=== PATIENT | male | born 1980 | race Caucasian/White ===

== ENCOUNTER 2017-05-27 08:17 | Inpatient (IN) | payer OTHER ==
[~2017-05-27] VITALS: Ht 182.9 cm; Wt 72.1 kg
[2017-05-27] VITALS (20 sets, daily range): BP systolic 100–124; BP diastolic 57–79; PULSE 71–103; TEMP 36.7–37.1; O2SAT 96–100; Ht 182.9 cm; Wt 72.1 kg
[2017-05-27 09:16] LABS: BUN/CREATININE RATIO 9.3 (10-20)
[2017-05-27 09:18] LABS: HEMATOCRIT 16.6 % (42-52); MEAN CELL VOLUME 60.6 fL (80-100); MEAN CORPUSCULAR HEMOGLOBIN 15.7 pg (25-34); MEAN CORPUSCULAR HGB CONC 25.9 g/dl (32-36); PLATELET COUNT 630 K/uL (130-400); RED BLOOD COUNT 2.74 M/uL (4.7-6.1); WHITE BLOOD COUNT 4.77 K/uL (4.8-10.8)
[2017-05-27 09:19] LABS: ALB/GLOB RATIO 1.3 (0.9-2)
--- NOTE | 2017-05-27 09:25 | DIAGNOSTIC IMAGING REPORT ---
CT OF THE HEAD WITHOUT CONTRAST CLINICAL HISTORY: dizzy hx of diaz's COMPARISON STUDY: No previous studies for comparison. CT DOSE: 788.63 mGycm TECHNIQUE: Helical axial images of the head were obtained without IV contrast. Automated exposure control was utilized for the study. A dose lowering technique was utilized adhering to the principles of ALARA. FINDINGS: No acute intracranial hemorrhage, midline shift or mass affect is present. Ventricular system is unremarkable. Basilar cisterns are patent. There are no extra-axial collections. Haley-white differentiation is maintained. There may be bilateral caudate nucleus atrophy. There are no findings to suggest acute dural sinus thrombosis or acute territorial infarct. There are no significant calvarial abnormalities. Visualized portions of the mastoid air cells are clear. There is mild mucosal thickening of the sinuses. IMPRESSION: 1. No acute intracranial findings. 2. 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 Electronically signed by: Aristides Reyes M.D. 05/27/2017 9:24 AM Dictated Date/Time: 05/27/2017 9:09 AM
--- NOTE | 2017-05-27 09:26 | DIAGNOSTIC IMAGING REPORT ---
CHEST 2 VIEWS ROUTINE CLINICAL HISTORY: Dizzy. COMPARISON STUDY: No previous studies for comparison. FINDINGS: Lung volumes are normal. No pneumothorax or pleural effusion is identified. Lungs are clear. Pulmonary vascularity is normal. Cardiomediastinal silhouette is normal. IMPRESSION: No acute cardiopulmonary findings. Electronically signed by: Aristides Reyes M.D. 05/27/2017 9:24 AM Dictated Date/Time: 05/27/2017 9:24 AM
[2017-05-27 09:31] LABS: ANISOCYTOSIS PRESENT; BASO % 2.7 %; BASO ABS # 0.13 K/uL (0-0.2); COMPLETE YES; EOS % 4.6 %; HYPOCHROMIA PRESENT; IG% 0.4 %; LYMPH % 41.7 %; LYMPH ABS # 1.99 K/uL (1.2-3.4); MONO % 10.5 %; NEUT % 40.1 %; POIKILOCYTOSIS PRESENT; POLYCHROMASIA 1+; SCHISTOCYTES 1+
--- NOTE | 2017-05-27 10:26 | EMERGENCY ROOM VISIT NOTE ---
History Report prepared by Amaibmarisel: Leonor Dewitt Under the Supervision of: Dr. Richie Ceballos M.D. First contact with patient: 08:30 Chief Complaint: DIZZY Stated Complaint: DIZZY, PALE, MITCHELL History of Present Illness The patient is a 36 year old male who presents to the Emergency Room with complaints of constant dizziness beginning 6 months ago. 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 He has been having dizziness and a headache that started about 6 months ago and has worsened over the last week. The patient states that his symptoms today are not significantly changed from how they have been for the past 6 months. He also notes that he often feels like "the room is spinning" and that he may fall down. The patient denies having any fever, chills, diarrhea, constipation, urinary symptoms, abdominal pain, blood in the stool, and any black stool. The patient also notes that he has been eating and drinking normally. He states that he has recently been having a hard time sleeping because he feeling anxious about work. The patient notes that he does not have a PCP. He has no history of anemia. Source of History: patient Onset: 6 months ago Position: other (generalized) Quality: other (dizziness) Timing: constant Associated Symptoms: + headache, No fevers, No chills, No diarrhea, No urinary symptoms Review of Systems All systems have been listed, reviewed, and are negative other than those previously mentioned. Please see Additional Medical History Sheet. Past Medical & Surgical Medical Problems: (1) No history of cancer (2) No known problems Family History Diabetes mellitus Social History Smoking Status: Never Smoker Alcohol Use: occasionally Drug Use: none Marital Status: single Occupation Status: employed Current/Historical Medications No Active Prescriptions or Reported Meds Allergies Coded Allergies: No Known Allergies (Unverified , 09/28/15) Physical Exam Vital Signs Date Time Temp Pulse Resp B/P (MAP) Pulse Ox O2 Delivery O2 Flow Rate FiO2 05/27/17 10:42 100 Room Air 05/27/17 10:13 85 18 116/72 100 Room Air 05/27/17 08:35 79 05/27/17 08:20 36.6 108 20 111/73 97 Room Air Physical Exam GENERAL: Patient awake, alert, oriented x 3. Patient follows commands. Patient does not appear toxic. Patient is adequately hydrated and well- nourished. SKIN: No erythema,cyanosis or rash. Pale. HEENT: Normal head, pupils equal, reactive to light and accommodation. Nystagmus. Ears normal. Oral cavity and posterior pharynx appear normal. Neck : Without adenopathy, no neck vein distention. LUNGS: Clear to auscultation. No wheezes, no rales, no rhonchi. HEART: No murmurs. No gallops. No rubs ABDOMEN: No masses, no rebound, no hepatomegaly or splenomegaly. EXTREMITIES: No signs of trauma. No pedal or pretibial edema. No calf or thigh tenderness. NEUROLOGIC: Cranial nerves II-XII within normal limits. No gross motor sensory function deficits. RECTAL: Normal rectal exam. No masses, no hemorrhoids, brown guaiac negative stool. Medical Decision & Procedures ER Provider Diagnostic Interpretation: Radiology results as stated below per my review and radiologist interpretation: CHEST 2 VIEWS ROUTINE FINDINGS: Lung volumes are normal. No pneumothorax or pleural effusion is identified. Lungs are clear. Pulmonary vascularity is normal. Cardiomediastinal silhouette is normal. IMPRESSION: No acute cardiopulmonary findings. Electronically signed by: Aristides Reyes M.D. CT OF THE HEAD WITHOUT CONTRAST FINDINGS: No acute intracranial hemorrhage, midline shift or mass affect is present. Ventricular system is unremarkable. Basilar cisterns are patent. There are no extra-axial collections. Haley-white differentiation is maintained. There may be bilateral caudate nucleus atrophy. There are no findings to suggest acute dural sinus thrombosis or acute territorial infarct. There are no significant calvarial abnormalities. Visualized portions of the mastoid air cells are clear. There is mild mucosal thickening of the sinuses. IMPRESSION: 1. No acute intracranial findings. 2. 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 Electronically signed by: Aristides Reyes M.D. 05/27/2017 9:24 AM Dictated Date/Time: 05/27/2017 9:09 AM Laboratory Results 05/27/17 08:43 Red Blood Count 2.74, Mean Corpuscular Volume 60.6, Mean Corpuscular Hemoglobin 15.7, Mean Corpuscular Hemoglobin Concent 25.9, Neutrophils (%) (Auto) 40.1, Lymphocytes (%) (Auto) 41.7, Monocytes (%) (Auto) 10.5, Eosinophils (%) (Auto) 4.6, Basophils (%) (Auto) 2.7, Neutrophils # (Auto) 1.91, Lymphocytes # (Auto) 1.99, Monocytes # (Auto) 0.50, Eosinophils # (Auto) 0.22, Basophils # (Auto) 0.13 05/27/17 08:43 Test 05/27/17 08:43 White Blood Count 4.77 K/uL (4.8-10.8) Red Blood Count 2.74 M/uL (4.7-6.1) Hemoglobin 4.3 g/dL (14.0-18.0) Hematocrit 16.6 % (42-52) Mean Corpuscular Volume 60.6 fL (80-100) Mean Corpuscular Hemoglobin 15.7 pg (25-34) Mean Corpuscular Hemoglobin Concent 25.9 g/dl (32-36) Platelet Count 630 K/uL (130-400) Neutrophils (%) (Auto) 40.1 % Lymphocytes (%) (Auto) 41.7 % Monocytes (%) (Auto) 10.5 % Eosinophils (%) (Auto) 4.6 % Basophils (%) (Auto) 2.7 % Neutrophils # (Auto) 1.91 K/uL (1.4-6.5) Lymphocytes # (Auto) 1.99 K/uL (1.2-3.4) Monocytes # (Auto) 0.50 K/uL (0.11-0.59) Eosinophils # (Auto) 0.22 K/uL (0-0.5) Basophils # (Auto) 0.13 K/uL (0-0.2) Immature Granulocyte % (Auto) 0.4 % Immature Granulocyte # (Auto) 0.02 K/uL (0.00-0.02) Polychromasia 1+ Hypochromasia PRESENT Poikilocytosis PRESENT Anisocytosis PRESENT Schistocytes 1+ Anion Gap 6.0 mmol/L (3-11) Est Creatinine Clear Calc Drug Dose 103.1 ml/min Estimated GFR () 110.2 Estimated GFR (Non- 95.1 BUN/Creatinine Ratio 9.3 (10-20) Calcium Level 9.0 mg/dl (8.5-10.1) Iron Level 12 mcg/dl (35-175) Total Iron Binding Capacity 447 mcg/dl (250-450) Total Bilirubin 0.3 mg/dl (0.2-1) Aspartate Amino Transf (AST/SGOT) 16 U/L (15-37) Alanine Aminotransferase (ALT/SGPT) 20 U/L (12-78) Alkaline Phosphatase 42 U/L (45-117) Total Protein 6.8 gm/dl (6.4-8.2) Albumin 3.9 gm/dl (3.4-5.0) Globulin 2.9 gm/dl (2.5-4.0) Albumin/Globulin Ratio 1.3 (0.9-2) Laboratory results as stated above per my review. ECG Indication: other (dizziness) Rate (beats per minute): 74 Rhythm: normal sinus Findings: no ectopy, other (minimal voltage criteria for LVH) ED Course 0831: Past medical records reviewed. The patient was evaluated in room B4. A complete history and physical examination was performed. 0946: I reevaluated and updated the patient on his results. 1022: Discussed the patient's case with Dr. Hightower of [facility] [place]. The patient will be evaluated for further management. 1035: Upon reevaluation, the patient is doing well. I discussed today's findings with the patient. He verbalized agreement of the treatment plan. I spoke with Dr. Hightower of the [facility] [place] Hospitalist Service to evaluate the patient for further management. Medical Decision Differential diagnosis included but is not limited to: acute flare up of Suzy's, anemia, metabolic disorder, infection, benign positional vertigo, vestibular neuronitis. The patient is here with dizziness but no true vertigo. This been getting worse over the past 6 months. Multiple labs, EKG and imaging were obtained. Please see above. The patient is severely anemic. Blood transfusion was started here in the ED. Consent was signed. I discussed findings with the patient and his mother. The patient will require further evaluation in the hospital. Exact cause of his anemia remains unknown. Medication Reconcilliation Current Medication List: was personally reviewed by me Blood Pressure Screening Patient's blood pressure: Normal blood pressure Blood pressure disposition: Did not require urgent referral Consults Time Called: 1015 Consulting Physician: Dr. Hightower - [facility] [place] Returned Call: [phone] Discussed the patient's case with Dr. Hightower of [facility] [place]. The patient will be evaluated for further management. Impression Primary Impression: Severe anemia Scribe Attestation The scribe's documentation has been prepared under my direction and personally reviewed by me in its entirety. I confirm that the note above accurately reflects all work, treatment, procedures, and medical decision making performed by me. Departure Information Dispostion Being Evaluated By Hospitalist Prescriptions No Active Prescriptions or Reported Meds Referrals No Doctor, Assigned (PCP) Patient Instructions My [facility]
[2017-05-27] MEDS ORDERED: POLYETHYLENE (MIRALAX) 17 GM PACK PO PRN (10:45)
[2017-05-27] MEDS ORDERED: ONDANSETRON INJ 2 MG/ML 2 ML VIAL IV PRN (10:45)
[2017-05-27] MEDS ORDERED: ZOLPIDEM TARTRATE 5 MG TAB PO PRN (10:45)
[2017-05-27] MEDS ORDERED: ALUMINUM/MAGNESIUM/SIMETH (MAALOX MAX) 30 ML UDC PO PRN (10:45)
[2017-05-27] MEDS ORDERED: MAGNESIUM HYDROXIDE SUSP 30 ML UDC PO PRN (10:45)
[2017-05-27] MEDS ORDERED: ACETAMINOPHEN 325 MG TAB PO PRN (10:45)
--- NOTE | 2017-05-27 11:55 | History and Physical ---
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 Pt states he has been intermittently dizzy for the past 6 months. This seems to be orthostatic in nature. Over the past week his dizziness has significantly worsened and he presented to the ER therefore. Initial labs were remarkable for microcytic anemia with a hemoglobin of 4.2. He denies any history of GI bleeding, iron deficiency and anemia in general. he has not had dark stools and denies any upper GI symptoms. His stool was guiac-negative on ER evaluation. The pt does not see anyone for his Suzy's disease presently. He is fully independent and maintains employment. Past Medical/Surgical History Suzy's disease Family History Diabetes mellitus Father with CAD/[place] Social History Works full time paramedic in a restaurant - does not smoke - occasional ETOH Smoking Status: Never Smoker Drug Use: none Marital Status: single Occupational Status: employed Multi-Drug Resistant Organisms History of MDRO: No Allergies Coded Allergies: No Known Allergies (Unverified , 09/28/15) Home Medications No Active Prescriptions or Reported Meds Review of Systems Constitutional: No fever, No chills, No sweats Eyes: No worsening of vision, No eye pain ENT: No hearing loss, No nasal symptoms Respiratory: No cough, No sputum, No wheezing Cardiovascular: No chest pain Abdomen: No pain, No nausea, No vomiting Musculoskeletal: No joint pain Genitourinary - Male: No hematuria, No dysuria, No urinary frequency, No urinary urgency Neurologic: + weakness, + vertigo Psychiatric: No depression symptoms Endocrine: No fatigue Hematologic / Lymphatic: No abnormal bleeding/bruising Integumentary: No rash Allergic / Immunologic: No environmental allergies Physical Exam Vital Signs Date Time Temp Pulse Resp B/P (MAP) Pulse Ox O2 Delivery O2 Flow Rate FiO2 05/27/17 11:15 36.8 78 21 114/79 100 05/27/17 10:59 36.8 82 18 120/74 100 05/27/17 10:42 100 Room Air 05/27/17 10:13 85 18 116/72 100 Room Air 05/27/17 08:35 79 05/27/17 08:20 36.6 108 20 111/73 97 Room Air General Appearance: + pertinent finding (Pale, thin, young male - no distress) Head: normocephalic, atraumatic Eyes: normal inspection, PERRL, EOMI ENT: normal ENT inspection, pharynx normal Neck: supple, no JVD Respiratory/Chest: chest non-tender, lungs clear, normal breath sounds Cardiovascular: regular rate, rhythm, no edema, no gallop Abdomen/GI: normal bowel sounds, non tender, soft Back: normal inspection, no CVA tenderness Extremities/Musculoskelatal: normal inspection, no calf tenderness, normal capillary refill 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, no motor/sensory deficits, alert, normal mood/affect, normal reflexes, oriented x 3 Skin: normal color, warm/dry, no rash Diagnostics Laboratory Results Results Past 24 Hours Test 05/27/17 08:43 05/27/17 10:33 Range/Units White Blood Count 4.77 4.8-10.8 K/uL Red Blood Count 2.74 4.7-6.1 M/uL Hemoglobin 4.3 14.0-18.0 g/dL Hematocrit 16.6 42-52 % Mean Corpuscular Volume 60.6 80-100 fL Mean Corpuscular Hemoglobin 15.7 25-34 pg Mean Corpuscular Hemoglobin Concent 25.9 32-36 g/dl Platelet Count 630 130-400 K/uL Neutrophils (%) (Auto) 40.1 % Lymphocytes (%) (Auto) 41.7 % Monocytes (%) (Auto) 10.5 % Eosinophils (%) (Auto) 4.6 % Basophils (%) (Auto) 2.7 % Neutrophils # (Auto) 1.91 1.4-6.5 K/uL Lymphocytes # (Auto) 1.99 1.2-3.4 K/uL Monocytes # (Auto) 0.50 0.11-0.59 K/uL Eosinophils # (Auto) 0.22 0-0.5 K/uL Basophils # (Auto) 0.13 0-0.2 K/uL Immature Granulocyte % (Auto) 0.4 % Immature Granulocyte # (Auto) 0.02 0.00-0.02 K/uL Polychromasia 1+ Hypochromasia PRESENT Poikilocytosis PRESENT Anisocytosis PRESENT Schistocytes 1+ Sodium Level 140 136-145 mmol/L Potassium Level 4.0 3.5-5.1 mmol/L Chloride Level 108 98-107 mmol/L Carbon Dioxide Level 26 21-32 mmol/L Anion Gap 6.0 3-11 mmol/L Blood Urea Nitrogen 9 7-18 mg/dl Creatinine 1.00 0.60-1.40 mg/dl Est Creatinine Clear Calc Drug Dose 103.1 ml/min Estimated GFR () 110.2 Estimated GFR (Non- 95.1 BUN/Creatinine Ratio 9.3 10-20 Random Glucose 112 70-99 mg/dl Calcium Level 9.0 8.5-10.1 mg/dl Total Bilirubin 0.3 0.2-1 mg/dl Aspartate Amino Transf (AST/SGOT) 16 15-37 U/L Alanine Aminotransferase (ALT/SGPT) 20 12-78 U/L Alkaline Phosphatase 42 45-117 U/L Total Protein 6.8 6.4-8.2 gm/dl Albumin 3.9 3.4-5.0 gm/dl Globulin 2.9 2.5-4.0 gm/dl Albumin/Globulin Ratio 1.3 0.9-2 Impression Assessment and Plan 36 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 Pt states he has been intermittently dizzy for the past 6 months. This seems to be orthostatic in nature. Over the past week his dizziness has significantly worsened and he presented to the ER therefore. Initial labs were remarkable for microcytic anemia with a hemoglobin of 4.2. He denies any history of GI bleeding, iron deficiency and anemia in general. he has not had dark stools and denies any upper GI symptoms. His stool was guiac-negative on ER evaluation. The pt does not see anyone for his Erie's disease presently. He is fully independent and maintains employment. 1) Anemia - microcytic - no evidence of bleeding - we will obtain an iron profile and consult both hematology and GI. He will be monitored on telemetry and is to receive 4 units PRBCs initially. 2) Suzy's disease - Pt is currently fully functional - unclear if this is related to his initial described dizziness which may be solely due to anemia - can f/u as outpt. Full code - SCDs total time for this admit including review of labs, meds, records - discussion with pt and ER attending - 40 min Advanced Directives Existing Living Will: No Existing Power of Service Writer: No VTE Prophylaxis VTE Risk Assessment Done? Y/N: Yes Risk Level: Low
[2017-05-27 12:01] LABS: TOTAL IRON BINDING CAPACITY 447 mcg/dl (250-450)
--- NOTE | 2017-05-27 13:57 | Oncology Consultation ---
Oncology/Heme Consultation Date of Consultation: May 27, 2017. Attending Physician: Gee Hightower M.D. Reason for Consultation: Microcytic anemia History of Present Illness Mr. Tripathi is a 36-year-old gentleman with a history of [place]'s chorea. He was admitted after several months of apparently feeling weak and dizzy. His hemoglobin was 4.3. MCV was low. White cell number and differential as well as platelet numbers are acceptable. Platelet number is actually a little increased. This is all consistent with iron deficiency anemia. He denies any overt bleeding. Denies any fever or chills or weight loss. He apparently does not take any medicines chronically. He denies taking aspirin or nonsteroidals. He has never had any GI problems in the past. Past Medical/Surgical History Medical Problems: (1) Severe anemia Status: Acute (2) Vomiting Status: Acute Family History Diabetes mellitus History of blood dyscrasias from what I can gather Social History Negative for significant smoking or alcohol usage. Smoking Status: Never Smoker Drug Use: none Marital Status: single Occupation Status: employed Allergies Coded Allergies: No Known Allergies (Unverified , 09/28/15) Home Medications No Active Prescriptions or Reported Meds Current Inpatient Medications Current Inpatient Medications Medications (Trade) Dose Ordered Sig/Ian Route Start Time Stop Time Status Last Admin Dose Admin Acetaminophen (Tylenol Tab) 650 mg Q4H PRN PO 05/27/17 10:45 06/26/17 10:44 Al Hydrox/Mg Hydrox/Simethicone (Maalox Max Susp) 15 ml Q4H PRN PO 05/27/17 10:45 06/26/17 10:44 Magnesium Hydroxide (Milk Of Magnesia Susp) 30 ml Q12H PRN PO 05/27/17 10:45 06/26/17 10:44 Zolpidem Tartrate (Ambien Tab) 5 mg HSZ PRN PO 05/27/17 10:45 06/26/17 10:44 Ondansetron HCl (Zofran Inj) 4 mg Q6H PRN IV 05/27/17 10:45 06/26/17 10:44 Polyethylene (Miralax Powder Packet) 17 gm DAILY PRN PO 05/27/17 10:45 06/26/17 10:44 Review of Systems Constitutional: Negative for weight loss, night sweats, or fever Eyes: Negative for event change of vision ENT: Negative for epistaxis, nasal discharge, sore throat, or deafness Cardiovascular: Negative for chest pain, palpitations, dizziness, diaphoresis Respiratory: Negative for new shortness of breath,hemoptysis, or purulent cough Gastrointestinal: Negative for diarrhea, hematemesis, melena, nausea, vomiting , or dyspepsia Integumentary (skin): Negative for rash or jaundice discoloration Genitourinary: Negative for urinary frequency, hematuria, or dysuria Neurological: Negative for weakness, seizure activity, headache, or dizziness Lymphatic/Hematologic: Negative for petechiae, bleeding or new adenopathy Musculoskeletal: Negative for new joint or back pain Allergic/Immunologic: Negative for unusual rash or pruritis. Physical Exam Date Time Temp Pulse Resp B/P (MAP) Pulse Ox O2 Delivery O2 Flow Rate FiO2 05/27/17 13:42 37.0 72 20 101/57 100 05/27/17 12:30 37.1 100 22 109/68 96 05/27/17 12:21 36.8 82 20 115/65 100 05/27/17 12:00 36.8 82 20 115/65 100 05/27/17 11:52 82 119/73 100 05/27/17 11:46 36.7 77 27 119/73 100 05/27/17 11:30 36.7 85 23 124/73 100 05/27/17 11:15 36.8 78 21 114/79 100 05/27/17 10:59 36.8 82 18 120/74 100 05/27/17 10:42 100 Room Air 05/27/17 10:13 85 18 116/72 100 Room Air 05/27/17 08:35 79 05/27/17 08:20 36.6 108 20 111/73 97 Room Air Constitutional: vitals are stable. He does appear pale Eyes: Eyes are ALLEGRA EOMI without conjuctival erythema or icterus. ENT: External examination was negative for masses. Neck: Negative for masses or palpable thyromegaly Respiratory: Lung sounds were generally clear bilaterally Cardiovascular: Heart was RRR without significant murmur, gallops aoe rubs Gastrointestinal: No palpable hepatic or splenomegaly. The abdomen was soft with normal bowel sounds. Lymphatic system: there was no palpable peripheral lymphadenopathy Musculoskeletal System: The musculoskeletal system seemed concordant with age. Skin: The skin was negative for jaundice. Neurologic exam: He does have some mild generalized athetosis Psychiatric exam: Was essentially negative with normal mood and effect. Extremities: Negative for edema erythema Laboratory Results Last 24 Hours Test 05/27/17 08:43 05/27/17 12:14 05/27/17 13:00 White Blood Count 4.77 K/uL Red Blood Count 2.74 M/uL Hemoglobin 4.3 g/dL Hematocrit 16.6 % Mean Corpuscular Volume 60.6 fL Mean Corpuscular Hemoglobin 15.7 pg Mean Corpuscular Hemoglobin Concent 25.9 g/dl Platelet Count 630 K/uL Neutrophils (%) (Auto) 40.1 % Lymphocytes (%) (Auto) 41.7 % Monocytes (%) (Auto) 10.5 % Eosinophils (%) (Auto) 4.6 % Basophils (%) (Auto) 2.7 % Neutrophils # (Auto) 1.91 K/uL Lymphocytes # (Auto) 1.99 K/uL Monocytes # (Auto) 0.50 K/uL Eosinophils # (Auto) 0.22 K/uL Basophils # (Auto) 0.13 K/uL Immature Granulocyte % (Auto) 0.4 % Immature Granulocyte # (Auto) 0.02 K/uL Polychromasia 1+ Hypochromasia PRESENT Poikilocytosis PRESENT Anisocytosis PRESENT Schistocytes 1+ Sodium Level 140 mmol/L Potassium Level 4.0 mmol/L Chloride Level 108 mmol/L Carbon Dioxide Level 26 mmol/L Anion Gap 6.0 mmol/L Blood Urea Nitrogen 9 mg/dl Creatinine 1.00 mg/dl Est Creatinine Clear Calc Drug Dose 103.1 ml/min Estimated GFR () 110.2 Estimated GFR (Non- 95.1 BUN/Creatinine Ratio 9.3 Random Glucose 112 mg/dl Calcium Level 9.0 mg/dl Iron Level 12 mcg/dl Total Iron Binding Capacity 447 mcg/dl Total Bilirubin 0.3 mg/dl Aspartate Amino Transf (AST/SGOT) 16 U/L Alanine Aminotransferase (ALT/SGPT) 20 U/L Alkaline Phosphatase 42 U/L Total Protein 6.8 gm/dl Albumin 3.9 gm/dl Globulin 2.9 gm/dl Albumin/Globulin Ratio 1.3 Vitamin B12 Level 496 pg/mL Folate 16.90 ng/mL Assessment & Plan Sever microcytic anemia consistent with iron deficiency. Serum ferritin should be done. A urinalysis if not done should also be completed. R/o of course GI blood loss. A GI consultation is pending. Obviously this anemia has occurred over a long period of time since he appears to have nicely hemodynamically compensated. He should be on oral iron at least ferrous sulfate 324-325 mg daily. We will arrange for follow-up in our clinic. He is currently being transfused. Little else to suggest at this time.
--- NOTE | 2017-05-27 18:38 | GASTROINTESTINAL CONSULTATION ---
DATE OF CONSULTATION: 05/27/2017 REQUESTING PHYSICIAN: Dr. Hightower. CHIEF COMPLAINT: Microcytic anemia of unclear origin. HISTORY OF PRESENT ILLNESS: Mr. Tripathi is a 36-year-old white male with a history of [place]'s chorea who does not have a medical care is unaware of any other medical diagnoses and takes no medications, who presents to the Emergency Room with increasing fatigue over the past several weeks. When further asked, he was dizzy intermittently and this may be as far as 6 months previous to today's ER visit. During ER evaluation, he was found to have a profound microcytic anemia with normal B12 and folic acid levels with decreased iron panel and was heme negative. The patient is unaware of any prior history of anemia, but does not see a doctor and has not done for many, many years. The patient has no GI symptoms. Specifically, he denies abdominal pain, nausea, vomiting, odynophagia, dysphagia, anorexia, weight loss, melena, bright red blood per rectum, maroon stools, coffee-ground emesis or hematemesis and denies dysuria. On occasion, he may have a loose stool, but this is not prolonged. There are no fever or chills. FAMILY HISTORY: Significant for coronary artery disease with his father, but otherwise he is unaware of any gastrointestinal disorders, history of celiac disease or other potential sources of blood loss that are familial. SOCIAL HISTORY: The patient works in a restaurant. He occasionally uses alcoholic beverages, perhaps once or twice a month. He does not use tobacco products. He is single. ALLERGIES: He has no known drug allergies. MEDICATIONS: He takes no home prescription or over the counter medications. PAST SURGICAL HISTORY: He denies any prior surgery. REVIEW OF SYSTEMS: Otherwise noncontributory based on 13-point exam except for mentioned above. The patient denies rashes, significant joint aches, palpitations, chest pain, shortness of breath, dysuria or hematuria, fevers or chills. PHYSICAL EXAMINATION: VITAL SIGNS: On admission in the Emergency Room, the patient was found to have a blood pressure of 111/73, 97% on room air, heart rate 108, afebrile at 36.8. GENERAL: The patient is awake, alert and oriented x3. HEENT: The sclerae are pale, but anicteric. Conjunctivae are clear. Oral mucosa is moist. HEART: Normal S1, S2. LUNGS: Clear to auscultation without wheezes or rhonchi. ABDOMEN: Soft, flat, nontender, nondistended with normal active bowel sounds. I do not appreciate hepatosplenomegaly. There is no evidence of ascites or shifting dullness or abdominal bruits. There is no organomegaly. EXTREMITIES: Without clubbing, cyanosis or edema. NEUROLOGIC: The patient has normal range of motion in all extremities and no focal neurologic defects. SKIN: The patient's skin is dry. LABORATORY STUDIES: Demonstrate white count 4.77, hemoglobin 4.3, hematocrit 16.6, MCV 60.6, platelets 630,000. There are features on peripheral smear consistent with iron deficiency with anisopoikilocytosis and hypochromasia. His kidney and electrolytes are satisfactory, BUN and creatinine 9 and 1.0, potassium 4.0, bicarbonate 26. LFTs also normal, total bilirubin 0.3, AST 16, ALT 20, total protein 6.8, albumin 3.9, alkaline phosphatase 42. IMPRESSION AND PLAN: Mr. Tripathi had a recent increasing fatigue with intermittent dizziness over the past many weeks and perhaps as long as 6 months. There are no gastrointestinal-related symptoms that would suggest a specific gastrointestinal blood loss and Hemoccult testing in the Emergency Room was negative. The source of this patient's iron deficiency is unclear. The patient reports no specific food restrictions or pica. Additionally, there is no description of any changes in stool patterns or blood loss. I made the following recommendations: We will plan for upper endoscopy and colonoscopy tomorrow after bowel prep this evening and n.p.o. after midnight except for ice chips and sips of water with meds. In addition, I have ordered celiac markers, given that the patient is heme positive with a profound microcytic anemia. Prior laboratory studies would be helpful, although these features seemed to be fairly classic for iron deficiency anemia and thalassemia is less likely, although at some point a hemoglobin electrophoresis may be of benefit if no sources of gastrointestinal or renal losses or poor absorption is identified. Further recommendations to follow. Iron supplements, either p.o. or IV and there are plans for transfusion this evening. All questions answered for the patient.
[2017-05-27] MEDS: LAVAGE SOLUTION 4000ML PO SCH ×2 (18:53→22:55)
[2017-05-27] MEDS ORDERED: LAVAGE SOLUTION 4000ML PO PRN (23:45)
[2017-05-28] VITALS: BP 124/78; PULSE 82; TEMP 36.8; O2SAT 98
[2017-05-28 03:43] VITALS: BP 118/81; PULSE 72; TEMP 36.8; O2SAT 98
[2017-05-28] MEDS: LAVAGE SOLUTION 4000ML PO SCH (04:57)
[2017-05-28 07:31] VITALS: BP 99/62; PULSE 79; TEMP 36.3; O2SAT 100
[2017-05-28 08:02] LABS: URINE APPEARANCE CLEAR (CLEAR); URINE BILIRUBIN NEG (NEG); URINE COLOR YELLOW; URINE NITRITE NEG (NEG); URINE SPECIFIC GRAVITY 1.008 (1.000-1.030); UROBILINOGEN NEG (NEG); ZZUR CULT IF INDIC CLEAN CATCH NO
[2017-05-28 08:24] LABS: MANUAL MICROSCOPIC REQUIRED? NO; REVIEW REQ? NO
[2017-05-28] MEDS ORDERED: SODIUM CHLORIDE 0.9% 500ML 500 ML IV SCH (08:30)
[2017-05-28 09:13] LABS: BUN/CREATININE RATIO 11.3 (10-20); CALCIUM 9.1 mg/dl (8.5-10.1); CREATININE 0.85 mg/dl (0.60-1.40); POTASSIUM 3.9 mmol/L (3.5-5.1)
--- NOTE | 2017-05-28 09:44 | Hematology/Oncology Prog Note ---
Hematology/Onc Progress Note Date of Service May 28, 2017. Diagnoses Iron deficiency anemia Medications Medications Administered Medications (Trade) Dose Ordered Sig/Ian Route Start Time Stop Time Status Last Admin Dose Admin Ondansetron HCl (Zofran Inj) 4 mg Q6H PRN IV 05/27/17 10:45 06/26/17 10:44 05/28/17 04:57 4 MG Polyethylene Glycol/ Electrolytes (Golytely Soln) 1 dose Q10M PO 05/27/17 16:45 05/27/17 23:00 DC 05/28/17 04:57 1 DOSE Subjective Seems to be doing well offers no new complaints Review of Systems: Constitutional: Negative for night sweats, or fever Eyes: Negative for event change of vision ENT: Negative for epistaxis, nasal discharge, sore throat, or deafness Cardiovascular: Negative for chest pain, palpitations, dizziness, diaphoresis Respiratory: Negative for new shortness of breath,hemoptysis, or purulent cough Gastrointestinal: Negative for diarrhea, hematemesis, melena, nausea, vomiting , or dyspepsia Integumentary (skin): Negative for rash or jaundice discoloration Genitourinary: Negative for urinary frequency, hematuria, or dysuria Neurological: Negative for weakness, seizure activity, headache, or dizziness Lymphatic/Hematologic: Negative for petechiae, bleeding or new adenopathy Musculoskeletal: Negative for new joint or back pain Allergic/Immunologic: Negative for unusual rash or pruritis. Vital Signs Vital Signs Past 12 Hours Date Time Temp Pulse Resp B/P (MAP) Pulse Ox O2 Delivery O2 Flow Rate FiO2 05/28/17 07:31 36.3 79 33 99/62 (74) 100 Room Air 05/28/17 04:30 Room Air 05/28/17 03:43 36.8 72 18 118/81 (93) 98 Room Air 05/28/17 00:15 Room Air 05/28/17 00:00 36.8 82 20 124/78 (93) 98 Room Air Physical Exam Constitutional: vitals are stable. Eyes: Eyes are ALLEGRA EOMI without conjuctival erythema or icterus. ENT: External examination was negative for masses. Neck: Negative for masses or palpable thyromegaly Respiratory: Lung sounds were generally clear bilaterally Cardiovascular: Heart was RRR without significant murmur, gallops aoe rubs Gastrointestinal: No palpable hepatic or splenomegaly. The abdomen was soft with normal bowel sounds. Lymphatic system: there was no palpable peripheral lymphadenopathy Musculoskeletal System: The musculoskeletal system seemed concordant with age. Skin: The skin was negative for jaundice. Neurologic exam: Athetoid movements consistent with underlying [place]'s Psychiatric exam: Was essentially negative with normal mood and effect. Extremities: Negative for edema erythema Laboratory Last 24 Hours Test 05/27/17 12:14 05/27/17 21:39 05/28/17 00:44 05/28/17 05:00 Vitamin B12 Level 496 pg/mL Folate 16.90 ng/mL Hemoglobin 8.0 g/dL 7.4 g/dL Lactate Dehydrogenase 165 U/L Stool Occult Blood NEGATIVE Test 05/28/17 07:30 05/28/17 08:36 Urine Color YELLOW Urine Appearance CLEAR Urine pH 7.0 Urine Specific [place] 1.008 Urine Protein NEG Urine Glucose (UA) NEG Urine Ketones NEG Urine Occult Blood NEG Urine Nitrite NEG Urine Bilirubin NEG Urine Urobilinogen NEG Urine Leukocyte Esterase NEG Sodium Level 141 mmol/L Potassium Level 3.9 mmol/L Chloride Level 108 mmol/L Carbon Dioxide Level 27 mmol/L Anion Gap 6.0 mmol/L Blood Urea Nitrogen 10 mg/dl Creatinine 0.85 mg/dl Est Creatinine Clear Calc Drug Dose 120.2 ml/min Estimated GFR () 128.1 Estimated GFR (Non- 110.5 BUN/Creatinine Ratio 11.3 Random Glucose 84 mg/dl Calcium Level 9.1 mg/dl Assessment & Plan Iron deficiency anemia For now we will transfuse to an adequate hemoglobin i.e. hemoglobin concentration of at least 9 g/dL. GI evaluation underway. We will arrange for a follow-up in our clinic in supply with parenteral iron as needed. He should be discharged on daily oral iron (ferrous sulfate 325 mg daily). We will sign off for now but please do not hesitate to reconsult if needed. He does not have thalassemia. Two prior CBCs reflect normal MCVs.
[2017-05-28 09:50] LABS: HEMATOCRIT 25.6 % (42-52); MEAN CELL VOLUME 68.4 fL (80-100); MEAN CORPUSCULAR HEMOGLOBIN 19.5 pg (25-34); MEAN CORPUSCULAR HGB CONC 28.5 g/dl (32-36); MEAN PLATELET VOLUME 8.4 fL (7.4-10.4); PLATELET COUNT 454 K/uL (130-400); RED BLOOD COUNT 3.74 M/uL (4.7-6.1); WHITE BLOOD COUNT 6.84 K/uL (4.8-10.8)
[2017-05-28] MEDS ORDERED: NURSING VERBAL MED ORDER ONE (10:00)
[2017-05-28 11:27] VITALS: BP 106/68; PULSE 68; TEMP 36.9; O2SAT 100
--- NOTE | 2017-05-28 13:44 | Hospitalist Progress Note ---
Hospitalist Progress Note Date of Service May 28, 2017. Subjective Pt evaluation today including: conversation w/ patient, physical exam, chart review, lab review, review of studies, review of inpatient medication list Patient seen and evaluated. Transfused 4 units blood yesterday. Reporting he is feeling well and verbalized no complaints. Completed bowel prep. Due for colonoscopy and EGD later today. He is not having CP, SOB, weakness, lightheadedness/dizziness Constitutional: No fever, No chills Respiratory: No cough, No shortness of breath Cardiovascular: No chest pain, No palpitations Abdomen: No pain, No nausea, No vomiting, No GI bleeding Musculoskeletal: No calf pain Male : No dysuria Medications Current Inpatient Medications Medications (Trade) Dose Ordered Sig/Ian Route Start Time Stop Time Status Last Admin Dose Admin Acetaminophen (Tylenol Tab) 650 mg Q4H PRN PO 05/27/17 10:45 06/26/17 10:44 Al Hydrox/Mg Hydrox/Simethicone (Maalox Max Susp) 15 ml Q4H PRN PO 05/27/17 10:45 06/26/17 10:44 Magnesium Hydroxide (Milk Of Magnesia Susp) 30 ml Q12H PRN PO 05/27/17 10:45 06/26/17 10:44 Zolpidem Tartrate (Ambien Tab) 5 mg HSZ PRN PO 05/27/17 10:45 06/26/17 10:44 Ondansetron HCl (Zofran Inj) 4 mg Q6H PRN IV 05/27/17 10:45 06/26/17 10:44 05/28/17 04:57 4 MG Polyethylene (Miralax Powder Packet) 17 gm DAILY PRN PO 05/27/17 10:45 06/26/17 10:44 Objective Vital Signs Date Time Temp Pulse Resp B/P (MAP) Pulse Ox O2 Delivery O2 Flow Rate FiO2 05/28/17 12:00 Room Air 05/28/17 11:27 36.9 68 20 106/68 (81) 100 Room Air 05/28/17 08:00 Room Air 05/28/17 07:31 36.3 79 33 99/62 (74) 100 Room Air 05/28/17 04:30 Room Air 05/28/17 03:43 36.8 72 18 118/81 (93) 98 Room Air 05/28/17 00:15 Room Air 05/28/17 00:00 36.8 82 20 124/78 (93) 98 Room Air 05/27/17 20:45 37.0 75 18 112/70 100 05/27/17 20:15 37.0 77 20 110/71 99 05/27/17 20:10 100 Room Air 05/27/17 19:45 36.9 71 21 116/73 100 05/27/17 19:15 36.9 72 18 116/75 100 05/27/17 19:01 36.8 78 19 113/68 97 05/27/17 18:46 36.9 79 20 121/60 99 05/27/17 16:25 37.0 71 18 100/63 98 05/27/17 16:15 37.0 82 20 100/63 99 05/27/17 16:00 Room Air 05/27/17 15:00 36.8 103 20 107/66 (80) 100 Room Air 05/27/17 13:51 36.8 82 18 114/64 100 05/27/17 13:42 37.0 72 20 101/57 100 Physical Exam General Appearance: no apparent distress, + thin Eyes: sclerae normal ENT: hearing grossly normal Neck: supple, no JVD, trachea midline Respiratory/Chest: lungs clear, normal breath sounds, no respiratory distress, no accessory muscle use Cardiovascular: regular rate, rhythm, no gallop, no murmur Abdomen: normal bowel sounds, non tender, soft Extremities: no pedal edema, no calf tenderness Neurologic/Psychiatric: alert, oriented x 3, + pertinent finding (+chorea ) Skin: normal color, warm/dry Laboratory Results Last 24 Hours Test 05/27/17 21:39 05/28/17 00:44 05/28/17 05:00 05/28/17 07:30 Hemoglobin 8.0 g/dL 7.4 g/dL Lactate Dehydrogenase 165 U/L Stool Occult Blood NEGATIVE Urine Color YELLOW Urine Appearance CLEAR Urine pH 7.0 Urine Specific [place] 1.008 Urine Protein NEG Urine Glucose (UA) NEG Urine Ketones NEG Urine Occult Blood NEG Urine Nitrite NEG Urine Bilirubin NEG Urine Urobilinogen NEG Urine Leukocyte Esterase NEG Test 05/28/17 08:36 White Blood Count 6.84 K/uL Red Blood Count 3.74 M/uL Hemoglobin 7.3 g/dL Hematocrit 25.6 % Mean Corpuscular Volume 68.4 fL Mean Corpuscular Hemoglobin 19.5 pg Mean Corpuscular Hemoglobin Concent 28.5 g/dl RDW Standard Deviation 65.3 fL RDW Coefficient of Variation 26.6 % Platelet Count 454 K/uL Mean Platelet Volume 8.4 fL Sodium Level 141 mmol/L Potassium Level 3.9 mmol/L Chloride Level 108 mmol/L Carbon Dioxide Level 27 mmol/L Anion Gap 6.0 mmol/L Blood Urea Nitrogen 10 mg/dl Creatinine 0.85 mg/dl Est Creatinine Clear Calc Drug Dose 120.2 ml/min Estimated GFR () 128.1 Estimated GFR (Non- 110.5 BUN/Creatinine Ratio 11.3 Random Glucose 84 mg/dl Calcium Level 9.1 mg/dl Assessment and Plan Mr. 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
[2017-05-28] MEDS ORDERED: LIDOCAINE HCL 2% 2 ML VIAL (20MG/ML) ONE (14:55)
[2017-05-28] MEDS ORDERED: PROPOFOL IV EMULSION 10 MG/ML 20 ML VIAL IV ONE (14:55)
--- NOTE | 2017-05-28 15:05 | Endo History and Physical ---
History & Physical Date of Service: May 28, 2017. Chief Complaint: anemia Referring Physician: Dr Pelletier History of Present Illness For EGD and colonoscopy Past Surgical History Hx Cardiac Surgery: No Hx Abdominal Surgery: No Hx Post-Op Nausea and Vomiting: No Hx Cancer Surgery: No Hx Thoracic Surgery: No Hx Orthopedic: Yes (KNEE) Hx Urinary Tract Surgery: No Social History Smoking Status: Never Smoker Hx Substance Use: No Hx Alcohol Use: Yes (OCC BEER) Allergies Coded Allergies: No Known Allergies (Unverified , 09/28/15) Current Medications Reported Home Medications Medications Dose Route/Sig Max Daily Dose Days Date Category No Active Prescriptions or Reported Medications Rx Vital Signs Weight (Kilograms): 72.100 Height (Feet): 6 Height (Inches): 0.00 Date Time Temp Pulse Resp B/P (MAP) Pulse Ox O2 Delivery O2 Flow Rate FiO2 05/28/17 14:26 36.7 69 16 117/76 (90) 100 Room Air 05/28/17 12:00 Room Air 05/28/17 11:27 36.9 68 20 106/68 (81) 100 Room Air 05/28/17 08:00 Room Air 05/28/17 07:31 36.3 79 33 99/62 (74) 100 Room Air 05/28/17 04:30 Room Air 05/28/17 03:43 36.8 72 18 118/81 (93) 98 Room Air 05/28/17 00:15 Room Air 05/28/17 00:00 36.8 82 20 124/78 (93) 98 Room Air 05/27/17 20:45 37.0 75 18 112/70 100 05/27/17 20:15 37.0 77 20 110/71 99 05/27/17 20:10 100 Room Air 05/27/17 19:45 36.9 71 21 116/73 100 05/27/17 19:15 36.9 72 18 116/75 100 05/27/17 19:01 36.8 78 19 113/68 97 05/27/17 18:46 36.9 79 20 121/60 99 05/27/17 16:25 37.0 71 18 100/63 98 05/27/17 16:15 37.0 82 20 100/63 99 05/27/17 16:00 Room Air 05/27/17 15:00 36.8 103 20 107/66 (80) 100 Room Air Physical Exam General Appearance: + thin Respiratory/Chest: Respiratory effort: no dyspnea Cardiovascular: Heart Auscultation: RRR Abdomen: Inspection & Palpation: soft Assessment and Plan Anemia for EGD and colonoscopy
[2017-05-28] MEDS ORDERED: PHENYLEPHRINE 100MCG/ML 5ML SYR ONE (15:24)
[2017-05-28] MEDS ORDERED: GLYCOPYRROLATE INJ 0.2 MG/ML VIAL ONE (15:28)
--- NOTE | 2017-05-28 15:46 | Discharge Instructions ---
Endoscopy Patient Instructions Date / Procedure(s) Performed May 28, 2017. Colonoscopy, EGD Allergy Information Coded Allergies: No Known Allergies (Unverified , 09/28/15) Discharge Date / Findings May 28, 2017. Normal EGD and Colon Medication Instructions Restart Stopped Medication(s): resume meds Current Inpatient Medications Medications (Trade) Dose Ordered Sig/Ian Route Start Time Stop Time Status Last Admin Dose Admin Acetaminophen (Tylenol Tab) 650 mg Q4H PRN PO 05/27/17 10:45 06/26/17 10:44 Al Hydrox/Mg Hydrox/Simethicone (Maalox Max Susp) 15 ml Q4H PRN PO 05/27/17 10:45 06/26/17 10:44 Magnesium Hydroxide (Milk Of Magnesia Susp) 30 ml Q12H PRN PO 05/27/17 10:45 06/26/17 10:44 Zolpidem Tartrate (Ambien Tab) 5 mg HSZ PRN PO 05/27/17 10:45 06/26/17 10:44 Ondansetron HCl (Zofran Inj) 4 mg Q6H PRN IV 05/27/17 10:45 06/26/17 10:44 05/28/17 04:57 4 MG Polyethylene (Miralax Powder Packet) 17 gm DAILY PRN PO 05/27/17 10:45 06/26/17 10:44 Provider Instructions Activity Restrictions - No exercising or heavy lifting for 24 hours. - Do not drink alcohol the day of the procedure. - Do not drive a car or operate machinery until the day after the procedure. - Do not make any important decisions or sign important papers in 24 hours after the procedure. Following Day: - Return to full activity which may include returning to work/school. Diet Start your diet with liquids and light foods (jello, soup, juice, toast). Then eat your usual diet if not nauseated. Treatment For Common After Affects For mild abdominal pain, bloating, or excessive gas: - Rest - Eat lightly - Lie on right side Follow-Up Information Follow-up with as scheduled Anesthesia Information What You Should Know You have had a procedure that required some medicine to reduce anxiety and discomfort. This treatment is called moderate sedation. After receiving the treatment, you may be sleepy, but you will be able to breathe on your own. The effects of the treatment may last for several hours. Follow these instructions along with Activity/Diet recommendations noted above: * Do NOT do anything where dizziness or clumsiness would be dangerous. * Rest quietly at home today, then you can be up and about tomorrow. * Have a responsible person stay with you the rest of today. * You may have had an I.V. today. If so, you may take the dressing off later today. Recommendations Call your doctor if: * Trouble breathing * Continuous vomiting for more than 24 hours * Temperature above 101 degrees * Severe abdominal pain or bloating * Pain not relieved by pain medicine ordered * There is increased drainage or redness from any incision * A large amount of rectal bleeding greater than 2-3 tablespoons. (If you had a polyp/s removed or have hemorrhoids, a small amount of blood - from the rectum is to be expected.) * You have any unanswered questions or concerns. IN THE EVENT OF A SERIOUS EMERGENCY, GO TO THE NEAREST EMERGENCY ROOM Your discharge instructions were prepared by provider Chirag Crowder. Patient Instructions Signature Page Marshal Tripathi Patient (or Guardian) Signature/Date: I have read and understand the instructions given to me by my caregivers. Caregiver/RN/Doctor Signature/Date: The above-named patient and/or guardian has received patient instructions on this date. + Original Patient Signature Page (only) stays with chart. Please make copy for patient.
--- NOTE | 2017-05-28 15:52 | GI REPORT ---
Procedure Date: 05/28/2017 3:08 PM Procedure: Upper GI endoscopy Indications: Iron deficiency anemia Medicines: Propofol total dose 430 mg IV, Lidocaine 80 mg IV, Neosynephrine 200 mcg IV, Robinul 0.4 mg IV Complications: No immediate complications. Estimated Blood Loss: Estimated blood loss was minimal. Procedure: Pre-Anesthesia Assessment: - Prior to the procedure, a History and Physical was performed, and patient medications, allergies and sensitivities were reviewed. The patient's tolerance of previous anesthesia was reviewed. - The risks and benefits of the procedure and the sedation options and risks were discussed with the patient. All questions were answered and informed consent was obtained. After obtaining informed consent, the endoscope was passed under direct vision. Throughout the procedure, the patient's blood pressure, pulse, and oxygen saturations were monitored continuously. The scope was introduced through the mouth, and advanced to the second part of duodenum. The upper GI endoscopy was accomplished without difficulty. The patient tolerated the procedure well. Findings: The examined esophagus was normal. The entire examined stomach was normal. The 2nd part of the duodenum was normal. Biopsies for histology were taken with a cold forceps for evaluation of celiac disease. Estimated blood loss was minimal. Impression: - Normal esophagus. - Normal stomach. - Normal 2nd part of the duodenum. Biopsied. Recommendation: - Return patient to [facility] for ongoing care. - Await pathology results. - Continue present medications. Chirag Crowder M.D. Chirag Crowder MD 05/28/2017 3:51:56 PM This report has been signed electronically. Note Initiated On: 05/28/2017 3:08 PM I attest to the content of the Intraoperative Record and orders documented therein, exceptions below
--- NOTE | 2017-05-28 15:55 | GI REPORT ---
Procedure Date: 05/28/2017 3:23 PM Procedure: Colonoscopy Indications: Iron deficiency anemia Medicines: Propofol total dose 430 mg IV, Lidocaine 80 mg IV, Neosynephrine 200 mcg IV, Robinul 0.4 mg IV Complications: No immediate complications. Estimated Blood Loss: Estimated blood loss: none. Procedure: Pre-Anesthesia Assessment: - Prior to the procedure, a History and Physical was performed, and patient medications, allergies and sensitivities were reviewed. The patient's tolerance of previous anesthesia was reviewed. - The risks and benefits of the procedure and the sedation options and risks were discussed with the patient. All questions were answered and informed consent was obtained. After I obtained informed consent, the scope was passed under direct vision. Throughout the procedure, the patient's blood pressure, pulse, and oxygen saturations were monitored continuously. The scope was introduced through the anus and advanced to the terminal ileum. The colonoscopy was technically difficult and complex due to poor bowel prep. The patient tolerated the procedure well. The quality of the bowel preparation was fair. Findings: The terminal ileum appeared normal. The entire examined colon appeared normal. Impression: - The examined portion of the ileum was normal. - The entire examined colon is normal. - No specimens collected. Recommendation: - Return patient to [facility] for ongoing care. - Continue present medications. Chirag Crowder M.D. Chirag Crowder MD 05/28/2017 3:55:12 PM This report has been signed electronically. Note Initiated On: 05/28/2017 3:23 PM I attest to the content of the Intraoperative Record and orders documented therein, exceptions below
--- NOTE | 2017-05-28 16:09 | PROGRESS NOTE ---
DATE: 05/28/2017 REASON FOR BEING SEEN: Severe iron deficiency anemia. HISTORY OF PRESENT ILLNESS: The patient is a 36, has severe iron deficiency anemia with heme negative stools and underwent an EGD and colonoscopy today. His EGD was normal. Duodenal biopsies were obtained to rule out celiac disease, although the villi appeared to be normal. There is no other upper GI source for blood loss. His colonoscopy unfortunately was suboptimal due to a poor prep, but I was able to get all the away through his colon and into the terminal ileum. There were multiple villi demonstrated in this terminal ileum pretty much ruling out the celiac disease as a potential cause for his anemia. In the colon, there were no diverticula, polyps, cancers, inflammation or other potential causes for blood loss. IMPRESSION: The patient has iron deficiency anemia with heme negative stools and no obvious source either on EGD or colonoscopy. Iron deficiency anemia that does not appear to be related to gastrointestinal blood loss. RECOMMENDATIONS: Recommend a hematology evaluation for further evaluation.
--- NOTE | 2017-05-28 16:18 | Anesthesiology Progress Note ---
Anesthesia Post Op Note Date & Time May 28, 2017 at 16:18 Vital Signs Pain Intensity: 0.0 Vital Signs Past 12 Hours Date Time Temp Pulse Resp B/P (MAP) Pulse Ox O2 Delivery O2 Flow Rate FiO2 05/28/17 16:05 92 16 100/64 (76) 98 Room Air 05/28/17 15:57 79 16 97/56 (70) 100 Room Air 05/28/17 15:50 67 12 89/50 (63) 100 Room Air 05/28/17 14:26 36.7 69 16 117/76 (90) 100 Room Air 05/28/17 12:00 Room Air 05/28/17 11:27 36.9 68 20 106/68 (81) 100 Room Air 05/28/17 08:00 Room Air 05/28/17 07:31 36.3 79 33 99/62 (74) 100 Room Air 05/28/17 04:30 Room Air Notes Mental Status: alert / awake / arousable, participated in evaluation Pt Amnestic to Procedure: Yes Nausea / Vomiting: adequately controlled Pain: adequately controlled Airway Patency, RR, SpO2: stable & adequate BP & HR: stable & adequate Hydration State: stable & adequate Anesthetic Complications: no major complications apparent
[2017-05-28 16:40] VITALS: BP 115/64; PULSE 75; TEMP 36.4; O2SAT 98
[2017-05-28 18:33] LABS: HEMATOCRIT 26.1 % (42-52)
[2017-05-28 19:03] VITALS: BP 107/72; PULSE 64; TEMP 36.5; O2SAT 100
[2017-05-29] VITALS (15 sets, daily range): BP systolic 103–120; BP diastolic 64–76; PULSE 69–86; TEMP 36.3–36.9; O2SAT 95–100
[2017-05-29 06:17] LABS: HEMATOCRIT 27.2 % (42-52); MEAN CORPUSCULAR HEMOGLOBIN 19.3 pg (25-34); MEAN CORPUSCULAR HGB CONC 27.9 g/dl (32-36); MEAN PLATELET VOLUME 8.8 fL (7.4-10.4); PLATELET COUNT 535 K/uL (130-400); RED BLOOD COUNT 3.94 M/uL (4.7-6.1); WHITE BLOOD COUNT 6.52 K/uL (4.8-10.8)
[2017-05-29 06:45] LABS: ANISOCYTOSIS PRESENT; BASO % 1.1 %; BASO ABS # 0.07 K/uL (0-0.2); COMPLETE YES; EOS % 3.7 %; HYPOCHROMIA PRESENT; LYMPH % 28.4 %; LYMPH ABS # 1.85 K/uL (1.2-3.4); MICROCYTOSIS PRESENT; MONO % 9.5 %; NEUT % 57.3 %; OVALOCYTES 1+; SCHISTOCYTES 1+; TEAR DROP CELLS 1+
[2017-05-29 06:46] LABS: BUN/CREATININE RATIO 12.7 (10-20); CALCIUM 9.2 mg/dl (8.5-10.1); CREATININE 0.84 mg/dl (0.60-1.40); MAGNESIUM 2.4 mg/dl (1.8-2.4); POTASSIUM 3.9 mmol/L (3.5-5.1)
[2017-05-29 14:38] LABS: HEMATOCRIT 26.1 % (42-52)
--- NOTE | 2017-05-29 15:30 | Progress Note ---
Subjective Date of Service: May 29, 2017. Subjective Pt evaluation today including: conversation w/ patient, conversation w/ family , physical exam, lab review, review of inpatient medication list Pain: no pain PO Intake: adequate Voiding: no voiding problems patient with no symptoms this AM, feels a lot better no bowel movements reviewed EGD - normal and colonoscopy - normal Hb was 7.6 this AM, d/w patient that we would recheck in the afternoon Hb 7.4 this afternoon, will transfuse one unit, transfer to medical d/c tomorrow Problem List Medical Problems: (1) Severe anemia Status: Acute (2) Vomiting Status: Acute Review of Systems All Other Systems: Reviewed and Negative Medications Current Inpatient Medications Medications (Trade) Dose Ordered Sig/Ian Route Start Time Stop Time Status Last Admin Dose Admin Acetaminophen (Tylenol Tab) 650 mg Q4H PRN PO 05/27/17 10:45 06/26/17 10:44 05/29/17 07:18 650 MG Al Hydrox/Mg Hydrox/Simethicone (Maalox Max Susp) 15 ml Q4H PRN PO 05/27/17 10:45 06/26/17 10:44 Magnesium Hydroxide (Milk Of Magnesia Susp) 30 ml Q12H PRN PO 05/27/17 10:45 06/26/17 10:44 Zolpidem Tartrate (Ambien Tab) 5 mg HSZ PRN PO 05/27/17 10:45 06/26/17 10:44 Ondansetron HCl (Zofran Inj) 4 mg Q6H PRN IV 05/27/17 10:45 06/26/17 10:44 05/28/17 04:57 4 MG Polyethylene (Miralax Powder Packet) 17 gm DAILY PRN PO 05/27/17 10:45 06/26/17 10:44 Objective Vital Signs Date Time Temp Pulse Resp B/P (MAP) Pulse Ox O2 Delivery O2 Flow Rate FiO2 05/29/17 15:20 36.9 80 24 113/71 (85) 100 Room Air 05/29/17 12:00 Room Air 05/29/17 11:42 36.7 72 15 117/76 (90) 100 Room Air 05/29/17 08:00 Room Air 05/29/17 07:16 36.4 77 14 106/67 (80) 98 Room Air 05/29/17 04:00 36.7 82 20 118/64 (82) 96 Room Air 05/29/17 04:00 96 Room Air 05/29/17 00:01 97 Room Air 05/29/17 00:00 36.6 84 20 110/67 (81) 97 Room Air 05/28/17 20:00 Room Air 05/28/17 19:03 36.5 64 26 107/72 (84) 100 Room Air 05/28/17 16:40 Room Air 05/28/17 16:40 36.4 75 20 115/64 (81) 98 Room Air 05/28/17 16:20 88 16 103/69 (80) 100 Room Air 05/28/17 16:05 92 16 100/64 (76) 98 Room Air 05/28/17 15:57 79 16 97/56 (70) 100 Room Air 05/28/17 15:50 67 12 89/50 (63) 100 Room Air Physical Exam General Appearance: WD/WN, no apparent distress Neck: supple, no adenopathy, no JVD, trachea midline Respiratory/Chest: chest non-tender, lungs clear, normal breath sounds, no respiratory distress, no accessory muscle use Cardiovascular: regular rate, rhythm, no edema, no gallop, no JVD, no murmur Abdomen: normal bowel sounds, non tender, soft, no organomegaly Extremities: normal range of motion, non-tender, normal inspection, no pedal edema, no calf tenderness, pelvis stable Neurologic/Psychiatric: evp sales II-XII nml as tested, no motor/sensory deficits, alert, normal mood/affect, oriented x 3 Skin: normal color, warm/dry, no rash Laboratory Results Last 24 Hours Test 05/28/17 17:05 05/29/17 05:38 05/29/17 12:52 Hemoglobin 7.5 g/dL 7.6 g/dL 7.4 g/dL Hematocrit 26.1 % 27.2 % 26.1 % White Blood Count 6.52 K/uL Red Blood Count 3.94 M/uL Mean Corpuscular Volume 69.0 fL Mean Corpuscular Hemoglobin 19.3 pg Mean Corpuscular Hemoglobin Concent 27.9 g/dl Platelet Count 535 K/uL Mean Platelet Volume 8.8 fL Neutrophils (%) (Auto) 57.3 % Lymphocytes (%) (Auto) 28.4 % Monocytes (%) (Auto) 9.5 % Eosinophils (%) (Auto) 3.7 % Basophils (%) (Auto) 1.1 % Neutrophils # (Auto) 3.74 K/uL Lymphocytes # (Auto) 1.85 K/uL Monocytes # (Auto) 0.62 K/uL Eosinophils # (Auto) 0.24 K/uL Basophils # (Auto) 0.07 K/uL RDW Standard Deviation 66.7 fL RDW Coefficient of Variation 27.3 % Immature Granulocyte % (Auto) 0.0 % Immature Granulocyte # (Auto) 0.00 K/uL Hypochromasia PRESENT Anisocytosis PRESENT Microcytosis PRESENT Tear Drop Cells 1+ Ovalocytes 1+ Schistocytes 1+ Sodium Level 142 mmol/L Potassium Level 3.9 mmol/L Chloride Level 108 mmol/L Carbon Dioxide Level 28 mmol/L Anion Gap 6.0 mmol/L Blood Urea Nitrogen 11 mg/dl Creatinine 0.84 mg/dl Est Creatinine Clear Calc Drug Dose 121.6 ml/min Estimated GFR () 128.7 Estimated GFR (Non- 111.1 BUN/Creatinine Ratio 12.7 Random Glucose 83 mg/dl Calcium Level 9.2 mg/dl Magnesium Level 2.4 mg/dl Assessment and Plan 36 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, fully independent, presented with increased dizziness, Hb 4.5 - Severe microcytic anemia, iron deficiency: Hb 4, improved to 7.3 after 4 units , was 7.6 this AM but now 7.4 will transfuse one more unit today, transfer to medical floor ferritin extremely low at 0.9 hematology recommends Ferrous Sulfate 325mg daily, follow up for infusions EGD normal, duodenal biopsies taken to r/o celiac disease colonoscopy normal - Iron deficiency: oral supplements on discharge follow up with hematology as outpatient - [place]'s chorea: stable, lives independently transfer to [facility], repeat H/H tomorrow AM, likely d/c home Continued [facility] stay due to: multiple IV medications needed Discharge planning: home
[2017-05-29] MEDS ORDERED: FERROUS SULFATE 325 MG TAB PO ONE (16:00)
[2017-05-30 07:34] LABS: HEMATOCRIT 28.1 % (42-52)
[2017-05-30 07:48] VITALS: BP 119/76; PULSE 76; TEMP 36.5; O2SAT 100
[2017-05-30] MEDS ORDERED: FRRS300 PO (08:11)
--- NOTE | 2017-05-30 08:22 | Discharge Instructions ---
Discharge Instructions Date of Service May 30, 2017. Admission Reason for Admission: Severe Anemia Discharge Discharge Diagnosis / Problem: Microcytic anemia, severe iron deficiency Discharge Goals Goal(s): Improve disease control, Therapeutic intervention (iron transfusions) Activity Recommendations Activity Limitations: resume your previous activity Lifting Limitations: none Exercise/Sports Limitations: as tolerated Shower/Bathe: no limitations Driving or Machine Use: no limitations . Instructions / Follow-Up Instructions / Follow-Up Medications: - FERROUS SULFATE: take 325mg once a day, this can cause stools to become darker and can cause some constipation, stay well hydrated and eat fiber in diet Iron deficiency anemia: transfused total of 5 units of packed red blood cells, Hb up to 8.4 today Ferritin very low at 0.9, continue to take iron supplements follow up with Dr. Vigil with hematology to arrange iron transfusions FOLLOW UP - Dr. Vigil in one week to set up iron transfusions, call his office tomorrow Current Hospital Diet Patient's current hospital diet: Regular Diet Discharge Diet Recommended Diet: Regular Diet Procedures Procedures Performed: EGD with biopsy Colonoscopy Pending Studies Studies pending at discharge: yes List of pending studies: pathology from biopsy of duodenum Medical Emergencies . Who to Call and When: Medical Emergencies: If at any time you feel your situation is an emergency, please call 911 immediately. . Non-Emergent Contact Non-Emergency issues call your: Oncologist Contact Number: Call Non-Emergent contact if: you have any medication questions . . "Provider Documentation" section prepared by Jermaine Pelletier. . VTE Core Measure Inpt VTE Proph given/why not?: Treatment not indicated [place] Drug Monitoring Program Search Results: no issues identified
[2017-05-30] MEDS ORDERED: FERROUS SULFATE 325 MG TAB PO SCH (09:00)
[2017-05-30 09:37] VITALS: BP 119/76; PULSE 76; TEMP 36.5; O2SAT 100
--- NOTE | 2017-05-30 11:14 | Discharge Summary ---
Discharge Summary Date of Service May 30, 2017. Discharge Summary Admission Date: May 27, 2017 at 10:51 Discharge Date: May 30, 2017 Discharge Disposition: Home Principal Diagnosis: Severe iron deficiency anemia, symptomatic Problems/Secondary Diagnoses: Suzy's chorea Procedures: EGD - normal, duodenal biopsies taken Colonoscopy - normal Consultations: Gastroenterology Hematology Medication Reconciliation New Medications: Ferrous Sulfate (Ferrous Sulfate) 325 Mg Tab 325 MG PO QAM, #30 TAB 3 Refills Discharge Exam Patient feeling well, tolerated transfusion yesterday, Hb 8.4 this AM. Vitals stable, no dizziness, he feels ready to go home. Reviewed importance of taking iron, warned about constipation. Instructed to follow up with Dr. Vigil for iron infusions. Review of Systems: Constitutional: No fever, No chills, No sweats, No weight loss, No weakness , No fatigue, No problem reported Eyes: No worsening of vision, No eye pain, No redness, No discharge, No diplopia, No problem reported ENT: No hearing loss, No unusual epistaxis, No nasal symptoms, No sore throat, No tinnitus, No dental problems, No trouble swallowing, No problem reported Respiratory: No cough, No sputum, No wheezing, No shortness of breath, No dyspnea on exertion, No dyspnea at rest, No hemoptysis, No problem reported Cardiovascular: No chest pain, No orthopnea, No PND, No edema, No claudication, No palpitations, No problem reported Abdomen: No pain, No nausea, No vomiting, No diarrhea, No constipation, No GI bleeding, No problem reported Musculoskeletal: No joint pain, No muscle pain, No swelling, No calf pain, No problem reported Genitourinary - Male: No hematuria, No dysuria, No urinary frequency, No urinary urgency Neurologic: No memory loss, No paralysis, No weakness, No numbness/tingling , No vertigo, No balance problems, No problem reported Endocrine: No fatigue, No excessive thirst, No excessive urination, No problem reported Hematologic / Lymphatic: No abnormal bleeding/bruising, No clotting problems , No swollen lymph nodes, No night sweats, No problem reported Integumentary: No rash, No itch, No new/changing skin lesions, No color change, No bleeding, No problem reported Physical Exam: General Appearance: WD/WN, no apparent distress Eyes: normal inspection, EOMI, sclerae normal ENT: normal ENT inspection, hearing grossly normal, pharynx normal Neck: supple, no adenopathy, no JVD, trachea midline Respiratory/Chest: chest non-tender, lungs clear, normal breath sounds, no respiratory distress, no accessory muscle use Cardiovascular: regular rate, rhythm, no edema, no gallop, no JVD, no murmur , normal peripheral pulses Abdomen / GI: normal bowel sounds, non tender, soft, no organomegaly Extremities: normal inspection, no calf tenderness, normal capillary refill , no pedal edema, normal range of motion, pelvis stable Neurologic/Psychiatric: curriculum director II-XII nml as tested, no motor/sensory deficits , alert, normal mood/affect, normal reflexes, oriented x 3 Skin: normal color, warm/dry, no rash Lymphatic: no adenopathy Hospital Course 36 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, fully independent, presented with increased dizziness, Hb 4.5 - Severe microcytic anemia, iron deficiency: Hb 4, improved to 7.3 after 4 units , was 7.6 but then slightly down to 7.4 transfused a 5th unit on 05/29, Hb 8.4 this AM, stable for discharge ferritin extremely low at 0.9 hematology recommends Ferrous Sulfate 325mg daily, follow up for infusions EGD normal, duodenal biopsies taken to r/o celiac disease colonoscopy normal - Iron deficiency: oral supplements on discharge follow up with hematology as outpatient - [place]'s chorea: stable, lives independently d/c to home today Total Time Spent: Greater than 30 minutes This includes examination of the patient, discharge planning, medication reconciliation, and communication with other providers. Discharge Instructions Please refer to the electronic Patient Visit Report (Discharge Instructions) for additional information. Follow-Up Dr. Vigil in 7-10 days to set up iron transfusions Additional Copies To Ryan Vigil D.O.; Chirag Crowder M.D.
[2017-05-30 15:31] LABS: IGA SERUM 253 mg/dL (81-463); TIS TRANS IGA 1 U/mL (<4)
[2017-06-01 21:42] LABS: GLIADIN DEAMIDATED IgA AB 5 UNITS (<20); GLIADIN DEAMIDATED IgG AB 3 UNITS (<20); RETICULIN IgA AB Negative (Negative)
== END 2017-05-30 10:49 | disposition home or self-care (01) | DRG 812 ==
LOC: C.EDB 08:18 → C.2E 10:51 → EDBEDREQ 10:54 → ENRESERV 11:32 → C.MS2W 05-29 17:18
PROVIDERS: ADMIT Internal Medicine; ATTEND Internal Medicine
PROC: 0DJD8ZZ Inspection of Lower Intestinal Tract, Via Natural or Artificial Opening Endoscopic (ICD-10-PCS; principal; 2017-05-28 14:30)
PROC: 0DJ08ZZ Inspection of Upper Intestinal Tract, Via Natural or Artificial Opening Endoscopic (ICD-10-PCS; principal; 2017-05-28 14:30)
DX: D50.9 Iron deficiency anemia, unspecified (principal); G10 Huntington's disease; Z83.3 Family history of diabetes mellitus

== ENCOUNTER → 2017-12-16 | Day surgery (SDC) | payer OTHER ==
[~2017-12-16] VITALS: Ht 182.9 cm; Wt 75.5 kg
[~2017-12-16] MED LIST: AMOX875T PO; ATROPINE SULFATE 0.1 MG/ML 5ML SYR IV PRN; BACITRACIN OINT 15 GM TUBE TOP ONE; DEXAMETHASONE SOD INJ 4 MG/ML VIAL ONE; EpHEDrine SULFATE INJ 50 MG/ML AMP IV PRN; EpINEphrine HCL INJ 1 MG/ML 1ML SYRINGE ONE; FENTANYL CITRATE INJ 50 MCG/1 ML 2 ML VIAL IV PRN; FENTANYL CITRATE INJ 50 MCG/1 ML 2 ML VIAL ONE; FERR325T5 PO; GELATIN SPONGE 12-7MM ONE; LACTATED RINGER'S 1000ML 1,000 ML IV SCH; LIDO 2%/EPINEPHRINE 1:100000 20 ML VIAL INFIL ONE; LIDOCAINE 4% MPF SOAK 5 ML = 1 DOSE TOP ONE; LIDOCAINE HCL 2% 2 ML VIAL (20MG/ML) ONE; MIDAZOLAM HCL 1 MG/ML 2ML VIAL ONE; ONDANSETRON INJ 2 MG/ML 2 ML VIAL IV PRN; ONDANSETRON INJ 2 MG/ML 2 ML VIAL ONE; OXYC-57 PO; OXYCODONE/ACETAMINOPHEN 5-325 TAB PO PRN; PROPOFOL IV EMULSION 10 MG/ML 20 ML VIAL IV ONE; SODIUM CHLORIDE 0.9% 1000ML 1,000 ML IV SCH; TRAM37.52 PO
--- NOTE | 2017-12-16 08:06 | History and Physical: Surg Cnt ---
History & Physical Date Dec 16, 2017. Chief Complaint broken nose History of Present Illness The patient is a 37 year old male with complaints of injury to nose at work, blocked Past Medical/Surgical History Medical Problems: (1) No history of cancer (2) No known problems Additional History Hepatic Disease: No Endocrine Disorder: No Kidney Disease: No Hypertension: No Heart Disease: No Bleeding Tendencies: No Infectious Diseases: No Allergies Coded Allergies: No Known Allergies (Unverified , 09/28/15) Home Medications Scheduled Ferrous Sulfate (Ferrous Sulfate), 325 MG PO QAM Scheduled PRN Oxycodone/Acetaminophen 5MG/325MG (Percocet 5MG/325MG), 1 TAB PO Q4H PRN for Pain Physical Examination Skin: warm/dry, no rash Eyes: normal inspection, EOMI, sclerae normal ENT: normal ENT inspection, pharynx normal Head: normocephalic, atraumatic Neck: supple, no adenopathy, trachea midline Respiratory/Chest: lungs clear, normal breath sounds, no respiratory distress Cardiovascular: regular rate, rhythm, no edema, no murmur Abdomen / GI: normal bowel sounds, non tender Back: normal inspection Extremities: normal inspection, normal range of motion Neurologic/Psych: no motor/sensory deficits, alert, normal reflexes, oriented x 3 Diagnosis nasal and septal fracture Plan of Treatment closed reduction and septoplasty
[2017-12-16 09:52] VITALS: Ht 182.9 cm; Wt 75.5 kg
--- NOTE | 2017-12-16 12:20 | Discharge Instructions-SurgCtr ---
Discharge Instructions Date of Service Dec 16, 2017. Visit Reason for Visit: Nasal & Septal Fracture Discharge Discharge Diagnosis / Problem: same Discharge Goals Goal(s): Improve function, Therapeutic intervention Activity Recommendations Activity Limitations: resume your previous activity Anesthesia . Post Anesthesia Instructions: If you have had General Anesthesia or IV Sedation: * Do not drive today. * Resume driving when surgeon permits. * Do not make important decisions or sign legal documents today. * Call surgeon for: 1. Temperature elevations greater than 101 degrees F. 2. Uncontrollable pain. 3. Excessive bleeding. 4. Persistent nausea and vomiting. 5. Medication intolerance (nausea, vomiting or rash). * For nausea and vomiting use only clear liquids such as: tea, soda, bouillon until nausea subsides, then gradually increase diet as tolerated. * If you have any concerns or questions, call your surgeon's office. If physician is unavailable and it is an emergency, call 911 or go to the nearest emergency room. . Instructions / Follow-Up Instructions / Follow-Up ACTIVITY RECOMMENDATIONS: * Being up and around is good, but no strenuous activity, heavy lifting or physical exertion for one week. * Keep your head elevated 30 degrees when lying down or sleeping. * Do not blow your nose for 48 hours, sniff back instead. * Avoid hot showers. OVER THE COUNTER MEDICATIONS: * You may use Tylenol * Avoid aspirin or aspirin containing products, e.g. as they may increase bleeding. SPECIAL CARE INSTRUCTIONS: * Expect to have bloody drainage from your nose and/or down your throat for one to three days. Change drip pad as needed. * Begin irrigating your nose with saline solution today, at least six to ten times per day and sniff back to help remove old clots or crust. * You may experience nasal and facial congestion, pain and pressure, this is normal. * Please call with any significant and/or progressive pain, redness, swelling around the eyes, visual changes, fever of 101.5 degrees F, active bleeding or any problems or concerns. * If active bleeding occurs, spray the nose three times at one minute intervals with Afrin spray and call or cell phone: . If unable to reach the doctor, go to the nearest Emergency Department. Special Diet: * Avoid extremely hot fluids. FOLLOW UP VISIT: Follow-up Visit with Dr. Strauss If not already scheduled, please call to schedule. Diet Recommendations Home Diet: no limitations Pending Studies Studies pending at discharge: no Medical Emergencies . Who to Call and When: Medical Emergencies: If at any time you feel your situation is an emergency, please call 911 immediately. . Non-Emergent Contact Non-Emergency issues call your: Primary Care Provider . . "Provider Documentation" section prepared by Willow Strauss. . [place] Drug Monitoring Program Search Results: no issues identified
--- NOTE | 2017-12-16 13:05 | [facility] Post Operative Brief Note ---
Immediate Operative Summary Operative Date Dec 16, 2017. Pre-Operative Diagnosis Nasal and Septal Fracture Post-Operative Diagnosis same Procedure(s) Performed Septoplasty, Closed Reduction Nasal Fracture Surgeon Dr. Noel Strauss Drawing Kiln Supervisor Surgeon(s) 0 Estimated Blood Loss 15 Findings Consistent with Post-Op Diagnosis Specimens none Drains None Anesthesia Type General Complication(s) none Disposition Accompanied Pt To Recovery: yes Disposition: Recovery Room / PACU
--- NOTE | 2017-12-16 13:16 | [facility] Operative Report ---
Operative Report Operative Date Dec 16, 2017. Pre-Operative Diagnosis Nasal and Septal Fracture Post-Operative Diagnosis same Procedure(s) Performed Septoplasty, Closed Reduction Nasal Fracture Surgeon Dr. Noel Strauss Watch Inspector Final Movement Surgeon(s) 0 Estimated Blood Loss 15 Specimens none Drains None Anesthesia Type General Complication(s) none Disposition yes Recovery Room / PACU Indications Is a 37-year-old male who fell against a sink at work injuring his nose and complained of nasal obstruction Description of Procedure The patient was brought to the operating room placed in the supine position and general and general anesthesia was induced using the LMA. He was prepped and draped in the usual sterile manner. The nose was decongested using cottonoids with a topical solution of 4 cc of 4% Xylocaine mixed with 1 cc of epinephrine. Injection 2% Xylocaine with 1-100,000 strength epinephrine was also used. The dorsum of the nose was deviated to the left this was pushed back to the midline manually and the right nasal bone was elevated using a padded Hubbard elevator. The left hemitransfixion incision was made and mucoperichondrium was elevated off the left side of the septum creating superior and inferior tunnels and also bilateral posterior tunnels after the cartilage from the vomer maxillary crest and from the perpendicular plate of the ethmoid. Septal hematoma was encountered and evacuated at the fracture site at the perpendicular plated ethmoid and also anteriorly where the quadrangular cartilage was acutely angulated to the right. The deviated portion of the perpendicular plate of the ethmoid along with a portion of the vomer maxillary crest was removed using the osteotome, the Alcon-Manjeet rongeurs, and the Mt forceps. A strip of cartilage was removed from inferiorly to allow it to straighten. The caudal end of the septum was also straightened. The septum was closed using a continuous mattress suture of 4 oh plain gut placing the caudal end of the septum into a columellar pocket. Anterior packing of Gelfoam was placed and a Marcellus splint was placed on the dorsum of the nose. The patient tired procedure well and was taken recovery area in satisfactory condition. I attest to the content of the Intraoperative Record and any orders documented therein. Any exceptions are noted below.
--- NOTE | 2017-12-16 13:48 | Anesthesia Progress Nt - [facility] ---
Anesthesia Post Op Note Date & Time Dec 16, 2017 at 13:48 Vital Signs Pain Intensity: 0 Vital Signs Past 12 Hours Date Time Temp Pulse Resp B/P (MAP) Pulse Ox O2 Delivery O2 Flow Rate FiO2 12/16/17 13:41 137/81 12/16/17 13:39 76 21 12/16/17 13:39 74 21 98 12/16/17 13:36 126/86 12/16/17 13:34 66 12 12/16/17 13:34 66 12 100 12/16/17 13:31 115/81 12/16/17 13:29 69 19 12/16/17 13:29 69 19 100 12/16/17 13:26 115/78 12/16/17 13:24 66 16 12/16/17 13:24 66 16 100 12/16/17 13:21 117/79 12/16/17 13:20 117/84 12/16/17 13:19 36.6 76 16 117/84 100 Humidified Oxygen 6 Diffusion Mask 12/16/17 09:58 36.3 75 18 111/72 (85) 98 Room Air Notes Mental Status: alert / awake / arousable, participated in evaluation Pt Amnestic to Procedure: Yes Nausea / Vomiting: adequately controlled Pain: adequately controlled Airway Patency, RR, SpO2: stable & adequate BP & HR: stable & adequate Hydration State: stable & adequate Anesthetic Complications: no major complications apparent
[2017-12-16 13:55] VITALS: TEMP 36.6
[2017-12-16 14:23] VITALS: BP 124/77; PULSE 62; O2SAT 100
== END | disposition home or self-care (01) ==
LOC: X.SURG 09:17
PROVIDERS: ATTEND Otolaryngology
DX: S02.2XXA Fracture of nasal bones, initial encounter for closed fracture (principal); X58.XXXA Exposure to other specified factors, initial encounter

== ENCOUNTER 2022-04-30 10:54 | Inpatient (IN) ==
[2022-04-30] MEDS ORDERED: LORazepam 1 MG/1 ML SYR IM STA (11:15)
--- NOTE | 2022-04-30 11:50 | XRay Report ---
KUB CLINICAL HISTORY: Constipation. FINDINGS: An AP, portable, supine abdominal radiograph is correlated with abdominal CT dated 04/25/2022 . The examination is degraded by motion artifact. A gastrostomy tube projects over the stomach. No olivia wel obstruction is seen. There is mild colonic fecal retention. No evidence of intraperitoneal free a ir is seen on this supine image. There are no abnormal abdominal calcifications. The bony structures appear intact. The lung bases are clear as imaged. IMPRESSION: No acute abnormality is identified. Electronically signed by: Armando Albright M.D. 04/30/2022 11:49 AM
--- NOTE | 2022-04-30 12:34 | Emergency Department Note ---
Impression & Plan Suzy's disease, Ambulatory dysfunction, Multiple falls ED Provider Note CHIEF COMPLAINT: Fall HISTORY OF PRESENT ILLNESS: Marshal Tripathi is a 41 year old male with history of Suzy's chorea who presents to the Emergency Department via EMS for evaluation with his adoptive mother for evaluation after suffering a fall just prior to arrival. Per mother, who is his primary careers adviser, the patient's tremors have become much worse which has caused him to suffer several falls over the past few weeks. Today, she states that he fell out of his chair. He did hit the back of his head but she denies loss of consciousness. As the patient's mother was unable to help him off of the floor, EMS was called and brought him to the ED for further evaluation. Of note, the patient was recently seen in the ED on 04/25/22. He had a feeding tube placed about a week prior to that visit and there were concerns for possible infection as he had been vomiting and had a fever. During that visit he was treated empirically with IV cefepime, though workup was otherwise negative other than noted constipation on his CT abdomen. Mother was instructed to give suppositories and to hold off on tube feeds until he had a bowel movement. Per mother, the patient has not yet had a bowel movement and she has subsequently not been giving him tube feeds since then. He has been eating small amounts of yogurt but otherwise has not had very little intake. Mother was concerned as he appears to be "withering away". She does state that his fevers and vomiting have improved. The patient is able to answer some yes or no questions, otherwise unable to provide additional history. He denies specific complaints or pain. History otherwise limited due to circumstances. REVIEW OF SYSTEMS: 10 systems were reviewed and were negative unless otherwise stated in HPI as above PHYSICAL EXAM: VITALS: Vitals are noted on the nurse's note and reviewed by myself. Vital signs stable. General: Cachectic in appearance. Constant tremors/spastic movements, otherwise no acute distress HEENT: Contusion to the posterior scalp without crepitus or underlying bony deformity to palpation. Pupils 3 mm and reactive to light with EOMI, bilaterally. No epistaxis. No dental or oral trauma, oropharynx clear Neck: No indications of mid-line or paraspinal cervical tenderness, ROM intact Resp: Good inspiratory effort on room air, lung sounds clear bilaterally CV: Regular rate and rhythm, normal S1-S2, peripheral pulses palpated Back: No indications of midline tenderness to the thoracic spine, no midline tenderness to the lumbar spine, no obvious step-offs or deformities Abd: Feeding tube in place without surrounding erythema, edema or abnormal discharge. Soft, non-tender, does not indicate tenderness to palpation MSK: No obvious long bone deformities. Constant tremors and spastic movements in all extremities Neuro: Awake, alert, able to answer some yes/no questions and follows commands appropriately, however altered at baseline due to history of Lewiston's chorea Differential diagnosis includes Lewiston's chorea, closed head injury, skull fracture, ICH, cervical spine injury, bowel obstruction, constipation, among others were considered. EMERGENCY DEPARTMENT COURSE: Physical exam and history were performed. Nursing triage notes, EMR, and medication list were personally reviewed. Patient presents for evaluation after suffering a fall just prior to arrival. Additional history as described above. See physical exam as noted above. IV access was established and the patient was given 1 L NSS. Labs were obtained and reviewed by myself. Of note, mild leukocytosis with a WBC of 10.85 which has increased from 8.20 at previous visit. No concern for anemia with hemoglobin 15.9. Electrolytes WNL. Renal indices stable. LFTs nondiagnostic. CAT scans of the head and cervical spine were obtained and reviewed by radiologist and myself as below. Imaging was negative for acute traumatic injuries. KUB x-ray was also obtained and showed mild fecal retention, however no concerns for bowel obstruction. I discussed the results of the above findings with the patient and his mother at bedside. Due to the patient's ambulatory dysfunction, he has suffered multiple falls at home and I am concerned that it is not safe for him to go back home as he will likely continue to fall. Per mother, she has been in contact with [facility] and she has been assisting in finding a ppropriate placement for him, however this has not been set up yet. For this reason, I do feel that the patient would benefit from further evaluation in the hospital. [facility] the patient. The patient's mother verbalized understanding and agreement with the treatment plan as above. The chart was completed utilizing [employer] Voice Recognition Software. Grammatical errors, random word insertions, pronoun errors, and incomplete sentences are an occasional consequence of this system due to software l imitations, ambient noise, and hardware issues. Any formal questions or concerns about the content, text, or information contained within the body of this dictation should be directly addressed to the provider for clarification. Past Med/Surg History Medical History Anxiety Depression Fracture of nasal bone no surgery > from fall GERD (gastroesophageal reflux disease) Lewiston's disease dx age 17, symptoms started 4 yrs ago > uses cane Surgical History Hx of esophagogastroduodenoscopy Family History Mother Lewiston disease Sister Lewiston disease Social History Smoking Status: Never smoker Second Hand Exposure: No; Do You Dip or Chew Tobacco: No; Hx Alcohol Use: No Hx Substance Use: No Preferred Language: Omani Communication Ability: Impaired Buffer Machine Required: No Beliefs That Will Affect Care: None Current Living Situation: Family Current Living Situation Comment: lives with adopted mother who is his aunt Other Information That Helps Us Care for You: No Feels Safe at Home: Yes Safety Concerns: Feels Safe At This Time Assistive Devices: Cane, Denture - Upper, Denture - Lower and Glasses Allergies Allergies Allergy/AdvReac Type Severity Reaction Status Date / Time No Known Allergies Allergy Unknown Verified 04/30/22 14:08 Home Meds Home Medications Medication Instructions Recorded Confirmed omeprazole 20 mg capsule,delayed 20 mg PO HS 10/12/21 04/30/22 release sertraline 25 mg tablet 25 mg PO QAM 10/12/21 04/30/22 trazodone 50 mg tablet 50 mg PO HS 10/12/21 04/30/22 benzonatate 100 mg capsule 100 mg PO BID PRN Cough 04/14/22 04/30/22 deutetrabenazine 12 mg tablet 24 mg PO BID 04/14/22 04/30/22 (Austedo) loratadine 10 mg tablet 10 mg PO QAM 04/14/22 04/30/22 Tube Feeding 8 oz feeding tube .8XD 04/30/22 04/30/22 docusate sodium 100 mg capsule 100 mg PO BID 04/30/22 04/30/22 (Colace) Previous Rx's Medication Instructions Recorded ondansetron 4 mg disintegrating 4 mg PO Q8H PRN nausea and 10/12/21 tablet vomiting #30 tabs Results & Data (ED) Vital Signs Vital Signs - 24 hr 04/30/22 11:01 04/30/22 12:59 Temperature 37 C Temperature Source Axillary Pulse Rate 82 Pulse Rate [Left Radial] 76 Pulse Rhythm [Left Radial] Regular Respiratory Rate 26 H 20 Respiratory Effort / Characteristics Non-Labored Non-Labored Respiratory Depth Normal Normal Blood Pressure 120/85 Blood Pressure [Left Arm] 116/71 Blood Pressure Mean 96 Blood Pressure Mean [Left Arm] 86 Blood Pressure Position Lying Blood Pressure Position [Left Arm] Lying Pulse Oximetry 94 96 Oxygen Delivery Method Room Air Room Air Sepsis Recent Fever Within 48 Hours No Sepsis New/Unexplained Change in Mental Status No Sepsis Action Taken by Nursing No Action Required Laboratory Data Result diagrams: 04/30/22 12:56 04/30/22 12:56 Lab Results 04/30/22 04/30/22 04/30/22 Range/Units 12:56 12:56 12:56 WBC 10.85 H (4.8-10.8) K/ul RBC 5.00 (4.63-6.08) M/uL Hgb 15.9 (14.0-18.0) g/dl Hct 46.6 (40.1-51.0) % MCV 93.2 (80.0-100.0) fL MCH 31.8 (25.0-34.0) pg MCHC 34.1 (32.0-36.0) g/dL RDW Std Deviation 41.1 (36.4-46.3) fL RDW Coeff of Edgar 12.0 (11.5-14.5) % Plt Count 401 H (130-400) K/uL MPV 8.8 L (9.4-12.4) fL Immature Gran % (Auto) 0.3 % Neut % (Auto) 84.8 % Lymph % (Auto) 8.7 % [place] % (Auto) 5.6 % Eos % (Auto) 0.0 % Baso % (Auto) 0.6 % Neut # (Auto) 9.21 H (1.4-6.5) K/uL Lymph # (Auto) 0.94 L (1.2-3.4) K/uL [place] # (Auto) 0.61 (0.24-0.82) K/uL Eos # (Auto) 0.00 (0-0.50) K/uL Baso # (Auto) 0.06 (0-0.2) K/uL Immature Gran # (Auto) 0.03 H (0.00-0.02) K/uL Sodium 144 (136-145) mmol/L Potassium 4.1 (3.5-5.1) mmol/L Chloride 106 (98-107) mmol/L Carbon Dioxide 28 (21-32) mmol/L Anion Gap 10 (3-11) BUN 39 H (6-23) mg/dl Creatinine 0.99 (0.6-1.4) mg/dl Est Cr Clr Drug Dosing Not Reportable Est GFR ( Amer) 107.7 ml/min Est GFR (Non-Af Amer) 92.9 ml/min BUN/Creatinine Ratio 39.4 H (10-20) Glucose 103 H (70-99(Fasting)) mg/dl Calcium 10.2 H (8.5-10.1) mg/dl Total Bilirubin 1.0 (0.2-1.0) mg/dl AST 27 (13-39) U/L ALT 25 (7-52) U/L Alkaline Phosphatase 53 (34-104) U/L Total Protein 7.5 (6.0-8.3) gm/dl Albumin 4.3 (3.4-5.0) gm/dl Globulin 3.2 (2.5-4.0) gm/dl Albumin/Globulin Ratio 1.3 (0.9-2) SARS-CoV-2, RNA, NAAT NEGATIVE (NEGATIVE) Administered Medications Enteral Nutritional Formula (Fibersource Hn 1.2 Erich 1000 Ml Bag) 1,000 ml GT CONT ESTELA; Protocol Stop: 05/30/22 15:59 Last Admin: 04/30/22 18:32 Dose: 1,000 ml Documented By: DLS Sterile Water (Tube Feeding Water Flush) 150 ml GT Q6H ESTELA Stop: 05/30/22 15:59 Last Admin: 04/30/22 18:32 Dose: 150 ml Documented By: VIDHI Discontinued Medications Sodium Chloride (Nss 1000ml) 1,000 mls @ 999 mls/hr IV .Q1H1M ESTELA Stop: 04/30/22 13:37 Last Infusion: 04/30/22 14:10 Dose: 0 mls/hr Documented By: Admin: 04/30/22 13:06 Dose: 999 mls/hr Documented By: RAJAN Lorazepam (Lorazepam 2 Mg/1 Ml Vial) 1 mg IM NOW STA; Protocol Stop: 04/30/22 11:16 Last Admin: 04/30/22 11:27 Dose: 1 mg Documented By: RAJAN Sodium Biphosphate/Sodium Phosphate (Sod Phosphate/Sod Biphosphate Enema 132 Ml Btl) 132 ml NC NOW STA Stop: 04/30/22 14:24 Last Admin: 04/30/22 14:55 Dose: 132 ml Documented By: RAJAN Imaging Data Radiologist's Impression: Cervical Spine CT 04/30/22 11:[address] DOSE: 1365.71 mGy.cm HISTORY: Neck pain. Fall, hit back of head TECHNIQUE: Multiaxial CT images of the cervical spine were performed and reformatted in the sagittal and coronal plane without the use of contrast. A dose lowering technique was utilized adhering to the principles of ALARA. COMPARISON: Cervical spine CT 10/23/2019. FINDINGS: No fractures. No subluxation. Prevertebral soft tissues and the C1-C2 interval are intact. No pneumothorax. Stable small nodular densities at the lung apices likely representing scarring. Mild motion artifact at the superior aspect of C3. Mild degenerative disc disease at C6-C7. IMPRESSION: No fractures within the cervical spine. ACT 112: Negative or not required by law. Electronically signed by: Mick Addison M.D. 04/30/2022 12:[address] 04/30/22 11:15 CT SCAN OF THE BRAIN WITHOUT IV CONTRAST CLINICAL HISTORY: Fall. Head injury. COMPARISON STUDY: CT of the brain dated 10/23/2019. TECHNIQUE: Unenhanced axial CT scan of the brain is performed from the vertex to the skull base. A dose lowering technique was utilized adhering to the principles of ALARA. The skull base was scanned twice due to motion artifact. FINDINGS: Brain parenchyma: There is age-advanced cortical atrophy. There is no hemorrhage, mass effect, or evidence of acute territorial ischemia by CT criteria. Haley-white matter differentiation is preserved. No extra-axial fluid collection is seen. Ventricles, sulci, cisterns: Normal in configuration. Intracranial vasculature: The visualized intracranial vasculature at the skull base is normal in appearance. Calvarium: There is no depressed calvarial fracture. Soft tissues: There is a suboccipital scalp contusion. Sinuses and mastoids: There is trace mucosal thickening in the left maxillary antrum. The remaining paranasal sinuses are clear. The mastoid air cells are well pneumatized. Cerumen is noted in the external auditory canals. Orbits: The bony orbits are grossly intact. IMPRESSION: There is no hemorrhage, mass effect, or evidence of acute territorial ischemia by CT criteria. ACT 112: Negative or not required by law. Electronically signed by: Armando Albright M.D. 04/30/2022 12:37 PM KUB X-Ray 04/30/22 11:15 KUB CLINICAL HISTORY: Constipation. FINDINGS: An AP, portable, supine abdominal radiograph is correlated with abdominal CT dated 04/25/2022. The examination is degraded by motion artifact. A gastrostomy tube projects over the stomach. No bowel obstruction is seen. There is mild colonic fecal retention. No evidence of intraperitoneal free air is seen on this supine image. There are no abnormal abdominal calcifications. The bony structures appear intact. The lung bases are clear as imaged. IMPRESSION: No acute abnormality is identified. Electronically signed by: Armando Albright M.D. 04/30/2022 11:49 AM Discharge Plan Visit Data Chief Complaint: Fall Stated Complaint: Fall ED Provider: Kofi Lagos ED Midlevel Provider: Niki Galarza Discharge Problem: Lewiston's disease, Ambulatory dysfunction, Multiple falls Patient Disposition: Admitted As Inpatient Discharge Instructions Interventions: ED Discharge Assessment Last Done: 04/30/22 17:04
[2022-04-30] MEDS ORDERED: SODIUM CHLORIDE 0.9% 1000ML 1,000 ML IV SCH (12:37)
--- NOTE | 2022-04-30 12:39 | CT Scan Report ---
CT SCAN OF THE BRAIN WITHOUT IV CONTRAST CLINICAL HISTORY: Fall. Head injury. COMPARISON STUDY: CT of the brain dated 10/23/2019. TECHNIQUE: Unenhanced axial CT scan of the brain is performed from the vertex to the skull base. A d ose lowering technique was utilized adhering to the principles of ALARA. The skull base was scanned t wice due to motion artifact. FINDINGS: Brain parenchyma: There is age-advanced cortical atrophy. There is no hemorrhage, mass effect, or beata dence of acute territorial ischemia by CT criteria. Haley-white matter differentiation is preserved. N o extra-axial fluid collection is seen. Ventricles, sulci, cisterns: Normal in configuration. Intracranial vasculature: The visualized intracranial vasculature at the skull base is normal in appe arance. Calvarium: There is no depressed calvarial fracture. Soft tissues: There is a suboccipital scalp contusion. Sinuses and mastoids: There is trace mucosal thickening in the left maxillary antrum. The remaining p aranasal sinuses are clear. The mastoid air cells are well pneumatized. Cerumen is noted in the exter nal auditory canals. Orbits: The bony orbits are grossly intact. IMPRESSION: There is no hemorrhage, mass effect, or evidence of acute territorial ischemia by CT crit jonathan. ACT 112: Negative or not required by law. Electronically signed by: Armando Albright M.D. 04/30/2022 12:37 PM
--- NOTE | 2022-04-30 12:40 | CT Scan Report ---
CERVICAL SPINE CT CT DOSE: 1365.71 mGy.cm HISTORY: Neck pain. Fall, hit back of head TECHNIQUE: Multiaxial CT images of the cervical spine were performed and reformatted in the sagittal and coronal plane without the use of contrast. A dose lowering technique was utilized adhering to th e principles of ALARA. COMPARISON: Cervical spine CT 10/23/2019. FINDINGS: No fractures. No subluxation. Prevertebral soft tissues and the C1-C2 interval are intact. No pneumothorax. Stable small nodular densities at the lung apices likely representing scarring. Mild motion artifact at the superior aspect of C3. Mild degenerative disc disease at C6-C7. IMPRESSION: No fractures within the cervical spine. ACT 112: Negative or not required by law. Electronically signed by: Mick Addison M.D. 04/30/2022 12:39 PM
[2022-04-30 13:09] LABS: Basophils # (auto) 0.06 K/uL (0-0.2); Basophils % (auto) 0.6 %; Hematocrit (blood only) 46.6 % (40.1-51.0); Hemoglobin 15.9 g/dl (14.0-18.0); Immature Granulocytes # (auto) 0.03 K/uL (0.00-0.02); Immature Granulocytes % (auto) 0.3 %; Lymphocytes # (auto) 0.94 K/uL (1.2-3.4); Lymphocytes % (auto) 8.7 %; Mean Corpuscular Hemoglobin 31.8 pg (25.0-34.0); Mean Corpuscular Hgb Conc 34.1 g/dL (32.0-36.0); Mean Corpuscular Volume 93.2 fL (80.0-100.0); Mean Platelet Volume 8.8 fL (9.4-12.4); Monocytes # (auto) 0.61 K/uL (0.24-0.82); Monocytes % (auto) 5.6 %; Neutrophils # (auto) 9.21 K/uL (1.4-6.5); Neutrophils % (auto) 84.8 %; Platelet Count 401 K/uL (130-400); RDW Standard Deviation 41.1 fL (36.4-46.3); White Blood Count 10.85 K/ul (4.8-10.8)
[2022-04-30 13:37] LABS: Alanine Aminotransferase 25 U/L (7-52); Albumin Globulin Ratio 1.3 (0.9-2); Albumin Level 4.3 gm/dl (3.4-5.0); Alkaline Phosphatase 53 U/L (34-104); Anion Gap 10 (3-11); Aspartate Aminotransferase 27 U/L (13-39); BUN Creatinine Ratio 39.4 (10-20); Blood Urea Nitrogen 39 mg/dl (6-23); Calcium 10.2 mg/dl (8.5-10.1); Carbon Dioxide 28 mmol/L (21-32); Chloride 106 mmol/L (98-107); Est GFR (African American) 107.7 ml/min; Est GFR (Non-African American) 92.9 ml/min; Globulin 3.2 gm/dl (2.5-4.0); Glucose 103 mg/dl (70-99(Fasting)); Potassium 4.1 mmol/L (3.5-5.1); Sodium 144 mmol/L (136-145); Total Protein 7.5 gm/dl (6.0-8.3)
[2022-04-30] MEDS ORDERED: SOD PHOSPHATE/SOD BIPHOSPHATE ENEMA 132 ML BTL PR STA (14:23)
--- NOTE | 2022-04-30 15:20 | History & Physical Report ---
Date of Service April 30, 2022 Assessment & Plan (1) Suzy chorea: (2) Ambulatory dysfunction: (3) Frequent falls: (4) Constipation: (5) Feeding by G-tube: Plan This is a 41-year-old male who has significant past medical history of Williams's chorea and GERD who presents to ER secondary to fall prior to arrival. Williams Chorea Ambulatory dysfunction Frequent falls Admit to medical Consult case management -adopted mother who is patient's and has been caring for him, but appears she is having much more difficult time managing patient as his Suzy's is worsening Patient may need placement and/or significant increasing care at home Constipation Feeding by G-Tube per Aunt no BM since 04/20, also minimal intake since 04/25 due to stopping tube feeds. Tube feeds stopped as aunt was under impression to hold until he has a BM discussed with disability advocate who will eval and resume tube feedings place on senna s and miralax scheduled will attempt enema KUB negative for obs or stool burden consider relistor if no result aspiration precautions Wound care breakdown to buttock per Aunt will consult wound care for wound eval/preventative treatment DVT ppx: SQ Lovenox Dispo: med/surg, uncertain at this time, pt with worsening chorea and aunt unable to manage, may need placement vs significant increase in help at home DNR/DNI PCP: Eli Prince Pt was seen and examined in collaboration with Dr. Valladares, please see addendum History of Present Illness Chief Complaint: Fall prior to arrival; Williams chorea worsening Primary Care Provider: Galilea Prince MD This is a 41-year-old male who has significant past medical history of Williams's chorea and GERD who presents to ER secondary to fall prior to arrival. He is accompanied by his adopted mother who is his aunt. Unfortunately his biological mother and sister have also succumbed to the disease. His aunt is his sole sheetmetal patternmaker. Aunt is having difficulty taking care of patient due to her age and leg pain. She states due to patient's Williams's progressing he has been having increasing frequent falls. He occasionally would ambulate with a cane but due to the chorea is unable to manage with a cane or walker. Therefore he will walk himself and is very unsteady and falls. Today he fell and hit his head but did not lose consciousness. Also of note patient recently had PEG tube placed on 04/16. He has been receiving feedings 8 times a day with Isos[employer] up until 04/25. He was brought to ER on 04/25 secondary to fever and no bowel movement. His last bowel movement was on 04/20. Per sheetmetal patternmaker she was told to stop giving tube feeding until he has a bowel movement. He has not had any nutrition since 04/25. She does occasionally try to feed him liquids, but he aspirates. He still has not had a bowel movement. She is unsure if he has had a temp as she is unable to take his temperature. She has been giving [id number] stool softeners and MiraLAX without results. Due to the Williams's she is unable to give him a suppository. History unobtainable from patient. In ED patient remained hemodynamically stable. He did receive IV fluid as well as 1 mg of IM Ativan. Lab work notable for WBC 10.85, platelet 401, BUN 39, creatinine 0.99, calcium 10.2. His KUB was negative and gastrotomy tube was projecting over the stomach. Head and cervical spine CT were negative. Allergies Allergy/AdvReac Type Severity Reaction Status Date / Time No Known Allergies Allergy Unknown Verified 04/30/22 14:08 Home Medications Medication Instructions Recorded Confirmed Type omeprazole 20 mg capsule,delayed 20 mg PO HS 10/12/21 04/30/22 History release ondansetron 4 mg disintegrating 4 mg PO Q8H PRN nausea and 10/12/21 04/30/22 Rx tablet vomiting #30 tabs sertraline 25 mg tablet 25 mg PO QAM 10/12/21 04/30/22 History trazodone 50 mg tablet 50 mg PO HS 10/12/21 04/30/22 History benzonatate 100 mg capsule 100 mg PO BID PRN Cough 04/14/22 04/30/22 History deutetrabenazine 12 mg tablet 24 mg PO BID 04/14/22 04/30/22 History (Austedo) loratadine 10 mg tablet 10 mg PO QAM 04/14/22 04/30/22 History Tube Feeding 8 oz feeding tube .8XD 04/30/22 04/30/22 History docusate sodium 100 mg capsule 100 mg PO BID 04/30/22 04/30/22 History (Colace) Past Med/Surg History Medical History Anxiety Depression Fracture of nasal bone no surgery > from fall GERD (gastroesophageal reflux disease) Williams's disease dx age 17, symptoms started 4 yrs ago > uses cane Surgical History Hx of esophagogastroduodenoscopy Family History Mother Williams disease Sister Suzy disease Social History (Updated 04/30/22 @ 15:24 by Lorena Osborne PA-C) Smoking Status: Never smoker Second Hand Exposure: No; Hx Alcohol Use: No Hx Substance Use: No Preferred Language: Polish Communication Ability: Impaired Glycerin Operator Required: No Beliefs That Will Affect Care: None Current Living Situation: Parent Current Living Situation Comment: lives with adopted mother who is his aunt Feels Safe at Home: Yes Assistive Devices: Denture - Upper, Denture - Lower and Glasses Review of Systems Review of Systems: Unobtainable due to cognitive status Physical Exam Physical Exam: Constitutional: cachectic male, vitals as above, NAD, sitting up in bed with choriform movements Head: Normocephalic, Atraumatic Eyes: PERRL, conjunctivae normal, anicteric sclerae ENMT: external ear and nose normal, oropharynx normal dry membranes Neck: trachea midline, no thyromegaly normal visual inspection Respiratory: normal respiratory effort, lungs clear to auscultation, no wheeze, rales, rhonchi. Normal insp/exp effort, no accessory muscle use Cardiovascular: RRR, no murmur, no edema Vessels: no JVD or carotid bruit Chest: normal inspection of chest Abdomen: normal bowel sounds, soft, nontender, no hepatosplenomegaly , + G tube no surrounding erythema or drainage Musculoskeletal: no cyanosis or clubbing, AROM x 4, + muscle wasting in distal upper/lower ext Skin: no rashes, warm and dry normal turgor Neurologic: PERRL, EOMI, accommodation nl, no face palsy, no dysarthria CN's II-XI intact bilaterally and moves all extremities Psychiatric: alert unable to assess orientation : deferred Results & Data Results & Data ([facility]) Vital Signs (Past 12 Hours) Vital Signs Temp Pulse Pulse Resp BP BP Pulse Ox 04/30/22 14:50 70 20 115/74 99 04/30/22 12:59 76 20 116/71 96 04/30/22 11:01 37 C 82 26 H 120/85 94 O2 Del Method 04/30/22 14:50 Room Air 04/30/22 12:59 Room Air 04/30/22 11:01 Room Air Diagnostic Findings Cervical Spine CT 04/30/22 11:[address] DOSE: 1365.71 mGy.cm HISTORY: Neck pain. Fall, hit back of head TECHNIQUE: Multiaxial CT images of the cervical spine were performed and reformatted in the sagittal and coronal plane without the use of contrast. A dose lowering technique was utilized adhering to the principles of ALARA. COMPARISON: Cervical spine CT 10/23/2019. FINDINGS: No fractures. No subluxation. Prevertebral soft tissues and the C1-C2 interval are intact. No pneumothorax. Stable small nodular densities at the lung apices likely representing scarring. Mild motion artifact at the superior aspect of C3. Mild degenerative disc disease at C6-C7. IMPRESSION: No fractures within the cervical spine. ACT 112: Negative or not required by law. Electronically signed by: Mick Addison M.D. 04/30/2022 12:[address] 04/30/22 11:15 CT SCAN OF THE BRAIN WITHOUT IV CONTRAST CLINICAL HISTORY: Fall. Head injury. COMPARISON STUDY: CT of the brain dated 10/23/2019. TECHNIQUE: Unenhanced axial CT scan of the brain is performed from the vertex to the skull base. A dose lowering technique was utilized adhering to the principles of ALARA. The skull base was scanned twice due to motion artifact. FINDINGS: Brain parenchyma: There is age-advanced cortical atrophy. There is no hemorrhage, mass effect, or evidence of acute territorial ischemia by CT criteria. Haley-white matter differentiation is preserved. No extra-axial fluid collection is seen. Ventricles, sulci, cisterns: Normal in configuration. Intracranial vasculature: The visualized intracranial vasculature at the skull base is normal in appearance. Calvarium: There is no depressed calvarial fracture. Soft tissues: There is a suboccipital scalp contusion. Sinuses and mastoids: There is trace mucosal thickening in the left maxillary antrum. The remaining paranasal sinuses are clear. The mastoid air cells are well pneumatized. Cerumen is noted in the external auditory canals. Orbits: The bony orbits are grossly intact. IMPRESSION: There is no hemorrhage, mass effect, or evidence of acute territorial ischemia by CT criteria. ACT 112: Negative or not required by law. Electronically signed by: Armando Albright M.D. 04/30/2022 12:37 PM KUB X-Ray 04/30/22 11:15 KUB CLINICAL HISTORY: Constipation. FINDINGS: An AP, portable, supine abdominal radiograph is correlated with abdominal CT dated 04/25/2022. The examination is degraded by motion artifact. A gastrostomy tube projects over the stomach. No bowel obstruction is seen. There is mild colonic fecal retention. No evidence of intraperitoneal free air is seen on this supine image. There are no abnormal abdominal calcifications. The bony structures appear intact. The lung bases are clear as imaged. IMPRESSION: No acute abnormality is identified. Electronically signed by: Armando Albright M.D. 04/30/2022 11:49 AM Medications Administered Medication List Discontinued Medications Sodium Chloride (Nss 1000ml) 1,000 mls @ 999 mls/hr IV .Q1H1M ESTELA Stop: 04/30/22 13:37 Last Infusion: 04/30/22 14:10 Dose: 0 mls/hr Documented By: Admin: 04/30/22 13:06 Dose: 999 mls/hr Documented By: RAJAN Lorazepam (Lorazepam 2 Mg/1 Ml Vial) 1 mg IM NOW STA; Protocol Stop: 04/30/22 11:16 Last Admin: 04/30/22 11:27 Dose: 1 mg Documented By: RAJAN Sodium Biphosphate/Sodium Phosphate (Sod Phosphate/Sod Biphosphate Enema 132 Ml Btl) 132 ml VA NOW STA Stop: 04/30/22 14:24 Last Admin: 04/30/22 14:55 Dose: 132 ml Documented By: RAJAN COVID-19 Results Results COVID-19 Adm Lab Results: RBC 5.00 M/uL (4.63-6.08) 04/30/22 WBC 10.85 K/ul (4.8-10.8) H 04/30/22 Hgb 15.9 g/dl (14.0-18.0) 04/30/22 Hct 46.6 % (40.1-51.0) 04/30/22 Plt Count 401 K/uL (130-400) H 04/30/22 Neutrophils (%) (Auto) 84.8 % 04/30/22 Lymphocytes (%) (Auto) 8.7 % 04/30/22 Monocytes # (Auto) 0.61 K/uL (0.24-0.82) 04/30/22 Eosinophils # (Auto) 0.00 K/uL (0-0.50) 04/30/22 Immature Granulocyte % (Auto) 0.3 % 04/30/22 Neutrophils # (Auto) 9.21 K/uL (1.4-6.5) H 04/30/22 Lymphocytes # (Auto) 0.94 K/uL (1.2-3.4) L 04/30/22 Monocytes # (Auto) 0.61 K/uL (0.24-0.82) 04/30/22 Eosinophils # (Auto) 0.00 K/uL (0-0.50) 04/30/22 Basophils # (Auto) 0.06 K/uL (0-0.2) 04/30/22 Immature Granulocyte # (Auto) 0.03 K/uL (0.00-0.02) H 04/30 Na 144 mmol/L (136-145) 04/30/22 K 4.1 mmol/L (3.5-5.1) 04/30/22 Cl 106 mmol/L (98-107) 04/30/22 CO2 28 mmol/L (21-32) 04/30/22 Anion Gap 10 (3-11) 04/30/22 BUN 39 mg/dl (6-23) H 04/30/22 Creatinine 0.99 mg/dl (0.6-1.4) 04/30/22 BUN/Creatinine Ratio 39.4 (10-20) H 04/30/22 Glucose Level 103 mg/dl (70-99(Fasting)) H 04/30/22 Ca 10.2 mg/dl (8.5-10.1) H 04/30/22 Total Bilirubin 1.0 mg/dl (0.2-1.0) 04/30/22 AST/SGOT 27 U/L (13-39) 04/30/22 ALT/SGPT 25 U/L (7-52) 04/30/22 Alkaline Phosphatase 53 U/L (34-104) 04/30/22 Total Protein 7.5 gm/dl (6.0-8.3) 04/30/22 Albumin 4.3 gm/dl (3.4-5.0) 04/30/22 Globulin 3.2 gm/dl (2.5-4.0) 04/30/22 Albumin/Globulin Ratio 1.3 (0.9-2) 04/30/22 SARS-CoV-2, RNA, NAAT NEGATIVE (NEGATIVE) 04/30/22 Code Status & VTE Plan Code Status DNR/DNI confirmed with Aunt at bedside VTE Prophylaxis Plan VTE Prophylaxis will be ordered: Yes Supervising Physician Co-Signing Physician Notes Patient was seen and examined with Lorena PAC at bedside. Chart reviewed. Case discussed with her and agree with the documentation above. Family at bedside. In summary, this is a 41 year old male with worsening Williams's chorea who presented to the ED for evaluation after a fall. Falls once a week. No LOC. Doesn't use cane or walker. Constipation with no BM for past 10 day, amenable to enema and bowel regimen. On exam- vitals stable, AAO, tremors present, decreased breath sounds due to poor effort and tremors but fair, heart sounds normal, abd benign, PEG tube in place, abd binder in place, no edema. Resume tube feed per dietitian. PT eval. Consult CM for placement issues. Rest as per the note above. (1) Constipation Constipation type: unspecified constipation type Qualified Code(s): K59.00 - Constipation, unspecified
[2022-04-30] MEDS ORDERED: MAGNESIUM HYDROXIDE SUSP 30 ML UDC PO PRN (17:40)
[2022-04-30] MEDS ORDERED: ACETAMINOPHEN 325 MG TAB PO PRN (17:40)
[2022-04-30] MEDS ORDERED: LORazepam 1 MG/1 ML SYR IV PRN (17:40)
[2022-04-30] MEDS ORDERED: POLYETHYLENE (MIRALAX) 17 GM PACK PO PRN (17:40)
[2022-04-30] MEDS ORDERED: ONDANSETRON INJ 2 MG/ML 2 ML VIAL IV PRN (17:40)
[2022-04-30] MEDS ORDERED: ALUMINUM/MAGNESIUM SUSP 30 ML UDC PO PRN (17:40)
[2022-04-30] MEDS ORDERED: LORazepam 0.5 MG in SYRINGE 0.25 ML IV PRN (18:02)
[2022-04-30] MEDS: FIBERSOURCE HN 1.2 CAL 1000 ML BAG GT SCH (18:32)
[2022-04-30] MEDS: TUBE FEEDING WATER FLUSH GT SCH (18:32)
[2022-04-30] MEDS: ENOXAPARIN INJ 40 MG/0.4 ML SYR SQ SCH (21:10)
[2022-04-30] MEDS: DOCUSATE SODIUM/SENNA 50/8.6MG TAB PO SCH (21:10)
[2022-04-30] MEDS: traZODone HCL 50 MG TAB PO SCH (21:10)
[2022-04-30] MEDS: PANTOprazole 40 MG TAB PO SCH (21:10)
[2022-05-01] MEDS: TUBE FEEDING WATER FLUSH GT SCH ×5 (00:11→22:18)
[2022-05-01] MEDS: CARBAMIDE PEROXIDE 6.5% 15 ML BTL OT SCH ×3 (00:11→20:17)
[2022-05-01] MEDS: LORazepam 0.5 MG in SYRINGE 0.25 ML IV PRN ×3 (02:58→13:49)
[2022-05-01] MEDS: POLYETHYLENE (MIRALAX) 17 GM PACK PO SCH (08:37)
[2022-05-01] MEDS: DOCUSATE SODIUM/SENNA 50/8.6MG TAB PO SCH ×2 (08:38→20:18)
--- NOTE | 2022-05-01 09:32 | Urology Consultation ---
Date of Consultation May 01, 2022 Assessment & Plan (1) Urinary retention: For now, his retention is managed with Quinn catheter in place. I have low suspicion for urinary tract infection, and a urine culture at this point is likely to be contaminated given his recent catheterization. I suspect constipation is a contributing factor and would recommend that he establish a bowel regimen. He may benefit from starting tamsulosin as well prior to voiding trial. If he is unable to void after a voiding trial, further evaluation could be performed as an outpatient with either cystoscopy or urodynamic studies. Recommendations: Start tamsulosin, 0.4 mg daily Maintain Quinn catheter for ~5 days to allow bladder rest, after which voiding trial can be performed Urology will arrange outpatient follow-up We will sign off for now please call with any questions or concerns. History of Present Illness Reason for Consultation: Urinary retention Attending Physician: Marquise Valladares MD History of Present Illness This is a 41-year-old male with Washington's chorea, with a history of frequent falls, constipation and feeding via G-tube. He presented to the emergency department after a fall for follow-up evaluation and was admitted for further care. He was noted to have decreased urine output and a sense of fullness to his bladder. Bladder scan showed greater than [address] Straight catheterization was attempted, but was challenging and did not provide adequate drainage. A Quinn catheter was subsequently this drained urine appropriately. Urology was consulted regarding his urinary retention. At the bedside he denies any history of urinary retention. He denies any history of surgery on the urinary tract. He has no history of hematuria or urinary tract infection. He does report constipation having firm bowel movements. Allergies Allergy/AdvReac Type Severity Reaction Status Date / Time No Known Allergies Allergy Unknown Verified 04/30/22 14:08 Home Medications Medication Instructions Recorded Confirmed Type omeprazole 20 mg capsule,delayed 20 mg PO HS 10/12/21 04/30/22 History release ondansetron 4 mg disintegrating 4 mg PO Q8H PRN nausea and 10/12/21 04/30/22 Rx tablet vomiting #30 tabs sertraline 25 mg tablet 25 mg PO QAM 10/12/21 04/30/22 History trazodone 50 mg tablet 50 mg PO HS 10/12/21 04/30/22 History benzonatate 100 mg capsule 100 mg PO BID PRN Cough 04/14/22 04/30/22 History deutetrabenazine 12 mg tablet 24 mg PO BID 04/14/22 04/30/22 History (Austedo) loratadine 10 mg tablet 10 mg PO QAM 04/14/22 04/30/22 History Tube Feeding 8 oz feeding tube .8XD 04/30/22 04/30/22 History docusate sodium 100 mg capsule 100 mg PO BID 04/30/22 04/30/22 History (Colace) Patient History Medical History Anxiety Depression Fracture of nasal bone no surgery > from fall GERD (gastroesophageal reflux disease) Washington's disease dx age 17, symptoms started 4 yrs ago > uses cane Surgical History Hx of esophagogastroduodenoscopy Family History Mother Washington disease Sister Washington disease Social History Smoking Status: Never smoker Second Hand Exposure: No; Do You Dip or Chew Tobacco: No; Hx Alcohol Use: No Hx Substance Use: No Preferred Language: [place] Communication Ability: Impaired Target Network Analyst Required: No Beliefs That Will Affect Care: None Current Living Situation: Family Current Living Situation Comment: lives with adopted mother who is his aunt Other Information That Helps Us Care for You: No Feels Safe at Home: Yes Safety Concerns: Feels Safe At This Time Assistive Devices: Cane, Denture - Upper, Denture - Lower and Glasses Review of Systems Review of Systems: 14 point review of systems negative except for otherwise indicated. Musculoskeletal: Frequent falls Neurologic: Washington's chorea Physical Exam Physical Exam: Ongoing chorea Constitutional: well developed; no acute distress Eyes: + anicteric sclerae; pupils not irregular Respiratory: normal respiratory effort; no respiratory distress, does not use accessory muscles and no cough Cardiovascular: well perfused Gastrointestinal (Abdomen): Inspection/Auscultation: abdomen not distended Musculoskeletal: Extremities: extremities normal to inspection (Other than persistent movement) Skin: normal turgor; no rashes and no lesions Neurologic: moves all extremities and awake Psychiatric: Orientation: alert and oriented x 3 Genitourinary: Quinn catheter in good position, draining clear ramón urine. Results & Data ([facility]) Vital Signs (Past 12 Hours) Vital Signs Temp Pulse Resp BP Pulse Ox O2 Del Method 05/01/22 07:20 36.4 C L 70 18 108/74 97 Room Air 04/30/22 22:35 36.7 C 72 16 106/67 94 Room Air PG Care Time/CCT Total # of Minutes Spent Total Time Spent with Patient: Total time spent is greater than 50% in coordination of care (as documented) at patient's floor/unit and/or counseling patient: Coding Level of Care Code 35434 Inpt Consult Level 3 Diagnoses Urinary retention R33.9
[2022-05-01] MEDS: SERTRALINE HCL 50 MG TABLET PO SCH (09:55)
[2022-05-01] MEDS: LORATADINE 10 MG TAB PO SCH (09:56)
[2022-05-01] MEDS: AUSTEDO 12 MG PO SCH ×2 (12:16→20:18)
--- NOTE | 2022-05-01 14:31 | Hospitalist Progress Note ---
Date of Service May 01, 2022 Assessment & Plan (1) Suzy chorea: (2) Ambulatory dysfunction: (3) Frequent falls: (4) Constipation: (5) Feeding by G-tube: Plan This is a 41-year-old male who has significant past medical history of Terrell's chorea and GERD who presents to ER secondary to fall prior to arrival. Terrell Chorea Ambulatory dysfunction Frequent falls Admit to medical Consult case management -adopted mother who is patient's and has been caring for him, but appears she is having much more difficult time managing patient as his Suzy's is worsening Patient may need placement and/or significant increasing care at home Acute urinary retention No evidence of UTI Quinn in place Tamsulosin started through Constipation Feeding by G-Tube per Aunt no BM since 04/20, also minimal intake since 04/25 due to stopping tube feeds. Tube feeds stopped as aunt was under impression to hold until he has a BM discussed with securities sales associate who will eval and resume tube feedings place on senna and miralax scheduled-patient reports successful BM. Cont current bowel regimen. Wound care breakdown to buttock per Aunt will consult wound care for wound eval/preventative treatment DVT ppx: SQ Lovenox Dispo: med/surg, uncertain at this time, pt with worsening chorea and aunt unable to manage, may need placement vs significant increase in help at home DNR/DNI Dispo-per PT/OT and family request, patient to be placed. Rocio Evans DO [facility] Hospitalist Admission and Anticipated Discharge Date Admission Date: April 30, 2022 Subjective 41-year-old man with Terrell's disease with worsening chorea and recurrent falls at home. He also has severe malnutrition secondary to dysphagia and has recently received a PEG in March of this year. He presents after a fall and family is looking for placement options. Patient denies any pain today He had a bowel movement PEG in place and is not bothering him Abdominal binder was slightly tight and was loosened He is mostly bedbound because of his risk of falling out of a chair Mental status. Clear Review of Systems Review of Systems: All systems are reviewed negative except as indicated above. Physical Exam Physical Exam: CONSTITUTIONAL: WNWD, vitals as above, generally well- appearing, NAD, choreiform movements constant. EYES: normal conjunctivae, no scleral icterus ENT: external ear and nose normal, MMM NECK: trachea midline RESPIRATORY: clear to auscultation bilaterally, no crackles, rales or wheezes, normal respiratory effort CARDIOVASCULAR: regular rate and rhythm, S1 and 2 heard without murmurs, gallops or rubs, no JVD, no peripheral edema CHEST: inspection of chest was normal GASTROINTESTINAL: soft, nontender, ND, no guarding MUSCULOSKELETAL: strength 5/5 throughout, head is normocephalic and atraumatic, neck supple, normal palpation of chest wall without tenderness SKIN: warm and dry NEUROLOGIC: CN 2-12 grossly intact, no sensory deficit, normal cognition, normal speech, no tremor PSYCHIATRIC: alert cooperative and oriented to person, place and time. Results & Data Results & Data ([facility]) Vital Signs (Past 12 Hours) Vital Signs Temp Pulse Resp BP Pulse Ox O2 Del Method 05/01/22 07:20 36.4 C L 70 18 108/74 97 Room Air Medications Administered Current Inpatient Medications Acetaminophen (Acetaminophen 325 Mg Tab) 650 mg PO Q4H PRN PRN Reason: pain/fever Stop: 05/30/22 17:39 Al Hydrox/Mg Hydrox/Simethicone (Aluminum/Magnesium Susp 30 Ml Udc) 30 ml PO Q6H PRN PRN Reason: Dyspepsia Stop: 05/30/22 17:39 Benzonatate (Benzonatate 100 Mg Capsule) 100 mg PO BID PRN PRN Reason: Cough Stop: 05/30/22 17:39 Carbamide Peroxide (Carbamide Peroxide 6.5% 15 Ml Btl) 4 drops OT BID [facility] Stop: 05/05/22 20:59 Last Admin: 05/01/22 08:41 Dose: 4 drops Deutetrabenazine (Austedo 12 Mg Tablet) 2 each PO BID [facility] Stop: 05/31/22 10:59 Last Admin: 05/01/22 12:16 Dose: 2 each Enoxaparin Sodium (Enoxaparin Inj 40 Mg/0.4 Ml Syr) 40 mg SQ Q24H [facility] Stop: 05/30/22 21:59 Last Admin: 04/30/22 21:10 Dose: 40 mg Enteral Nutritional Formula (Fibersource Hn 1.2 Erich 1000 Ml Bag) 1,000 ml GT CONT ESTELA; Protocol Stop: 05/30/22 15:59 Last Admin: 04/30/22 18:32 Dose: 1,000 ml Lorazepam 0.5 mg/ Syringe 0.5 mls @ 2 mls/min IV Q4H PRN PRN Reason: restlessness/chorea Stop: 05/30/22 18:01 Last Admin: 05/01/22 13:49 Dose: 2 mls/min Loratadine (Loratadine 10 Mg Tab) 10 mg PO QAM ESTELA Stop: 05/31/22 08:59 Last Admin: 05/01/22 09:56 Dose: 10 mg Magnesium Hydroxide (Magnesium Hydroxide Susp 30 Ml Udc) 30 ml PO Q6H PRN PRN Reason: Constipation Stop: 05/30/22 17:39 Ondansetron HCl (Ondansetron Inj 2 Mg/Ml 2 Ml Vial) 4 mg IV Q6H PRN PRN Reason: Nausea Stop: 05/30/22 17:39 Pantoprazole Sodium (Pantoprazole 40 Mg Tab) 40 mg PO HS ESTELA Stop: 05/30/22 20:59 Last Admin: 04/30/22 21:10 Dose: 40 mg Polyethylene Glycol (Polyethylene (Miralax) 17 Gm Pack) 17 gm PO DAILY PRN PRN Reason: Constipation Stop: 05/30/22 17:39 Polyethylene Glycol (Polyethylene (Miralax) 17 Gm Pack) 17 gm PO DAILY ESTELA Stop: 05/31/22 08:59 Last Admin: 05/01/22 08:37 Dose: 17 gm Senna/Docusate Sodium (Docusate Sodium/Senna 50/8.6mg Tab) 1 tab PO BID ESTELA Stop: 05/30/22 20:59 Last Admin: 05/01/22 08:38 Dose: 1 tab Sertraline HCl (Sertraline Hcl 50 Mg Tablet) 25 mg PO QAM ESTELA Stop: 05/31/22 08:59 Last Admin: 05/01/22 09:55 Dose: 25 mg Sterile Water (Tube Feeding Water Flush) 150 ml GT Q6H ESTELA Stop: 05/30/22 15:59 Last Admin: 05/01/22 09:56 Dose: 150 ml Tamsulosin HCl (Tamsulosin Hcl 0.4 Mg Cap) 0.4 mg PO QAM ESTELA Stop: 05/31/22 14:29 Trazodone HCl (Trazodone Hcl 50 Mg Tab) 50 mg PO HS ESTELA Stop: 05/30/22 20:59 Last Admin: 04/30/22 21:10 Dose: 50 mg (1) Constipation Constipation type: unspecified constipation type Qualified Code(s): K59.00 - Constipation, unspecified
[2022-05-01] MEDS: TAMSULOSIN HCL 0.4 MG CAP PO SCH (16:49)
[2022-05-01] MEDS: FIBERSOURCE HN 1.2 CAL 1000 ML BAG GT SCH (18:07)
[2022-05-01] MEDS: PANTOprazole 40 MG TAB PO SCH (20:18)
--- NOTE | 2022-05-01 21:07 | CT Scan Report ---
CT SCAN OF THE BRAIN WITHOUT IV CONTRAST CLINICAL HISTORY: Fall. Head injury. COMPARISON STUDY: CT of the brain dated 04/30/2022. TECHNIQUE: Unenhanced axial CT scan of the brain is performed from the vertex to the skull base. A d ose lowering technique was utilized adhering to the principles of ALARA. The skull base was scanned t wice due to motion artifact. FINDINGS: Brain parenchyma: There is age-advanced cortical atrophy. There is no hemorrhage, mass effect, or beata dence of acute territorial ischemia by CT criteria. Haley-white matter differentiation is preserved. N o extra-axial fluid collection is seen. Ventricles, sulci, cisterns: Normal in configuration. Intracranial vasculature: The visualized intracranial vasculature at the skull base is normal in appe arance. Calvarium: There is no depressed calvarial fracture. Soft tissues: There is a suboccipital scalp contusion. Sinuses and mastoids: There is trace mucosal thickening in the left maxillary antrum. The remaining p aranasal sinuses are clear. The mastoid air cells are well pneumatized. Cerumen is noted in the exter nal auditory canals. Orbits: The bony orbits are grossly intact. IMPRESSION: There is no hemorrhage, mass effect, or evidence of acute territorial ischemia by CT crit jonathan. No change from yesterday. ACT 112: Negative or not required by law. Electronically signed by: Armando Albright M.D. 05/01/2022 9:05 PM
[2022-05-01] MEDS: ENOXAPARIN INJ 40 MG/0.4 ML SYR SQ SCH (21:08)
[2022-05-01] MEDS: traZODone HCL 50 MG TAB PO SCH (21:08)
[2022-05-02] MEDS: TUBE FEEDING WATER FLUSH GT SCH ×4 (03:03→22:36)
[2022-05-02] MEDS: POLYETHYLENE (MIRALAX) 17 GM PACK PO SCH (07:37)
[2022-05-02] MEDS: LORATADINE 10 MG TAB PO SCH (07:41)
[2022-05-02] MEDS: SERTRALINE HCL 50 MG TABLET PO SCH (07:42)
[2022-05-02] MEDS: CARBAMIDE PEROXIDE 6.5% 15 ML BTL OT SCH ×2 (07:42→20:45)
[2022-05-02] MEDS: DOCUSATE SODIUM/SENNA 50/8.6MG TAB PO SCH ×2 (07:42→20:45)
[2022-05-02] MEDS: TAMSULOSIN HCL 0.4 MG CAP PO SCH (07:42)
[2022-05-02] MEDS: AUSTEDO 12 MG PO SCH ×2 (07:43→20:45)
[2022-05-02] MEDS ORDERED: Nursing to Pharmacy Communication SCH (08:30)
[2022-05-02] MEDS: FIBERSOURCE HN 1.2 CAL 1000 ML BAG GT SCH ×2 (08:54→22:33)
[2022-05-02] MEDS: LORazepam 0.5 MG in SYRINGE 0.25 ML IV PRN (14:53)
--- NOTE | 2022-05-02 16:13 | Hospitalist Progress Note ---
Date of Service May 02, 2022 Assessment & Plan (1) Suzy chorea: (2) Ambulatory dysfunction: (3) Frequent falls: (4) Constipation: (5) Feeding by G-tube: Plan This is a 41-year-old male who has significant past medical history of Bureau's chorea and GERD who presents to ER secondary to fall prior to arrival. [place] Chorea Ambulatory dysfunction Frequent falls Admit to medical Consult case management -adopted mother who is patient's and has been caring for him, but appears she is having much more difficult time managing patient as his Suzy's is worsening Patient may need placement and/or significant increasing care at home Acute urinary retention No evidence of UTI Kelly in place Tamsulosin started Will remove kelly now per patient's request Constipation Feeding by G-Tube per Aunt no BM since 04/20, also minimal intake since 04/25 due to stopping tube feeds. Tube feeds stopped as aunt was under impression to hold until he has a BM discussed with beam dyer recessed vat who will eval and resume tube feedings place on senna and miralax scheduled-patient reports successful BM. Cont current bowel regimen. 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 He also has severe malnutrition secondary to dysphagia and has recently received a PEG in March of this year. He presents after a fall and family is looking for placement options. Patient denies any pain today He reports having a bowel movement again today PEG in place and is not bothering him He feels hungry He mentions that the kelly is bothering him and wants it out Review of Systems Review of Systems: All systems were reviewed and negative except as indicated on subjective above. Physical Exam Physical Exam: CONSTITUTIONAL: WNWD, vitals as above, generally well- appearing, NAD, choreiform movements constant. EYES: normal conjunctivae, no scleral icterus ENT: external ear and nose normal, MMM NECK: trachea midline RESPIRATORY: clear to auscultation bilaterally, no crackles, rales or wheezes, normal respiratory effort CARDIOVASCULAR: regular rate and rhythm, S1 and 2 heard without murmurs, gallops or rubs, no JVD, no peripheral edema CHEST: inspection of chest was normal GASTROINTESTINAL: soft, nontender, ND, no guarding MUSCULOSKELETAL: strength 5/5 throughout, head is normocephalic and atraumatic, neck supple, normal palpation of chest wall without tenderness SKIN: warm and dry NEUROLOGIC: CN 2-12 grossly intact, no sensory deficit, normal cognition, normal speech, no tremor PSYCHIATRIC: alert cooperative and oriented to person, place and time. Results & Data Results & Data ([facility]) Vital Signs (Past 12 Hours) Vital Signs Pulse Resp BP Pulse Ox O2 Del Method 05/02/22 14:49 76 20 125/83 96 Room Air 05/02/22 07:35 79 18 105/72 96 Room Air Medications Administered Current Inpatient Medications Acetaminophen (Acetaminophen 325 Mg Tab) 650 mg PO Q4H PRN PRN Reason: pain/fever Stop: 05/30/22 17:39 Al Hydrox/Mg Hydrox/Simethicone (Aluminum/Magnesium Susp 30 Ml Udc) 30 ml PO Q6H PRN PRN Reason: Dyspepsia Stop: 05/30/22 17:39 Benzonatate (Benzonatate 100 Mg Capsule) 100 mg PO BID PRN PRN Reason: Cough Stop: 05/30/22 17:39 Carbamide Peroxide (Carbamide Peroxide 6.5% 15 Ml Btl) 4 drops OT BID [facility] Stop: 05/05/22 20:59 Last Admin: 05/02/22 07:42 Dose: 4 drops Deutetrabenazine (Austedo 12 Mg Tablet) 2 each PO BID [facility] Stop: 05/31/22 10:59 Last Admin: 05/02/22 07:43 Dose: 2 each Enoxaparin Sodium (Enoxaparin Inj 40 Mg/0.4 Ml Syr) 40 mg SQ Q24H [facility] Stop: 05/30/22 21:59 Last Admin: 05/01/22 21:08 Dose: 40 mg Enteral Nutritional Formula (Fibersource Hn 1.2 Erich 1000 Ml Bag) 1,000 ml GT UD [facility]; Protocol Stop: 05/30/22 15:59 Last Admin: 05/02/22 08:54 Dose: 1,000 ml Lorazepam 0.5 mg/ Syringe 0.5 mls @ 2 mls/min IV Q4H PRN PRN Reason: restlessness/chorea Stop: 05/30/22 18:01 Last Admin: 05/02/22 14:53 Dose: 2 mls/min Loratadine (Loratadine 10 Mg Tab) 10 mg PO QAM [facility] Stop: 05/31/22 08:59 Last Admin: 05/02/22 07:41 Dose: 10 mg Magnesium Hydroxide (Magnesium Hydroxide Susp 30 Ml Udc) 30 ml PO Q6H PRN PRN Reason: Constipation Stop: 05/30/22 17:39 Ondansetron HCl (Ondansetron Inj 2 Mg/Ml 2 Ml Vial) 4 mg IV Q6H PRN PRN Reason: Nausea Stop: 05/30/22 17:39 Pantoprazole Sodium (Pantoprazole 40 Mg Tab) 40 mg PO HS [facility] Stop: 05/30/22 20:59 Last Admin: 05/01/22 20:18 Dose: 40 mg Polyethylene Glycol (Polyethylene (Miralax) 17 Gm Pack) 17 gm PO DAILY PRN PRN Reason: Constipation Stop: 05/30/22 17:39 Polyethylene Glycol (Polyethylene (Miralax) 17 Gm Pack) 17 gm PO DAILY [facility] Stop: 05/31/22 08:59 Last Admin: 05/02/22 07:37 Dose: 17 gm Senna/Docusate Sodium (Docusate Sodium/Senna 50/8.6mg Tab) 1 tab PO BID [facility] Stop: 05/30/22 20:59 Last Admin: 05/02/22 07:42 Dose: 1 tab Sertraline HCl (Sertraline Hcl 50 Mg Tablet) 25 mg PO QAM [facility] Stop: 05/31/22 08:59 Last Admin: 05/02/22 07:42 Dose: 25 mg Sterile Water (Tube Feeding Water Flush) 150 ml GT Q6H [facility] Stop: 05/30/22 15:59 Last Admin: 05/02/22 09:29 Dose: 150 ml Tamsulosin HCl (Tamsulosin Hcl 0.4 Mg Cap) 0.4 mg PO QAM [facility] Stop: 05/31/22 14:29 Last Admin: 05/02/22 07:42 Dose: 0.4 mg Trazodone HCl (Trazodone Hcl 50 Mg Tab) 50 mg PO [facility] Stop: 05/30/22 20:59 Last Admin: 05/01/22 21:08 Dose: 50 mg (1) Constipation Constipation type: unspecified constipation type Qualified Code(s): K59.00 - Constipation, unspecified
[2022-05-02] MEDS: traZODone HCL 50 MG TAB PO SCH (20:44)
[2022-05-02] MEDS: PANTOprazole 40 MG TAB PO SCH (20:45)
[2022-05-02] MEDS: ENOXAPARIN INJ 40 MG/0.4 ML SYR SQ SCH (20:45)
[2022-05-03] MEDS: TUBE FEEDING WATER FLUSH GT SCH ×4 (04:00→22:05)
[2022-05-03 06:59] LABS: BUN Creatinine Ratio 30.6 (10-20); Calcium 9.2 mg/dl (8.5-10.1); Creatinine Clr Calc Pharmacy 128.2 ml/min; Est GFR (African American) 140.8 ml/min; Est GFR (Non-African American) 121.5 ml/min; Magnesium 2.2 mg/dl (1.7-2.4); Phosphorus 2.5 mg/dl (2.5-4.9); Potassium 4.1 mmol/L (3.5-5.1)
[2022-05-03 07:00] LABS: Hematocrit (blood only) 40.8 % (40.1-51.0); Hemoglobin 13.6 g/dl (14.0-18.0); Mean Corpuscular Hgb Conc 33.3 g/dL (32.0-36.0); Mean Platelet Volume 9.4 fL (9.4-12.4); Platelet Count 277 K/uL (130-400); RDW Coefficient of Variation 11.8 % (11.5-14.5); RDW Standard Deviation 41.3 fL (36.4-46.3); Red Blood Count 4.25 M/uL (4.63-6.08); White Blood Count 4.95 K/ul (4.8-10.8)
[2022-05-03] MEDS: CARBAMIDE PEROXIDE 6.5% 15 ML BTL OT SCH ×2 (07:40→20:58)
[2022-05-03] MEDS: POLYETHYLENE (MIRALAX) 17 GM PACK PO SCH (07:40)
[2022-05-03] MEDS: TAMSULOSIN HCL 0.4 MG CAP PO SCH (07:56)
[2022-05-03] MEDS: LORATADINE 10 MG TAB PO SCH (07:57)
[2022-05-03] MEDS: AUSTEDO 12 MG PO SCH ×2 (07:57→20:59)
[2022-05-03] MEDS: SERTRALINE HCL 50 MG TABLET PO SCH (07:57)
[2022-05-03] MEDS: DOCUSATE SODIUM/SENNA 50/8.6MG TAB PO SCH ×2 (07:57→20:58)
[2022-05-03] MEDS: FIBERSOURCE HN 1.2 CAL 1000 ML BAG GT SCH (12:08)
--- NOTE | 2022-05-03 14:44 | Hospitalist Progress Note ---
Date of Service May 03, 2022 Assessment & Plan (1) Suzy chorea: (2) Ambulatory dysfunction: (3) Frequent falls: (4) Constipation: (5) Feeding by G-tube: Plan This is a 41-year-old male who has significant past medical history of [place]'s chorea and GERD who presents to ER secondary to fall prior to arrival. [place] Chorea Ambulatory dysfunction Frequent falls Admit to medical Consult case management -adopted mother who is patient's and has been caring for him, but appears she is having much more difficult time managing patient as his Suzy's is worsening Patient may need placement and/or significant increasing care at home Acute urinary retention No evidence of UTI Kelly in place Tamsulosin started Resolved-kelly out and urinating well. Will stop tamsulosin now. Constipation Feeding by G-Tube per Aunt no BM since 04/20, also minimal intake since 04/25 due to stopping tube feeds. Tube feeds stopped as aunt was under impression to hold until he has a BM discussed with taximeter repairer who will eval and resume tube feedings place on senna and miralax scheduled-patient reports successful BM. Cont current bowel regimen. 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 He also has severe malnutrition secondary to dysphagia and has recently received a PEG in March of this year. He presents after a fall and family is looking for placement options. Patient denies any pain today PEG in place and is not bothering him He is doing well with the feedings Urinating spontaneously after kelly removed Review of Systems Review of Systems: All systems were reviewed and negative except as indicated above. Physical Exam Physical Exam: CONSTITUTIONAL: WNWD, vitals as above, generally well- appearing, NAD, choreiform movements constant/very debilitating, cannot sit up in bed as he is a fall risk. Has evidence of drooling/issues with drinking fluids. EYES: normal conjunctivae, no scleral icterus ENT: external ear and nose normal, MMM NECK: trachea midline RESPIRATORY: clear to auscultation bilaterally, no crackles, rales or wheezes, normal respiratory effort CARDIOVASCULAR: regular rate and rhythm, S1 and 2 heard without murmurs, gallops or rubs, no JVD, no peripheral edema CHEST: inspection of chest was normal GASTROINTESTINAL: soft, nontender, ND, no guarding MUSCULOSKELETAL: strength 5/5 throughout, head is normocephalic and atraumatic, neck supple, normal palpation of chest wall without tenderness SKIN: warm and dry NEUROLOGIC: CN 2-12 grossly intact, no sensory deficit, normal cognition, normal speech, no tremor PSYCHIATRIC: alert cooperative and oriented to person, place and time. Results & Data Results & Data ([facility]) Vital Signs (Past 12 Hours) Vital Signs Temp Pulse Resp BP Pulse Ox O2 Del Method 05/03/22 07:41 36.5 C 79 18 101/63 98 Room Air Laboratory Results Short CBC 05/03/22 Range/Units 05:28 WBC 4.95 (4.8-10.8) K/ul Hgb 13.6 L (14.0-18.0) g/dl Hct 40.8 (40.1-51.0) % Plt Count 277 (130-400) K/uL BMP 05/03/22 05:28 Sodium 137 Potassium 4.1 Chloride 102 Carbon Dioxide 32 BUN 19 Creatinine 0.62 Glucose 94 Calcium 9.2 Medications Administered Current Inpatient Medications Acetaminophen (Acetaminophen 325 Mg Tab) 650 mg PO Q4H PRN PRN Reason: pain/fever Stop: 05/30/22 17:39 Last Admin: 05/03/22 12:27 Dose: 650 mg Al Hydrox/Mg Hydrox/Simethicone (Aluminum/Magnesium Susp 30 Ml Udc) 30 ml PO Q6H PRN PRN Reason: Dyspepsia Stop: 05/30/22 17:39 Benzonatate (Benzonatate 100 Mg Capsule) 100 mg PO BID PRN PRN Reason: Cough Stop: 05/30/22 17:39 Carbamide Peroxide (Carbamide Peroxide 6.5% 15 Ml Btl) 4 drops OT BID [facility] Stop: 05/05/22 20:59 Last Admin: 05/03/22 07:40 Dose: 4 drops Deutetrabenazine (Austedo 12 Mg Tablet) 2 each PO BID [facility] Stop: 05/31/22 10:59 Last Admin: 05/03/22 07:57 Dose: 2 each Enoxaparin Sodium (Enoxaparin Inj 40 Mg/0.4 Ml Syr) 40 mg SQ Q24H [facility] Stop: 05/30/22 21:59 Last Admin: 05/02/22 20:45 Dose: 40 mg Enteral Nutritional Formula (Fibersource Hn 1.2 Erich 1000 Ml Bag) 1,000 ml GT UD [facility]; Protocol Stop: 05/30/22 15:59 Last Admin: 05/03/22 12:08 Dose: 1,000 ml Lorazepam 0.5 mg/ Syringe 0.5 mls @ 2 mls/min IV Q4H PRN PRN Reason: restlessness/chorea Stop: 05/30/22 18:01 Last Admin: 05/02/22 14:53 Dose: 2 mls/min Loratadine (Loratadine 10 Mg Tab) 10 mg PO QAM [facility] Stop: 05/31/22 08:59 Last Admin: 05/03/22 07:57 Dose: 10 mg Magnesium Hydroxide (Magnesium Hydroxide Susp 30 Ml Udc) 30 ml PO Q6H PRN PRN Reason: Constipation Stop: 05/30/22 17:39 Ondansetron HCl (Ondansetron Inj 2 Mg/Ml 2 Ml Vial) 4 mg IV Q6H PRN PRN Reason: Nausea Stop: 05/30/22 17:39 Pantoprazole Sodium (Pantoprazole 40 Mg Tab) 40 mg PO HS [facility] Stop: 05/30/22 20:59 Last Admin: 05/02/22 20:45 Dose: 40 mg Polyethylene Glycol (Polyethylene (Miralax) 17 Gm Pack) 17 gm PO DAILY PRN PRN Reason: Constipation Stop: 05/30/22 17:39 Polyethylene Glycol (Polyethylene (Miralax) 17 Gm Pack) 17 gm PO DAILY [facility] Stop: 05/31/22 08:59 Last Admin: 05/03/22 07:40 Dose: 17 gm Senna/Docusate Sodium (Docusate Sodium/Senna 50/8.6mg Tab) 1 tab PO BID [facility] Stop: 05/30/22 20:59 Last Admin: 05/03/22 07:57 Dose: 1 tab Sertraline HCl (Sertraline Hcl 50 Mg Tablet) 25 mg PO QAM [facility] Stop: 05/31/22 08:59 Last Admin: 05/03/22 07:57 Dose: 25 mg Sterile Water (Tube Feeding Water Flush) 150 ml GT Q6H [facility] Stop: 05/30/22 15:59 Last Admin: 05/03/22 09:16 Dose: 150 ml Tamsulosin HCl (Tamsulosin Hcl 0.4 Mg Cap) 0.4 mg PO QAM [facility] Stop: 05/31/22 14:29 Last Admin: 05/03/22 07:56 Dose: 0.4 mg Trazodone HCl (Trazodone Hcl 50 Mg Tab) 50 mg PO HS [facility] Stop: 05/30/22 20:59 Last Admin: 05/02/22 20:44 Dose: 50 mg (1) Constipation Constipation type: unspecified constipation type Qualified Code(s): K59.00 - Constipation, unspecified
[2022-05-03] MEDS: ENOXAPARIN INJ 40 MG/0.4 ML SYR SQ SCH (20:58)
[2022-05-03] MEDS: traZODone HCL 50 MG TAB PO SCH (20:58)
[2022-05-03] MEDS: PANTOprazole 40 MG TAB PO SCH (20:58)
[2022-05-04] MEDS: FIBERSOURCE HN 1.2 CAL 1000 ML BAG GT SCH ×2 (01:10→16:10)
[2022-05-04] MEDS: TUBE FEEDING WATER FLUSH GT SCH ×4 (04:26→21:54)
[2022-05-04] MEDS: POLYETHYLENE (MIRALAX) 17 GM PACK PO SCH (08:26)
[2022-05-04] MEDS ORDERED: GLYCERIN ADULT 12 SUPP/BOX SUPP PR ONE ×2 (08:27→14:16)
[2022-05-04] MEDS: LORATADINE 10 MG TAB PO SCH (08:32)
[2022-05-04] MEDS: DOCUSATE SODIUM/SENNA 50/8.6MG TAB PO SCH ×2 (08:32→21:43)
[2022-05-04] MEDS: SERTRALINE HCL 50 MG TABLET PO SCH (08:32)
[2022-05-04] MEDS: CARBAMIDE PEROXIDE 6.5% 15 ML BTL OT SCH ×2 (08:32→21:44)
[2022-05-04] MEDS: AUSTEDO 12 MG PO SCH ×2 (08:33→21:43)
--- NOTE | 2022-05-04 11:30 | Hospitalist Progress Note ---
Date of Service May 04, 2022 Assessment & Plan (1) Suzy chorea: (2) Ambulatory dysfunction: (3) Frequent falls: (4) Constipation: (5) Feeding by G-tube: Plan This is a 41-year-old male who has significant past medical history of [place]ing's chorea and GERD who presents to ER secondary to fall prior to arrival. [place] Chorea Ambulatory dysfunction Frequent falls Admit to medical Consult case management -adopted mother who is patient's and has been caring for him, but appears she is having much more difficult time managing patient as his Uszy's is worsening Patient may need placement and/or significant increasing care at home Acute urinary retention No evidence of UTI Kelly in place Tamsulosin started Resolved-kelly out and urinating well. Tamsulosin stopped. Constipation Feeding by G-Tube per Aunt no BM since 04/20, also minimal intake since 04/25 due to stopping tube feeds. Tube feeds stopped as aunt was under impression to hold until he has a BM discussed with inspector semiconductor wafer who will eval and resume tube feedings place on senna and miralax scheduled-added glycerin supp today No documented BM since 04/30 Wound care breakdown to buttock per Aunt will consult wound care for wound eval/preventative treatment Cont to reposition off this area. 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 He also has severe malnutrition secondary to dysphagia and has recently received a PEG in March of this year. He presents after a fall and family is looking for placement options. Patient denies any pain today No BM since 04/30 documented so glycerin suppository was given PEG in place and is not bothering him He is doing well with the feedings Urinating spontaneously after kelly removed Review of Systems Review of Systems: All systems were reviewed and negative except as indicated above. Physical Exam Physical Exam: CONSTITUTIONAL: WNWD, vitals as above, generally well- appearing, NAD, choreiform movements constant/very debilitating, cannot sit up in bed as he is a fall risk. Has evidence of drooling/issues with drinking fluids. EYES: normal conjunctivae, no scleral icterus ENT: external ear and nose normal, MMM NECK: trachea midline RESPIRATORY: clear to auscultation bilaterally, no crackles, rales or wheezes, normal respiratory effort CARDIOVASCULAR: regular rate and rhythm, S1 and 2 heard without murmurs, gallops or rubs, no JVD, no peripheral edema CHEST: inspection of chest was normal GASTROINTESTINAL: soft, nontender, ND, no guarding MUSCULOSKELETAL: strength 5/5 throughout, head is normocephalic and atraumatic, neck supple, normal palpation of chest wall without tenderness SKIN: warm and dry NEUROLOGIC: CN 2-12 grossly intact, no sensory deficit, normal cognition, normal speech, no tremor PSYCHIATRIC: alert cooperative and oriented to person, place and time. Results & Data Results & Data ([facility]) Vital Signs (Past 12 Hours) Vital Signs Temp Pulse Resp BP Pulse Ox O2 Del Method 05/04/22 08:29 36.4 C L 66 18 99/66 L 98 Room Air Medications Administered Current Inpatient Medications Acetaminophen (Acetaminophen 325 Mg Tab) 650 mg PO Q4H PRN PRN Reason: pain/fever Stop: 05/30/22 17:39 Last Admin: 05/03/22 12:27 Dose: 650 mg Al Hydrox/Mg Hydrox/Simethicone (Aluminum/Magnesium Susp 30 Ml Udc) 30 ml PO Q6H PRN PRN Reason: Dyspepsia Stop: 05/30/22 17:39 Benzonatate (Benzonatate 100 Mg Capsule) 100 mg PO BID PRN PRN Reason: Cough Stop: 05/30/22 17:39 Carbamide Peroxide (Carbamide Peroxide 6.5% 15 Ml Btl) 4 drops OT BID [facility] Stop: 05/05/22 20:59 Last Admin: 05/04/22 08:32 Dose: 4 drops Deutetrabenazine (Austedo 12 Mg Tablet) 2 each PO BID [facility] Stop: 05/31/22 10:59 Last Admin: 05/04/22 08:33 Dose: 2 each Enoxaparin Sodium (Enoxaparin Inj 40 Mg/0.4 Ml Syr) 40 mg SQ Q24H [facility] Stop: 05/30/22 21:59 Last Admin: 05/03/22 20:58 Dose: 40 mg Enteral Nutritional Formula (Fibersource Hn 1.2 Erich 1000 Ml Bag) 1,000 ml GT UD [facility]; Protocol Stop: 05/30/22 15:59 Last Admin: 05/04/22 01:10 Dose: 1,000 ml Lorazepam 0.5 mg/ Syringe 0.5 mls @ 2 mls/min IV Q4H PRN PRN Reason: restlessness/chorea Stop: 05/30/22 18:01 Last Admin: 05/02/22 14:53 Dose: 2 mls/min Loratadine (Loratadine 10 Mg Tab) 10 mg PO QAM [facility] Stop: 05/31/22 08:59 Last Admin: 05/04/22 08:32 Dose: 10 mg Magnesium Hydroxide (Magnesium Hydroxide Susp 30 Ml Udc) 30 ml PO Q6H PRN PRN Reason: Constipation Stop: 05/30/22 17:39 Ondansetron HCl (Ondansetron Inj 2 Mg/Ml 2 Ml Vial) 4 mg IV Q6H PRN PRN Reason: Nausea Stop: 05/30/22 17:39 Pantoprazole Sodium (Pantoprazole 40 Mg Tab) 40 mg PO HS [facility] Stop: 05/30/22 20:59 Last Admin: 05/03/22 20:58 Dose: 40 mg Polyethylene Glycol (Polyethylene (Miralax) 17 Gm Pack) 17 gm PO DAILY PRN PRN Reason: Constipation Stop: 05/30/22 17:39 Polyethylene Glycol (Polyethylene (Miralax) 17 Gm Pack) 17 gm PO DAILY [facility] Stop: 05/31/22 08:59 Last Admin: 05/04/22 08:26 Dose: 17 gm Senna/Docusate Sodium (Docusate Sodium/Senna 50/8.6mg Tab) 1 tab PO BID [facility] Stop: 05/30/22 20:59 Last Admin: 05/04/22 08:32 Dose: 1 tab Sertraline HCl (Sertraline Hcl 50 Mg Tablet) 25 mg PO QAM [facility] Stop: 05/31/22 08:59 Last Admin: 05/04/22 08:32 Dose: 25 mg Sterile Water (Tube Feeding Water Flush) 150 ml GT Q6H [facility] Stop: 05/30/22 15:59 Last Admin: 05/04/22 10:54 Dose: 150 ml Trazodone HCl (Trazodone Hcl 50 Mg Tab) 50 mg PO [facility] Stop: 05/30/22 20:59 Last Admin: 05/03/22 20:58 Dose: 50 mg (1) Constipation Constipation type: unspecified constipation type Qualified Code(s): K59.00 - Constipation, unspecified
[2022-05-04] MEDS: traZODone HCL 50 MG TAB PO SCH (21:43)
[2022-05-04] MEDS: ENOXAPARIN INJ 40 MG/0.4 ML SYR SQ SCH (21:43)
[2022-05-04] MEDS: PANTOprazole 40 MG TAB PO SCH (21:43)
[2022-05-05] MEDS: TUBE FEEDING WATER FLUSH GT SCH ×5 (04:10→22:15)
[2022-05-05] MEDS: FIBERSOURCE HN 1.2 CAL 1000 ML BAG GT SCH ×2 (06:25→19:42)
[2022-05-05] MEDS: CARBAMIDE PEROXIDE 6.5% 15 ML BTL OT SCH (08:25)
[2022-05-05] MEDS: POLYETHYLENE (MIRALAX) 17 GM PACK PO SCH (08:26)
[2022-05-05] MEDS: DOCUSATE SODIUM/SENNA 50/8.6MG TAB PO SCH ×2 (08:26→22:00)
[2022-05-05] MEDS: AUSTEDO 12 MG PO SCH ×2 (08:26→22:01)
[2022-05-05] MEDS: LORATADINE 10 MG TAB PO SCH (08:26)
[2022-05-05] MEDS: SERTRALINE HCL 50 MG TABLET PO SCH (08:26)
--- NOTE | 2022-05-05 21:09 | Hospitalist Progress Note ---
Date of Service May 05, 2022 Assessment & Plan (1) Suzy chorea: (2) Ambulatory dysfunction: (3) Frequent falls: (4) Constipation: (5) Feeding by G-tube: (6) Sacral decubitus ulcer, stage II: Plan This is a 41-year-old male who has significant past medical history of Poon ington's chorea and GERD who presents to ER secondary to fall prior to arrival. Suzy Chorea Ambulatory dysfunction Frequent falls Admit to medical Consult case management -adopted mother who is patient's and has been caring for him, but appears she is having much more difficult time managing patient as his Gilliam's is worsening Patient needs placement and/or significant increasing care at home Referrals are pending to various facilities Acute urinary retention No evidence of UTI Tamsulosin started Resolved-kelly out and urinating well. Tamsulosin stopped. Constipation Feeding by G-Tube per Aunt no BM since 04/20, also minimal intake since 04/25 due to stopping tube feeds. Tube feeds stopped as aunt was under impression to hold until he has a BM discussed with correspondence clerk who will eval and resume tube feedings place on senna and miralax scheduled-added glycerin supp on 05/04 with good result. Stage II sacral decubitus ulcer breakdown to buttock per Aunt prior to admission. will consult wound care for wound eval/preventative treatment Cont to reposition off this area. It has been difficult to visualize this area given the patient's movement restrictions. 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 He also has severe malnutrition secondary to dysphagia and has recently received a PEG in March of this year. He presents after a fall and family is looking for placement options. Patient denies any pain today Pt reports having BM PEG in place and is not bothering him He is doing well with the feedings and is tolerating a full liquid diet, also, per nurse. Review of Systems Review of Systems: All systems were reviewed and negative except as indicated above. Physical Exam Physical Exam: CONSTITUTIONAL: WNWD, vitals as above, generally well- appearing, NAD, choreiform movements constant/very debilitating, cannot sit up in bed as he is a fall risk. Has evidence of drooling/issues with drinking fluids. EYES: normal conjunctivae, no scleral icterus ENT: external ear and nose normal, MMM NECK: trachea midline RESPIRATORY: clear to auscultation bilaterally, no crackles, rales or wheezes, normal respiratory effort CARDIOVASCULAR: regular rate and rhythm, S1 and 2 heard without murmurs, gallops or rubs, no JVD, no peripheral edema CHEST: inspection of chest was normal GASTROINTESTINAL: soft, nontender, ND, no guarding MUSCULOSKELETAL: strength 5/5 throughout, head is normocephalic and atraumatic, neck supple, normal palpation of chest wall without tenderness SKIN: warm and dry NEUROLOGIC: CN 2-12 grossly intact, no sensory deficit, normal cognition, normal speech, no tremor PSYCHIATRIC: alert cooperative and oriented to person, place and time. Results & Data Results & Data ([facility]) Vital Signs (Past 12 Hours) Vital Signs Temp Pulse Resp BP 05/05/22 14:25 36.5 C 61 18 97/53 L Medications Administered Current Inpatient Medications Acetaminophen (Acetaminophen 325 Mg Tab) 650 mg PO Q4H PRN PRN Reason: pain/fever Stop: 05/30/22 17:39 Last Admin: 05/03/22 12:27 Dose: 650 mg Al Hydrox/Mg Hydrox/Simethicone (Aluminum/Magnesium Susp 30 Ml Udc) 30 ml PO Q6H PRN PRN Reason: Dyspepsia Stop: 05/30/22 17:39 Benzonatate (Benzonatate 100 Mg Capsule) 100 mg PO BID PRN PRN Reason: Cough Stop: 05/30/22 17:39 Deutetrabenazine (Austedo 12 Mg Tablet) 2 each PO BID [facility] Stop: 05/31/22 10:59 Last Admin: 05/05/22 08:26 Dose: 2 each Enoxaparin Sodium (Enoxaparin Inj 40 Mg/0.4 Ml Syr) 40 mg SQ Q24H [facility] Stop: 05/30/22 21:59 Last Admin: 05/04/22 21:43 Dose: 40 mg Enteral Nutritional Formula (Fibersource Hn 1.2 Erich 1000 Ml Bag) 1,000 ml GT UD [facility]; Protocol Stop: 05/05/22 23:59 Last Admin: 05/05/22 19:42 Dose: 1,000 ml Enteral Nutritional Formula (Fibersource Hn 1.2 Erich 1000 Ml Bag) 1,000 ml GT 0600,0900,1200,1500,1800,2100 [facility]; Protocol Stop: 06/05/22 05:59 Lorazepam 0.5 mg/ Syringe 0.5 mls @ 2 mls/min IV Q4H PRN PRN Reason: restlessness/chorea Stop: 05/30/22 18:01 Last Admin: 05/02/22 14:53 Dose: 2 mls/min Loratadine (Loratadine 10 Mg Tab) 10 mg PO QAM [facility] Stop: 05/31/22 08:59 Last Admin: 05/05/22 08:26 Dose: 10 mg Magnesium Hydroxide (Magnesium Hydroxide Susp 30 Ml Udc) 30 ml PO Q6H PRN PRN Reason: Constipation Stop: 05/30/22 17:39 Miscellaneous (Pending Order) 1 each N/A [id number] [facility] Stop: 05/06/22 00:00 Ondansetron HCl (Ondansetron Inj 2 Mg/Ml 2 Ml Vial) 4 mg IV Q6H PRN PRN Reason: Nausea Stop: 05/30/22 17:39 Pantoprazole Sodium (Pantoprazole 40 Mg Tab) 40 mg PO HS [facility] Stop: 05/30/22 20:59 Last Admin: 05/04/22 21:43 Dose: 40 mg Polyethylene Glycol (Polyethylene (Miralax) 17 Gm Pack) 17 gm PO DAILY PRN PRN Reason: Constipation Stop: 05/30/22 17:39 Polyethylene Glycol (Polyethylene (Miralax) 17 Gm Pack) 17 gm PO DAILY [facility] Stop: 05/31/22 08:59 Last Admin: 05/05/22 08:26 Dose: 17 gm Senna/Docusate Sodium (Docusate Sodium/Senna 50/8.6mg Tab) 1 tab PO BID [facility] Stop: 05/30/22 20:59 Last Admin: 05/05/22 08:26 Dose: 1 tab Sertraline HCl (Sertraline Hcl 50 Mg Tablet) 25 mg PO QAM [facility] Stop: 05/31/22 08:59 Last Admin: 05/05/22 08:26 Dose: 25 mg Sterile Water (Tube Feeding Water Flush) 100 ml GT Q6H [facility] Stop: 06/04/22 15:59 Last Admin: 05/05/22 16:43 Dose: 100 ml Trazodone HCl (Trazodone Hcl 50 Mg Tab) 50 mg PO HS [facility] Stop: 05/30/22 20:59 Last Admin: 05/04/22 21:43 Dose: 50 mg (1) Constipation Constipation type: unspecified constipation type Qualified Code(s): K59.00 - Constipation, unspecified
[2022-05-05] MEDS: PANTOprazole 40 MG TAB PO SCH (22:00)
[2022-05-05] MEDS: traZODone HCL 50 MG TAB PO SCH (22:00)
[2022-05-05] MEDS: ENOXAPARIN INJ 40 MG/0.4 ML SYR SQ SCH (22:01)
[2022-05-06] MEDS: TUBE FEEDING WATER FLUSH GT SCH ×5 (04:06→23:07)
[2022-05-06] MEDS: FIBERSOURCE HN 1.2 CAL 1000 ML BAG GT SCH ×6 (05:46→21:54)
[2022-05-06] MEDS: AUSTEDO 12 MG PO SCH ×2 (09:20→21:36)
[2022-05-06] MEDS: LORATADINE 10 MG TAB PO SCH (09:21)
[2022-05-06] MEDS: POLYETHYLENE (MIRALAX) 17 GM PACK PO SCH (09:21)
[2022-05-06] MEDS: DOCUSATE SODIUM/SENNA 50/8.6MG TAB PO SCH ×2 (09:21→21:35)
[2022-05-06] MEDS: SERTRALINE HCL 50 MG TABLET PO SCH (09:21)
[2022-05-06 09:44] LABS: Hematocrit (blood only) 40.6 % (40.1-51.0); Hemoglobin 13.9 g/dl (14.0-18.0); Mean Corpuscular Hemoglobin 31.6 pg (25.0-34.0); Mean Corpuscular Hgb Conc 34.2 g/dL (32.0-36.0); Mean Corpuscular Volume 92.3 fL (80.0-100.0); Mean Platelet Volume 8.9 fL (9.4-12.4); Platelet Count 291 K/uL (130-400); RDW Coefficient of Variation 11.9 % (11.5-14.5); RDW Standard Deviation 39.9 fL (36.4-46.3); White Blood Count 11.01 K/ul (4.8-10.8)
[2022-05-06 10:07] LABS: BUN Creatinine Ratio 23.5 (10-20); Calcium 9.3 mg/dl (8.5-10.1); Creatinine Clr Calc Pharmacy 116.9 ml/min; Est GFR (African American) 135.6 ml/min; Magnesium 2.2 mg/dl (1.7-2.4); Phosphorus 3.1 mg/dl (2.5-4.9)
--- NOTE | 2022-05-06 16:17 | Hospitalist Progress Note ---
Date of Service May 06, 2022 Assessment & Plan (1) Suzy chorea: (2) Ambulatory dysfunction: (3) Frequent falls: (4) Constipation: (5) Feeding by G-tube: (6) Sacral decubitus ulcer, stage II: Plan This is a 41-year-old male who has significant past medical history of Poon ington's chorea and GERD who presents to ER secondary to fall prior to arrival. Suzy Chorea Ambulatory dysfunction Frequent falls Admit to medical Consult case management -adopted mother who is patient's and has been caring for him, but appears she is having much more difficult time managing patient as his [place]ombs's is worsening Patient needs placement and/or significant increasing care at home Referrals are pending to various facilities Acute urinary retention No evidence of UTI Tamsulosin started Resolved-kelly out and urinating well. Tamsulosin stopped. Constipation Feeding by G-Tube per Aunt no BM since 04/20, also minimal intake since 04/25 due to stopping tube feeds. Tube feeds stopped as aunt was under impression to hold until he has a BM discussed with agent ticketing gate who will eval and resume tube feedings - started bolus feeding today 05/06/[address]22 place on senna and miralax scheduled-added glycerin supp on 05/04 with good result. Stage II sacral decubitus ulcer breakdown to buttock per Aunt prior to admission. will consult wound care for wound eval/preventative treatment Cont to reposition off this area. It has been difficult to visualize this area given the patient's movement restrictions. Defer to nursing staff to highlight any significant changes or evidence of w orsening breakdown in this area DVT ppx: SQ Lovenox Dispo: med/surg, uncertain at this time, pt with worsening chorea and aunt unable to manage, may need placement vs significant increase in help at home DNR/DNI Helder Xie MD [facility] Medicine Admission and Anticipated Discharge Date Admission Date: April 30, 2022 Subjective 41-year-old man with [place]ombs's disease with worsening chorea and recurrent falls at home. He also has severe malnutrition secondary to dysphagia and has recently received a PEG in March of this year. He presents after a fall and family is looking for placement options. Patient denies any pain today Pt reports having BM PEG in place and is not bothering him He is doing well with the feedings and is tolerating a full liquid diet, also, per nurse. Review of Systems Review of Systems: All systems reviewed & are unremarkable except as noted in Subjective Physical Exam Physical Exam: CONSTITUTIONAL: WNWD, vitals as above, generally well- appearing, NAD, choreiform movements constant/very debilitating, cannot sit up in bed as he is a fall risk. Has evidence of drooling/issues with drinking fluids. EYES: normal conjunctivae, no scleral icterus ENT: external ear and nose normal, MMM NECK: trachea midline RESPIRATORY: clear to auscultation bilaterally, no crackles, rales or wheezes, normal respiratory effort CARDIOVASCULAR: regular rate and rhythm, S1 and 2 heard without murmurs, gallops or rubs, no JVD, no peripheral edema CHEST: inspection of chest was normal GASTROINTESTINAL: soft, nontender, ND, no guarding MUSCULOSKELETAL: strength 5/5 throughout, head is normocephalic and atraumatic, neck supple, normal palpation of chest wall without tenderness SKIN: warm and dry NEUROLOGIC: CN 2-12 grossly intact, no sensory deficit, normal cognition, normal speech, no tremor PSYCHIATRIC: alert cooperative and oriented to person, place and time. Results & Data Results & Data ([facility]) Vital Signs (Past 12 Hours) Vital Signs Temp Pulse Resp BP Pulse Ox O2 Del Method 05/06/22 10:54 Room Air 05/06/22 07:48 36.4 C L 64 20 108/49 L 98 Laboratory Results Short CBC 05/06/22 Range/Units 09:35 WBC 11.01 H (4.8-10.8) K/ul Hgb 13.9 L (14.0-18.0) g/dl Hct 40.6 (40.1-51.0) % Plt Count 291 (130-400) K/uL BMP 05/06/22 09:35 Sodium 135 L Potassium 4.0 Chloride 99 Carbon Dioxide 31 BUN 16 Creatinine 0.68 Glucose 125 H Calcium 9.3 Medications Administered Current Inpatient Medications Acetaminophen (Acetaminophen 325 Mg Tab) 650 mg PO Q4H PRN PRN Reason: pain/fever Stop: 05/30/22 17:39 Last Admin: 05/03/22 12:27 Dose: 650 mg Al Hydrox/Mg Hydrox/Simethicone (Aluminum/Magnesium Susp 30 Ml Udc) 30 ml PO Q6H PRN PRN Reason: Dyspepsia Stop: 05/30/22 17:39 Benzonatate (Benzonatate 100 Mg Capsule) 100 mg PO BID PRN PRN Reason: Cough Stop: 05/30/22 17:39 Deutetrabenazine (Austedo 12 Mg Tablet) 2 each PO BID [facility] Stop: 05/31/22 10:59 Last Admin: 05/06/22 09:20 Dose: 2 each Enoxaparin Sodium (Enoxaparin Inj 40 Mg/0.4 Ml Syr) 40 mg SQ Q24H [facility] Stop: 05/30/22 21:59 Last Admin: 05/05/22 22:01 Dose: 40 mg Enteral Nutritional Formula (Fibersource Hn 1.2 Erich 1000 Ml Bag) 1,000 ml GT 0600,0900,1200,1500,1800,2100 [facility]; Protocol Stop: 06/05/22 05:59 Last Admin: 05/06/22 12:09 Dose: 1,000 ml Lorazepam 0.5 mg/ Syringe 0.5 mls @ 2 mls/min IV Q4H PRN PRN Reason: restlessness/chorea Stop: 05/30/22 18:01 Last Admin: 05/02/22 14:53 Dose: 2 mls/min Loratadine (Loratadine 10 Mg Tab) 10 mg PO QAM [facility] Stop: 05/31/22 08:59 Last Admin: 05/06/22 09:21 Dose: 10 mg Magnesium Hydroxide (Magnesium Hydroxide Susp 30 Ml Udc) 30 ml PO Q6H PRN PRN Reason: Constipation Stop: 05/30/22 17:39 Ondansetron HCl (Ondansetron Inj 2 Mg/Ml 2 Ml Vial) 4 mg IV Q6H PRN PRN Reason: Nausea Stop: 05/30/22 17:39 Pantoprazole Sodium (Pantoprazole 40 Mg Tab) 40 mg PO HS [facility] Stop: 05/30/22 20:59 Last Admin: 05/05/22 22:00 Dose: 40 mg Polyethylene Glycol (Polyethylene (Miralax) 17 Gm Pack) 17 gm PO DAILY PRN PRN Reason: Constipation Stop: 05/30/22 17:39 Polyethylene Glycol (Polyethylene (Miralax) 17 Gm Pack) 17 gm PO DAILY [facility] Stop: 05/31/22 08:59 Last Admin: 05/06/22 09:21 Dose: 17 gm Senna/Docusate Sodium (Docusate Sodium/Senna 50/8.6mg Tab) 1 tab PO BID [facility] Stop: 05/30/22 20:59 Last Admin: 05/06/22 09:21 Dose: 1 tab Sertraline HCl (Sertraline Hcl 50 Mg Tablet) 25 mg PO QAM [facility] Stop: 05/31/22 08:59 Last Admin: 05/06/22 09:21 Dose: 25 mg Sterile Water (Tube Feeding Water Flush) 100 ml GT Q6H [facility] Stop: 06/04/22 15:59 Last Admin: 05/06/22 09:21 Dose: 100 ml Trazodone HCl (Trazodone Hcl 50 Mg Tab) 50 mg PO HS [facility] Stop: 05/30/22 20:59 Last Admin: 05/05/22 22:00 Dose: 50 mg (1) Constipation Constipation type: unspecified constipation type Qualified Code(s): K59.00 - Constipation, unspecified
[2022-05-06] MEDS: traZODone HCL 50 MG TAB PO SCH (21:35)
[2022-05-06] MEDS: PANTOprazole 40 MG TAB PO SCH (21:35)
[2022-05-06] MEDS: ENOXAPARIN INJ 40 MG/0.4 ML SYR SQ SCH (21:35)
[2022-05-07] MEDS: TUBE FEEDING WATER FLUSH GT SCH ×4 (04:12→22:45)
[2022-05-07] MEDS: FIBERSOURCE HN 1.2 CAL 1000 ML BAG GT SCH ×6 (05:32→21:13)
[2022-05-07] MEDS: DOCUSATE SODIUM/SENNA 50/8.6MG TAB PO SCH ×2 (09:40→21:23)
[2022-05-07] MEDS: LORATADINE 10 MG TAB PO SCH (09:40)
[2022-05-07] MEDS: SERTRALINE HCL 50 MG TABLET PO SCH (09:40)
[2022-05-07] MEDS: POLYETHYLENE (MIRALAX) 17 GM PACK PO SCH (09:40)
[2022-05-07] MEDS: AUSTEDO 12 MG PO SCH ×2 (10:32→21:27)
[2022-05-07 11:19] LABS: Basophils # (auto) 0.07 K/uL (0-0.2); Basophils % (auto) 1.2 %; Eosinophils # (auto) 0.12 K/uL (0-0.50); Eosinophils % (auto) 2.1 %; Hematocrit (blood only) 40.2 % (40.1-51.0); Hemoglobin 13.8 g/dl (14.0-18.0); Immature Granulocytes # (auto) 0.01 K/uL (0.00-0.02); Immature Granulocytes % (auto) 0.2 %; Lymphocytes # (auto) 0.77 K/uL (1.2-3.4); Lymphocytes % (auto) 13.5 %; Mean Corpuscular Hemoglobin 31.7 pg (25.0-34.0); Mean Corpuscular Hgb Conc 34.3 g/dL (32.0-36.0); Mean Corpuscular Volume 92.2 fL (80.0-100.0); Mean Platelet Volume 8.9 fL (9.4-12.4); Monocytes # (auto) 0.59 K/uL (0.24-0.82); Monocytes % (auto) 10.3 %; Neutrophils # (auto) 4.15 K/uL (1.4-6.5); Neutrophils % (auto) 72.7 %; Platelet Count 330 K/uL (130-400); RDW Coefficient of Variation 11.9 % (11.5-14.5); RDW Standard Deviation 39.9 fL (36.4-46.3); Red Blood Count 4.36 M/uL (4.63-6.08); White Blood Count 5.71 K/ul (4.8-10.8)
[2022-05-07 11:35] LABS: Albumin Globulin Ratio 1.2 (0.9-2); Albumin Level 3.4 gm/dl (3.4-5.0); BUN Creatinine Ratio 34.4 (10-20); Bilirubin,Total 0.4 mg/dl (0.2-1.0); Calcium 8.9 mg/dl (8.5-10.1); Creatinine Clr Calc Pharmacy 130.3 ml/min; Est GFR (African American) 141.8 ml/min; Est GFR (Non-African American) 122.3 ml/min; Globulin 2.9 gm/dl (2.5-4.0); Magnesium 2.2 mg/dl (1.7-2.4); Phosphorus 2.8 mg/dl (2.5-4.9); Potassium 4.3 mmol/L (3.5-5.1); Total Protein 6.3 gm/dl (6.0-8.3)
--- NOTE | 2022-05-07 16:26 | Hospitalist Progress Note ---
Date of Service May 07, 2022 Assessment & Plan (1) Suzy chorea: (2) Ambulatory dysfunction: (3) Frequent falls: (4) Constipation: (5) Feeding by G-tube: (6) Sacral decubitus ulcer, stage II: Plan This is a 41-year-old male who has significant past medical history of Poon ington's chorea and GERD who presents to ER secondary to fall prior to arrival. Suzy Chorea Ambulatory dysfunction Frequent falls Admit to medical Consult case management -adopted mother who is patient's and has been caring for him, but appears she is having much more difficult time managing patient as his [place]'s is worsening Patient needs placement and/or significant increasing care at home Referrals are pending to various facilities Acute urinary retention No evidence of UTI Tamsulosin started Resolved-kelly out and urinating well. Tamsulosin stopped. Constipation Feeding by G-Tube per Aunt no BM since 04/20, also minimal intake since 04/25 due to stopping tube feeds. Tube feeds stopped as aunt was under impression to hold until he has a BM discussed with manager insurance who will eval and resume tube feedings - started bolus feeding today 05/06/[address]22 place on senna and miralax scheduled-added glycerin supp on 05/04 with good result. Stage II sacral decubitus ulcer breakdown to buttock per Aunt prior to admission. will consult wound care for wound eval/preventative treatment Cont to reposition off this area. It has been difficult to visualize this area given the patient's movement restrictions. Defer to nursing staff to highlight any significant changes or evidence of w orsening breakdown in this area DVT ppx: SQ Lovenox Dispo: med/surg, uncertain at this time, pt with worsening chorea and aunt unable to manage, may need placement vs significant increase in help at home DNR/DNI Helder Xie MD 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 He also has severe malnutrition secondary to dysphagia and has recently received a PEG in March of this year. He presents after a fall and family is looking for placement options. Patient denies any pain today Pt reports having BM PEG in place and is not bothering him He is doing well with the feedings and is tolerating a full liquid diet, also, per nurse. Review of Systems Review of Systems: All systems reviewed & are unremarkable except as noted in Subjective All systems were reviewed and negative except as indicated above. Physical Exam Physical Exam: CONSTITUTIONAL: WNWD, vitals as above, generally well- appearing, NAD, choreiform movements constant/very debilitating, cannot sit up in bed as he is a fall risk. Has evidence of drooling/issues with drinking fluids. EYES: normal conjunctivae, no scleral icterus ENT: external ear and nose normal, MMM NECK: trachea midline RESPIRATORY: clear to auscultation bilaterally, no crackles, rales or wheezes, normal respiratory effort CARDIOVASCULAR: regular rate and rhythm, S1 and 2 heard without murmurs, gallops or rubs, no JVD, no peripheral edema CHEST: inspection of chest was normal GASTROINTESTINAL: soft, nontender, ND, no guarding MUSCULOSKELETAL: strength 5/5 throughout, head is normocephalic and atraumatic, neck supple, normal palpation of chest wall without tenderness SKIN: warm and dry NEUROLOGIC: CN 2-12 grossly intact, no sensory deficit, normal cognition, normal speech, no tremor PSYCHIATRIC: alert cooperative and oriented to person, place and time. Results & Data Results & Data ([facility]) Vital Signs (Past 12 Hours) Vital Signs O2 Del Method 05/07/22 09:56 Room Air Laboratory Results Short CBC 05/07/22 Range/Units 11:00 WBC 5.71 (4.8-10.8) K/ul Hgb 13.8 L (14.0-18.0) g/dl Hct 40.2 (40.1-51.0) % Plt Count 330 (130-400) K/uL BMP 05/07/22 11:00 Sodium 136 Potassium 4.3 Chloride 101 Carbon Dioxide 31 BUN 21 Creatinine 0.61 Glucose 102 H Calcium 8.9 Liver Function 05/07/22 Range/Units 11:00 Total Bilirubin 0.4 (0.2-1.0) mg/dl AST 15 (13-39) U/L ALT 20 (7-52) U/L Alkaline Phosphatase 45 (34-104) U/L Albumin 3.4 (3.4-5.0) gm/dl Medications Administered Current Inpatient Medications Acetaminophen (Acetaminophen 325 Mg Tab) 650 mg PO Q4H PRN PRN Reason: pain/fever Stop: 05/30/22 17:39 Last Admin: 05/03/22 12:27 Dose: 650 mg Al Hydrox/Mg Hydrox/Simethicone (Aluminum/Magnesium Susp 30 Ml Udc) 30 ml PO Q6H PRN PRN Reason: Dyspepsia Stop: 05/30/22 17:39 Benzonatate (Benzonatate 100 Mg Capsule) 100 mg PO BID PRN PRN Reason: Cough Stop: 05/30/22 17:39 Deutetrabenazine (Austedo 12 Mg Tablet) 2 each PO BID [facility] Stop: 05/31/22 10:59 Last Admin: 05/07/22 10:32 Dose: Not Given Enoxaparin Sodium (Enoxaparin Inj 40 Mg/0.4 Ml Syr) 40 mg SQ Q24H [facility] Stop: 05/30/22 21:59 Last Admin: 05/06/22 21:35 Dose: 40 mg Enteral Nutritional Formula (Fibersource Hn 1.2 Erich 1000 Ml Bag) 1,000 ml GT 0600,0900,1200,1500,1800,2100 [facility]; Protocol Stop: 06/05/22 05:59 Last Admin: 05/07/22 15:09 Dose: 1,000 ml Lorazepam 0.5 mg/ Syringe 0.5 mls @ 2 mls/min IV Q4H PRN PRN Reason: restlessness/chorea Stop: 05/30/22 18:01 Last Admin: 05/02/22 14:53 Dose: 2 mls/min Loratadine (Loratadine 10 Mg Tab) 10 mg PO QAM [facility] Stop: 05/31/22 08:59 Last Admin: 05/07/22 09:40 Dose: 10 mg Magnesium Hydroxide (Magnesium Hydroxide Susp 30 Ml Udc) 30 ml PO Q6H PRN PRN Reason: Constipation Stop: 05/30/22 17:39 Ondansetron HCl (Ondansetron Inj 2 Mg/Ml 2 Ml Vial) 4 mg IV Q6H PRN PRN Reason: Nausea Stop: 05/30/22 17:39 Pantoprazole Sodium (Pantoprazole 40 Mg Tab) 40 mg PO HS [facility] Stop: 05/30/22 20:59 Last Admin: 05/06/22 21:35 Dose: 40 mg Polyethylene Glycol (Polyethylene (Miralax) 17 Gm Pack) 17 gm PO DAILY PRN PRN Reason: Constipation Stop: 05/30/22 17:39 Polyethylene Glycol (Polyethylene (Miralax) 17 Gm Pack) 17 gm PO DAILY [facility] Stop: 05/31/22 08:59 Last Admin: 05/07/22 09:40 Dose: 17 gm Senna/Docusate Sodium (Docusate Sodium/Senna 50/8.6mg Tab) 1 tab PO BID [facility] Stop: 05/30/22 20:59 Last Admin: 05/07/22 09:40 Dose: 1 tab Sertraline HCl (Sertraline Hcl 50 Mg Tablet) 25 mg PO QAM [facility] Stop: 05/31/22 08:59 Last Admin: 05/07/22 09:40 Dose: 25 mg Sterile Water (Tube Feeding Water Flush) 100 ml GT Q6H [facility] Stop: 06/04/22 15:59 Last Admin: 05/07/22 15:12 Dose: 100 ml Trazodone HCl (Trazodone Hcl 50 Mg Tab) 50 mg PO HS [facility] Stop: 05/30/22 20:59 Last Admin: 05/06/22 21:35 Dose: 50 mg (1) Constipation Constipation type: unspecified constipation type Qualified Code(s): K59.00 - Constipation, unspecified
[2022-05-07] MEDS: ENOXAPARIN INJ 40 MG/0.4 ML SYR SQ SCH (21:22)
[2022-05-07] MEDS: traZODone HCL 50 MG TAB PO SCH (21:24)
[2022-05-07] MEDS: PANTOprazole 40 MG TAB PO SCH (21:24)
[2022-05-07] MEDS ORDERED: SODIUM CHLORIDE 0.9% 500 ML IV SCH (23:30)
[2022-05-08] MEDS: TUBE FEEDING WATER FLUSH GT SCH ×4 (04:32→22:00)
[2022-05-08] MEDS: FIBERSOURCE HN 1.2 CAL 1000 ML BAG GT SCH ×6 (05:56→20:59)
[2022-05-08] MEDS: AUSTEDO 12 MG PO SCH ×2 (08:57→20:54)
[2022-05-08] MEDS: LORATADINE 10 MG TAB PO SCH (08:57)
[2022-05-08] MEDS: DOCUSATE SODIUM/SENNA 50/8.6MG TAB PO SCH ×2 (08:57→20:55)
[2022-05-08] MEDS: SERTRALINE HCL 50 MG TABLET PO SCH (08:57)
[2022-05-08] MEDS: POLYETHYLENE (MIRALAX) 17 GM PACK PO SCH (08:58)
--- NOTE | 2022-05-08 14:31 | Hospitalist Progress Note ---
Date of Service May 08, 2022 Assessment & Plan (1) [place] chorea: (2) Ambulatory dysfunction: (3) Frequent falls: (4) Constipation: (5) Feeding by G-tube: (6) Sacral decubitus ulcer, stage II: Plan This is a 41-year-old male who has significant past medical history of Poon ington's chorea and GERD who presents to ER secondary to fall prior to arrival. [place] Chorea Ambulatory dysfunction Frequent falls Admit to medical Consult case management -adopted mother who is patient's and has been caring for him, but appears she is having much more difficult time managing patient as his [place]'s is worsening Patient needs placement and/or significant increasing care at home Referrals are pending to various facilities Acute urinary retention No evidence of UTI Tamsulosin started Resolved-kelly out and urinating well. Tamsulosin stopped. Constipation Feeding by G-Tube per Aunt no BM since 04/20, also minimal intake since 04/25 due to stopping tube feeds. Tube feeds stopped as aunt was under impression to hold until he has a BM discussed with manager of selection and assessment who will eval and resume tube feedings - started bolus feeding today 05/06/[address]22 place on senna and miralax scheduled-added glycerin supp on 05/04 with good result. Stage II sacral decubitus ulcer breakdown to buttock per Aunt prior to admission. will consult wound care for wound eval/preventative treatment Cont to reposition off this area. It has been difficult to visualize this area given the patient's movement restrictions. Defer to nursing staff to highlight any significant changes or evidence of w orsening breakdown in this area DVT ppx: SQ Lovenox Dispo: med/surg, uncertain at this time, pt with worsening chorea and aunt unable to manage, may need placement vs significant increase in help at home DNR/DNI Helder Xie MD [facility] Medicine Admission and Anticipated Discharge Date Admission Date: April 30, 2022 Subjective 41-year-old man with [place]'s disease with worsening chorea and recurrent falls at home. He also has severe malnutrition secondary to dysphagia and has recently received a PEG in March of this year. He presents after a fall and family is looking for placement options. Patient denies any pain today Pt reports having BM PEG in place and is not bothering him He is doing well with the feedings and is tolerating a full liquid diet, also, per nurse. Review of Systems Review of Systems: All systems reviewed & are unremarkable except as noted in Subjective All systems were reviewed and negative except as indicated above. Results & Data Results & Data ([facility]) Vital Signs (Past 12 Hours) Vital Signs Temp Pulse Resp BP Pulse Ox O2 Del Method 05/08/22 08:37 36.3 C L 86 18 98/62 L 98 Room Air (1) Constipation Constipation type: unspecified constipation type Qualified Code(s): K59.00 - Constipation, unspecified
[2022-05-08] MEDS: LORazepam 0.5 MG in SYRINGE 0.25 ML IV PRN (20:24)
[2022-05-08] MEDS: traZODone HCL 50 MG TAB PO SCH (20:55)
[2022-05-08] MEDS: PANTOprazole 40 MG TAB PO SCH (20:55)
[2022-05-08] MEDS: ENOXAPARIN INJ 40 MG/0.4 ML SYR SQ SCH (22:00)
[2022-05-09] MEDS: TUBE FEEDING WATER FLUSH GT SCH ×7 (04:57→22:06)
[2022-05-09] MEDS: FIBERSOURCE HN 1.2 CAL 1000 ML BAG GT SCH ×6 (06:07→21:19)
[2022-05-09] MEDS: LORazepam 0.5 MG in SYRINGE 0.25 ML IV PRN ×3 (06:21→19:42)
[2022-05-09] MEDS: POLYETHYLENE (MIRALAX) 17 GM PACK PO SCH (09:25)
[2022-05-09] MEDS: AUSTEDO 12 MG PO SCH ×2 (09:26→21:18)
[2022-05-09] MEDS: DOCUSATE SODIUM/SENNA 50/8.6MG TAB PO SCH ×2 (09:27→21:19)
[2022-05-09] MEDS: SERTRALINE HCL 50 MG TABLET PO SCH (09:28)
[2022-05-09] MEDS: LORATADINE 10 MG TAB PO SCH (09:28)
--- NOTE | 2022-05-09 13:38 | Hospitalist Progress Note ---
Date of Service May 09, 2022 Assessment & Plan (1) Suzy chorea: (2) Ambulatory dysfunction: (3) Frequent falls: (4) Constipation: (5) Feeding by G-tube: (6) Sacral decubitus ulcer, stage II: Plan This is a 41-year-old male who has significant past medical history of Poon ington's chorea and GERD who presents to ER secondary to fall prior to arrival. Suzy Chorea Ambulatory dysfunction Frequent falls Admit to medical Consult case management -adopted mother who is patient's and has been caring for him, but appears she is having much more difficult time managing patient as his Bullock's is worsening Patient needs placement and/or significant increasing care at home Referrals are pending to various facilities Acute urinary retention No evidence of UTI Tamsulosin started Resolved-kelly out and urinating well. Tamsulosin stopped. Constipation Feeding by G-Tube per Aunt no BM since 04/20, also minimal intake since 04/25 due to stopping tube feeds. Tube feeds stopped as aunt was under impression to hold until he has a BM discussed with tarp repairer who will eval and resume tube feedings - started bolus feeding today 05/06/[address]22 place on senna and miralax scheduled-added glycerin supp on 05/04 with good result. Stage II sacral decubitus ulcer breakdown to buttock per Aunt prior to admission. will consult wound care for wound eval/preventative treatment Cont to reposition off this area. It has been difficult to visualize this area given the patient's movement restrictions. 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 He also has severe malnutrition secondary to dysphagia and has recently received a PEG in March of this year. He presents after a fall and family is looking for placement options. Patient denies any pain today Pt reports having BM PEG in place and is not bothering him He is doing well with the feedings and is tolerating a full liquid diet, also, per nurse. Review of Systems Review of Systems: All systems reviewed & are unremarkable except as noted in Subjective All systems were reviewed and negative except as indicated above. Physical Exam Physical Exam: CONSTITUTIONAL: WNWD, vitals as above, generally well- appearing, NAD, choreiform movements constant/very debilitating, cannot sit up in bed as he is a fall risk. Has evidence of drooling/issues with drinking fluids. EYES: normal conjunctivae, no scleral icterus ENT: external ear and nose normal, MMM NECK: trachea midline RESPIRATORY: clear to auscultation bilaterally, no crackles, rales or wheezes, normal respiratory effort CARDIOVASCULAR: regular rate and rhythm, S1 and 2 heard without murmurs, gallops or rubs, no JVD, no peripheral edema CHEST: inspection of chest was normal GASTROINTESTINAL: soft, nontender, ND, no guarding MUSCULOSKELETAL: strength 5/5 throughout, head is normocephalic and atraumatic, neck supple, normal palpation of chest wall without tenderness SKIN: warm and dry NEUROLOGIC: CN 2-12 grossly intact, no sensory deficit, normal cognition, normal speech, no tremor PSYCHIATRIC: alert cooperative and oriented to person, place and time. Results & Data Results & Data ([facility]) Vital Signs (Past 12 Hours) Vital Signs Temp Pulse Resp BP Pulse Ox O2 Del Method 05/09/22 07:56 36.5 C 70 16 103/74 100 Room Air Medications Administered Current Inpatient Medications Acetaminophen (Acetaminophen 325 Mg Tab) 650 mg PO Q4H PRN PRN Reason: pain/fever Stop: 05/30/22 17:39 Last Admin: 05/03/22 12:27 Dose: 650 mg Al Hydrox/Mg Hydrox/Simethicone (Aluminum/Magnesium Susp 30 Ml Udc) 30 ml PO Q6H PRN PRN Reason: Dyspepsia Stop: 05/30/22 17:39 Benzonatate (Benzonatate 100 Mg Capsule) 100 mg PO BID PRN PRN Reason: Cough Stop: 05/30/22 17:39 Deutetrabenazine (Austedo 12 Mg Tablet) 2 each PO BID ESTELA Stop: 05/31/22 10:59 Last Admin: 05/09/22 09:26 Dose: 2 each Enoxaparin Sodium (Enoxaparin Inj 40 Mg/0.4 Ml Syr) 40 mg SQ Q24H ESTELA Stop: 05/30/22 21:59 Last Admin: 05/08/22 22:00 Dose: 40 mg Enteral Nutritional Formula (Fibersource Hn 1.2 Erich 1000 Ml Bag) 1,000 ml GT 0600,0900,1200,1500,1800,2100 [facility]; Protocol Stop: 06/05/22 05:59 Last Admin: 05/09/22 12:12 Dose: 1,000 ml Lorazepam 0.5 mg/ Syringe 0.5 mls @ 2 mls/min IV Q4H PRN PRN Reason: restlessness/chorea Stop: 05/30/22 18:01 Last Admin: 05/09/22 06:21 Dose: 2 mls/min Loratadine (Loratadine 10 Mg Tab) 10 mg PO QAM [facility] Stop: 05/31/22 08:59 Last Admin: 05/09/22 09:28 Dose: 10 mg Magnesium Hydroxide (Magnesium Hydroxide Susp 30 Ml Udc) 30 ml PO Q6H PRN PRN Reason: Constipation Stop: 05/30/22 17:39 Ondansetron HCl (Ondansetron Inj 2 Mg/Ml 2 Ml Vial) 4 mg IV Q6H PRN PRN Reason: Nausea Stop: 05/30/22 17:39 Pantoprazole Sodium (Pantoprazole 40 Mg Tab) 40 mg PO HS [facility] Stop: 05/30/22 20:59 Last Admin: 05/08/22 20:55 Dose: 40 mg Polyethylene Glycol (Polyethylene (Miralax) 17 Gm Pack) 17 gm PO DAILY PRN PRN Reason: Constipation Stop: 05/30/22 17:39 Polyethylene Glycol (Polyethylene (Miralax) 17 Gm Pack) 17 gm PO DAILY ESTELA Stop: 05/31/22 08:59 Last Admin: 05/09/22 09:25 Dose: 17 gm Senna/Docusate Sodium (Docusate Sodium/Senna 50/8.6mg Tab) 1 tab PO BID [facility] Stop: 05/30/22 20:59 Last Admin: 05/09/22 09:27 Dose: 1 tab Sertraline HCl (Sertraline Hcl 50 Mg Tablet) 25 mg PO QAM [facility] Stop: 05/31/22 08:59 Last Admin: 05/09/22 09:28 Dose: 25 mg Sterile Water (Tube Feeding Water Flush) 60 ml GT 0630,0930,1230,1530,1830,2130 [facility]; Protocol Stop: 06/07/22 18:29 Last Admin: 05/09/22 12:44 Dose: 60 ml Trazodone HCl (Trazodone Hcl 50 Mg Tab) 50 mg PO HS [facility] Stop: 05/30/22 20:59 Last Admin: 05/08/22 20:55 Dose: 50 mg (1) Constipation Constipation type: unspecified constipation type Qualified Code(s): K59.00 - Constipation, unspecified
[2022-05-09] MEDS: PANTOprazole 40 MG TAB PO SCH (21:18)
[2022-05-09] MEDS: traZODone HCL 50 MG TAB PO SCH (21:19)
[2022-05-09] MEDS: ENOXAPARIN INJ 40 MG/0.4 ML SYR SQ SCH (22:07)
[2022-05-10] MEDS: FIBERSOURCE HN 1.2 CAL 1000 ML BAG GT SCH ×6 (06:15→21:26)
[2022-05-10] MEDS: LORazepam 0.5 MG in SYRINGE 0.25 ML IV PRN ×4 (06:59→21:27)
[2022-05-10] MEDS: TUBE FEEDING WATER FLUSH GT SCH ×6 (07:00→22:16)
[2022-05-10] MEDS: AUSTEDO 12 MG PO SCH ×2 (08:53→21:28)
[2022-05-10] MEDS: SERTRALINE HCL 50 MG TABLET PO SCH (08:54)
[2022-05-10] MEDS: LORATADINE 10 MG TAB PO SCH (08:54)
[2022-05-10] MEDS: DOCUSATE SODIUM/SENNA 50/8.6MG TAB PO SCH ×2 (08:54→21:29)
[2022-05-10] MEDS: POLYETHYLENE (MIRALAX) 17 GM PACK PO SCH (08:55)
--- NOTE | 2022-05-10 13:16 | Hospitalist Progress Note ---
Date of Service May 10, 2022 Assessment & Plan (1) Greenfield chorea: (2) Ambulatory dysfunction: (3) Frequent falls: (4) Constipation: (5) Feeding by G-tube: (6) Sacral decubitus ulcer, stage II: Plan This is a 41-year-old male who has significant past medical history of Poon ington's chorea and GERD who presents to ER secondary to fall prior to arrival. Greenfield Chorea Ambulatory dysfunction Frequent falls Admit to medical Consult case management -adopted mother who is patient's and has been caring for him, but appears she is having much more difficult time managing patient as his Greenfield's is worsening Patient needs placement and/or significant increasing care at home Referrals are pending to various facilities Acute urinary retention No evidence of UTI Tamsulosin started Resolved-kelly out and urinating well. Tamsulosin stopped. Constipation Feeding by G-Tube per Aunt no BM since 04/20, also minimal intake since 04/25 due to stopping tube feeds. Tube feeds stopped as aunt was under impression to hold until he has a BM discussed with corporate analyst who will eval and resume tube feedings - started bolus feeding today 05/06/[address]22 place on senna and miralax scheduled-added glycerin supp on 05/04 with good result. Stage II sacral decubitus ulcer breakdown to buttock per Aunt prior to admission. will consult wound care for wound eval/preventative treatment Cont to reposition off this area. It has been difficult to visualize this area given the patient's movement restrictions. 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 He also has severe malnutrition secondary to dysphagia and has recently received a PEG in March of this year. He presents after a fall and family is looking for placement options. Patient denies any pain today Pt reports having BM PEG in place and is not bothering him He is doing well with the feedings and is tolerating a full liquid diet, also, per nurse. Review of Systems Review of Systems: All systems reviewed & are unremarkable except as noted in Subjective All systems were reviewed and negative except as indicated above. Physical Exam Physical Exam: CONSTITUTIONAL: WNWD, vitals as above, generally well- appearing, NAD, choreiform movements constant/very debilitating, cannot sit up in bed as he is a fall risk. Has evidence of drooling/issues with drinking fluids. EYES: normal conjunctivae, no scleral icterus ENT: external ear and nose normal, MMM NECK: trachea midline RESPIRATORY: clear to auscultation bilaterally, no crackles, rales or wheezes, normal respiratory effort CARDIOVASCULAR: regular rate and rhythm, S1 and 2 heard without murmurs, gallops or rubs, no JVD, no peripheral edema CHEST: inspection of chest was normal GASTROINTESTINAL: soft, nontender, ND, no guarding MUSCULOSKELETAL: strength 5/5 throughout, head is normocephalic and atraumatic, neck supple, normal palpation of chest wall without tenderness SKIN: warm and dry NEUROLOGIC: CN 2-12 grossly intact, no sensory deficit, normal cognition, normal speech, no tremor PSYCHIATRIC: alert cooperative and oriented to person, place and time. Results & Data Results & Data ([facility]) Vital Signs (Past 12 Hours) Vital Signs Temp Pulse Resp BP Pulse Ox O2 Del Method 05/10/22 06:37 36.4 C L 71 19 99/68 L 93 Room Air (1) Constipation Constipation type: unspecified constipation type Qualified Code(s): K59.00 - Constipation, unspecified
[2022-05-10] MEDS: PANTOprazole 40 MG TAB PO SCH (21:28)
[2022-05-10] MEDS: traZODone HCL 50 MG TAB PO SCH (21:28)
[2022-05-10] MEDS: ENOXAPARIN INJ 40 MG/0.4 ML SYR SQ SCH (21:51)
[2022-05-11] MEDS: FIBERSOURCE HN 1.2 CAL 1000 ML BAG GT SCH ×6 (06:08→21:33)
[2022-05-11] MEDS: TUBE FEEDING WATER FLUSH GT SCH ×6 (06:57→22:43)
[2022-05-11] MEDS: LORazepam 0.5 MG in SYRINGE 0.25 ML IV PRN ×3 (07:48→17:49)
[2022-05-11] MEDS: DOCUSATE SODIUM/SENNA 50/8.6MG TAB PO SCH ×2 (07:49→20:05)
[2022-05-11] MEDS: SERTRALINE HCL 50 MG TABLET PO SCH (07:50)
[2022-05-11] MEDS: LORATADINE 10 MG TAB PO SCH (07:50)
[2022-05-11] MEDS: AUSTEDO 12 MG PO SCH ×2 (07:52→20:05)
[2022-05-11] MEDS: POLYETHYLENE (MIRALAX) 17 GM PACK PO SCH (07:52)
--- NOTE | 2022-05-11 15:00 | Hospitalist Progress Note ---
Date of Service May 11, 2022 Assessment & Plan (1) Pisek chorea: (2) Ambulatory dysfunction: (3) Frequent falls: (4) Constipation: (5) Feeding by G-tube: (6) Sacral decubitus ulcer, stage II: Plan This is a 41-year-old male who has significant past medical history of Poon ington's chorea and GERD who presents to ER secondary to fall prior to arrival. Pisek Chorea Ambulatory dysfunction Frequent falls Admit to medical Consult case management -adopted mother who is patient's and has been caring for him, but appears she is having much more difficult time managing patient as his Pisek's is worsening Patient needs placement and/or significant increasing care at home Referrals are pending to various facilities Acute urinary retention No evidence of UTI Tamsulosin started Resolved-kelly out and urinating well. Tamsulosin stopped. Constipation Feeding by G-Tube per Aunt no BM since 04/20, also minimal intake since 04/25 due to stopping tube feeds. Tube feeds stopped as aunt was under impression to hold until he has a BM discussed with carton forming machine adjuster who will eval and resume tube feedings - started bolus feeding today 05/06/[address]22 place on senna and miralax scheduled-added glycerin supp on 05/04 with good result. Stage II sacral decubitus ulcer breakdown to buttock per Aunt prior to admission. will consult wound care for wound eval/preventative treatment Cont to reposition off this area. It has been difficult to visualize this area given the patient's movement restrictions. 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 He also has severe malnutrition secondary to dysphagia and has recently received a PEG in March of this year. He presents after a fall and family is looking for placement options. Patient denies any pain today Pt reports having BM PEG in place and is not bothering him He is doing well with the feedings and is tolerating a full liquid diet, also, per nurse. Review of Systems Review of Systems: All systems reviewed & are unremarkable except as noted in Subjective All systems were reviewed and negative except as indicated above. Physical Exam Physical Exam: CONSTITUTIONAL: WNWD, vitals as above, generally well- appearing, NAD, choreiform movements constant/very debilitating, cannot sit up in bed as he is a fall risk. Has evidence of drooling/issues with drinking fluids. EYES: normal conjunctivae, no scleral icterus ENT: external ear and nose normal, MMM NECK: trachea midline RESPIRATORY: clear to auscultation bilaterally, no crackles, rales or wheezes, normal respiratory effort CARDIOVASCULAR: regular rate and rhythm, S1 and 2 heard without murmurs, gallops or rubs, no JVD, no peripheral edema CHEST: inspection of chest was normal GASTROINTESTINAL: soft, nontender, ND, no guarding MUSCULOSKELETAL: strength 5/5 throughout, head is normocephalic and atraumatic, neck supple, normal palpation of chest wall without tenderness SKIN: warm and dry NEUROLOGIC: CN 2-12 grossly intact, no sensory deficit, normal cognition, normal speech, no tremor PSYCHIATRIC: alert cooperative and oriented to person, place and time. Results & Data Results & Data ([facility]) Vital Signs (Past 12 Hours) Vital Signs Temp Pulse Resp BP Pulse Ox O2 Del Method 05/11/22 14:09 36.6 C 79 16 96/63 L 96 Room Air 05/11/22 07:11 36.4 C L 55 L 16 100/72 100 Room Air (1) Constipation Constipation type: unspecified constipation type Qualified Code(s): K59.00 - Constipation, unspecified
[2022-05-11] MEDS: traZODone HCL 50 MG TAB PO SCH (20:05)
[2022-05-11] MEDS: PANTOprazole 40 MG TAB PO SCH (20:05)
[2022-05-11] MEDS: ENOXAPARIN INJ 40 MG/0.4 ML SYR SQ SCH (20:05)
[2022-05-12] MEDS: FIBERSOURCE HN 1.2 CAL 1000 ML BAG GT SCH ×6 (06:06→21:21)
[2022-05-12] MEDS: LORazepam 0.5 MG in SYRINGE 0.25 ML IV PRN ×4 (06:12→19:25)
[2022-05-12] MEDS: TUBE FEEDING WATER FLUSH GT SCH ×6 (06:36→22:22)
[2022-05-12] MEDS: DOCUSATE SODIUM/SENNA 50/8.6MG TAB PO SCH ×2 (08:32→21:20)
[2022-05-12] MEDS: LORATADINE 10 MG TAB PO SCH (08:33)
[2022-05-12] MEDS: SERTRALINE HCL 50 MG TABLET PO SCH (08:33)
[2022-05-12] MEDS: POLYETHYLENE (MIRALAX) 17 GM PACK PO SCH (08:33)
[2022-05-12] MEDS: AUSTEDO 12 MG PO SCH ×2 (09:00→21:20)
--- NOTE | 2022-05-12 10:56 | Hospitalist Progress Note ---
Date of Service May 12, 2022 Assessment & Plan (1) Duke chorea: (2) Ambulatory dysfunction: (3) Frequent falls: (4) Constipation: (5) Feeding by G-tube: (6) Sacral decubitus ulcer, stage II: Plan This is a 41-year-old male who has significant past medical history of Poon ington's chorea and GERD who presents to ER secondary to fall prior to arrival. Duke Chorea Ambulatory dysfunction Frequent falls Admit to medical Consult case management -adopted mother who is patient's and has been caring for him, but appears she is having much more difficult time managing patient as his Duke's is worsening Patient needs placement and/or significant increasing care at home Referrals are pending to various facilities Acute urinary retention No evidence of UTI Tamsulosin started Resolved-kelly out and urinating well. Tamsulosin stopped. Constipation Feeding by G-Tube per Aunt no BM since 04/20, also minimal intake since 04/25 due to stopping tube feeds. Tube feeds stopped as aunt was under impression to hold until he has a BM discussed with sawmill hand who will eval and resume tube feedings - started bolus feeding today 05/06/[address]22 place on senna and miralax scheduled-added glycerin supp on 05/04 with good result. Stage II sacral decubitus ulcer breakdown to buttock per Aunt prior to admission. will consult wound care for wound eval/preventative treatment Cont to reposition off this area. It has been difficult to visualize this area given the patient's movement restrictions. 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 He also has severe malnutrition secondary to dysphagia and has recently received a PEG in March of this year. He presents after a fall and family is looking for placement options. Patient denies any pain today Pt reports having BM PEG in place and is not bothering him He is doing well with the feedings and is tolerating a full liquid diet, also, per nurse. Review of Systems Review of Systems: All systems reviewed & are unremarkable except as noted in Subjective All systems were reviewed and negative except as indicated above. Physical Exam Physical Exam: CONSTITUTIONAL: WNWD, vitals as above, generally well- appearing, NAD, choreiform movements constant/very debilitating, cannot sit up in bed as he is a fall risk. Has evidence of drooling/issues with drinking fluids. EYES: normal conjunctivae, no scleral icterus ENT: external ear and nose normal, MMM NECK: trachea midline RESPIRATORY: clear to auscultation bilaterally, no crackles, rales or wheezes, normal respiratory effort CARDIOVASCULAR: regular rate and rhythm, S1 and 2 heard without murmurs, gallops or rubs, no JVD, no peripheral edema CHEST: inspection of chest was normal GASTROINTESTINAL: soft, nontender, ND, no guarding MUSCULOSKELETAL: strength 5/5 throughout, head is normocephalic and atraumatic, neck supple, normal palpation of chest wall without tenderness SKIN: warm and dry NEUROLOGIC: CN 2-12 grossly intact, no sensory deficit, normal cognition, normal speech, no tremor PSYCHIATRIC: alert cooperative and oriented to person, place and time. Results & Data Results & Data ([facility]) Vital Signs (Past 12 Hours) Vital Signs Temp Pulse Resp BP Pulse Ox O2 Del Method 05/12/22 07:15 Room Air 05/12/22 07:19 36.8 C 71 16 100/67 98 Room Air (1) Constipation Constipation type: unspecified constipation type Qualified Code(s): K59.00 - Constipation, unspecified
[2022-05-12] MEDS: PANTOprazole 40 MG TAB PO SCH (21:20)
[2022-05-12] MEDS: ENOXAPARIN INJ 40 MG/0.4 ML SYR SQ SCH (21:21)
[2022-05-12] MEDS: traZODone HCL 50 MG TAB PO SCH (21:21)
[2022-05-13] MEDS: LORazepam 0.5 MG in SYRINGE 0.25 ML IV PRN ×6 (00:45→21:51)
[2022-05-13] MEDS: FIBERSOURCE HN 1.2 CAL 1000 ML BAG GT SCH ×6 (05:58→21:58)
[2022-05-13] MEDS: TUBE FEEDING WATER FLUSH GT SCH ×6 (06:50→21:59)
[2022-05-13] MEDS: SERTRALINE HCL 50 MG TABLET PO SCH (08:48)
[2022-05-13] MEDS: DOCUSATE SODIUM/SENNA 50/8.6MG TAB PO SCH ×2 (08:48→21:33)
[2022-05-13] MEDS: POLYETHYLENE (MIRALAX) 17 GM PACK PO SCH (08:49)
[2022-05-13] MEDS: LORATADINE 10 MG TAB PO SCH (08:49)
[2022-05-13] MEDS: AUSTEDO 12 MG PO SCH ×2 (08:49→21:34)
--- NOTE | 2022-05-13 17:06 | Hospitalist Progress Note ---
Date of Service May 13, 2022 Assessment & Plan (1) Suzy chorea: (2) Ambulatory dysfunction: (3) Frequent falls: (4) Constipation: (5) Feeding by G-tube: (6) Sacral decubitus ulcer, stage II: Plan This is a 41-year-old male who has significant past medical history of Poon ington's chorea and GERD who presents to ER secondary to fall prior to arrival. Suzy Chorea Ambulatory dysfunction Frequent falls Admit to medical Consult case management -adopted mother who is patient's and has been caring for him, but appears she is having much more difficult time managing patient as his Kingfisher's is worsening Patient needs placement and/or significant increasing care at home Referrals are pending to various facilities Acute urinary retention No evidence of UTI Tamsulosin started Resolved-kelly out and urinating well. Tamsulosin stopped. Constipation Feeding by G-Tube per Aunt no BM since 04/20, also minimal intake since 04/25 due to stopping tube feeds. Tube feeds stopped as aunt was under impression to hold until he has a BM discussed with pump runner who will eval and resume tube feedings - started bolus feeding today 05/06/[address]22 place on senna and miralax scheduled-added glycerin supp on 05/04 with good result. Stage II sacral decubitus ulcer breakdown to buttock per Aunt prior to admission. will consult wound care for wound eval/preventative treatment Cont to reposition off this area. It has been difficult to visualize this area given the patient's movement restrictions. 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 He also has severe malnutrition secondary to dysphagia and has recently received a PEG in March of this year. He presents after a fall and family is looking for placement options. Patient denies any pain today No issues reported Feels full and satiated wtih his current tube feeds PEG in place and is not bothering him Aunt at bedside and no current questions/concerns. Review of Systems Review of Systems: All systems were reviewed and negative except as indicated in subjective above. Physical Exam Physical Exam: CONSTITUTIONAL: thin, vitals as above, generally well- appearing, NAD, choreiform movements constant/very debilitating, cannot sit up in bed as he is a fall risk. EYES: normal conjunctivae, no scleral icterus ENT: external ear and nose normal, MMM NECK: trachea midline RESPIRATORY: clear to auscultation bilaterally, no crackles, rales or wheezes, normal respiratory effort CARDIOVASCULAR: regular rate and rhythm, S1 and 2 heard without murmurs, gallops or rubs, no JVD, no peripheral edema CHEST: inspection of chest was normal GASTROINTESTINAL: soft, nontender, ND, no guarding MUSCULOSKELETAL: strength 5/5 throughout, head is normocephalic and atraumatic, neck supple, normal palpation of chest wall without tenderness SKIN: warm and dry NEUROLOGIC: CN 2-12 grossly intact, no sensory deficit, normal cognition, normal speech, no tremor PSYCHIATRIC: alert cooperative and oriented to person, place and time. Results & Data Results & Data ([facility]) Vital Signs (Past 12 Hours) Vital Signs Temp Pulse Resp BP Pulse Ox O2 Del Method 05/13/22 08:40 Room Air 05/13/22 07:34 36.4 C L 58 L 16 105/70 96 Room Air Medications Administered Current Inpatient Medications Acetaminophen (Acetaminophen 325 Mg Tab) 650 mg PO Q4H PRN PRN Reason: pain/fever Stop: 05/30/22 17:39 Last Admin: 05/03/22 12:27 Dose: 650 mg Al Hydrox/Mg Hydrox/Simethicone (Aluminum/Magnesium Susp 30 Ml Udc) 30 ml PO Q6H PRN PRN Reason: Dyspepsia Stop: 05/30/22 17:39 Benzonatate (Benzonatate 100 Mg Capsule) 100 mg PO BID PRN PRN Reason: Cough Stop: 05/30/22 17:39 Deutetrabenazine (Austedo 12 Mg Tablet) 2 each PO BID ESTELA Stop: 05/31/22 10:59 Last Admin: 05/13/22 08:49 Dose: 2 each Enoxaparin Sodium (Enoxaparin Inj 40 Mg/0.4 Ml Syr) 40 mg SQ Q24H ESTELA Stop: 05/30/22 21:59 Last Admin: 05/12/22 21:21 Dose: 40 mg Enteral Nutritional Formula (Fibersource Hn 1.2 Erich 1000 Ml Bag) 1,000 ml GT 0600,0900,1200,1500,1800,2100 [facility]; Protocol Stop: 06/05/22 05:59 Last Admin: 05/13/22 15:06 Dose: 1,000 ml Lorazepam 0.5 mg/ Syringe 0.5 mls @ 2 mls/min IV Q4H PRN PRN Reason: restlessness/chorea Stop: 05/30/22 18:01 Last Admin: 05/13/22 14:14 Dose: 2 mls/min Loratadine (Loratadine 10 Mg Tab) 10 mg PO QAM [facility] Stop: 05/31/22 08:59 Last Admin: 05/13/22 08:49 Dose: 10 mg Magnesium Hydroxide (Magnesium Hydroxide Susp 30 Ml Udc) 30 ml PO Q6H PRN PRN Reason: Constipation Stop: 05/30/22 17:39 Ondansetron HCl (Ondansetron Inj 2 Mg/Ml 2 Ml Vial) 4 mg IV Q6H PRN PRN Reason: Nausea Stop: 05/30/22 17:39 Pantoprazole Sodium (Pantoprazole 40 Mg Tab) 40 mg PO HS [facility] Stop: 05/30/22 20:59 Last Admin: 05/12/22 21:20 Dose: 40 mg Polyethylene Glycol (Polyethylene (Miralax) 17 Gm Pack) 17 gm PO DAILY PRN PRN Reason: Constipation Stop: 05/30/22 17:39 Polyethylene Glycol (Polyethylene (Miralax) 17 Gm Pack) 17 gm PO DAILY ESTELA Stop: 05/31/22 08:59 Last Admin: 05/13/22 08:49 Dose: 17 gm Senna/Docusate Sodium (Docusate Sodium/Senna 50/8.6mg Tab) 1 tab PO BID ESTELA Stop: 05/30/22 20:59 Last Admin: 05/13/22 08:48 Dose: 1 tab Sertraline HCl (Sertraline Hcl 50 Mg Tablet) 25 mg PO QAM [facility] Stop: 05/31/22 08:59 Last Admin: 05/13/22 08:48 Dose: 25 mg Sterile Water (Tube Feeding Water Flush) 60 ml GT 0630,0930,1230,1530,1830,2130 [facility]; Protocol Stop: 06/07/22 18:29 Last Admin: 05/13/22 15:06 Dose: 60 ml Trazodone HCl (Trazodone Hcl 50 Mg Tab) 50 mg PO HS [facility] Stop: 05/30/22 20:59 Last Admin: 05/12/22 21:21 Dose: 50 mg (1) Constipation Constipation type: unspecified constipation type Qualified Code(s): K59.00 - Constipation, unspecified
[2022-05-13] MEDS: PANTOprazole 40 MG TAB PO SCH (21:34)
[2022-05-13] MEDS: traZODone HCL 50 MG TAB PO SCH (21:34)
[2022-05-13] MEDS: ENOXAPARIN INJ 40 MG/0.4 ML SYR SQ SCH (21:34)
[2022-05-14] MEDS: LORazepam 0.5 MG in SYRINGE 0.25 ML IV PRN ×6 (02:07→23:23)
[2022-05-14] MEDS: TUBE FEEDING WATER FLUSH GT SCH ×6 (06:14→23:03)
[2022-05-14] MEDS: FIBERSOURCE HN 1.2 CAL 1000 ML BAG GT SCH ×6 (06:14→23:03)
[2022-05-14] MEDS: POLYETHYLENE (MIRALAX) 17 GM PACK PO SCH (08:50)
[2022-05-14] MEDS: SERTRALINE HCL 50 MG TABLET PO SCH (08:50)
[2022-05-14] MEDS: DOCUSATE SODIUM/SENNA 50/8.6MG TAB PO SCH ×2 (08:50→20:31)
[2022-05-14] MEDS: LORATADINE 10 MG TAB PO SCH (08:50)
[2022-05-14] MEDS: AUSTEDO 12 MG PO SCH ×2 (08:51→20:30)
[2022-05-14] MEDS: PANTOprazole 40 MG TAB PO SCH (20:30)
[2022-05-14] MEDS: traZODone HCL 50 MG TAB PO SCH (20:30)
--- NOTE | 2022-05-14 20:37 | Hospitalist Progress Note ---
Date of Service May 14, 2022 Assessment & Plan (1) Suzy chorea: (2) Ambulatory dysfunction: (3) Frequent falls: (4) Constipation: (5) Feeding by G-tube: (6) Sacral decubitus ulcer, stage II: Plan This is a 41-year-old male who has significant past medical history of Poon ington's chorea and GERD who presents to ER secondary to fall prior to arrival. Suzy Chorea Ambulatory dysfunction Frequent falls Admit to medical Consult case management -adopted mother who is patient's and has been caring for him, but appears she is having much more difficult time managing patient as his Dickinson's is worsening Patient needs placement and/or significant increasing care at home Referrals are pending to various facilities Acute urinary retention No evidence of UTI Tamsulosin started Resolved-kelly out and urinating well. Tamsulosin stopped. Constipation Feeding by G-Tube per Aunt no BM since 04/20, also minimal intake since 04/25 due to stopping tube feeds. Tube feeds stopped as aunt was under impression to hold until he has a BM discussed with browning processor who will eval and resume tube feedings - started bolus feeding today 05/06/[address]22 place on senna and miralax scheduled-added glycerin supp on 05/04 with good result. Stage II sacral decubitus ulcer breakdown to buttock per Aunt prior to admission. will consult wound care for wound eval/preventative treatment Cont to reposition off this area. It has been difficult to visualize this area given the patient's movement restrictions. 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 He also has severe malnutrition secondary to dysphagia and has recently received a PEG in March of this year. He presents after a fall and family is looking for placement options. Patient denies any pain today No issues reported Feels full and satiated wtih his current tube feeds PEG in place and is not bothering him Reports having had a BM today Reports he is drinking fluids and eating soups by mouth Review of Systems Review of Systems: All systems were reviewed and negative except as indicated in subjective above. Physical Exam Physical Exam: CONSTITUTIONAL: thin, vitals as above, generally well- appearing, NAD, choreiform movements constant/very debilitating, cannot sit up in bed as he is a fall risk. EYES: normal conjunctivae, no scleral icterus ENT: external ear and nose normal, MMM NECK: trachea midline RESPIRATORY: clear to auscultation bilaterally, no crackles, rales or wheezes, normal respiratory effort CARDIOVASCULAR: regular rate and rhythm, S1 and 2 heard without murmurs, gallops or rubs, no JVD, no peripheral edema CHEST: inspection of chest was normal GASTROINTESTINAL: soft, nontender, ND, no guarding MUSCULOSKELETAL: strength 5/5 throughout, head is normocephalic and atraumatic, neck supple, normal palpation of chest wall without tenderness SKIN: warm and dry NEUROLOGIC: CN 2-12 grossly intact, no sensory deficit, normal cognition, normal speech, no tremor PSYCHIATRIC: alert cooperative and oriented to person, place and time. Results & Data Results & Data ([facility]) Vital Signs (Past 12 Hours) Vital Signs Temp Pulse Resp BP Pulse Ox O2 Del Method 05/14/22 10:50 36.5 C 72 16 103/64 98 Room Air Medications Administered Current Inpatient Medications Acetaminophen (Acetaminophen 325 Mg Tab) 650 mg PO Q4H PRN PRN Reason: pain/fever Stop: 05/30/22 17:39 Last Admin: 05/03/22 12:27 Dose: 650 mg Al Hydrox/Mg Hydrox/Simethicone (Aluminum/Magnesium Susp 30 Ml Udc) 30 ml PO Q6H PRN PRN Reason: Dyspepsia Stop: 05/30/22 17:39 Benzonatate (Benzonatate 100 Mg Capsule) 100 mg PO BID PRN PRN Reason: Cough Stop: 05/30/22 17:39 Deutetrabenazine (Austedo 12 Mg Tablet) 2 each PO BID ESTELA Stop: 05/31/22 10:59 Last Admin: 05/14/22 08:51 Dose: 2 each Enoxaparin Sodium (Enoxaparin Inj 40 Mg/0.4 Ml Syr) 40 mg SQ Q24H [facility] Stop: 05/30/22 21:59 Last Admin: 05/13/22 21:34 Dose: 40 mg Enteral Nutritional Formula (Fibersource Hn 1.2 Erich 1000 Ml Bag) 1,000 ml GT 0600,0900,1200,1500,1800,2100 [facility]; Protocol Stop: 06/05/22 05:59 Last Admin: 05/14/22 18:01 Dose: 330 ml Lorazepam 0.5 mg/ Syringe 0.5 mls @ 2 mls/min IV Q4H PRN PRN Reason: restlessness/chorea Stop: 05/30/22 18:01 Last Admin: 05/14/22 18:44 Dose: 2 mls/min Loratadine (Loratadine 10 Mg Tab) 10 mg PO QAM [facility] Stop: 05/31/22 08:59 Last Admin: 05/14/22 08:50 Dose: 10 mg Magnesium Hydroxide (Magnesium Hydroxide Susp 30 Ml Udc) 30 ml PO Q6H PRN PRN Reason: Constipation Stop: 05/30/22 17:39 Ondansetron HCl (Ondansetron Inj 2 Mg/Ml 2 Ml Vial) 4 mg IV Q6H PRN PRN Reason: Nausea Stop: 05/30/22 17:39 Pantoprazole Sodium (Pantoprazole 40 Mg Tab) 40 mg PO HS [facility] Stop: 05/30/22 20:59 Last Admin: 05/13/22 21:34 Dose: 40 mg Polyethylene Glycol (Polyethylene (Miralax) 17 Gm Pack) 17 gm PO DAILY PRN PRN Reason: Constipation Stop: 05/30/22 17:39 Polyethylene Glycol (Polyethylene (Miralax) 17 Gm Pack) 17 gm PO DAILY ESTELA Stop: 05/31/22 08:59 Last Admin: 05/14/22 08:50 Dose: 17 gm Senna/Docusate Sodium (Docusate Sodium/Senna 50/8.6mg Tab) 1 tab PO BID ESTELA Stop: 05/30/22 20:59 Last Admin: 05/14/22 08:50 Dose: 1 tab Sertraline HCl (Sertraline Hcl 50 Mg Tablet) 25 mg PO QAM [facility] Stop: 05/31/22 08:59 Last Admin: 05/14/22 08:50 Dose: 25 mg Sterile Water (Tube Feeding Water Flush) 60 ml GT 0630,0930,1230,1530,1830,2130 [facility]; Protocol Stop: 06/07/22 18:29 Last Admin: 05/14/22 19:03 Dose: 60 ml Trazodone HCl (Trazodone Hcl 50 Mg Tab) 50 mg PO [facility] Stop: 05/30/22 20:59 Last Admin: 05/13/22 21:34 Dose: 50 mg (1) Constipation Constipation type: unspecified constipation type Qualified Code(s): K59.00 - Constipation, unspecified
[2022-05-14] MEDS: ENOXAPARIN INJ 40 MG/0.4 ML SYR SQ SCH (23:02)
[2022-05-15] MEDS: LORazepam 0.5 MG in SYRINGE 0.25 ML IV PRN ×4 (06:11→20:11)
[2022-05-15] MEDS: FIBERSOURCE HN 1.2 CAL 1000 ML BAG GT SCH ×6 (06:12→21:15)
[2022-05-15] MEDS: TUBE FEEDING WATER FLUSH GT SCH ×6 (06:13→21:18)
[2022-05-15] MEDS: LORATADINE 10 MG TAB PO SCH (08:27)
[2022-05-15] MEDS: SERTRALINE HCL 50 MG TABLET PO SCH (08:27)
[2022-05-15] MEDS: DOCUSATE SODIUM/SENNA 50/8.6MG TAB PO SCH ×2 (08:27→21:16)
[2022-05-15] MEDS: POLYETHYLENE (MIRALAX) 17 GM PACK PO SCH (08:28)
[2022-05-15] MEDS: AUSTEDO 12 MG PO SCH ×2 (08:28→21:16)
[2022-05-15 10:53] LABS: Hematocrit (blood only) 41.3 % (40.1-51.0); Hemoglobin 14.2 g/dl (14.0-18.0); Mean Corpuscular Hemoglobin 31.8 pg (25.0-34.0); Mean Corpuscular Hgb Conc 34.4 g/dL (32.0-36.0); Mean Corpuscular Volume 92.4 fL (80.0-100.0); Mean Platelet Volume 8.3 fL (9.4-12.4); Platelet Count 308 K/uL (130-400); RDW Coefficient of Variation 12.2 % (11.5-14.5); RDW Standard Deviation 40.9 fL (36.4-46.3); Red Blood Count 4.47 M/uL (4.63-6.08); White Blood Count 5.89 K/ul (4.8-10.8)
[2022-05-15 11:13] LABS: BUN Creatinine Ratio 27.4 (10-20); Calcium 9.4 mg/dl (8.5-10.1); Creatinine Clr Calc Pharmacy 108.9 ml/min; Est GFR (African American) 131.7 ml/min; Est GFR (Non-African American) 113.6 ml/min; Potassium 4.3 mmol/L (3.5-5.1)
--- NOTE | 2022-05-15 14:08 | Hospitalist Progress Note ---
Date of Service May 15, 2022 Assessment & Plan (1) Suzy chorea: (2) Ambulatory dysfunction: (3) Frequent falls: (4) Constipation: (5) Feeding by G-tube: (6) Sacral decubitus ulcer, stage II: Plan This is a 41-year-old male who has significant past medical history of Poon ington's chorea and GERD who presents to ER secondary to fall prior to arrival. Suzy Chorea Ambulatory dysfunction Frequent falls Admit to medical Consult case management -adopted mother who is patient's and has been caring for him, but appears she is having much more difficult time managing patient as his Oliver's is worsening Patient needs placement and/or significant increasing care at home Referrals are pending to various facilities Acute urinary retention No evidence of UTI Tamsulosin started Resolved-kelly out and urinating well. External catheter in place. Tamsulosin stopped. Constipation Feeding by G-Tube per Aunt no BM since 04/20, also minimal intake since 04/25 due to stopping tube feeds. Tube feeds stopped as aunt was under impression to hold until he has a BM discussed with fax machine operator who will eval and resume tube feedings - started bolus feeding today 05/06/[address]22 place on senna and miralax scheduled-added glycerin supp on 05/04 with good result. Stage II sacral decubitus ulcer breakdown to buttock per Aunt prior to admission. will consult wound care for wound eval/preventative treatment Cont to reposition off this area. It has been difficult to visualize this area given the patient's movement restrictions. 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 He also has severe malnutrition secondary to dysphagia and has recently received a PEG in March of this year. He presents after a fall and family is looking for placement options. Patient denies any pain today No issues reported Feels full and satiated wtih his current tube feeds PEG in place and is not bothering him No issues Review of Systems Review of Systems: All systems were reviewed and negative except as indicated in subjective above. Physical Exam Physical Exam: CONSTITUTIONAL: thin, vitals as above, generally well- appearing, NAD, choreiform movements constant/very debilitating, cannot sit up in bed as he is a fall risk. EYES: normal conjunctivae, no scleral icterus ENT: external ear and nose normal, MMM NECK: trachea midline RESPIRATORY: clear to auscultation bilaterally, no crackles, rales or wheezes, normal respiratory effort CARDIOVASCULAR: regular rate and rhythm, S1 and 2 heard without murmurs, gallops or rubs, no JVD, no peripheral edema CHEST: inspection of chest was normal GASTROINTESTINAL: soft, nontender, ND, no guarding MUSCULOSKELETAL: strength 5/5 throughout, head is normocephalic and atraumatic, neck supple, normal palpation of chest wall without tenderness SKIN: warm and dry NEUROLOGIC: CN 2-12 grossly intact, no sensory deficit, normal cognition, normal speech, no tremor PSYCHIATRIC: alert cooperative and oriented to person, place and time. Results & Data Results & Data ([facility]) Vital Signs (Past 12 Hours) Vital Signs Temp Pulse Resp BP Pulse Ox O2 Del Method 05/15/22 07:40 36.5 C 72 16 95/56 L 95 Room Air Laboratory Results Short CBC 05/15/22 Range/Units 10:37 WBC 5.89 (4.8-10.8) K/ul Hgb 14.2 (14.0-18.0) g/dl Hct 41.3 (40.1-51.0) % Plt Count 308 (130-400) K/uL BMP 05/15/22 10:37 Sodium 135 L Potassium 4.3 Chloride 98 Carbon Dioxide 33 H BUN 20 Creatinine 0.73 Glucose 107 H Calcium 9.4 Medications Administered Current Inpatient Medications Acetaminophen (Acetaminophen 325 Mg Tab) 650 mg PO Q4H PRN PRN Reason: pain/fever Stop: 05/30/22 17:39 Last Admin: 05/03/22 12:27 Dose: 650 mg Al Hydrox/Mg Hydrox/Simethicone (Aluminum/Magnesium Susp 30 Ml Udc) 30 ml PO Q6H PRN PRN Reason: Dyspepsia Stop: 05/30/22 17:39 Benzonatate (Benzonatate 100 Mg Capsule) 100 mg PO BID PRN PRN Reason: Cough Stop: 05/30/22 17:39 Deutetrabenazine (Austedo 12 Mg Tablet) 2 each PO BID [facility] Stop: 05/31/22 10:59 Last Admin: 05/15/22 08:28 Dose: 2 each Enoxaparin Sodium (Enoxaparin Inj 40 Mg/0.4 Ml Syr) 40 mg SQ Q24H [facility] Stop: 05/30/22 21:59 Last Admin: 05/14/22 23:02 Dose: 40 mg Enteral Nutritional Formula (Fibersource Hn 1.2 Erich 1000 Ml Bag) 1,000 ml GT 0600,0900,1200,1500,1800,2100 [facility]; Protocol Stop: 06/05/22 05:59 Last Admin: 05/15/22 11:56 Dose: 330 ml Lorazepam 0.5 mg/ Syringe 0.5 mls @ 2 mls/min IV Q4H PRN PRN Reason: restlessness/chorea Stop: 05/30/22 18:01 Last Admin: 05/15/22 11:02 Dose: 2 mls/min Loratadine (Loratadine 10 Mg Tab) 10 mg PO QAM [facility] Stop: 05/31/22 08:59 Last Admin: 05/15/22 08:27 Dose: 10 mg Magnesium Hydroxide (Magnesium Hydroxide Susp 30 Ml Udc) 30 ml PO Q6H PRN PRN Reason: Constipation Stop: 05/30/22 17:39 Ondansetron HCl (Ondansetron Inj 2 Mg/Ml 2 Ml Vial) 4 mg IV Q6H PRN PRN Reason: Nausea Stop: 05/30/22 17:39 Pantoprazole Sodium (Pantoprazole 40 Mg Tab) 40 mg PO HS [facility] Stop: 05/30/22 20:59 Last Admin: 05/14/22 20:30 Dose: 40 mg Polyethylene Glycol (Polyethylene (Miralax) 17 Gm Pack) 17 gm PO DAILY PRN PRN Reason: Constipation Stop: 05/30/22 17:39 Polyethylene Glycol (Polyethylene (Miralax) 17 Gm Pack) 17 gm PO DAILY [facility] Stop: 05/31/22 08:59 Last Admin: 05/15/22 08:28 Dose: 17 gm Senna/Docusate Sodium (Docusate Sodium/Senna 50/8.6mg Tab) 1 tab PO BID [facility] Stop: 05/30/22 20:59 Last Admin: 05/15/22 08:27 Dose: 1 tab Sertraline HCl (Sertraline Hcl 50 Mg Tablet) 25 mg PO QAM [facility] Stop: 05/31/22 08:59 Last Admin: 05/15/22 08:27 Dose: 25 mg Sterile Water (Tube Feeding Water Flush) 60 ml GT 0630,0930,1230,1530,1830,2130 [facility]; Protocol Stop: 06/07/22 18:29 Last Admin: 05/15/22 13:04 Dose: 60 ml Trazodone HCl (Trazodone Hcl 50 Mg Tab) 50 mg PO HS [facility] Stop: 05/30/22 20:59 Last Admin: 05/14/22 20:30 Dose: 50 mg (1) Constipation Constipation type: unspecified constipation type Qualified Code(s): K59.00 - Constipation, unspecified
[2022-05-15] MEDS: ENOXAPARIN INJ 40 MG/0.4 ML SYR SQ SCH (21:15)
[2022-05-15] MEDS: PANTOprazole 40 MG TAB PO SCH (21:17)
[2022-05-15] MEDS: traZODone HCL 50 MG TAB PO SCH (21:17)
[2022-05-16] MEDS: FIBERSOURCE HN 1.2 CAL 1000 ML BAG GT SCH ×6 (06:01→21:23)
[2022-05-16] MEDS: TUBE FEEDING WATER FLUSH GT SCH ×6 (06:02→21:23)
[2022-05-16] MEDS: LORazepam 0.5 MG in SYRINGE 0.25 ML IV PRN ×3 (06:07→20:07)
[2022-05-16] MEDS: AUSTEDO 12 MG PO SCH ×2 (08:33→21:22)
[2022-05-16] MEDS: LORATADINE 10 MG TAB PO SCH (08:34)
[2022-05-16] MEDS: DOCUSATE SODIUM/SENNA 50/8.6MG TAB PO SCH ×2 (08:34→21:23)
[2022-05-16] MEDS: SERTRALINE HCL 50 MG TABLET PO SCH (08:35)
[2022-05-16] MEDS: POLYETHYLENE (MIRALAX) 17 GM PACK PO SCH (08:35)
--- NOTE | 2022-05-16 12:42 | Hospitalist Progress Note ---
Date of Service May 16, 2022 Assessment & Plan (1) Suzy chorea: (2) Ambulatory dysfunction: (3) Frequent falls: (4) Constipation: (5) Feeding by G-tube: (6) Sacral decubitus ulcer, stage II: Plan This is a 41-year-old male who has significant past medical history of [place]'s chorea and GERD who presents to ER secondary to fall prior to arrival. Suzy Chorea Ambulatory dysfunction Frequent falls Admit to medical Consult case management -adopted mother who is patient's and has been caring for him, but appears she is having much more difficult time managing patient as his [place]'s is worsening Patient needs placement and/or significant increasing care at home Referrals are pending to various facilities Acute urinary retention No evidence of UTI Tamsulosin started Resolved-kelly out and urinating well. External catheter in place-pt prefers this. Tamsulosin stopped. Constipation Feeding by G-Tube per Aunt no BM since 04/20, also minimal intake since 04/25 due to stopping tube feeds. Tube feeds stopped as aunt was under impression to hold until he has a BM discussed with dining service supervisor who will eval and resume tube feedings - started bolus feeding today 05/06/[address]22 place on senna and miralax scheduled-added glycerin supp on 05/04 with good result. BM noted yesterday 05/15 Stage II sacral decubitus ulcer breakdown to buttock per Aunt prior to admission. will consult wound care for wound eval/preventative treatment Cont to reposition off this area. It has been difficult to visualize this area given the patient's movement restrictions. 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 He also has severe malnutrition secondary to dysphagia and has recently received a PEG in March of this year. He presents after a fall and family is looking for placement options. Patient denies any pain today No issues reported Tolerating some oral food for breakfast Nurse was resituating him in bed when I was there. Pt appears very comfortable Review of Systems Review of Systems: All systems were reviewed and negative except as indicated in subjective above. Physical Exam Physical Exam: CONSTITUTIONAL: thin, vitals as above, generally well- appearing, NAD, choreiform movements constant/very debilitating, cannot sit up in bed as he is a fall risk. EYES: normal conjunctivae, no scleral icterus ENT: external ear and nose normal, MMM NECK: trachea midline RESPIRATORY: clear to auscultation bilaterally, no crackles, rales or wheezes, normal respiratory effort CARDIOVASCULAR: regular rate and rhythm, S1 and 2 heard without murmurs, gallops or rubs, no JVD, no peripheral edema CHEST: inspection of chest was normal GASTROINTESTINAL: soft, nontender, ND, no guarding MUSCULOSKELETAL: strength 5/5 throughout, head is normocephalic and atraumatic, neck supple, normal palpation of chest wall without tenderness SKIN: warm and dry NEUROLOGIC: CN 2-12 grossly intact, no sensory deficit, normal cognition, normal speech, no tremor PSYCHIATRIC: alert cooperative and oriented to person, place and time. Results & Data Results & Data ([facility]) Vital Signs (Past 12 Hours) Vital Signs Temp Pulse Resp BP Pulse Ox O2 Del Method 05/16/22 07:58 36.6 C 61 16 102/70 98 Room Air Medications Administered Current Inpatient Medications Acetaminophen (Acetaminophen 325 Mg Tab) 650 mg PO Q4H PRN PRN Reason: pain/fever Stop: 05/30/22 17:39 Last Admin: 05/03/22 12:27 Dose: 650 mg Al Hydrox/Mg Hydrox/Simethicone (Aluminum/Magnesium Susp 30 Ml Udc) 30 ml PO Q6H PRN PRN Reason: Dyspepsia Stop: 05/30/22 17:39 Benzonatate (Benzonatate 100 Mg Capsule) 100 mg PO BID PRN PRN Reason: Cough Stop: 05/30/22 17:39 Deutetrabenazine (Austedo 12 Mg Tablet) 2 each PO BID [facility] Stop: 05/31/22 10:59 Last Admin: 05/16/22 08:33 Dose: 2 each Enoxaparin Sodium (Enoxaparin Inj 40 Mg/0.4 Ml Syr) 40 mg SQ Q24H [facility] Stop: 05/30/22 21:59 Last Admin: 05/15/22 21:15 Dose: 40 mg Enteral Nutritional Formula (Fibersource Hn 1.2 Erich 1000 Ml Bag) 1,000 ml GT 0600,0900,1200,1500,1800,2100 [facility]; Protocol Stop: 06/05/22 05:59 Last Admin: 05/16/22 12:04 Dose: 330 ml Lorazepam 0.5 mg/ Syringe 0.5 mls @ 2 mls/min IV Q4H PRN PRN Reason: restlessness/chorea Stop: 05/30/22 18:01 Last Admin: 05/16/22 06:07 Dose: 2 mls/min Loratadine (Loratadine 10 Mg Tab) 10 mg PO QAM [facility] Stop: 05/31/22 08:59 Last Admin: 05/16/22 08:34 Dose: 10 mg Magnesium Hydroxide (Magnesium Hydroxide Susp 30 Ml Udc) 30 ml PO Q6H PRN PRN Reason: Constipation Stop: 05/30/22 17:39 Ondansetron HCl (Ondansetron Inj 2 Mg/Ml 2 Ml Vial) 4 mg IV Q6H PRN PRN Reason: Nausea Stop: 05/30/22 17:39 Pantoprazole Sodium (Pantoprazole 40 Mg Tab) 40 mg PO HS [facility] Stop: 05/30/22 20:59 Last Admin: 05/15/22 21:17 Dose: 40 mg Polyethylene Glycol (Polyethylene (Miralax) 17 Gm Pack) 17 gm PO DAILY PRN PRN Reason: Constipation Stop: 05/30/22 17:39 Polyethylene Glycol (Polyethylene (Miralax) 17 Gm Pack) 17 gm PO DAILY [facility] Stop: 05/31/22 08:59 Last Admin: 05/16/22 08:35 Dose: 17 gm Senna/Docusate Sodium (Docusate Sodium/Senna 50/8.6mg Tab) 1 tab PO BID [facility] Stop: 05/30/22 20:59 Last Admin: 05/16/22 08:34 Dose: 1 tab Sertraline HCl (Sertraline Hcl 50 Mg Tablet) 25 mg PO QAM [facility] Stop: 05/31/22 08:59 Last Admin: 05/16/22 08:35 Dose: 25 mg Sterile Water (Tube Feeding Water Flush) 60 ml GT 0630,0930,1230,1530,1830,2130 [facility]; Protocol Stop: 06/07/22 18:29 Last Admin: 05/16/22 09:29 Dose: 60 ml Trazodone HCl (Trazodone Hcl 50 Mg Tab) 50 mg PO [facility] Stop: 05/30/22 20:59 Last Admin: 05/15/22 21:17 Dose: 50 mg (1) Constipation Constipation type: unspecified constipation type Qualified Code(s): K59.00 - Constipation, unspecified
[2022-05-16] MEDS: ENOXAPARIN INJ 40 MG/0.4 ML SYR SQ SCH (21:22)
[2022-05-16] MEDS: traZODone HCL 50 MG TAB PO SCH (21:22)
[2022-05-16] MEDS: PANTOprazole 40 MG TAB PO SCH (21:22)
[2022-05-17] MEDS: FIBERSOURCE HN 1.2 CAL 1000 ML BAG GT SCH ×6 (05:46→20:08)
[2022-05-17] MEDS: TUBE FEEDING WATER FLUSH GT SCH ×6 (05:47→22:36)
[2022-05-17] MEDS: LORazepam 0.5 MG in SYRINGE 0.25 ML IV PRN ×4 (06:13→21:58)
[2022-05-17] MEDS: SERTRALINE HCL 50 MG TABLET PO SCH (08:49)
[2022-05-17] MEDS: LORATADINE 10 MG TAB PO SCH (08:49)
[2022-05-17] MEDS: AUSTEDO 12 MG PO SCH ×2 (08:49→19:56)
[2022-05-17] MEDS: POLYETHYLENE (MIRALAX) 17 GM PACK PO SCH (08:50)
[2022-05-17] MEDS: DOCUSATE SODIUM/SENNA 50/8.6MG TAB PO SCH ×2 (08:50→19:57)
--- NOTE | 2022-05-17 11:54 | Hospitalist Progress Note ---
Date of Service May 17, 2022 Assessment & Plan (1) [place] chorea: (2) Ambulatory dysfunction: (3) Frequent falls: (4) Sacral decubitus ulcer, stage II: Plan This is a 41-year-old male who has significant past medical history of [place]'s chorea and GERD who presents to ER secondary to fall prior to arrival. [place] Chorea Ambulatory dysfunction Frequent falls Consult case management -patient's adopted mother (aunt) has been caring for him , but appears she is having much more difficult time managing patient as his [place]'s is worsening Patient needs placement and/or significant increasing care at home Referrals are pending to various facilities Acute urinary retention No evidence of UTI Tamsulosin started Resolved-kelly out and urinating well. External catheter in place-pt prefers this. Tamsulosin stopped. Constipation Feeding by G-Tube Deburr Operator consulted, started bolus feeding Continues to tolerate tube feedings On senna and miralax scheduled, received glycerin supp on 05/04 with good result Constipation resolved Stage II sacral decubitus ulcer breakdown to buttock per Aunt prior to admission. will consult wound care for wound eval/preventative treatment Cont to reposition off this area. It has been difficult to visualize this area given the patient's movement restrictions. Defer to nursing staff to highlight any significant changes or evidence of worsening breakdown in this area DVT ppx: SQ Lovenox Dispo: med/surg, uncertain at this time, pt with worsening chorea and aunt unable to manage, may need placement vs significant increase in help at home DNR/DNI Admission and Anticipated Discharge Date Admission Date: April 30, 2022 Supervising Physician Co-Signing Physician Notes Attending Addendum: delayed entry date of service noted above care coordinated with SEDRICK Luna please refer to her notes for full details, I agree with her notes patient seen and examined, records reviewed by myself as well on exam, patient seen resting in bed, comfortable denies any symptoms, feels fine overall Paul Barone MD Subjective Follow-up for ambulatory dysfunction, [place]'s chorea Patient seen and examined. Severe uncontrolled choreiform movements continue. Patient offers no complaints. Tolerating tube feedings, + bowel movements. Review of Systems Review of Systems: ROS per HPI, all other systems reviewed and negative Physical Exam Constitutional: + thin; no acute distress Severe uncontrolled choreiform movements Respiratory: normal respiratory effort, lungs clear to auscultation Cardiovascular: Rate/Rhythm: regular rate and regular rhythm Vessels: normal peripheral pulses Extremities: no edema Gastrointestinal (Abdomen): PEG tube in place Skin: no rashes, warm and dry Neurologic: awake Motor/Sensory: + abnormal movement Psychiatric: Orientation: alert, oriented to person and oriented to place Results & Data Results & Data ([facility]) Vital Signs (Past 12 Hours) Vital Signs Temp Pulse Resp BP Pulse Ox O2 Del Method 05/17/22 08:47 36.4 C L 77 16 101/65 97 Room Air
[2022-05-17] MEDS: PANTOprazole 40 MG TAB PO SCH (19:56)
[2022-05-17] MEDS: traZODone HCL 50 MG TAB PO SCH (19:57)
[2022-05-17] MEDS: ENOXAPARIN INJ 40 MG/0.4 ML SYR SQ SCH (19:58)
[2022-05-18] MEDS: FIBERSOURCE HN 1.2 CAL 1000 ML BAG GT SCH ×6 (05:51→21:29)
[2022-05-18] MEDS: TUBE FEEDING WATER FLUSH GT SCH ×6 (06:37→22:34)
[2022-05-18] MEDS: AUSTEDO 12 MG PO SCH ×2 (08:24→21:30)
[2022-05-18] MEDS: LORATADINE 10 MG TAB PO SCH (08:25)
[2022-05-18] MEDS: DOCUSATE SODIUM/SENNA 50/8.6MG TAB PO SCH ×2 (08:25→21:29)
[2022-05-18] MEDS: SERTRALINE HCL 50 MG TABLET PO SCH (08:25)
[2022-05-18] MEDS: POLYETHYLENE (MIRALAX) 17 GM PACK PO SCH (08:26)
[2022-05-18] MEDS: LORazepam 0.5 MG in SYRINGE 0.25 ML IV PRN ×2 (08:56→14:36)
--- NOTE | 2022-05-18 15:16 | Hospitalist Progress Note ---
Date of Service May 18, 2022 Assessment & Plan (1) [place] chorea: (2) Ambulatory dysfunction: (3) Frequent falls: (4) Sacral decubitus ulcer, stage II: Plan per GLUING MACHINE FEEDER notes with addendum: This is a 41-year-old male who has significant past medical history of V[place]'s chorea and GERD who presents to ER secondary to fall prior to arrival. [place] Chorea Ambulatory dysfunction Frequent falls Consult case management -patient's adopted mother (aunt) has been caring for him, but appears she is having much more difficult time managing patient as his V[place]'s is worsening Patient needs placement and/or significant increasing care at home Referrals are pending to various facilities 05/18: no new issues awaiting acceptance to SNF Acute urinary retention No evidence of UTI Tamsulosin started Resolved-kelly out and urinating well. External catheter in place-pt prefers this. Tamsulosin stopped. 05/18: continue external cath Constipation Feeding by G-Tube Toe Puncher consulted, started bolus feeding Continues to tolerate tube feedings On senna and miralax scheduled, received glycerin supp on 05/04 with good result Constipation resolved 05/18: continue Miralax daily Stage II sacral decubitus ulcer breakdown to buttock per Aunt prior to admission. onsulted wound care for wound eval/preventative treatment Cont to reposition off this area. It has been difficult to visualize this area given the patient's movement restrictions. Defer to nursing staff to highlight any significant changes or evidence of worsening breakdown in this area 05/18: continue daily wound care DVT ppx: SQ Lovenox Dispo: med/surg, uncertain at this time, pt with worsening chorea and aunt unable to manage, referrals to SNF placed DNR/DNI Admission and Anticipated Discharge Date Admission Date: April 30, 2022 Subjective ff up for Vance chorea, etc seen resting in bed, comfortable no chest pain, dyspnea, palpitations, dizziness no issues with PEG as per patient no other new symptoms Review of Systems Review of Systems: all noted and negative except for above Physical Exam Physical Exam: General- oriented, not in distress, speaks in sentences with no effort or accessory muscle use Eyes- anicteric Neck- no JVD Lungs- clear BS bilaterally, no rales/wheezes Heart- normal rate, regular rhythm; no murmurs Abdomen- normal bowel sounds, nondistended, soft, nontender Peg tube in place Extremities- no pretibial edema, no calf tenderness Neuro- alert, oriented ; no gross focal neurologic deficits Skin- warm & dry Results & Data Results & Data ([facility]) Vital Signs (Past 12 Hours) Vital Signs Temp Pulse Resp BP Pulse Ox O2 Del Method 05/18/22 08:52 Room Air 05/18/22 07:28 36.3 C L 89 16 100/61 97 Room Air all noted and reviewed including below
[2022-05-18] MEDS: PANTOprazole 40 MG TAB PO SCH (21:29)
[2022-05-18] MEDS: ENOXAPARIN INJ 40 MG/0.4 ML SYR SQ SCH (21:30)
[2022-05-18] MEDS: traZODone HCL 50 MG TAB PO SCH (21:30)
[2022-05-19] MEDS: FIBERSOURCE HN 1.2 CAL 1000 ML BAG GT SCH ×6 (05:52→21:15)
[2022-05-19] MEDS: TUBE FEEDING WATER FLUSH GT SCH ×6 (06:29→22:12)
[2022-05-19] MEDS: LORATADINE 10 MG TAB PO SCH (08:30)
[2022-05-19] MEDS: AUSTEDO 12 MG PO SCH ×2 (08:30→21:15)
[2022-05-19] MEDS: SERTRALINE HCL 50 MG TABLET PO SCH (08:30)
[2022-05-19] MEDS: POLYETHYLENE (MIRALAX) 17 GM PACK PO SCH (08:30)
[2022-05-19] MEDS: DOCUSATE SODIUM/SENNA 50/8.6MG TAB PO SCH ×2 (08:30→19:48)
[2022-05-19] MEDS: LORazepam 0.5 MG in SYRINGE 0.25 ML IV PRN ×2 (15:47→21:32)
--- NOTE | 2022-05-19 17:16 | Hospitalist Progress Note ---
Date of Service May 19, 2022 Assessment & Plan (1) [place] chorea: (2) Ambulatory dysfunction: (3) Frequent falls: (4) Sacral decubitus ulcer, stage II: Plan This is a 41-year-old male who has significant past medical history of [place]'s chorea and GERD who presents to ER secondary to fall prior to arrival. [place] Chorea Ambulatory dysfunction Frequent falls Consult case management -patient's adopted mother (aunt) has been caring for him , but appears she is having much more difficult time managing patient as his [place]'s is worsening Patient needs placement and/or significant increasing care at home Referrals are pending to various facilities Remains hemodynamically stable but continues to have choreatic movement Acute urinary retention No evidence of UTI Tamsulosin started Resolved-kelly out and urinating well. External catheter in place-pt prefers this. Tamsulosin stopped. No report of symptoms Constipation Feeding by G-Tube Division Operations Manager consulted, started bolus feeding Continues to tolerate tube feedings On senna and miralax scheduled, received glycerin supp on 05/04 with good result Constipation resolved Stage II sacral decubitus ulcer breakdown to buttock per Aunt prior to admission. onsulted wound care for wound eval/preventative treatment Cont to reposition off this area. It has been difficult to visualize this area given the patient's movement restrictions. Defer to nursing staff to highlight any significant changes or evidence of worsening breakdown in this area Jossue stable-continue wound care DVT ppx: SQ Lovenox Dispo: med/surg, uncertain at this time, pt with worsening chorea and aunt unable to manage, referrals to SNF placed DNR/DNI Admission and Anticipated Discharge Date Admission Date: April 30, 2022 Subjective 05/19/2022 The patient was seen and examined in medical floor He was having choreatic movement in bed But was managing to drink water through a straw from a close Review of Systems Review of Systems: Unobtainable due to cognitive status Physical Exam Physical Exam: Remains unstable due to choreatic movement Constitutional: + ill appearing and average body habitus Eyes: PERRL, conjunctivae normal, anicteric sclerae ENMT: external ear and nose normal, oropharynx normal Neck: trachea midline, no thyromegaly Respiratory: no respiratory distress Auscultation: lungs clear to auscultation bilaterally Cardiovascular: Rate/Rhythm: regular rate and regular rhythm; not tachycardic Heart Sounds: normal S1 and normal S2; no murmur Extremities: no edema Gastrointestinal (Abdomen): Inspection/Auscultation: normal bowel sounds; abdomen not distended Percussion/Palpation: abdomen soft; abdomen nontender Musculoskeletal: No acute arthritis in any joint Neurologic: Alert and awake. Ongoing choreatic movement of the extremities and trunk Results & Data Results & Data ([facility]) Vital Signs (Past 12 Hours) Vital Signs Temp Pulse Pulse Resp BP BP Pulse Ox 05/19/22 15:24 36.7 C 77 16 103/60 95 05/19/22 07:30 05/19/22 07:49 36.4 C L 76 16 96/70 L 98 O2 Del Method 05/19/22 15:24 Room Air 05/19/22 07:30 Room Air 05/19/22 07:49 Room Air Medications Administered Current Inpatient Medications Acetaminophen (Acetaminophen 325 Mg Tab) 650 mg PO Q4H PRN PRN Reason: pain/fever Stop: 05/30/22 17:39 Last Admin: 05/03/22 12:27 Dose: 650 mg Al Hydrox/Mg Hydrox/Simethicone (Aluminum/Magnesium Susp 30 Ml Udc) 30 ml PO Q6H PRN PRN Reason: Dyspepsia Stop: 05/30/22 17:39 Benzonatate (Benzonatate 100 Mg Capsule) 100 mg PO BID PRN PRN Reason: Cough Stop: 05/30/22 17:39 Deutetrabenazine (Austedo 12 Mg Tablet) 2 each PO BID [facility] Stop: 05/31/22 10:59 Last Admin: 05/19/22 08:30 Dose: 2 each Enoxaparin Sodium (Enoxaparin Inj 40 Mg/0.4 Ml Syr) 40 mg SQ Q24H [facility] Stop: 05/30/22 21:59 Last Admin: 05/18/22 21:30 Dose: 40 mg Enteral Nutritional Formula (Fibersource Hn 1.2 Erich 1000 Ml Bag) 1,000 ml GT 0600,0900,1200,1500,1800,2100 [facility]; Protocol Stop: 06/05/22 05:59 Last Admin: 05/19/22 15:47 Dose: 330 ml Lorazepam 0.5 mg/ Syringe 0.5 mls @ 2 mls/min IV Q4H PRN PRN Reason: restlessness/chorea Stop: 05/30/22 18:01 Last Admin: 05/19/22 15:47 Dose: 2 mls/min Loratadine (Loratadine 10 Mg Tab) 10 mg PO QAM [facility] Stop: 05/31/22 08:59 Last Admin: 05/19/22 08:30 Dose: 10 mg Magnesium Hydroxide (Magnesium Hydroxide Susp 30 Ml Udc) 30 ml PO Q6H PRN PRN Reason: Constipation Stop: 05/30/22 17:39 Ondansetron HCl (Ondansetron Inj 2 Mg/Ml 2 Ml Vial) 4 mg IV Q6H PRN PRN Reason: Nausea Stop: 05/30/22 17:39 Pantoprazole Sodium (Pantoprazole 40 Mg Tab) 40 mg PO HS [facility] Stop: 05/30/22 20:59 Last Admin: 05/18/22 21:29 Dose: 40 mg Polyethylene Glycol (Polyethylene (Miralax) 17 Gm Pack) 17 gm PO DAILY PRN PRN Reason: Constipation Stop: 05/30/22 17:39 Polyethylene Glycol (Polyethylene (Miralax) 17 Gm Pack) 17 gm PO DAILY [facility] Stop: 05/31/22 08:59 Last Admin: 05/19/22 08:30 Dose: 17 gm Senna/Docusate Sodium (Docusate Sodium/Senna 50/8.6mg Tab) 1 tab PO BID [facility] Stop: 05/30/22 20:59 Last Admin: 05/19/22 08:30 Dose: 1 tab Sertraline HCl (Sertraline Hcl 50 Mg Tablet) 25 mg PO QAM [facility] Stop: 05/31/22 08:59 Last Admin: 05/19/22 08:30 Dose: 25 mg Sterile Water (Tube Feeding Water Flush) 30 ml GT 0630,0930,1230,1530,1830,2130 [facility]; Protocol Stop: 06/18/22 15:29 Last Admin: 05/19/22 16:47 Dose: 30 ml Trazodone HCl (Trazodone Hcl 50 Mg Tab) 50 mg PO HS [facility] Stop: 05/30/22 20:59 Last Admin: 05/18/22 21:30 Dose: 50 mg
[2022-05-19] MEDS: traZODone HCL 50 MG TAB PO SCH (21:14)
[2022-05-19] MEDS: PANTOprazole 40 MG TAB PO SCH (21:16)
[2022-05-19] MEDS: ENOXAPARIN INJ 40 MG/0.4 ML SYR SQ SCH (21:16)
[2022-05-20] MEDS: FIBERSOURCE HN 1.2 CAL 1000 ML BAG GT SCH ×6 (05:56→21:29)
[2022-05-20] MEDS: LORazepam 0.5 MG in SYRINGE 0.25 ML IV PRN ×4 (06:16→22:34)
[2022-05-20] MEDS: TUBE FEEDING WATER FLUSH GT SCH ×6 (07:12→22:34)
[2022-05-20] MEDS: DOCUSATE SODIUM/SENNA 50/8.6MG TAB PO SCH (08:41)
[2022-05-20] MEDS: POLYETHYLENE (MIRALAX) 17 GM PACK PO SCH (08:41)
[2022-05-20] MEDS: LORATADINE 10 MG TAB PO SCH (08:42)
[2022-05-20] MEDS: SERTRALINE HCL 50 MG TABLET PO SCH (08:42)
[2022-05-20] MEDS: AUSTEDO 12 MG PO SCH ×2 (08:43→21:31)
[2022-05-20] MEDS ORDERED: POLYETHYLENE (MIRALAX) 17 GM PACK PO PRN (12:58)
--- NOTE | 2022-05-20 17:25 | Hospitalist Progress Note ---
Date of Service May 20, 2022 Assessment & Plan (1) [place] chorea: (2) Ambulatory dysfunction: (3) Frequent falls: (4) Sacral decubitus ulcer, stage II: Plan This is a 41-year-old male who has significant past medical history of [place]'s chorea and GERD who presents to ER secondary to fall prior to arrival. [place] Chorea Ambulatory dysfunction Frequent falls Consult case management -patient's adopted mother (aunt) has been caring for him , but appears she is having much more difficult time managing patient as his [place]'s is worsening Patient needs placement and/or significant increasing care at home Referrals are pending to various facilities Remains hemodynamically stable but continues to have choreatic movement Acute urinary retention No evidence of UTI Tamsulosin started Resolved-kelly out and urinating well. External catheter in place-pt prefers this. Tamsulosin stopped. No report of symptoms Constipation Feeding by G-Tube Phlebotomy Lab Assistant consulted, started bolus feeding Continues to tolerate tube feedings On senna and miralax scheduled, received glycerin supp on 05/04 with good result Has been having diarrhea Senokot has been on hold and Metamucil be given as needed Stage II sacral decubitus ulcer breakdown to buttock per Aunt prior to admission. onsulted wound care for wound eval/preventative treatment Cont to reposition off this area. It has been difficult to visualize this area given the patient's movement restrictions. Defer to nursing staff to highlight any significant changes or evidence of worsening breakdown in this area Jossue stable-continue wound care DVT ppx: SQ Lovenox Dispo: med/surg, uncertain at this time, pt with worsening chorea and aunt unable to manage, referrals to SNF placed Awaiting placement DNR/DNI Admission and Anticipated Discharge Date Admission Date: April 30, 2022 Subjective 05/19/2022 The patient was seen and examined in medical floor He was having choreatic movement in bed But was managing to drink water through a straw from a close 05/20/2022 the patient was seen and examined in medical floor He denies any symptoms Has been having diarrhea and Senokot will be discontinued Continues to have choreatic movement Physical Exam Physical Exam: Remains unstable due to choreatic movement Constitutional: + ill appearing and average body habitus Eyes: PERRL, conjunctivae normal, anicteric sclerae ENMT: external ear and nose normal, oropharynx normal Neck: trachea midline, no thyromegaly Respiratory: no respiratory distress Auscultation: lungs clear to auscultation bilaterally Cardiovascular: Rate/Rhythm: regular rate and regular rhythm; not tachycardic Heart Sounds: normal S1 and normal S2; no murmur Extremities: no edema Gastrointestinal (Abdomen): Inspection/Auscultation: normal bowel sounds; abdomen not distended Percussion/Palpation: abdomen soft; abdomen nontender Musculoskeletal: Is been having abnormal movements involving the extremities and trunk Neurologic: Alert and awake. Communicates well. Abnormal choreatic movement continues . Lymphatic: no cervical or axillary lymphadenopathy Results & Data Results & Data ([facility]) Vital Signs (Past 12 Hours) Vital Signs Temp Pulse Pulse Resp BP BP Pulse Ox 05/20/22 16:16 16 05/20/22 15:32 36.6 C 76 26 H 100/64 95 05/20/22 07:10 05/20/22 06:59 36.4 C L 74 18 100/59 L 94 O2 Del Method 05/20/22 16:16 05/20/22 15:32 Room Air 05/20/22 07:10 Room Air 05/20/22 06:59 Room Air Medications Administered Current Inpatient Medications Acetaminophen (Acetaminophen 325 Mg Tab) 650 mg PO Q4H PRN PRN Reason: pain/fever Stop: 05/30/22 17:39 Last Admin: 05/03/22 12:27 Dose: 650 mg Al Hydrox/Mg Hydrox/Simethicone (Aluminum/Magnesium Susp 30 Ml Udc) 30 ml PO Q6H PRN PRN Reason: Dyspepsia Stop: 05/30/22 17:39 Benzonatate (Benzonatate 100 Mg Capsule) 100 mg PO BID PRN PRN Reason: Cough Stop: 05/30/22 17:39 Deutetrabenazine (Austedo 12 Mg Tablet) 2 each PO BID [facility] Stop: 05/31/22 10:59 Last Admin: 05/20/22 08:43 Dose: 2 each Enoxaparin Sodium (Enoxaparin Inj 40 Mg/0.4 Ml Syr) 40 mg SQ Q24H [facility] Stop: 05/30/22 21:59 Last Admin: 05/19/22 21:16 Dose: 40 mg Enteral Nutritional Formula (Fibersource Hn 1.2 Erich 1000 Ml Bag) 1,000 ml GT 0600,0900,1200,1500,1800,2100 [facility]; Protocol Stop: 06/05/22 05:59 Last Admin: 05/20/22 15:16 Dose: 330 ml Lorazepam 0.5 mg/ Syringe 0.5 mls @ 2 mls/min IV Q4H PRN PRN Reason: restlessness/chorea Stop: 05/30/22 18:01 Last Admin: 05/20/22 12:29 Dose: 2 mls/min Loratadine (Loratadine 10 Mg Tab) 10 mg PO QAM [facility] Stop: 05/31/22 08:59 Last Admin: 05/20/22 08:42 Dose: 10 mg Magnesium Hydroxide (Magnesium Hydroxide Susp 30 Ml Udc) 30 ml PO Q6H PRN PRN Reason: Constipation Stop: 05/30/22 17:39 Ondansetron HCl (Ondansetron Inj 2 Mg/Ml 2 Ml Vial) 4 mg IV Q6H PRN PRN Reason: Nausea Stop: 05/30/22 17:39 Pantoprazole Sodium (Pantoprazole 40 Mg Tab) [address] [facility] Stop: 05/30/22 20:59 Last Admin: 05/19/22 21:16 Dose: 40 mg Polyethylene Glycol (Polyethylene (Miralax) 17 Gm Pack) 17 gm PO DAILY PRN PRN Reason: Constipation Stop: 05/30/22 17:39 Senna/Docusate Sodium (Docusate Sodium/Senna 50/8.6mg Tab) 1 tab PO BID [facility] Stop: 05/30/22 20:59 Last Admin: 05/20/22 08:41 Dose: Not Given Sertraline HCl (Sertraline Hcl 50 Mg Tablet) 25 mg PO QAM [facility] Stop: 05/31/22 08:59 Last Admin: 05/20/22 08:42 Dose: 25 mg Sterile Water (Tube Feeding Water Flush) 30 ml GT 0630,0930,1230,1530,1830,2130 [facility]; Protocol Stop: 06/18/22 15:29 Last Admin: 05/20/22 16:20 Dose: 30 ml Trazodone HCl (Trazodone Hcl 50 Mg Tab) [address] [facility] Stop: 05/30/22 20:59 Last Admin: 05/19/22 21:14 Dose: 50 mg
[2022-05-20] MEDS: traZODone HCL 50 MG TAB PO SCH (21:29)
[2022-05-20] MEDS: ENOXAPARIN INJ 40 MG/0.4 ML SYR SQ SCH (21:30)
[2022-05-20] MEDS: PANTOprazole 40 MG TAB PO SCH (21:30)
[2022-05-21] MEDS: FIBERSOURCE HN 1.2 CAL 1000 ML BAG GT SCH ×6 (05:50→21:47)
[2022-05-21] MEDS: TUBE FEEDING WATER FLUSH GT SCH ×6 (07:36→23:02)
[2022-05-21] MEDS: LORATADINE 10 MG TAB PO SCH (09:07)
[2022-05-21] MEDS: AUSTEDO 12 MG PO SCH ×2 (09:07→21:47)
[2022-05-21] MEDS: SERTRALINE HCL 50 MG TABLET PO SCH (09:07)
--- NOTE | 2022-05-21 14:53 | Hospitalist Progress Note ---
Date of Service May 21, 2022 Assessment & Plan (1) [place] chorea: (2) Ambulatory dysfunction: (3) Frequent falls: (4) Sacral decubitus ulcer, stage II: Plan This is a 41-year-old male who has significant past medical history of Pease's chorea and GERD who presents to ER secondary to fall prior to arrival. Suzy Chorea Ambulatory dysfunction Frequent falls Consult case management -patient's adopted mother (aunt) has been caring for him , but appears she is having much more difficult time managing patient as his Suzy's is worsening Patient needs placement and/or significant increasing care at home Referrals are pending to various facilities Remains hemodynamically stable but continues to have choreatic movement Denies any symptoms and awaiting placement Acute urinary retention No evidence of UTI Tamsulosin started Resolved-kelly out and urinating well. External catheter in place-pt prefers this. Tamsulosin stopped. No report of symptoms Constipation Feeding by G-Tube Fly Rail Operator consulted, started bolus feeding Continues to tolerate tube feedings On senna and miralax scheduled, received glycerin supp on 05/04 with good result Has been having diarrhea Senokot has been on hold and Metamucil be given as needed No more diarrhea Stage II sacral decubitus ulcer breakdown to buttock per Aunt prior to admission. onsulted wound care for wound eval/preventative treatment Cont to reposition off this area. It has been difficult to visualize this area given the patient's movement restrictions. Defer to nursing staff to highlight any significant changes or evidence of worsening breakdown in this area Jossue stable-continue wound care DVT ppx: SQ Lovenox Dispo: med/surg, uncertain at this time, pt with worsening chorea and aunt unable to manage, referrals to SNF placed Awaiting placement DNR/DNI Admission and Anticipated Discharge Date Admission Date: April 30, 2022 Subjective 05/19/2022 The patient was seen and examined in medical floor He was having choreatic movement in bed But was managing to drink water through a straw from a close 05/20/2022 the patient was seen and examined in medical floor He denies any symptoms Has been having diarrhea and Senokot will be discontinued Continues to have choreatic movement 05/21/2022 The patient was seen and examined in medical floor He continues to have choreiform movements involving the extremities and trunk Denies any symptoms Review of Systems Review of Systems: all noted and negative except for above Physical Exam Physical Exam: Remains unstable due to choreatic movement Constitutional: + ill appearing and average body habitus Eyes: PERRL, conjunctivae normal, anicteric sclerae ENMT: external ear and nose normal, oropharynx normal Neck: trachea midline, no thyromegaly Respiratory: no respiratory distress Auscultation: lungs clear to auscultation bilaterally Cardiovascular: Rate/Rhythm: regular rate and regular rhythm; not tachycardic Heart Sounds: normal S1 and normal S2; no murmur Extremities: no edema Gastrointestinal (Abdomen): Inspection/Auscultation: normal bowel sounds; abdomen not distended Percussion/Palpation: abdomen soft; abdomen nontender Musculoskeletal: No acute arthritis involving any joint Neurologic: Ongoing cortical for movements involving the extremities and trunk Lymphatic: no cervical or axillary lymphadenopathy Results & Data Results & Data ([facility]) Vital Signs (Past 12 Hours) Vital Signs Temp Pulse Resp Pulse Ox 05/21/22 07:55 36.8 C 73 16 91
[2022-05-21] MEDS: LORazepam 0.5 MG in SYRINGE 0.25 ML IV PRN ×2 (19:18→23:02)
[2022-05-21] MEDS: traZODone HCL 50 MG TAB PO SCH (21:47)
[2022-05-21] MEDS: ENOXAPARIN INJ 40 MG/0.4 ML SYR SQ SCH (21:47)
[2022-05-21] MEDS: PANTOprazole 40 MG TAB PO SCH (21:48)
[2022-05-22] MEDS: FIBERSOURCE HN 1.2 CAL 1000 ML BAG GT SCH ×6 (06:12→21:26)
[2022-05-22] MEDS: TUBE FEEDING WATER FLUSH GT SCH ×6 (07:54→21:26)
[2022-05-22] MEDS: AUSTEDO 12 MG PO SCH ×2 (09:52→21:23)
[2022-05-22] MEDS: SERTRALINE HCL 50 MG TABLET PO SCH (09:52)
[2022-05-22] MEDS: LORATADINE 10 MG TAB PO SCH (09:52)
--- NOTE | 2022-05-22 14:54 | Hospitalist Progress Note ---
Date of Service May 22, 2022 Assessment & Plan (1) [place] chorea: (2) Ambulatory dysfunction: (3) Frequent falls: (4) Sacral decubitus ulcer, stage II: Plan This is a 41-year-old male who has significant past medical history of [place]'s chorea and GERD who presents to ER secondary to fall prior to arrival. [place] Chorea Ambulatory dysfunction Frequent falls Consult case management -patient's adopted mother (aunt) has been caring for him , but appears she is having much more difficult time managing patient as his [place]'s is worsening Patient needs placement and/or significant increasing care at home Referrals are pending to various facilities Remains hemodynamically stable but continues to have choreatic movement Medically stable without any acute distress Awaiting placement Acute urinary retention No evidence of UTI Tamsulosin started Resolved-kelly out and urinating well. External catheter in place-pt prefers this. Tamsulosin stopped. No report of symptoms Constipation Feeding by G-Tube Outsole Molder consulted, started bolus feeding Continues to tolerate tube feedings On senna and miralax scheduled, received glycerin supp on 05/04 with good result Has been having diarrhea Senokot has been on hold and Metamucil be given as needed No more diarrhea Stage II sacral decubitus ulcer breakdown to buttock per Aunt prior to admission. onsulted wound care for wound eval/preventative treatment Cont to reposition off this area. It has been difficult to visualize this area given the patient's movement restrictions. Defer to nursing staff to highlight any significant changes or evidence of worsening breakdown in this area Jossue stable-continue wound care DVT ppx: SQ Lovenox Dispo: med/surg, uncertain at this time, pt with worsening chorea and aunt unable to manage, referrals to SNF placed Awaiting placement DNR/DNI Admission and Anticipated Discharge Date Admission Date: April 30, 2022 Subjective 05/19/2022 The patient was seen and examined in medical floor He was having choreatic movement in bed But was managing to drink water through a straw from a close 05/20/2022 the patient was seen and examined in medical floor He denies any symptoms Has been having diarrhea and Senokot will be discontinued Continues to have choreatic movement 05/21/2022 The patient was seen and examined in medical floor He continues to have choreiform movements involving the extremities and trunk Denies any symptoms 01/20/2022 The patient was seen and examined in medical floor He continues to have choreatic movements involving the extremities and the trunk without any other significant symptoms He communicates reasonably Review of Systems Review of Systems: Unobtainable due to cognitive status Physical Exam Physical Exam: Remains unstable due to choreatic movement Constitutional: + ill appearing and average body habitus Eyes: PERRL, conjunctivae normal, anicteric sclerae ENMT: external ear and nose normal, oropharynx normal Neck: trachea midline, no thyromegaly Respiratory: no respiratory distress Auscultation: lungs clear to auscultation bilaterally Cardiovascular: Rate/Rhythm: regular rate and regular rhythm; not tachycardic Heart Sounds: normal S1 and normal S2; no murmur Extremities: no edema Gastrointestinal (Abdomen): Inspection/Auscultation: normal bowel sounds; abdomen not distended Percussion/Palpation: abdomen soft; abdomen nontender Musculoskeletal: No acute arthritis but moves extremities and trunk randomly Neurologic: Alert and awake. Lymphatic: no cervical or axillary lymphadenopathy Results & Data Results & Data ([facility]) Vital Signs (Past 12 Hours) Vital Signs Temp Pulse Resp BP Pulse Ox O2 Del Method 05/22/22 07:20 36.3 C L 65 18 94/56 L 99 Room Air Medications Administered Current Inpatient Medications Acetaminophen (Acetaminophen 325 Mg Tab) 650 mg PO Q4H PRN PRN Reason: pain/fever Stop: 05/30/22 17:39 Last Admin: 05/03/22 12:27 Dose: 650 mg Al Hydrox/Mg Hydrox/Simethicone (Aluminum/Magnesium Susp 30 Ml Udc) 30 ml PO Q6H PRN PRN Reason: Dyspepsia Stop: 05/30/22 17:39 Benzonatate (Benzonatate 100 Mg Capsule) 100 mg PO BID PRN PRN Reason: Cough Stop: 05/30/22 17:39 Deutetrabenazine (Austedo 12 Mg Tablet) 2 each PO BID [facility] Stop: 05/31/22 10:59 Last Admin: 05/22/22 09:52 Dose: 2 each Enoxaparin Sodium (Enoxaparin Inj 40 Mg/0.4 Ml Syr) 40 mg SQ Q24H [facility] Stop: 05/30/22 21:59 Last Admin: 05/21/22 21:47 Dose: 40 mg Enteral Nutritional Formula (Fibersource Hn 1.2 Erich 1000 Ml Bag) 330 ml GT 0600,0900,1200,1500,1800,2100 [facility]; Protocol Stop: 06/05/22 05:59 Last Admin: 05/22/22 12:57 Dose: 330 ml Lorazepam 0.5 mg/ Syringe 0.5 mls @ 2 mls/min IV Q4H PRN PRN Reason: restlessness/chorea Stop: 05/30/22 18:01 Last Admin: 05/21/22 23:02 Dose: 2 mls/min Loratadine (Loratadine 10 Mg Tab) 10 mg PO QAM [facility] Stop: 05/31/22 08:59 Last Admin: 05/22/22 09:52 Dose: 10 mg Magnesium Hydroxide (Magnesium Hydroxide Susp 30 Ml Udc) 30 ml PO Q6H PRN PRN Reason: Constipation Stop: 05/30/22 17:39 Ondansetron HCl (Ondansetron Inj 2 Mg/Ml 2 Ml Vial) 4 mg IV Q6H PRN PRN Reason: Nausea Stop: 05/30/22 17:39 Pantoprazole Sodium (Pantoprazole 40 Mg Tab) 40 mg PO [facility] Stop: 05/30/22 20:59 Last Admin: 05/21/22 21:48 Dose: 40 mg Polyethylene Glycol (Polyethylene (Miralax) 17 Gm Pack) 17 gm PO DAILY PRN PRN Reason: Constipation Stop: 05/30/22 17:39 Senna/Docusate Sodium (Docusate Sodium/Senna 50/8.6mg Tab) 1 tab PO BID [facility] Stop: 05/30/22 20:59 Last Admin: 05/20/22 08:41 Dose: Not Given Sertraline HCl (Sertraline Hcl 50 Mg Tablet) 25 mg PO QAM [facility] Stop: 05/31/22 08:59 Last Admin: 05/22/22 09:52 Dose: 25 mg Sterile Water (Tube Feeding Water Flush) 30 ml GT 0630,0930,1230,1530,1830,2130 [facility]; Protocol Stop: 06/18/22 15:29 Last Admin: 05/22/22 14:33 Dose: 30 ml Trazodone HCl (Trazodone Hcl 50 Mg Tab) 50 mg PO [facility] Stop: 05/30/22 20:59 Last Admin: 05/21/22 21:47 Dose: 50 mg
[2022-05-22] MEDS: LORazepam 0.5 MG in SYRINGE 0.25 ML IV PRN ×2 (19:41→23:51)
[2022-05-22] MEDS: traZODone HCL 50 MG TAB PO SCH (21:23)
[2022-05-22] MEDS: PANTOprazole 40 MG TAB PO SCH (21:24)
[2022-05-22] MEDS: ENOXAPARIN INJ 40 MG/0.4 ML SYR SQ SCH (21:27)
[2022-05-23] MEDS: FIBERSOURCE HN 1.2 CAL 1000 ML BAG GT SCH ×6 (06:18→21:56)
[2022-05-23] MEDS: LORazepam 0.5 MG in SYRINGE 0.25 ML IV PRN ×5 (06:34→22:33)
[2022-05-23] MEDS: TUBE FEEDING WATER FLUSH GT SCH ×6 (07:43→23:11)
[2022-05-23] MEDS: SERTRALINE HCL 50 MG TABLET PO SCH (08:41)
[2022-05-23] MEDS: AUSTEDO 12 MG PO SCH ×2 (08:41→21:55)
[2022-05-23] MEDS: LORATADINE 10 MG TAB PO SCH (08:41)
--- NOTE | 2022-05-23 15:11 | Hospitalist Progress Note ---
Date of Service May 23, 2022 Assessment & Plan (1) [place] chorea: (2) Ambulatory dysfunction: (3) Frequent falls: (4) Sacral decubitus ulcer, stage II: Plan This is a 41-year-old male who has significant past medical history of [place]'s chorea and GERD who presents to ER secondary to fall prior to arrival. Suzy Chorea Ambulatory dysfunction Frequent falls Consult case management -patient's adopted mother (aunt) has been caring for him , but appears she is having much more difficult time managing patient as his Suzy's is worsening Patient needs placement and/or significant increasing care at home Referrals are pending to various facilities Remains hemodynamically stable but continues to have choreatic movement Medically stable without any acute distress No acute issues and awaiting placement Acute urinary retention No evidence of UTI Tamsulosin started Resolved-kelly out and urinating well. External catheter in place-pt prefers this. Tamsulosin stopped. No report of symptoms Constipation Feeding by G-Tube Seismograph Observer consulted, started bolus feeding Continues to tolerate tube feedings On senna and miralax scheduled, received glycerin supp on 05/04 with good result Has been having diarrhea Senokot has been on hold and Metamucil be given as needed No more diarrhea Stage II sacral decubitus ulcer breakdown to buttock per Aunt prior to admission. onsulted wound care for wound eval/preventative treatment Cont to reposition off this area. It has been difficult to visualize this area given the patient's movement restrictions. Defer to nursing staff to highlight any significant changes or evidence of worsening breakdown in this area Remains stable without any infection DVT ppx: SQ Lovenox Dispo: med/surg, uncertain at this time, pt with worsening chorea and aunt unable to manage, referrals to SNF placed Awaiting placement DNR/DNI Admission and Anticipated Discharge Date Admission Date: April 30, 2022 Subjective 05/19/2022 The patient was seen and examined in medical floor He was having choreatic movement in bed But was managing to drink water through a straw from a close 05/20/2022 the patient was seen and examined in medical floor He denies any symptoms Has been having diarrhea and Senokot will be discontinued Continues to have choreatic movement 05/21/2022 The patient was seen and examined in medical floor He continues to have choreiform movements involving the extremities and trunk Denies any symptoms 05/22/2022 The patient was seen and examined in medical floor He continues to have choreatic movements involving the extremities and the trunk without any other significant symptoms He communicates reasonably 05/23/2022 The patient was seen and examined in medical floor He continues to have choreiform movement but denies any significant symptoms Review of Systems Review of Systems: all noted and negative except for above Physical Exam Physical Exam: Remains unstable due to choreatic movement Constitutional: + ill appearing and average body habitus Eyes: PERRL, conjunctivae normal, anicteric sclerae ENMT: external ear and nose normal, oropharynx normal Neck: trachea midline, no thyromegaly Respiratory: no respiratory distress Auscultation: lungs clear to auscultation bilaterally Cardiovascular: Rate/Rhythm: regular rate and regular rhythm; not tachycardic Heart Sounds: normal S1 and normal S2; no murmur Extremities: no edema Gastrointestinal (Abdomen): Inspection/Auscultation: normal bowel sounds; abdomen not distended Percussion/Palpation: abdomen soft; abdomen nontender Musculoskeletal: No acute arthritis in any joint Neurologic: Alert and awake. Calm indicating normal. Has significant choreiform movement Lymphatic: no cervical or axillary lymphadenopathy Results & Data Results & Data ([facility]) Vital Signs (Past 12 Hours) Vital Signs Temp Pulse Resp BP Pulse Ox O2 Del Method 05/23/22 14:49 36.5 C 70 18 102/60 98 Room Air 05/23/22 07:38 36.4 C L 71 16 101/67 100 Room Air
[2022-05-23] MEDS: traZODone HCL 50 MG TAB PO SCH (21:55)
[2022-05-23] MEDS: PANTOprazole 40 MG TAB PO SCH (21:56)
[2022-05-23] MEDS: ENOXAPARIN INJ 40 MG/0.4 ML SYR SQ SCH (21:56)
[2022-05-24] MEDS: FIBERSOURCE HN 1.2 CAL 1000 ML BAG GT SCH ×6 (06:17→20:31)
[2022-05-24] MEDS: LORazepam 0.5 MG in SYRINGE 0.25 ML IV PRN ×4 (06:41→18:28)
[2022-05-24] MEDS: TUBE FEEDING WATER FLUSH GT SCH ×6 (07:23→21:45)
[2022-05-24] MEDS: LORATADINE 10 MG TAB PO SCH (08:00)
[2022-05-24] MEDS: SERTRALINE HCL 50 MG TABLET PO SCH (08:01)
[2022-05-24] MEDS: AUSTEDO 12 MG PO SCH ×2 (08:01→20:26)
--- NOTE | 2022-05-24 15:33 | Hospitalist Progress Note ---
Date of Service May 24, 2022 Assessment & Plan (1) [place] chorea: (2) Ambulatory dysfunction: (3) Frequent falls: (4) Sacral decubitus ulcer, stage II: Plan This is a 41-year-old male who has significant past medical history of [place]'s chorea and GERD who presents to ER secondary to fall prior to arrival. [place] Chorea Ambulatory dysfunction Frequent falls Consult case management -patient's adopted mother (aunt) has been caring for him , but appears she is having much more difficult time managing patient as his [place]'s is worsening Patient needs placement and/or significant increasing care at home Referrals are pending to various facilities Remains hemodynamically stable but continues to have choreatic movement Medically stable without any acute distress Before this admission he was living with his mom and according to the mom the choreiform movements are better now than before He has been waiting for placement Acute urinary retention No evidence of UTI Tamsulosin started Resolved-kelly out and urinating well. External catheter in place-pt prefers this. Tamsulosin stopped. No report of symptoms Constipation Feeding by G-Tube Iron Bender consulted, started bolus feeding Continues to tolerate tube feedings On senna and miralax scheduled, received glycerin supp on 05/04 with good result Has been having diarrhea Senokot has been on hold and Metamucil be given as needed No more diarrhea Stage II sacral decubitus ulcer breakdown to buttock per Aunt prior to admission. onsulted wound care for wound eval/preventative treatment Cont to reposition off this area. It has been difficult to visualize this area given the patient's movement restrictions. Defer to nursing staff to highlight any significant changes or evidence of wo rsening breakdown in this area Remains stable without any infection DVT ppx: SQ Lovenox Dispo: med/surg, uncertain at this time, pt with worsening chorea and aunt unable to manage, referrals to SNF placed Awaiting placement DNR/DNI Admission and Anticipated Discharge Date Admission Date: April 30, 2022 Subjective 05/19/2022 The patient was seen and examined in medical floor He was having choreatic movement in bed But was managing to drink water through a straw from a close 05/20/2022 the patient was seen and examined in medical floor He denies any symptoms Has been having diarrhea and Senokot will be discontinued Continues to have choreatic movement 05/21/2022 The patient was seen and examined in medical floor He continues to have choreiform movements involving the extremities and trunk Denies any symptoms 05/22/2022 The patient was seen and examined in medical floor He continues to have choreatic movements involving the extremities and the trunk without any other significant symptoms He communicates reasonably 05/23/2022 The patient was seen and examined in medical floor He continues to have choreiform movement without any significant symptoms 05/24/2022 The patient was seen and examined in medical floor in presence of the family members Continues to have choreiform movements of the extremities Denies any other significant symptoms Review of Systems Review of Systems: all noted and negative except for above Neurologic: Continues to have abnormal choreiform movements involving the extremities and the trunk Physical Exam Physical Exam: Remains unstable due to choreatic movement Constitutional: + ill appearing and average body habitus Eyes: PERRL, conjunctivae normal, anicteric sclerae ENMT: external ear and nose normal, oropharynx normal Neck: trachea midline, no thyromegaly Respiratory: no respiratory distress Auscultation: lungs clear to auscultation bilaterally Cardiovascular: Rate/Rhythm: regular rate and regular rhythm; not tachycardic Heart Sounds: normal S1 and normal S2; no murmur Extremities: no edema Gastrointestinal (Abdomen): Inspection/Auscultation: normal bowel sounds; abdomen not distended Percussion/Palpation: abdomen soft; abdomen nontender Neurologic: Alert and awake Lymphatic: no cervical or axillary lymphadenopathy Results & Data Results & Data ([facility]) Vital Signs (Past 12 Hours) Vital Signs Temp Pulse Resp BP Pulse Ox 05/24/22 07:28 36.5 C 67 16 94/60 L 97 Medications Administered Current Inpatient Medications Acetaminophen (Acetaminophen 325 Mg Tab) 650 mg PO Q4H PRN PRN Reason: pain/fever Stop: 05/30/22 17:39 Last Admin: 05/03/22 12:27 Dose: 650 mg Al Hydrox/Mg Hydrox/Simethicone (Aluminum/Magnesium Susp 30 Ml Udc) 30 ml PO Q6H PRN PRN Reason: Dyspepsia Stop: 05/30/22 17:39 Benzonatate (Benzonatate 100 Mg Capsule) 100 mg PO BID PRN PRN Reason: Cough Stop: 05/30/22 17:39 Deutetrabenazine (Austedo 12 Mg Tablet) 2 each PO BID [facility] Stop: 05/31/22 10:59 Last Admin: 05/24/22 08:01 Dose: 2 each Enoxaparin Sodium (Enoxaparin Inj 40 Mg/0.4 Ml Syr) 40 mg SQ Q24H [facility] Stop: 05/30/22 21:59 Last Admin: 05/23/22 21:56 Dose: 40 mg Enteral Nutritional Formula (Fibersource Hn 1.2 Erich 1000 Ml Bag) 330 ml GT 0600,0900,1200,1500,1800,2100 [facility]; Protocol Stop: 06/05/22 05:59 Last Admin: 05/24/22 14:51 Dose: 330 ml Lorazepam 0.5 mg/ Syringe 0.5 mls @ 2 mls/min IV Q4H PRN PRN Reason: restlessness/chorea Stop: 05/30/22 18:01 Last Admin: 05/24/22 14:51 Dose: 2 mls/min Loratadine (Loratadine 10 Mg Tab) 10 mg PO QAM [facility] Stop: 05/31/22 08:59 Last Admin: 05/24/22 08:00 Dose: 10 mg Magnesium Hydroxide (Magnesium Hydroxide Susp 30 Ml Udc) 30 ml PO Q6H PRN PRN Reason: Constipation Stop: 05/30/22 17:39 Ondansetron HCl (Ondansetron Inj 2 Mg/Ml 2 Ml Vial) 4 mg IV Q6H PRN PRN Reason: Nausea Stop: 05/30/22 17:39 Pantoprazole Sodium (Pantoprazole 40 Mg Tab) 40 mg PO HS [facility] Stop: 05/30/22 20:59 Last Admin: 05/23/22 21:56 Dose: 40 mg Polyethylene Glycol (Polyethylene (Miralax) 17 Gm Pack) 17 gm PO DAILY PRN PRN Reason: Constipation Stop: 05/30/22 17:39 Senna/Docusate Sodium (Docusate Sodium/Senna 50/8.6mg Tab) 1 tab PO BID [facility] Stop: 05/30/22 20:59 Last Admin: 05/20/22 08:41 Dose: Not Given Sertraline HCl (Sertraline Hcl 50 Mg Tablet) 25 mg PO QAM [facility] Stop: 05/31/22 08:59 Last Admin: 05/24/22 08:01 Dose: 25 mg Sterile Water (Tube Feeding Water Flush) 30 ml GT 0630,0930,1230,1530,1830,2130 [facility]; Protocol Stop: 06/18/22 15:29 Last Admin: 05/24/22 13:00 Dose: 30 ml Trazodone HCl (Trazodone Hcl 50 Mg Tab) 50 mg PO HS [facility] Stop: 05/30/22 20:59 Last Admin: 05/23/22 21:55 Dose: 50 mg
[2022-05-24] MEDS: traZODone HCL 50 MG TAB PO SCH (20:26)
[2022-05-24] MEDS: PANTOprazole 40 MG TAB PO SCH (20:27)
[2022-05-24] MEDS: ENOXAPARIN INJ 40 MG/0.4 ML SYR SQ SCH (21:45)
[2022-05-25] MEDS: FIBERSOURCE HN 1.2 CAL 1000 ML BAG GT SCH ×6 (06:06→21:13)
[2022-05-25] MEDS: LORazepam 0.5 MG in SYRINGE 0.25 ML IV PRN ×5 (06:08→19:59)
[2022-05-25 06:09] LABS: Basophils # (auto) 0.07 K/uL (0-0.2); Basophils % (auto) 1.2 %; Eosinophils % (auto) 3.4 %; Hematocrit (blood only) 43.1 % (40.1-51.0); Hemoglobin 14.6 g/dl (14.0-18.0); Immature Granulocytes # (auto) 0.01 K/uL (0.00-0.02); Immature Granulocytes % (auto) 0.2 %; Lymphocytes # (auto) 0.97 K/uL (1.2-3.4); Lymphocytes % (auto) 16.5 %; Mean Corpuscular Hemoglobin 31.8 pg (25.0-34.0); Mean Corpuscular Hgb Conc 33.9 g/dL (32.0-36.0); Mean Corpuscular Volume 93.9 fL (80.0-100.0); Mean Platelet Volume 8.5 fL (9.4-12.4); Monocytes # (auto) 0.45 K/uL (0.24-0.82); Monocytes % (auto) 7.7 %; Neutrophils # (auto) 4.17 K/uL (1.4-6.5); Platelet Count 276 K/uL (130-400); RDW Coefficient of Variation 12.6 % (11.5-14.5); RDW Standard Deviation 43.5 fL (36.4-46.3); Red Blood Count 4.59 M/uL (4.63-6.08); White Blood Count 5.87 K/ul (4.8-10.8)
[2022-05-25 06:33] LABS: BUN Creatinine Ratio 24.6 (10-20); Calcium 9.4 mg/dl (8.5-10.1); Creatinine Clr Calc Pharmacy 115.2 ml/min; Est GFR (African American) 134.8 ml/min; Est GFR (Non-African American) 116.3 ml/min; Potassium 4.6 mmol/L (3.5-5.1)
[2022-05-25] MEDS: TUBE FEEDING WATER FLUSH GT SCH ×6 (07:17→21:30)
[2022-05-25] MEDS: LORATADINE 10 MG TAB PO SCH (08:06)
[2022-05-25] MEDS: SERTRALINE HCL 50 MG TABLET PO SCH (08:06)
[2022-05-25] MEDS: AUSTEDO 12 MG PO SCH ×2 (08:06→21:08)
--- NOTE | 2022-05-25 14:24 | Hospitalist Progress Note ---
Date of Service May 25, 2022 Assessment & Plan (1) [place] chorea: (2) Ambulatory dysfunction: (3) Frequent falls: (4) Sacral decubitus ulcer, stage II: Plan This is a 41-year-old male who has significant past medical history of [place]'s chorea and GERD who presents to ER secondary to fall prior to arrival. [place] Chorea Ambulatory dysfunction Frequent falls Consult case management -patient's adopted mother (aunt) has been caring for him , but appears she is having much more difficult time managing patient as his [place]'s is worsening Patient needs placement and/or significant increasing care at home Referrals are pending to various facilities Remains hemodynamically stable but continues to have choreatic movement Medically stable without any acute distress Before this admission he was living with his mom and according to the mom the choreiform movements are better now than before Remains stable and awaiting acceptance to a facility Acute urinary retention No evidence of UTI Tamsulosin started Resolved-kelly out and urinating well. External catheter in place-pt prefers this. Tamsulosin stopped. No report of symptoms Constipation Feeding by G-Tube Technical Assistant consulted, started bolus feeding Continues to tolerate tube feedings On senna and miralax scheduled, received glycerin supp on 05/04 with good result Has been having diarrhea Senokot has been on hold and Metamucil be given as needed No more diarrhea Bowel habits remains normal Stage II sacral decubitus ulcer breakdown to buttock per Aunt prior to admission. onsulted wound care for wound eval/preventative treatment Cont to reposition off this area. It has been difficult to visualize this area given the patient's movement restrictions. Defer to nursing staff to highlight any significant changes or evidence of worsening breakdown in this area Remains stable without any infection DVT ppx: SQ Lovenox Dispo: med/surg, uncertain at this time, pt with worsening chorea and aunt unable to manage, referrals to SNF placed Awaiting placement DNR/DNI Admission and Anticipated Discharge Date Admission Date: April 30, 2022 Subjective 05/19/2022 The patient was seen and examined in medical floor He was having choreatic movement in bed But was managing to drink water through a straw from a close 05/20/2022 the patient was seen and examined in medical floor He denies any symptoms Has been having diarrhea and Senokot will be discontinued Continues to have choreatic movement 05/21/2022 The patient was seen and examined in medical floor He continues to have choreiform movements involving the extremities and trunk Denies any symptoms 05/22/2022 The patient was seen and examined in medical floor He continues to have choreatic movements involving the extremities and the trunk without any other significant symptoms He communicates reasonably 05/23/2022 The patient was seen and examined in medical floor He continues to have choreiform movement without any significant symptoms 05/24/2022 The patient was seen and examined in medical floor in presence of the family members Continues to have choreiform movements of the extremities Denies any other significant symptoms 05/25/2022 The patient was seen and examined in medical floor He has been stable without any symptoms except ongoing choreiform movement Denies any symptoms Review of Systems Review of Systems: all noted and negative except for above Neurologic: Continues to have abnormal choreiform movements involving the extremities and the trunk Physical Exam Physical Exam: Remains unstable due to choreatic movement Constitutional: + ill appearing and average body habitus Eyes: PERRL, conjunctivae normal, anicteric sclerae ENMT: external ear and nose normal, oropharynx normal Neck: trachea midline, no thyromegaly Respiratory: no respiratory distress Auscultation: lungs clear to auscultation bilaterally Cardiovascular: Rate/Rhythm: regular rate and regular rhythm; not tachycardic Heart Sounds: normal S1 and normal S2; no murmur Extremities: no edema Gastrointestinal (Abdomen): Inspection/Auscultation: normal bowel sounds; abdomen not distended Percussion/Palpation: abdomen soft; abdomen nontender Musculoskeletal: No acute arthritis Neurologic: Alert and awake. Choreiform movement involving all extremities and the trunk Lymphatic: no cervical or axillary lymphadenopathy Results & Data Results & Data ([facility]) Vital Signs (Past 12 Hours) Vital Signs Temp Pulse Resp BP Pulse Ox O2 Del Method 05/25/22 08:03 36.9 C 102 H 17 102/62 93 Room Air Laboratory Results Short CBC 05/25/22 Range/Units 05:41 WBC 5.87 (4.8-10.8) K/ul Hgb 14.6 (14.0-18.0) g/dl Hct 43.1 (40.1-51.0) % Plt Count 276 (130-400) K/uL BMP 05/25/22 05:41 Sodium 136 Potassium 4.6 Chloride 101 Carbon Dioxide 33 H BUN 17 Creatinine 0.69 Glucose 89 Calcium 9.4 Medications Administered Current Inpatient Medications Acetaminophen (Acetaminophen 325 Mg Tab) 650 mg PO Q4H PRN PRN Reason: pain/fever Stop: 05/30/22 17:39 Last Admin: 05/03/22 12:27 Dose: 650 mg Al Hydrox/Mg Hydrox/Simethicone (Aluminum/Magnesium Susp 30 Ml Udc) 30 ml PO Q6H PRN PRN Reason: Dyspepsia Stop: 05/30/22 17:39 Benzonatate (Benzonatate 100 Mg Capsule) 100 mg PO BID PRN PRN Reason: Cough Stop: 05/30/22 17:39 Deutetrabenazine (Austedo 12 Mg Tablet) 2 each PO BID [facility] Stop: 05/31/22 10:59 Last Admin: 05/25/22 08:06 Dose: 2 each Enoxaparin Sodium (Enoxaparin Inj 40 Mg/0.4 Ml Syr) 40 mg SQ Q24H [facility] Stop: 05/30/22 21:59 Last Admin: 05/24/22 21:45 Dose: 40 mg Enteral Nutritional Formula (Fibersource Hn 1.2 Erich 1000 Ml Bag) 330 ml GT 0600,0900,1200,1500,1800,2100 [facility]; Protocol Stop: 06/05/22 05:59 Last Admin: 05/25/22 11:32 Dose: 330 ml Lorazepam 0.5 mg/ Syringe 0.5 mls @ 2 mls/min IV Q4H PRN PRN Reason: restlessness/chorea Stop: 05/30/22 18:01 Last Admin: 05/25/22 10:15 Dose: 2 mls/min Loratadine (Loratadine 10 Mg Tab) 10 mg PO QAM [facility] Stop: 05/31/22 08:59 Last Admin: 05/25/22 08:06 Dose: 10 mg Magnesium Hydroxide (Magnesium Hydroxide Susp 30 Ml Udc) 30 ml PO Q6H PRN PRN Reason: Constipation Stop: 05/30/22 17:39 Ondansetron HCl (Ondansetron Inj 2 Mg/Ml 2 Ml Vial) 4 mg IV Q6H PRN PRN Reason: Nausea Stop: 05/30/22 17:39 Pantoprazole Sodium (Pantoprazole 40 Mg Tab) 40 mg PO HS [facility] Stop: 05/30/22 20:59 Last Admin: 05/24/22 20:27 Dose: 40 mg Polyethylene Glycol (Polyethylene (Miralax) 17 Gm Pack) 17 gm PO DAILY PRN PRN Reason: Constipation Stop: 05/30/22 17:39 Senna/Docusate Sodium (Docusate Sodium/Senna 50/8.6mg Tab) 1 tab PO BID [facility] Stop: 05/30/22 20:59 Last Admin: 05/20/22 08:41 Dose: Not Given Sertraline HCl (Sertraline Hcl 50 Mg Tablet) 25 mg PO QAM [facility] Stop: 05/31/22 08:59 Last Admin: 05/25/22 08:06 Dose: 25 mg Sterile Water (Tube Feeding Water Flush) 30 ml GT 0630,0930,1230,1530,1830,2130 [facility]; Protocol Stop: 06/18/22 15:29 Last Admin: 05/25/22 12:50 Dose: 30 ml Trazodone HCl (Trazodone Hcl 50 Mg Tab) [address] [facility] Stop: 05/30/22 20:59 Last Admin: 05/24/22 20:26 Dose: 50 mg
[2022-05-25] MEDS: traZODone HCL 50 MG TAB PO SCH (21:08)
[2022-05-25] MEDS: PANTOprazole 40 MG TAB PO SCH (21:08)
[2022-05-25] MEDS: ENOXAPARIN INJ 40 MG/0.4 ML SYR SQ SCH (22:31)
[2022-05-26] MEDS: LORazepam 0.5 MG in SYRINGE 0.25 ML IV PRN ×4 (05:50→18:39)
[2022-05-26] MEDS: FIBERSOURCE HN 1.2 CAL 1000 ML BAG GT SCH ×6 (05:54→21:15)
[2022-05-26] MEDS: TUBE FEEDING WATER FLUSH GT SCH ×6 (07:10→22:34)
[2022-05-26] MEDS: AUSTEDO 12 MG PO SCH ×2 (08:14→20:05)
[2022-05-26] MEDS: LORATADINE 10 MG TAB PO SCH (08:15)
[2022-05-26] MEDS: SERTRALINE HCL 50 MG TABLET PO SCH (08:15)
--- NOTE | 2022-05-26 17:07 | Hospitalist Progress Note ---
Date of Service May 26, 2022 Assessment & Plan (1) [place] chorea: (2) Ambulatory dysfunction: (3) Frequent falls: (4) Sacral decubitus ulcer, stage II: Plan This is a 41-year-old male who has significant past medical history of [place]'s chorea and GERD who presents to ER secondary to fall prior to arrival. [place] Chorea Ambulatory dysfunction Frequent falls Consult case management -patient's adopted mother (aunt) has been caring for him , but appears she is having much more difficult time managing patient as his Suzy's is worsening Patient needs placement and/or significant increasing care at home Referrals are pending to various facilities Remains hemodynamically stable but continues to have choreatic movement Medically stable without any acute distress Before this admission he was living with his mom and according to the mom the choreiform movements are better now than before Remains stable and awaiting acceptance to a facility Medically stable to be transferred Acute urinary retention No evidence of UTI Tamsulosin started Resolved-kelly out and urinating well. External catheter in place-pt prefers this. Tamsulosin stopped. No report of symptoms Constipation Feeding by G-Tube Supervisor Clam Bed consulted, started bolus feeding Continues to tolerate tube feedings On senna and miralax scheduled, received glycerin supp on 05/04 with good result Has been having diarrhea Senokot has been on hold and Metamucil be given as needed No more diarrhea Bowel habits remains normal Stage II sacral decubitus ulcer breakdown to buttock per Aunt prior to admission. onsulted wound care for wound eval/preventative treatment Cont to reposition off this area. It has been difficult to visualize this area given the patient's movement restrictions. Defer to nursing staff to highlight any significant changes or evidence of worsening breakdown in this area Remains stable without any infection DVT ppx: SQ Lovenox Dispo: med/surg, uncertain at this time, pt with worsening chorea and aunt unable to manage, referrals to SNF placed Awaiting placement DNR/DNI Admission and Anticipated Discharge Date Admission Date: April 30, 2022 Subjective 05/19/2022 The patient was seen and examined in medical floor He was having choreatic movement in bed But was managing to drink water through a straw from a close 05/20/2022 the patient was seen and examined in medical floor He denies any symptoms Has been having diarrhea and Senokot will be discontinued Continues to have choreatic movement 05/21/2022 The patient was seen and examined in medical floor He continues to have choreiform movements involving the extremities and trunk Denies any symptoms 05/22/2022 The patient was seen and examined in medical floor He continues to have choreatic movements involving the extremities and the trunk without any other significant symptoms He communicates reasonably 05/23/2022 The patient was seen and examined in medical floor He continues to have choreiform movement without any significant symptoms 05/24/2022 The patient was seen and examined in medical floor in presence of the family members Continues to have choreiform movements of the extremities Denies any other significant symptoms 05/25/2022 The patient was seen and examined in medical floor He has been stable without any symptoms except ongoing choreiform movement Denies any symptoms 05/26/2022 The patient was seen and examined in medical floor He has been stable and denies any symptoms Review of Systems Review of Systems: all noted and negative except for above Neurologic: Continues to have abnormal choreiform movements involving the extremities and the trunk Physical Exam Physical Exam: Remains unstable due to choreatic movement Constitutional: + ill appearing and average body habitus Eyes: PERRL, conjunctivae normal, anicteric sclerae ENMT: external ear and nose normal, oropharynx normal Neck: trachea midline, no thyromegaly Respiratory: no respiratory distress Auscultation: lungs clear to auscultation bilaterally Cardiovascular: Rate/Rhythm: regular rate and regular rhythm; not tachycardic Heart Sounds: normal S1 and normal S2; no murmur Extremities: no edema Gastrointestinal (Abdomen): Inspection/Auscultation: normal bowel sounds; abdomen not distended Percussion/Palpation: abdomen soft; abdomen nontender Musculoskeletal: Ongoing choreiform movements of the extremities and trunk Neurologic: Alert and awake. Communicating well Lymphatic: no cervical or axillary lymphadenopathy Results & Data Results & Data ([facility]) Vital Signs (Past 12 Hours) Vital Signs Temp Pulse Resp BP Pulse Ox O2 Del Method 05/26/22 14:11 36.6 C 66 17 108/71 99 Room Air 05/26/22 06:53 36.2 C L 82 16 102/67 98 Room Air
[2022-05-26] MEDS: traZODone HCL 50 MG TAB PO SCH (20:06)
[2022-05-26] MEDS: PANTOprazole 40 MG TAB PO SCH (20:06)
[2022-05-26] MEDS: ENOXAPARIN INJ 40 MG/0.4 ML SYR SQ SCH (22:35)
[2022-05-27] MEDS: FIBERSOURCE HN 1.2 CAL 1000 ML BAG GT SCH ×6 (06:13→21:08)
[2022-05-27] MEDS: TUBE FEEDING WATER FLUSH GT SCH ×6 (07:48→21:45)
[2022-05-27] MEDS: LORATADINE 10 MG TAB PO SCH (07:58)
[2022-05-27] MEDS: SERTRALINE HCL 50 MG TABLET PO SCH (07:58)
[2022-05-27] MEDS: AUSTEDO 12 MG PO SCH ×2 (07:59→21:08)
--- NOTE | 2022-05-27 18:20 | Hospitalist Progress Note ---
Date of Service May 27, 2022 Assessment & Plan (1) [place] chorea: (2) Ambulatory dysfunction: (3) Frequent falls: (4) Sacral decubitus ulcer, stage II: Plan This is a 41-year-old male who has significant past medical history of Suzy's chorea and GERD who presents to ER secondary to fall prior to arrival. [place] Chorea Ambulatory dysfunction Frequent falls Consult case management -patient's adopted mother (aunt) has been caring for marcos cha, but appears she is having much more difficult time managing patient as his [place]'s is worsening Patient needs placement and/or significant increasing care at home Referrals are pending to various facilities Remains hemodynamically stable but continues to have choreatic movement Medically stable without any acute distress Before this admission he was living with his mom and according to the mom the choreiform movements are better now than before Remains stable and awaiting acceptance to a facility Medically stable to be transferred Acute urinary retention No evidence of UTI Tamsulosin started Resolved-kelly out and urinating well. External catheter in place-pt prefers this. Tamsulosin stopped. No report of symptoms Constipation Feeding by G-Tube Housing Management Representative consulted, started bolus feeding Continues to tolerate tube feedings On senna and miralax scheduled, received glycerin supp on 05/04 with good result Has been having diarrhea Senokot has been on hold and Metamucil be given as needed No more diarrhea Bowel habits remains normal Stage II sacral decubitus ulcer breakdown to buttock per Aunt prior to admission. onsulted wound care for wound eval/preventative treatment Cont to reposition off this area. It has been difficult to visualize this area given the patient's movement restrictions. Defer to nursing staff to highlight any significant changes or evidence of worsening breakdown in this area Remains stable without any infection DVT ppx: SQ Lovenox Dispo: med/surg, uncertain at this time, pt with worsening chorea and aunt unable to manage, referrals to SNF placed Awaiting placement DNR/DNI Admission and Anticipated Discharge Date Admission Date: April 30, 2022 Subjective 05/19/2022 The patient was seen and examined in medical floor He was having choreatic movement in bed But was managing to drink water through a straw from a close 05/20/2022 the patient was seen and examined in medical floor He denies any symptoms Has been having diarrhea and Senokot will be discontinued Continues to have choreatic movement 05/21/2022 The patient was seen and examined in medical floor He continues to have choreiform movements involving the extremities and trunk Denies any symptoms 05/22/2022 The patient was seen and examined in medical floor He continues to have choreatic movements involving the extremities and the trunk without any other significant symptoms He communicates reasonably 05/23/2022 The patient was seen and examined in medical floor He continues to have choreiform movement without any significant symptoms 05/24/2022 The patient was seen and examined in medical floor in presence of the family members Continues to have choreiform movements of the extremities Denies any other significant symptoms 05/25/2022 The patient was seen and examined in medical floor He has been stable without any symptoms except ongoing choreiform movement Denies any symptoms 05/26/2022 The patient was seen and examined in medical floor He has been stable and denies any symptoms 05/27/2022 The patient was seen and examined in medical floor He has been waiting for placement and remains medically stable Review of Systems Review of Systems: all noted and negative except for above Neurologic: Continues to have abnormal choreiform movements involving the extremities and the trunk Physical Exam Physical Exam: Remains unstable due to choreatic movement Constitutional: + ill appearing and average body habitus Eyes: PERRL, conjunctivae normal, anicteric sclerae ENMT: external ear and nose normal, oropharynx normal Neck: trachea midline, no thyromegaly Respiratory: no respiratory distress Auscultation: lungs clear to auscultation bilaterally Cardiovascular: Rate/Rhythm: regular rate and regular rhythm; not tachycardic Heart Sounds: normal S1 and normal S2; no murmur Extremities: no edema Gastrointestinal (Abdomen): Inspection/Auscultation: normal bowel sounds; abdomen not distended Percussion/Palpation: abdomen soft; abdomen nontender Musculoskeletal: No acute arthritis in any joint Neurologic: Has abnormal movements of the extremities and the trunk due to cardiac Lymphatic: no cervical or axillary lymphadenopathy Results & Data [facility] Vital Signs (Past 12 Hours) Vital Signs Temp Pulse Resp BP Pulse Ox O2 Del Method 05/27/22 14:52 36.4 C L 91 H 18 96 Room Air 05/27/22 07:03 36.4 C L 75 16 94/60 L 96 Room Air
[2022-05-27] MEDS: ENOXAPARIN INJ 40 MG/0.4 ML SYR SQ SCH (21:08)
[2022-05-27] MEDS: PANTOprazole 40 MG TAB PO SCH (21:08)
[2022-05-27] MEDS: traZODone HCL 50 MG TAB PO SCH (21:08)
[2022-05-28] MEDS: FIBERSOURCE HN 1.2 CAL 1000 ML BAG GT SCH ×6 (06:41→21:13)
[2022-05-28] MEDS: TUBE FEEDING WATER FLUSH GT SCH ×6 (07:45→22:00)
[2022-05-28] MEDS: LORazepam 0.5 MG in SYRINGE 0.25 ML IV PRN ×2 (08:37→13:06)
[2022-05-28] MEDS: SERTRALINE HCL 50 MG TABLET PO SCH (09:19)
[2022-05-28] MEDS: LORATADINE 10 MG TAB PO SCH (09:19)
[2022-05-28] MEDS: AUSTEDO 12 MG PO SCH ×2 (09:20→21:13)
--- NOTE | 2022-05-28 17:57 | Hospitalist Progress Note ---
Date of Service May 28, 2022 Assessment & Plan (1) [place] chorea: (2) Ambulatory dysfunction: (3) Frequent falls: (4) Sacral decubitus ulcer, stage II: Plan Patient is a 41 yr male who has significant past medical history of [place]'s chorea and GERD who presents to ER secondary to fall prior to arrival. [place] Chorea Ambulatory dysfunction Frequent falls Patient's adopted mother (aunt) has been caring for him, but appears she is having much more difficult time managing patient as his Suzy's is worsening Patient needs placement due to significant increasing care at home awaiting acceptance to a facility Acute urinary retention No evidence of UTI Resolved Bladder scan as needed Constipation Feeding by G-Tube Product Safety Technician consulted, started bolus feeding Continues to tolerate tube feedings bowel regimen as needed Stage II sacral decubitus ulcer Breakdown to buttock per Aunt prior to admission. Consulted wound care for wound care Continue to reposition DVT px: SQ Lovenox Code Status DNR/DNI Admission and Anticipated Discharge Date Admission Date: April 30, 2022 Subjective Patient is seen and examined at bedside Offers no complaints Denies any chest pain, shortness of breath, dizziness, nausea, abdominal pain Waiting for placement Review of Systems Review of Systems: All systems reviewed & are unremarkable except as noted in Subjective Physical Exam Physical Exam: Physical Exam: Vitals signs as noted above General Appearance: Thin, frail, ill-appearing, + chorea movements Head: normocephalic, Atraumatic Eyes: normal inspection, EOMI Neck: supple, Trachea midline Respiratory/Chest: Normal breath sounds, CTA, No accessory muscle use Cardiovascular: S1, S2, No murmur Abdomen/GI:Soft, Non tender, Bowel sounds present Extremities/Musculoskeletal:normal inspection, no edema Neurologic/Psych:AAOX3, grossly no focal neurological deficits Skin: normal color, warm Results & Data Results & Data ([facility]) Vital Signs (Past 12 Hours) Vital Signs Temp Pulse Resp BP Pulse Ox O2 Del Method 05/28/22 15:33 36.9 C 80 16 113/71 96 Room Air 05/28/22 08:20 36.4 C L 81 16 100/70 94 Room Air
[2022-05-28] MEDS: ENOXAPARIN INJ 40 MG/0.4 ML SYR SQ SCH (21:13)
[2022-05-28] MEDS: traZODone HCL 50 MG TAB PO SCH (21:13)
[2022-05-28] MEDS: PANTOprazole 40 MG TAB PO SCH (21:14)
[2022-05-29] MEDS: FIBERSOURCE HN 1.2 CAL 1000 ML BAG GT SCH ×6 (05:50→20:46)
[2022-05-29] MEDS: TUBE FEEDING WATER FLUSH GT SCH ×6 (06:45→21:32)
[2022-05-29] MEDS: LORazepam 0.5 MG in SYRINGE 0.25 ML IV PRN ×4 (07:38→23:16)
[2022-05-29] MEDS: SERTRALINE HCL 50 MG TABLET PO SCH (09:12)
[2022-05-29] MEDS: LORATADINE 10 MG TAB PO SCH (09:12)
[2022-05-29] MEDS: AUSTEDO 12 MG PO SCH ×2 (09:13→20:46)
--- NOTE | 2022-05-29 17:42 | Hospitalist Progress Note ---
Date of Service May 29, 2022 Assessment & Plan (1) [place] chorea: (2) Ambulatory dysfunction: (3) Frequent falls: (4) Sacral decubitus ulcer, stage II: Plan Patient is a 41 yr male who has significant past medical history of [place]'s chorea and GERD who presents to ER secondary to fall prior to arrival. [place] Chorea Ambulatory dysfunction Frequent falls Patient's adopted mother (aunt) has been caring for him, but appears she is having much more difficult time managing patient as his Suzy's is worsening Patient needs placement due to significant increasing care at home Awaiting acceptance to a facility Acute urinary retention No evidence of UTI Resolved Bladder scan as needed Constipation Feeding by G-Tube Scientific Programmer consulted, started bolus feeding Continues to tolerate tube feedings bowel regimen as needed Continue wound care at G-tube site Will consider surgical evaluation if needed Stage II sacral decubitus ulcer Breakdown to buttock per Aunt prior to admission. Consulted wound care for wound care Continue to reposition DVT px: SQ Lovenox Code Status DNR/DNI Admission and Anticipated Discharge Date Admission Date: April 30, 2022 Subjective Patient is seen and examined at bedside Seem to be comfortable during my examination RN noticed some discharge around the G tube Denies any chest pain, shortness of breath, dizziness, nausea, abdominal pain Waiting for placement Review of Systems Review of Systems: All systems reviewed & are unremarkable except as noted in Subjective Physical Exam Physical Exam: Physical Exam: Vitals signs as noted above General Appearance: Thin, frail, ill-appearing, + chorea movements Head: normocephalic, Atraumatic Eyes: normal inspection, EOMI Neck: supple, Trachea midline Respiratory/Chest: Normal breath sounds, CTA, No accessory muscle use Cardiovascular: S1, S2, No murmur Abdomen/GI:Soft, Non tender, Bowel sounds present Extremities/Musculoskeletal:normal inspection, no edema Neurologic/Psych:AAOX3, grossly no focal neurological deficits Skin: normal color, warm Results & Data Results & Data ([facility]) Vital Signs (Past 12 Hours) Vital Signs Temp Pulse Resp BP Pulse Ox O2 Del Method 05/29/22 07:20 36.8 C 76 16 100/58 L 98 Room Air
[2022-05-29] MEDS: traZODone HCL 50 MG TAB PO SCH (20:46)
[2022-05-29] MEDS: ENOXAPARIN INJ 40 MG/0.4 ML SYR SQ SCH (20:46)
[2022-05-29] MEDS: PANTOprazole 40 MG TAB PO SCH (20:46)
[2022-05-30] MEDS: FIBERSOURCE HN 1.2 CAL 1000 ML BAG GT SCH ×6 (05:52→20:46)
[2022-05-30] MEDS: TUBE FEEDING WATER FLUSH GT SCH ×6 (06:36→22:23)
[2022-05-30 07:32] LABS: Hematocrit (blood only) 42.9 % (40.1-51.0); Hemoglobin 14.4 g/dl (14.0-18.0); Mean Corpuscular Hemoglobin 31.8 pg (25.0-34.0); Mean Corpuscular Hgb Conc 33.6 g/dL (32.0-36.0); Mean Corpuscular Volume 94.7 fL (80.0-100.0); Mean Platelet Volume 8.6 fL (9.4-12.4); Platelet Count 290 K/uL (130-400); RDW Standard Deviation 44.4 fL (36.4-46.3); Red Blood Count 4.53 M/uL (4.63-6.08); White Blood Count 4.24 K/ul (4.8-10.8)
[2022-05-30 07:50] LABS: BUN Creatinine Ratio 29.2 (10-20); Calcium 9.5 mg/dl (8.5-10.1); Creatinine Clr Calc Pharmacy 135.4 ml/min; Est GFR (African American) 138.1 ml/min; Est GFR (Non-African American) 119.2 ml/min; Potassium 4.3 mmol/L (3.5-5.1)
[2022-05-30] MEDS: SERTRALINE HCL 50 MG TABLET PO SCH (09:04)
[2022-05-30] MEDS: LORATADINE 10 MG TAB PO SCH (09:04)
[2022-05-30] MEDS: LORazepam 0.5 MG in SYRINGE 0.25 ML IV PRN ×2 (09:06→13:16)
[2022-05-30] MEDS: AUSTEDO 12 MG PO SCH ×2 (09:06→20:47)
--- NOTE | 2022-05-30 16:00 | Hospitalist Progress Note ---
Date of Service May 30, 2022 Assessment & Plan (1) [place] chorea: (2) Ambulatory dysfunction: (3) Frequent falls: (4) Sacral decubitus ulcer, stage II: Plan Patient is a 41 yr male who has significant past medical history of [place]'s chorea and GERD who presents to ER secondary to fall prior to arrival. [place] Chorea Ambulatory dysfunction Frequent falls Patient's adopted mother (aunt) has been caring for him, but appears she is having much more difficult time managing patient as his Suzy's is worsening Patient needs placement due to significant increasing care at home Awaiting acceptance to a facility Continue current medications Acute urinary retention No evidence of UTI Resolved Bladder scan as needed Constipation Feeding by G-Tube Nitrate Operator consulted, started bolus feeding Continues to tolerate tube feedings bowel regimen as needed Continue wound care at G-tube site Will consider surgical evaluation if needed Stage II sacral decubitus ulcer Breakdown to buttock per Aunt prior to admission. Consulted wound care for wound care Continue to reposition DVT px: SQ Lovenox Code Status DNR/DNI Admission and Anticipated Discharge Date Admission Date: April 30, 2022 Subjective Patient is seen and examined at bedside Offers no complaints today Denies any chest pain, shortness of breath, dizziness, nausea, abdominal pain Waiting for placement Physical Exam Physical Exam: Physical Exam: Vitals signs as noted above General Appearance: Thin, frail, ill-appearing, + chorea movements Head: normocephalic, Atraumatic Eyes: normal inspection, EOMI Neck: supple, Trachea midline Respiratory/Chest: Normal breath sounds, CTA, No accessory muscle use Cardiovascular: S1, S2, No murmur Abdomen/GI:Soft, Non tender, Bowel sounds present Extremities/Musculoskeletal:normal inspection, no edema Neurologic/Psych:AAOX3, grossly no focal neurological deficits Skin: normal color, warm Results & Data Results & Data ([facility]) Vital Signs (Past 12 Hours) Vital Signs Temp Pulse Resp BP Pulse Ox O2 Del Method 05/30/22 07:27 36.7 C 74 16 95/60 L 92 Room Air
[2022-05-30] MEDS: PANTOprazole 40 MG TAB PO SCH (20:46)
[2022-05-30] MEDS: ENOXAPARIN INJ 40 MG/0.4 ML SYR SQ SCH (20:46)
[2022-05-30] MEDS: traZODone HCL 50 MG TAB PO SCH (20:46)
[2022-05-31] MEDS: FIBERSOURCE HN 1.2 CAL 1000 ML BAG GT SCH ×6 (05:15→20:00)
[2022-05-31] MEDS: TUBE FEEDING WATER FLUSH GT SCH ×6 (06:40→21:22)
[2022-05-31] MEDS: LORazepam 0.5 MG in SYRINGE 0.25 ML IV PRN ×2 (06:41→20:02)
[2022-05-31] MEDS: AUSTEDO 12 MG PO SCH ×2 (08:11→20:00)
[2022-05-31] MEDS: SERTRALINE HCL 50 MG TABLET PO SCH (08:57)
[2022-05-31] MEDS: LORATADINE 10 MG TAB PO SCH (08:57)
--- NOTE | 2022-05-31 16:22 | Hospitalist Progress Note ---
Date of Service May 31, 2022 Assessment & Plan (1) Suzy chorea: (2) Ambulatory dysfunction: (3) Frequent falls: (4) Sacral decubitus ulcer, stage II: Plan Patient is a 41 yr male who has significant past medical history of [place]'s chorea and GERD who presents to ER secondary to fall prior to arrival. [place] Chorea Ambulatory dysfunction Frequent falls Patient's adopted mother (aunt) has been caring for him, but appears she is having much more difficult time managing patient as his Suzy's is worsening Patient needs placement due to significant increasing care at home Awaiting acceptance to a facility Acute urinary retention No evidence of UTI Resolved Bladder scan as needed Constipation Feeding by G-Tube Licensed Weigher consulted, started bolus feeding Continue tube feeds bowel regimen as needed Continue wound care at G-tube site Stage II sacral decubitus ulcer Breakdown to buttock per Aunt prior to admission. Consulted wound care for wound care Continue to reposition DVT px: SQ Lovenox Code Status DNR/DNI Admission and Anticipated Discharge Date Admission Date: April 30, 2022 Subjective Patient is seen and examined at bedside Denies any chest pain, shortness of breath, dizziness, nausea, abdominal pain Waiting for placement No new complaints Review of Systems Review of Systems: All systems reviewed & are unremarkable except as noted in Subjective Physical Exam Physical Exam: Physical Exam: Vitals signs as noted above General Appearance: Thin, frail, ill-appearing, + chorea movements Head: normocephalic, Atraumatic Eyes: normal inspection, EOMI Neck: supple, Trachea midline Respiratory/Chest: Normal breath sounds, CTA, No accessory muscle use Cardiovascular: S1, S2, No murmur Abdomen/GI:Soft, Non tender, Bowel sounds present Extremities/Musculoskeletal:normal inspection, no edema Neurologic/Psych:AAOX3, grossly no focal neurological deficits Skin: normal color, warm Results & Data Results & Data ([facility]) Vital Signs (Past 12 Hours) Vital Signs Temp Pulse Resp BP Pulse Ox O2 Del Method 05/31/22 15:28 37.1 C 80 16 93 Room Air 05/31/22 08:23 36.8 C 79 18 95/58 L 95
[2022-05-31] MEDS: ENOXAPARIN INJ 40 MG/0.4 ML SYR SQ SCH (20:01)
[2022-05-31] MEDS: traZODone HCL 50 MG TAB PO SCH (20:01)
[2022-05-31] MEDS: PANTOprazole 40 MG TAB PO SCH (20:01)
[2022-06-01] MEDS: FIBERSOURCE HN 1.2 CAL 1000 ML BAG GT SCH ×6 (05:26→21:52)
[2022-06-01] MEDS: TUBE FEEDING WATER FLUSH GT SCH ×6 (06:22→22:40)
[2022-06-01] MEDS: SERTRALINE HCL 50 MG TABLET PO SCH (09:04)
[2022-06-01] MEDS: AUSTEDO 12 MG PO SCH ×2 (09:04→21:49)
[2022-06-01] MEDS: LORATADINE 10 MG TAB PO SCH (09:04)
[2022-06-01] MEDS: LORazepam 0.5 MG in SYRINGE 0.25 ML IV PRN ×4 (09:40→19:50)
--- NOTE | 2022-06-01 17:11 | Hospitalist Progress Note ---
Date of Service June 01, 2022 Assessment & Plan (1) Suzy chorea: (2) Ambulatory dysfunction: (3) Frequent falls: (4) Sacral decubitus ulcer, stage II: Plan Patient is a 41 yr male who has significant past medical history of [place]'s chorea and GERD who presents to ER secondary to fall prior to arrival. [place] Chorea Ambulatory dysfunction Frequent falls Patient's adopted mother (aunt) has been caring for him, but appears she is having much more difficult time managing patient as his Suzy's is worsening Patient needs placement due to significant increasing care at home Awaiting acceptance to a facility Continue current management Acute urinary retention No evidence of UTI Resolved Bladder scan as needed Constipation Feeding by G-Tube Precision Devices Inspector/Tester consulted, started bolus feeding Continue tube feeds bowel regimen as needed Continue wound care at G-tube site Stage II sacral decubitus ulcer Breakdown to buttock per Aunt prior to admission. Consulted wound care for wound care Continue to reposition DVT px: SQ Lovenox Code Status DNR/DNI Admission and Anticipated Discharge Date Admission Date: April 30, 2022 Subjective Patient is seen and examined at bedside Feels well Denies any chest pain, shortness of breath, dizziness, nausea, abdominal pain Waiting for placement Review of Systems Review of Systems: All systems reviewed & are unremarkable except as noted in Subjective Physical Exam Physical Exam: Physical Exam: Vitals signs as noted above General Appearance: Thin, frail, ill-appearing, + chorea movements Head: normocephalic, Atraumatic Eyes: normal inspection, EOMI Neck: supple, Trachea midline Respiratory/Chest: Normal breath sounds, CTA, No accessory muscle use Cardiovascular: S1, S2, No murmur Abdomen/GI:Soft, Non tender, Bowel sounds present Extremities/Musculoskeletal:normal inspection, no edema Neurologic/Psych:AAOX3, grossly no focal neurological deficits Skin: normal color, warm Results & Data Results & Data ([facility] [place]) Vital Signs (Past 12 Hours) Vital Signs Temp Pulse Pulse Resp BP BP Pulse Ox 06/01/22 15:23 37.0 C 66 16 100/63 98 06/01/22 11:16 36.5 C 86 16 103/53 L 98 06/01/22 07:55 36.4 C 96 H 22 100/66 98 06/01/22 07:00 36.9 C 68 16 101/65 97 O2 Del Method 06/01/22 15:23 Room Air 06/01/22 11:16 Room Air 06/01/22 07:55 Room Air 06/01/22 07:00 Room Air
[2022-06-01] MEDS: traZODone HCL 50 MG TAB PO SCH (21:49)
[2022-06-01] MEDS: PANTOprazole 40 MG TAB PO SCH (21:49)
[2022-06-01] MEDS: ENOXAPARIN INJ 40 MG/0.4 ML SYR SQ SCH (21:54)
[2022-06-02] MEDS: LORazepam 0.5 MG in SYRINGE 0.25 ML IV PRN ×4 (00:21→18:29)
[2022-06-02] MEDS: FIBERSOURCE HN 1.2 CAL 1000 ML BAG GT SCH ×6 (06:16→20:46)
[2022-06-02] MEDS: TUBE FEEDING WATER FLUSH GT SCH ×6 (07:16→22:32)
[2022-06-02] MEDS: SERTRALINE HCL 50 MG TABLET PO SCH (09:03)
[2022-06-02] MEDS: LORATADINE 10 MG TAB PO SCH (09:03)
[2022-06-02] MEDS: AUSTEDO 12 MG PO SCH ×2 (09:04→19:26)
--- NOTE | 2022-06-02 16:58 | Hospitalist Progress Note ---
Date of Service June 02, 2022 Assessment & Plan (1) Suzy chorea: (2) Ambulatory dysfunction: (3) Frequent falls: (4) Sacral decubitus ulcer, stage II: Plan Patient is a 41 yr male who has significant past medical history of [place]'s chorea and GERD who presents to ER secondary to fall prior to arrival. [place] Chorea Ambulatory dysfunction Frequent falls Patient's adopted mother (aunt) has been caring for him, but appears she is having much more difficult time managing patient as his Suzy's is worsening Patient needs placement due to significant increasing care at home Waiting for placement Acute urinary retention No evidence of UTI Resolved Bladder scan as needed Constipation Feeding by G-Tube Door Furring Installer consulted, started bolus feeding Continue tube feeds bowel regimen as needed Continue wound care at G-tube site Stage II sacral decubitus ulcer Breakdown to buttock per Aunt prior to admission. Consulted wound care for wound care Continue to reposition DVT px: SQ Lovenox Code Status DNR/DNI Admission and Anticipated Discharge Date Admission Date: April 30, 2022 Subjective Patient is seen and examined at bedside Denies any chest pain, shortness of breath, dizziness, nausea, abdominal pain BP variable, asymptomatic Waiting for placement Review of Systems Review of Systems: All systems reviewed & are unremarkable except as noted in Subjective Physical Exam Physical Exam: Physical Exam: Vitals signs as noted above General Appearance: Thin, frail, ill-appearing, + chorea movements Head: normocephalic, Atraumatic Eyes: normal inspection, EOMI Neck: supple, Trachea midline Respiratory/Chest: Normal breath sounds, CTA, No accessory muscle use Cardiovascular: S1, S2, No murmur Abdomen/GI:Soft, Non tender, Bowel sounds present Extremities/Musculoskeletal:normal inspection, no edema Neurologic/Psych:AAOX3, grossly no focal neurological deficits Skin: normal color, warm Results & Data Results & Data ([facility]) Vital Signs (Past 12 Hours) Vital Signs Temp Pulse Resp BP BP Pulse Ox O2 Del Method 06/02/22 15:30 36.5 C 74 18 101/58 L 97 Room Air 06/02/22 07:15 36.5 C 75 16 100/66 99 Room Air
[2022-06-02] MEDS: traZODone HCL 50 MG TAB PO SCH (19:26)
[2022-06-02] MEDS: ENOXAPARIN INJ 40 MG/0.4 ML SYR SQ SCH (19:26)
[2022-06-02] MEDS: PANTOprazole 40 MG TAB PO SCH (19:27)
[2022-06-03] MEDS: FIBERSOURCE HN 1.2 CAL 1000 ML BAG GT SCH ×6 (05:18→20:01)
[2022-06-03] MEDS: TUBE FEEDING WATER FLUSH GT SCH ×6 (06:35→21:26)
[2022-06-03] MEDS: AUSTEDO 12 MG PO SCH ×2 (09:14→20:01)
[2022-06-03] MEDS: SERTRALINE HCL 50 MG TABLET PO SCH (09:15)
[2022-06-03] MEDS: LORATADINE 10 MG TAB PO SCH (09:15)
[2022-06-03] MEDS: LORazepam 0.5 MG in SYRINGE 0.25 ML IV PRN ×4 (09:17→23:15)
--- NOTE | 2022-06-03 12:46 | Hospitalist Progress Note ---
Date of Service June 03, 2022 Assessment & Plan (1) Suzy chorea: (2) Ambulatory dysfunction: (3) Frequent falls: (4) Sacral decubitus ulcer, stage II: Plan Patient is a 41 yr male who has significant past medical history of [place]'s chorea and GERD who presented to ED on 04/30 secondary to fall prior to arrival. [place] Chorea Ambulatory dysfunction Frequent falls Patient's adopted mother (aunt) has been caring for him, but appears she is having much more difficult time managing patient as his [place]'s is worsening Patient needs placement due to significant increasing care at home Waiting for placement Acute urinary retention No evidence of UTI Resolved Bladder scan as needed Constipation Feeding by G-Tube Tetryl Blender Operator consulted, started bolus feeding Continue tube feeds bowel regimen as needed Continue wound care at G-tube site Stage II sacral decubitus ulcer Breakdown to buttock per Aunt prior to admission. Consulted wound care for wound care Continue to reposition DVT px:SQ Lovenox Dispo- Awaiting placement. Medically stable. CM following Admission and Anticipated Discharge Date Admission Date: April 30, 2022 Subjective Feels fine. Denies any issues or needs. No fever, N/V/ shortness of breath. Physical Exam Physical Exam: General: Lying in bed constantly fidgeting due to his chorea, not in acute distress, on room air Chest: Clear breath sounds bilaterally, no wheezes or crackles CVS: Regular rate and rhythm, normal heart sounds, no murmur Abdomen: Soft, non tender, not distended, PEG tube noted- site clean, normal bowel sounds Neuro: Awake, alert, oriented, conversing ok Extremities: Chorea + Results & Data Results & Data ([facility]) Vital Signs (Past 12 Hours) Vital Signs Temp Pulse Resp BP BP Pulse Ox O2 Del Method 06/03/22 11:10 37.0 C 93 H 20 99/60 L 97 Room Air 06/03/22 09:00 Room Air 06/03/22 07:49 36.6 C 54 L 20 104/70 91 Room Air Medications Administered Current Inpatient Medications Acetaminophen (Acetaminophen 325 Mg Tab) 650 mg PO Q4H PRN PRN Reason: pain/fever Stop: 07/17/22 17:39 Last Admin: 05/03/22 12:27 Dose: 650 mg Al Hydrox/Mg Hydrox/Simethicone (Aluminum/Magnesium Susp 30 Ml Udc) 30 ml PO Q6H PRN PRN Reason: Dyspepsia Stop: 07/17/22 17:39 Benzonatate (Benzonatate 100 Mg Capsule) 100 mg PO BID PRN PRN Reason: Cough Stop: 07/17/22 17:39 Deutetrabenazine (Austedo 12 Mg Tablet) 2 each PO BID [facility] Stop: 07/17/22 10:59 Last Admin: 06/03/22 09:14 Dose: 2 each Enoxaparin Sodium (Enoxaparin Inj 40 Mg/0.4 Ml Syr) 40 mg SQ Q24H [facility] Stop: 07/17/22 21:59 Last Admin: 06/02/22 19:26 Dose: 40 mg Enteral Nutritional Formula (Fibersource Hn 1.2 Erich 1000 Ml Bag) 330 ml GT 0600,0900,1200,1500,1800,2100 [facility]; Protocol Stop: 07/17/22 05:59 Last Admin: 06/03/22 12:35 Dose: 330 ml Lorazepam 0.5 mg/ Syringe 0.5 mls @ 2 mls/min IV Q4H PRN PRN Reason: restlessness/chorea Stop: 07/17/22 18:01 Last Admin: 06/03/22 09:17 Dose: 2 mls/min Loratadine (Loratadine 10 Mg Tab) 10 mg PO QAM [facility] Stop: 07/17/22 08:59 Last Admin: 06/03/22 09:15 Dose: 10 mg Magnesium Hydroxide (Magnesium Hydroxide Susp 30 Ml Udc) 30 ml PO Q6H PRN PRN Reason: Constipation Stop: 07/17/22 17:39 Ondansetron HCl (Ondansetron Inj 2 Mg/Ml 2 Ml Vial) 4 mg IV Q6H PRN PRN Reason: Nausea Stop: 07/17/22 17:39 Pantoprazole Sodium (Pantoprazole 40 Mg Tab) 40 mg PO HS [facility] Stop: 07/17/22 20:59 Last Admin: 06/02/22 19:27 Dose: 40 mg Polyethylene Glycol (Polyethylene (Miralax) 17 Gm Pack) 17 gm PO DAILY PRN PRN Reason: Constipation Stop: 07/17/22 17:39 Senna/Docusate Sodium (Docusate Sodium/Senna 50/8.6mg Tab) 1 tab PO BID [facility] Stop: 07/17/22 20:59 Last Admin: 05/20/22 08:41 Dose: Not Given Sertraline HCl (Sertraline Hcl 50 Mg Tablet) 25 mg PO QAM [facility] Stop: 07/17/22 08:59 Last Admin: 06/03/22 09:15 Dose: 25 mg Sterile Water (Tube Feeding Water Flush) 30 ml GT 0630,0930,1230,1530,1830,2130 [facility]; Protocol Stop: 06/18/22 15:29 Last Admin: 06/03/22 10:21 Dose: 30 ml Trazodone HCl (Trazodone Hcl 50 Mg Tab) 50 mg PO HS [facility] Stop: 07/17/22 20:59 Last Admin: 06/02/22 19:26 Dose: 50 mg
[2022-06-03] MEDS: PANTOprazole 40 MG TAB PO SCH (20:01)
[2022-06-03] MEDS: traZODone HCL 50 MG TAB PO SCH (20:01)
[2022-06-03] MEDS: ENOXAPARIN INJ 40 MG/0.4 ML SYR SQ SCH (20:01)
[2022-06-04] MEDS: FIBERSOURCE HN 1.2 CAL 1000 ML BAG GT SCH ×6 (05:07→20:16)
[2022-06-04] MEDS: TUBE FEEDING WATER FLUSH GT SCH ×6 (06:33→21:34)
[2022-06-04] MEDS: LORazepam 0.5 MG in SYRINGE 0.25 ML IV PRN ×3 (06:38→16:10)
[2022-06-04] MEDS: LORATADINE 10 MG TAB PO SCH (08:52)
[2022-06-04] MEDS: AUSTEDO 12 MG PO SCH ×2 (08:52→20:16)
[2022-06-04] MEDS: SERTRALINE HCL 50 MG TABLET PO SCH (08:53)
--- NOTE | 2022-06-04 11:39 | Hospitalist Progress Note ---
Date of Service June 04, 2022 Assessment & Plan (1) Suzy chorea: (2) Ambulatory dysfunction: (3) Frequent falls: (4) Sacral decubitus ulcer, stage II: Plan Patient is a 41 yr male who has significant past medical history of [place]'s chorea and GERD who presented to ED on 04/30 secondary to fall prior to arrival. [place] Chorea Ambulatory dysfunction Frequent falls Patient's adopted mother (aunt) has been caring for him, but appears she is having much more difficult time managing patient as his Suzy's is worsening Patient needs placement due to significant increasing care at home Waiting for placement Acute urinary retention No evidence of UTI Resolved Bladder scan as needed Constipation Feeding by G-Tube Inoculator consulted, started bolus feeding Continue tube feeds bowel regimen as needed Continue wound care at G-tube site Stage II sacral decubitus ulcer Breakdown to buttock per Aunt prior to admission. Consulted wound care for wound care Continue to reposition DVT px:SQ Lovenox Dispo- Awaiting placement. Medically stable. CM following Admission and Anticipated Discharge Date Admission Date: April 30, 2022 Subjective Feels okay. Denies any new issues or any needs. No fever, shortness of breath, N/V. Physical Exam Physical Exam: General: Lying in bed constantly fidgeting due to his chorea, not in acute distress, on room air Chest: Clear breath sounds bilaterally, no wheezes or crackles CVS: Regular rate and rhythm, normal heart sounds, no murmur Abdomen: Soft, non tender, not distended, PEG tube noted- site clean, normal bowel sounds Neuro: Awake, alert, oriented, conversing ok Extremities: Chorea + Results & Data Results & Data ([facility]) Vital Signs (Past 12 Hours) Vital Signs Temp Pulse Resp BP BP Pulse Ox O2 Del Method 06/04/22 11:20 36.9 C 85 20 100/68 98 Room Air 06/04/22 09:00 Room Air 06/04/22 08:07 36.9 C 79 18 100/60 94 Room Air Medications Administered Current Inpatient Medications Acetaminophen (Acetaminophen 325 Mg Tab) 650 mg PO Q4H PRN PRN Reason: pain/fever Stop: 07/17/22 17:39 Last Admin: 05/03/22 12:27 Dose: 650 mg Al Hydrox/Mg Hydrox/Simethicone (Aluminum/Magnesium Susp 30 Ml Udc) 30 ml PO Q6H PRN PRN Reason: Dyspepsia Stop: 07/17/22 17:39 Benzonatate (Benzonatate 100 Mg Capsule) 100 mg PO BID PRN PRN Reason: Cough Stop: 07/17/22 17:39 Deutetrabenazine (Austedo 12 Mg Tablet) 2 each PO BID [facility] Stop: 07/17/22 10:59 Last Admin: 06/04/22 08:52 Dose: 2 each Enoxaparin Sodium (Enoxaparin Inj 40 Mg/0.4 Ml Syr) 40 mg SQ Q24H [facility] Stop: 07/17/22 21:59 Last Admin: 06/03/22 20:01 Dose: 40 mg Enteral Nutritional Formula (Fibersource Hn 1.2 Erich 1000 Ml Bag) 330 ml GT 0600,0900,1200,1500,1800,2100 [facility]; Protocol Stop: 07/17/22 05:59 Last Admin: 06/04/22 08:52 Dose: 330 ml Lorazepam 0.5 mg/ Syringe 0.5 mls @ 2 mls/min IV Q4H PRN PRN Reason: restlessness/chorea Stop: 07/17/22 18:01 Last Admin: 06/04/22 06:38 Dose: 2 mls/min Loratadine (Loratadine 10 Mg Tab) 10 mg PO QAM [facility] Stop: 07/17/22 08:59 Last Admin: 06/04/22 08:52 Dose: 10 mg Magnesium Hydroxide (Magnesium Hydroxide Susp 30 Ml Udc) 30 ml PO Q6H PRN PRN Reason: Constipation Stop: 07/17/22 17:39 Ondansetron HCl (Ondansetron Inj 2 Mg/Ml 2 Ml Vial) 4 mg IV Q6H PRN PRN Reason: Nausea Stop: 07/17/22 17:39 Pantoprazole Sodium (Pantoprazole 40 Mg Tab) 40 mg PO HS [facility] Stop: 07/17/22 20:59 Last Admin: 06/03/22 20:01 Dose: 40 mg Polyethylene Glycol (Polyethylene (Miralax) 17 Gm Pack) 17 gm PO DAILY PRN PRN Reason: Constipation Stop: 07/17/22 17:39 Senna/Docusate Sodium (Docusate Sodium/Senna 50/8.6mg Tab) 1 tab PO BID [facility] Stop: 07/17/22 20:59 Last Admin: 05/20/22 08:41 Dose: Not Given Sertraline HCl (Sertraline Hcl 50 Mg Tablet) 25 mg PO QAM [facility] Stop: 07/17/22 08:59 Last Admin: 06/04/22 08:53 Dose: 25 mg Sterile Water (Tube Feeding Water Flush) 30 ml GT 0630,0930,1230,1530,1830,2130 [facility]; Protocol Stop: 06/18/22 15:29 Last Admin: 06/04/22 09:58 Dose: 30 ml Trazodone HCl (Trazodone Hcl 50 Mg Tab) 50 mg PO HS [facility] Stop: 07/17/22 20:59 Last Admin: 06/03/22 20:01 Dose: 50 mg
[2022-06-04] MEDS: traZODone HCL 50 MG TAB PO SCH (20:16)
[2022-06-04] MEDS: PANTOprazole 40 MG TAB PO SCH (20:16)
[2022-06-04] MEDS: ENOXAPARIN INJ 40 MG/0.4 ML SYR SQ SCH (20:17)
[2022-06-05] MEDS: FIBERSOURCE HN 1.2 CAL 1000 ML BAG GT SCH ×6 (05:04→20:31)
[2022-06-05] MEDS: TUBE FEEDING WATER FLUSH GT SCH ×6 (06:09→21:19)
[2022-06-05] MEDS: LORazepam 0.5 MG in SYRINGE 0.25 ML IV PRN ×3 (06:23→18:45)
[2022-06-05] MEDS: AUSTEDO 12 MG PO SCH ×2 (10:13→19:35)
[2022-06-05] MEDS: SERTRALINE HCL 50 MG TABLET PO SCH (10:16)
[2022-06-05] MEDS: LORATADINE 10 MG TAB PO SCH (10:16)
--- NOTE | 2022-06-05 15:04 | Hospitalist Progress Note ---
Date of Service June 05, 2022 Assessment & Plan (1) Suzy chorea: (2) Ambulatory dysfunction: (3) Frequent falls: (4) Sacral decubitus ulcer, stage II: Plan Patient is a 41 yr male who has significant past medical history of [place]'s chorea and GERD who presented to ED on 04/30 secondary to fall prior to arrival. [place] Chorea Ambulatory dysfunction Frequent falls Patient's adopted mother (aunt) has been caring for him, but appears she is having much more difficult time managing patient as his Suzy's is worsening Patient needs placement due to significant increasing care at home Waiting for placement Acute urinary retention No evidence of UTI Resolved Bladder scan as needed Constipation Feeding by G-Tube Diesel Powerplant Mechanic consulted, started bolus feeding Continue tube feeds bowel regimen as needed Continue wound care at G-tube site Stage II sacral decubitus ulcer Breakdown to buttock per Aunt prior to admission. Consulted wound care for wound care Continue to reposition DVT px:SQ Lovenox Dispo- Awaiting placement. Medically stable. CM following Admission and Anticipated Discharge Date Admission Date: April 30, 2022 Subjective Denies any issues. No pain, shortness of breath, N/V. Denies any needs. Physical Exam Physical Exam: General: Lying in bed constantly fidgeting due to his chorea, not in acute distress, on room air Chest: Clear breath sounds bilaterally, no wheezes or crackles CVS: Regular rate and rhythm, normal heart sounds, no murmur Abdomen: Soft, non tender, not distended, PEG tube noted- site clean, normal bowel sounds Neuro: Awake, alert, oriented, conversing ok Extremities: Chorea + Results & Data Results & Data ([facility]) Vital Signs (Past 12 Hours) Vital Signs Temp Pulse Resp BP Pulse Ox O2 Del Method 06/05/22 11:00 36.4 C L 75 18 100 Room Air 06/05/22 07:53 36.6 C 88 18 132/85 97 Room Air
[2022-06-05] MEDS: ENOXAPARIN INJ 40 MG/0.4 ML SYR SQ SCH (19:35)
[2022-06-05] MEDS: traZODone HCL 50 MG TAB PO SCH (19:35)
[2022-06-05] MEDS: PANTOprazole 40 MG TAB PO SCH (19:35)
[2022-06-06] MEDS: FIBERSOURCE HN 1.2 CAL 1000 ML BAG GT SCH ×6 (05:29→21:42)
[2022-06-06] MEDS: TUBE FEEDING WATER FLUSH GT SCH ×6 (06:20→21:43)
[2022-06-06] MEDS: LORazepam 0.5 MG in SYRINGE 0.25 ML IV PRN ×5 (06:25→22:43)
[2022-06-06 07:48] LABS: Hemoglobin 15.2 g/dl (14.0-18.0); Mean Corpuscular Volume 96.8 fL (80.0-100.0); Mean Platelet Volume 8.4 fL (9.4-12.4); Platelet Count 324 K/uL (130-400); RDW Coefficient of Variation 13.1 % (11.5-14.5); RDW Standard Deviation 46.7 fL (36.4-46.3); Red Blood Count 4.75 M/uL (4.63-6.08); White Blood Count 4.75 K/ul (4.8-10.8)
[2022-06-06 08:17] LABS: Albumin Globulin Ratio 1.3 (0.9-2); Albumin Level 3.8 gm/dl (3.4-5.0); BUN Creatinine Ratio 24.6 (10-20); Bilirubin,Total 0.6 mg/dl (0.2-1.0); Calcium 9.8 mg/dl (8.5-10.1); Creatinine Clr Calc Pharmacy 144.3 ml/min; Est GFR (African American) 141.8 ml/min; Est GFR (Non-African American) 122.3 ml/min; Globulin 2.9 gm/dl (2.5-4.0); Magnesium 2.2 mg/dl (1.7-2.4); Phosphorus 3.6 mg/dl (2.5-4.9); Potassium 4.2 mmol/L (3.5-5.1); Total Protein 6.7 gm/dl (6.0-8.3)
[2022-06-06] MEDS: AUSTEDO 12 MG PO SCH ×2 (09:39→20:38)
[2022-06-06] MEDS: SERTRALINE HCL 50 MG TABLET PO SCH (09:40)
[2022-06-06] MEDS: LORATADINE 10 MG TAB PO SCH (09:41)
--- NOTE | 2022-06-06 13:57 | Hospitalist Progress Note ---
Date of Service June 06, 2022 Assessment & Plan (1) Suzy chorea: (2) Ambulatory dysfunction: (3) Frequent falls: (4) Sacral decubitus ulcer, stage II: Plan Patient is a 41 yr male who has significant past medical history of [place]'s chorea and GERD who presented to ED on 04/30 secondary to fall prior to arrival. [place] Chorea Ambulatory dysfunction Frequent falls Patient's adopted mother (aunt) has been caring for him, but appears she is having much more difficult time managing patient as his Suzy's is worsening Patient needs placement due to significant increasing care at home Waiting for placement Acute urinary retention No evidence of UTI Resolved Bladder scan as needed Constipation Feeding by G-Tube Speech Therapy Assistant consulted, started bolus feeding Continue tube feeds bowel regimen as needed Continue wound care at G-tube site Stage II sacral decubitus ulcer Breakdown to buttock per Aunt prior to admission. Consulted wound care for wound care Continue to reposition DVT px:SQ Lovenox Dispo- Awaiting placement. Medically stable. CM following Admission and Anticipated Discharge Date Admission Date: April 30, 2022 Subjective Patient seen and examined at bedside. Not in any distress. Denies fever or chills, shortness of breath, chest pain or abdominal pain. Review of Systems Review of Systems: All systems reviewed & are unremarkable except as noted in Subjective Physical Exam Physical Exam: General: Lying in bed constantly fidgeting due to his chorea, not in acute distress, on room air Chest: Clear breath sounds bilaterally, no wheezes or crackles CVS: Regular rate and rhythm, normal heart sounds, no murmur Abdomen: Soft, non tender, not distended, PEG tube noted- site clean, normal bowel sounds Neuro: Awake, alert, oriented, conversing ok Extremities: Chorea + Results & Data Results & Data ([facility]) Vital Signs (Past 12 Hours) Vital Signs Temp Pulse Resp Pulse Ox O2 Del Method 06/06/22 07:41 36.5 C 70 18 100 Room Air COVID-19 Results Results COVID-19 Adm Lab Results: RBC 4.75 M/uL (4.63-6.08) 06/06/22 WBC 4.75 K/ul (4.8-10.8) L 06/06/22 Hgb 15.2 g/dl (14.0-18.0) 06/06/22 Hct 46.0 % (40.1-51.0) 06/06/22 Plt Count 324 K/uL (130-400) 06/06/22 Neutrophils (%) (Auto) 71.0 % 05/25/22 Lymphocytes (%) (Auto) 16.5 % 05/25/22 Monocytes # (Auto) 0.45 K/uL (0.24-0.82) 05/25/22 Eosinophils # (Auto) 0.20 K/uL (0-0.50) 05/25/22 Immature Granulocyte % (Auto) 0.2 % 05/25/22 Neutrophils # (Auto) 4.17 K/uL (1.4-6.5) 05/25/22 Lymphocytes # (Auto) 0.97 K/uL (1.2-3.4) L 05/25/22 Monocytes # (Auto) 0.45 K/uL (0.24-0.82) 05/25/22 Eosinophils # (Auto) 0.20 K/uL (0-0.50) 05/25/22 Basophils # (Auto) 0.07 K/uL (0-0.2) 05/25/22 Immature Granulocyte # (Auto) 0.01 K/uL (0.00-0.02) 2 Na 139 mmol/L (136-145) 06/06/22 K 4.2 mmol/L (3.5-5.1) 06/06/22 Cl 100 mmol/L (98-107) 06/06/22 CO2 36 mmol/L (21-32) H 06/06/22 Anion Gap 3 (3-11) 06/06/22 BUN 15 mg/dl (6-23) 06/06/22 Creatinine 0.61 mg/dl (0.6-1.4) 06/06/22 BUN/Creatinine Ratio 24.6 (10-20) H 06/06/22 Glucose Level 80 mg/dl (70-99(Fasting)) 06/06/22 Ca 9.8 mg/dl (8.5-10.1) 06/06/22 Phosphorus Level 3.6 mg/dl (2.5-4.9) 06/06/22 Total Bilirubin 0.6 mg/dl (0.2-1.0) 06/06/22 AST/SGOT 15 U/L (13-39) 06/06/22 ALT/SGPT 17 U/L (7-52) 06/06/22 Alkaline Phosphatase 44 U/L (34-104) 06/06/22 Total Protein 6.7 gm/dl (6.0-8.3) 06/06/22 Albumin 3.8 gm/dl (3.4-5.0) 06/06/22 Globulin 2.9 gm/dl (2.5-4.0) 06/06/22 Albumin/Globulin Ratio 1.3 (0.9-2) 06/06/22 SARS-CoV-2, RNA, NAAT NEGATIVE (NEGATIVE) 04/30/22
[2022-06-06] MEDS: ENOXAPARIN INJ 40 MG/0.4 ML SYR SQ SCH (20:39)
[2022-06-06] MEDS: traZODone HCL 50 MG TAB PO SCH (20:39)
[2022-06-06] MEDS: PANTOprazole 40 MG TAB PO SCH (20:39)
[2022-06-07] MEDS: LORazepam 0.5 MG in SYRINGE 0.25 ML IV PRN ×5 (02:56→21:28)
[2022-06-07] MEDS: FIBERSOURCE HN 1.2 CAL 1000 ML BAG GT SCH ×6 (05:18→21:20)
[2022-06-07] MEDS: TUBE FEEDING WATER FLUSH GT SCH ×6 (06:31→22:00)
[2022-06-07] MEDS: SERTRALINE HCL 50 MG TABLET PO SCH (09:07)
[2022-06-07] MEDS: LORATADINE 10 MG TAB PO SCH (09:07)
[2022-06-07] MEDS: AUSTEDO 12 MG PO SCH ×2 (09:08→21:19)
--- NOTE | 2022-06-07 13:50 | Hospitalist Progress Note ---
Date of Service June 07, 2022 Assessment & Plan (1) Suzy chorea: (2) Ambulatory dysfunction: (3) Frequent falls: (4) Sacral decubitus ulcer, stage II: Plan Patient is a 41 yr male who has significant past medical history of [place]'s chorea and GERD who presented to ED on 04/30 secondary to fall prior to arrival. [place] Chorea Ambulatory dysfunction Frequent falls Patient's adopted mother (aunt) has been caring for him, but appears she is having much more difficult time managing patient as his Suzy's is worsening Patient needs placement due to significant increasing care at home Waiting for placement Acute urinary retention No evidence of UTI Resolved Bladder scan as needed Constipation Feeding by G-Tube Pyrotechnics Press Tender consulted, started bolus feeding Continue tube feeds bowel regimen as needed Continue wound care at G-tube site Stage II sacral decubitus ulcer Breakdown to buttock per Aunt prior to admission. Consulted wound care for wound care Continue to reposition DVT px:SQ Lovenox Dispo- Awaiting placement. Medically stable. CM following Admission and Anticipated Discharge Date Admission Date: April 30, 2022 Subjective Patient seen and examined at bedside. No acute overnight events. He denies any fever, chills, chest pain, shortness of breath or abdominal pain. Review of Systems Review of Systems: All systems reviewed & are unremarkable except as noted in Subjective Physical Exam Physical Exam: General: Lying in bed constantly fidgeting due to his chorea, not in acute distress, on room air Chest: Clear breath sounds bilaterally, no wheezes or crackles CVS: Regular rate and rhythm, normal heart sounds, no murmur Abdomen: Soft, non tender, not distended, PEG tube noted- site clean, normal bowel sounds Neuro: Awake, alert, oriented, conversing ok Extremities: Chorea + Results & Data Results & Data ([facility]) Vital Signs (Past 12 Hours) Vital Signs Temp Pulse Resp BP BP Pulse Ox O2 Del Method 06/07/22 11:00 37.1 C 94 H 18 110/62 96 Room Air 06/07/22 08:05 36.8 C 97 H 18 98/64 L 98 Room Air COVID-19 Results Results COVID-19 Adm Lab Results: RBC 4.75 M/uL (4.63-6.08) 06/06/22 WBC 4.75 K/ul (4.8-10.8) L 06/06/22 Hgb 15.2 g/dl (14.0-18.0) 06/06/22 Hct 46.0 % (40.1-51.0) 06/06/22 Plt Count 324 K/uL (130-400) 06/06/22 Neutrophils (%) (Auto) 71.0 % 05/25/22 Lymphocytes (%) (Auto) 16.5 % 05/25/22 Monocytes # (Auto) 0.45 K/uL (0.24-0.82) 05/25/22 Eosinophils # (Auto) 0.20 K/uL (0-0.50) 05/25/22 Immature Granulocyte % (Auto) 0.2 % 05/25/22 Neutrophils # (Auto) 4.17 K/uL (1.4-6.5) 05/25/22 Lymphocytes # (Auto) 0.97 K/uL (1.2-3.4) L 05/25/22 Monocytes # (Auto) 0.45 K/uL (0.24-0.82) 05/25/22 Eosinophils # (Auto) 0.20 K/uL (0-0.50) 05/25/22 Basophils # (Auto) 0.07 K/uL (0-0.2) 05/25/22 Immature Granulocyte # (Auto) 0.01 K/uL (0.00-0.02) 2 Na 139 mmol/L (136-145) 06/06/22 K 4.2 mmol/L (3.5-5.1) 06/06/22 Cl 100 mmol/L (98-107) 06/06/22 CO2 36 mmol/L (21-32) H 06/06/22 Anion Gap 3 (3-11) 06/06/22 BUN 15 mg/dl (6-23) 06/06/22 Creatinine 0.61 mg/dl (0.6-1.4) 06/06/22 BUN/Creatinine Ratio 24.6 (10-20) H 06/06/22 Glucose Level 80 mg/dl (70-99(Fasting)) 06/06/22 Ca 9.8 mg/dl (8.5-10.1) 06/06/22 Phosphorus Level 3.6 mg/dl (2.5-4.9) 06/06/22 Total Bilirubin 0.6 mg/dl (0.2-1.0) 06/06/22 AST/SGOT 15 U/L (13-39) 06/06/22 ALT/SGPT 17 U/L (7-52) 06/06/22 Alkaline Phosphatase 44 U/L (34-104) 06/06/22 Total Protein 6.7 gm/dl (6.0-8.3) 06/06/22 Albumin 3.8 gm/dl (3.4-5.0) 06/06/22 Globulin 2.9 gm/dl (2.5-4.0) 06/06/22 Albumin/Globulin Ratio 1.3 (0.9-2) 06/06/22 SARS-CoV-2, RNA, NAAT NEGATIVE (NEGATIVE) 04/30/22
[2022-06-07] MEDS: traZODone HCL 50 MG TAB PO SCH (21:20)
[2022-06-07] MEDS: PANTOprazole 40 MG TAB PO SCH (21:20)
[2022-06-07] MEDS: ENOXAPARIN INJ 40 MG/0.4 ML SYR SQ SCH (21:22)
[2022-06-08] MEDS: LORazepam 0.5 MG in SYRINGE 0.25 ML IV PRN ×2 (05:03→09:19)
[2022-06-08] MEDS: FIBERSOURCE HN 1.2 CAL 1000 ML BAG GT SCH ×6 (05:54→21:16)
[2022-06-08] MEDS: TUBE FEEDING WATER FLUSH GT SCH ×6 (07:43→22:09)
[2022-06-08] MEDS: AUSTEDO 12 MG PO SCH ×2 (09:44→21:15)
[2022-06-08] MEDS: LORATADINE 10 MG TAB PO SCH (09:44)
[2022-06-08] MEDS: SERTRALINE HCL 50 MG TABLET PO SCH (09:45)
[2022-06-08] MEDS ORDERED: LORazepam 0.5 MG in SYRINGE 0.25 ML IV SCH (12:00)
[2022-06-08] MEDS ORDERED: Nursing to Pharmacy Communication SCH (12:15)
--- NOTE | 2022-06-08 15:11 | Hospitalist Progress Note ---
Date of Service June 08, 2022 Assessment & Plan (1) Suzy chorea: (2) Ambulatory dysfunction: (3) Frequent falls: (4) Sacral decubitus ulcer, stage II: Plan Patient is a 41 yr male who has significant past medical history of [place]'s chorea and GERD who presented to ED on 04/30 secondary to fall prior to arrival. [place] Chorea Ambulatory dysfunction Frequent falls Patient's adopted mother (aunt) has been caring for him, but appears she is having much more difficult time managing patient as his Suzy's is worsening Patient needs placement due to significant increasing care at home Scheduled Ativan 0.5 mg every 6 hours for Chorea; hold if patient is drowsy. Waiting for placement Acute urinary retention No evidence of UTI Resolved Bladder scan as needed Constipation Feeding by G-Tube Internet Architect consulted, started bolus feeding Continue tube feeds bowel regimen as needed Continue wound care at G-tube site Stage II sacral decubitus ulcer Breakdown to buttock per Aunt prior to admission. Consulted wound care for wound care Continue to reposition DVT px:SQ Lovenox Dispo- Awaiting placement. Medically stable. CM following Admission and Anticipated Discharge Date Admission Date: April 30, 2022 Subjective Patient seen and examined at bedside. Is lying down on the bed; denies any issues. Review of Systems Review of Systems: All systems reviewed & are unremarkable except as noted in Subjective Physical Exam Physical Exam: General: Lying in bed constantly fidgeting due to his chorea, not in acute distress, on room air Chest: Clear breath sounds bilaterally, no wheezes or crackles CVS: Regular rate and rhythm, normal heart sounds, no murmur Abdomen: Soft, non tender, not distended, PEG tube noted- site clean, normal bowel sounds Neuro: Awake, alert, oriented, conversing ok Extremities: Chorea + Results & Data Results & Data ([facility]) Vital Signs (Past 12 Hours) Vital Signs Temp Pulse Resp Pulse Ox O2 Del Method 06/08/22 07:28 36.9 C 95 H 18 97 Room Air COVID-19 Results Results COVID-19 Adm Lab Results: RBC 4.75 M/uL (4.63-6.08) 06/06/22 WBC 4.75 K/ul (4.8-10.8) L 06/06/22 Hgb 15.2 g/dl (14.0-18.0) 06/06/22 Hct 46.0 % (40.1-51.0) 06/06/22 Plt Count 324 K/uL (130-400) 06/06/22 Neutrophils (%) (Auto) 71.0 % 05/25/22 Lymphocytes (%) (Auto) 16.5 % 05/25/22 Monocytes # (Auto) 0.45 K/uL (0.24-0.82) 05/25/22 Eosinophils # (Auto) 0.20 K/uL (0-0.50) 05/25/22 Immature Granulocyte % (Auto) 0.2 % 05/25/22 Neutrophils # (Auto) 4.17 K/uL (1.4-6.5) 05/25/22 Lymphocytes # (Auto) 0.97 K/uL (1.2-3.4) L 05/25/22 Monocytes # (Auto) 0.45 K/uL (0.24-0.82) 05/25/22 Eosinophils # (Auto) 0.20 K/uL (0-0.50) 05/25/22 Basophils # (Auto) 0.07 K/uL (0-0.2) 05/25/22 Immature Granulocyte # (Auto) 0.01 K/uL (0.00-0.02) 2 Na 139 mmol/L (136-145) 06/06/22 K 4.2 mmol/L (3.5-5.1) 06/06/22 Cl 100 mmol/L (98-107) 06/06/22 CO2 36 mmol/L (21-32) H 06/06/22 Anion Gap 3 (3-11) 06/06/22 BUN 15 mg/dl (6-23) 06/06/22 Creatinine 0.61 mg/dl (0.6-1.4) 06/06/22 BUN/Creatinine Ratio 24.6 (10-20) H 06/06/22 Glucose Level 80 mg/dl (70-99(Fasting)) 06/06/22 Ca 9.8 mg/dl (8.5-10.1) 06/06/22 Phosphorus Level 3.6 mg/dl (2.5-4.9) 06/06/22 Total Bilirubin 0.6 mg/dl (0.2-1.0) 06/06/22 AST/SGOT 15 U/L (13-39) 06/06/22 ALT/SGPT 17 U/L (7-52) 06/06/22 Alkaline Phosphatase 44 U/L (34-104) 06/06/22 Total Protein 6.7 gm/dl (6.0-8.3) 06/06/22 Albumin 3.8 gm/dl (3.4-5.0) 06/06/22 Globulin 2.9 gm/dl (2.5-4.0) 06/06/22 Albumin/Globulin Ratio 1.3 (0.9-2) 06/06/22 SARS-CoV-2, RNA, NAAT NEGATIVE (NEGATIVE) 04/30/22
[2022-06-08] MEDS: LORazepam 0.5 MG TAB PO SCH ×2 (18:42→23:50)
[2022-06-08] MEDS: traZODone HCL 50 MG TAB PO SCH (21:16)
[2022-06-08] MEDS: PANTOprazole 40 MG TAB PO SCH (21:16)
[2022-06-08] MEDS: ENOXAPARIN INJ 40 MG/0.4 ML SYR SQ SCH (21:17)
[2022-06-09] MEDS: LORazepam 0.5 MG TAB PO SCH ×4 (05:07→23:46)
[2022-06-09] MEDS: FIBERSOURCE HN 1.2 CAL 1000 ML BAG GT SCH ×6 (05:34→21:05)
[2022-06-09] MEDS: TUBE FEEDING WATER FLUSH GT SCH ×6 (06:26→22:03)
[2022-06-09] MEDS: AUSTEDO 12 MG PO SCH ×2 (09:18→21:00)
[2022-06-09] MEDS: SERTRALINE HCL 50 MG TABLET PO SCH (09:18)
[2022-06-09] MEDS: LORATADINE 10 MG TAB PO SCH (09:18)
--- NOTE | 2022-06-09 12:26 | Hospitalist Progress Note ---
Date of Service June 09, 2022 Assessment & Plan (1) Suzy chorea: (2) Ambulatory dysfunction: (3) Frequent falls: (4) Sacral decubitus ulcer, stage II: Plan Patient is a 41 yr male who has significant past medical history of [place]'s chorea and GERD who presented to ED on 04/30 secondary to fall prior to arrival. Suzy Chorea Ambulatory dysfunction Frequent falls Patient's adopted mother (aunt) has been caring for him, but appears she is having much more difficult time managing patient as his [place]'s is worsening Patient needs placement due to significant increasing care at home Scheduled Ativan 0.5 mg every 6 hours for Chorea; hold if patient is drowsy. Waiting for placement; referral sent to multiple places. Acute urinary retention No evidence of UTI Resolved Bladder scan as needed Constipation Feeding by G-Tube Grinder Machine Knife Setter consulted, started bolus feeding Continue tube feeds bowel regimen as needed Continue wound care at G-tube site Stage II sacral decubitus ulcer Breakdown to buttock per Aunt prior to admission. Consulted wound care for wound care Continue to reposition DVT px:SQ Lovenox Dispo- Awaiting placement. Medically stable. CM following Admission and Anticipated Discharge Date Admission Date: April 30, 2022 Subjective Patient seen and examined at bedside. Is comfortable; not in acute distress Review of Systems Review of Systems: All systems reviewed & are unremarkable except as noted in Subjective Physical Exam Physical Exam: General: Lying in bed constantly fidgeting due to his chorea, not in acute distress, on room air Chest: Clear breath sounds bilaterally, no wheezes or crackles CVS: Regular rate and rhythm, normal heart sounds, no murmur Abdomen: Soft, non tender, not distended, PEG tube noted- site clean, normal bowel sounds Neuro: Awake, alert, oriented, conversing ok Extremities: Chorea + Results & Data Results & Data ([facility]) Vital Signs (Past 12 Hours) Vital Signs Temp Pulse Resp BP Pulse Ox O2 Del Method 06/09/22 08:13 36.6 C 84 18 103/65 95 Room Air Diagnostic Findings Laboratory Results WBC 4.75 K/ul (4.8-10.8) L 06/06/22 07:18 RBC 4.75 M/uL (4.63-6.08) 06/06/22 07:18 Hgb 15.2 g/dl (14.0-18.0) 06/06/22 07:18 Hct 46.0 % (40.1-51.0) 06/06/22 07:18 MCV 96.8 fL (80.0-100.0) 06/06/22 07:18 MCH 32.0 pg (25.0-34.0) 06/06/22 07:18 MCHC 33.0 g/dL (32.0-36.0) 06/06/22 07:18 RDW Std Deviation 46.7 fL (36.4-46.3) H 06/06/22 07:18 RDW Coeff of Edgar 13.1 % (11.5-14.5) 06/06/22 07:18 Plt Count 324 K/uL (130-400) 06/06/22 07:18 MPV 8.4 fL (9.4-12.4) L 06/06/22 07:18 Immature Gran % (Auto) 0.2 % 05/25/22 05:41 Neut % (Auto) 71.0 % 05/25/22 05:41 Lymph % (Auto) 16.5 % 05/25/22 05:41 [place] % (Auto) 7.7 % 05/25/22 05:41 Eos % (Auto) 3.4 % 05/25/22 05:41 Baso % (Auto) 1.2 % 05/25/22 05:41 Neut # (Auto) 4.17 K/uL (1.4-6.5) 05/25/22 05:41 Lymph # (Auto) 0.97 K/uL (1.2-3.4) L 05/25/22 05:41 [place] # (Auto) 0.45 K/uL (0.24-0.82) 05/25/22 05:41 Eos # (Auto) 0.20 K/uL (0-0.50) 05/25/22 05:41 Baso # (Auto) 0.07 K/uL (0-0.2) 05/25/22 05:41 Immature Gran # (Auto) 0.01 K/uL (0.00-0.02) 05/25/22 05:41 Sodium 139 mmol/L (136-145) 06/06/22 07:18 Potassium 4.2 mmol/L (3.5-5.1) 06/06/22 07:18 Chloride 100 mmol/L (98-107) 06/06/22 07:18 Carbon Dioxide 36 mmol/L (21-32) H 06/06/22 07:18 Anion Gap 3 (3-11) 06/06/22 07:18 BUN 15 mg/dl (6-23) 06/06/22 07:18 Creatinine 0.61 mg/dl (0.6-1.4) 06/06/22 07:18 Est Cr Clr Drug Dosing 144.3 ml/min 06/06/22 07:18 Est GFR ( Amer) 141.8 ml/min 06/06/22 07:18 Est GFR (Non-Af Amer) 122.3 ml/min 06/06/22 07:18 BUN/Creatinine Ratio 24.6 (10-20) H 06/06/22 07:18 Glucose 80 mg/dl (70-99(Fasting)) 06/06/22 07:18 Calcium 9.8 mg/dl (8.5-10.1) 06/06/22 07:18 Phosphorus 3.6 mg/dl (2.5-4.9) 06/06/22 07:18 Magnesium 2.2 mg/dl (1.7-2.4) 06/06/22 07:18 Total Bilirubin 0.6 mg/dl (0.2-1.0) 06/06/22 07:18 AST 15 U/L (13-39) 06/06/22 07:18 ALT 17 U/L (7-52) 06/06/22 07:18 Alkaline Phosphatase 44 U/L (34-104) 06/06/22 07:18 Total Protein 6.7 gm/dl (6.0-8.3) 06/06/22 07:18 Albumin 3.8 gm/dl (3.4-5.0) 06/06/22 07:18 Globulin 2.9 gm/dl (2.5-4.0) 06/06/22 07:18 Albumin/Globulin Ratio 1.3 (0.9-2) 06/06/22 07:18 SARS-CoV-2, RNA, NAAT NEGATIVE (NEGATIVE) 04/30/22 12:[address] 04/30/22 11:[address] DOSE: 1365.71 mGy.cm HISTORY: Neck pain. Fall, hit back of head TECHNIQUE: Multiaxial CT images of the cervical spine were performed and reformatted in the sagittal and coronal plane without the use of contrast. A dose lowering technique was utilized adhering to the principles of ALARA. COMPARISON: Cervical spine CT 10/23/2019. FINDINGS: No fractures. No subluxation. Prevertebral soft tissues and the C1-C2 interval are intact. No pneumothorax. Stable small nodular densities at the lung apices likely representing scarring. Mild motion artifact at the superior aspect of C3. Mild degenerative disc disease at C6-C7. IMPRESSION: No fractures within the cervical spine. ACT 112: Negative or not required by law. Electronically signed by: Mick Addison M.D. 04/30/2022 12:39 PM KUB X-Ray 04/30/22 11:15 KUB CLINICAL HISTORY: Constipation. FINDINGS: An AP, portable, supine abdominal radiograph is correlated with abdominal CT dated 04/25/2022. The examination is degraded by motion artifact. A gastrostomy tube projects over the stomach. No bowel obstruction is seen. There is mild colonic fecal retention. No evidence of intraperitoneal free air is seen on this supine image. There are no abnormal abdominal calcifications. The bony structures appear intact. The lung bases are clear as imaged. IMPRESSION: No acute abnormality is identified. Electronically signed by: Armando Albright M.D. 04/30/2022 11:[address] 05/01/22 20:14 CT SCAN OF THE BRAIN WITHOUT IV CONTRAST CLINICAL HISTORY: Fall. Head injury. COMPARISON STUDY: CT of the brain dated 04/30/2022. TECHNIQUE: Unenhanced axial CT scan of the brain is performed from the vertex to the skull base. A dose lowering technique was utilized adhering to the principles of ALARA. The skull base was scanned twice due to motion artifact. FINDINGS: Brain parenchyma: There is age-advanced cortical atrophy. There is no hemorrhage, mass effect, or evidence of acute territorial ischemia by CT criteria. Haley-white matter differentiation is preserved. No extra-axial fluid collection is seen. Ventricles, sulci, cisterns: Normal in configuration. Intracranial vasculature: The visualized intracranial vasculature at the skull base is normal in appearance. Calvarium: There is no depressed calvarial fracture. Soft tissues: There is a suboccipital scalp contusion. Sinuses and mastoids: There is trace mucosal thickening in the left maxillary antrum. The remaining paranasal sinuses are clear. The mastoid air cells are well pneumatized. Cerumen is noted in the external auditory canals. Orbits: The bony orbits are grossly intact. IMPRESSION: There is no hemorrhage, mass effect, or evidence of acute territorial ischemia by CT criteria. No change from yesterday. ACT 112: Negative or not required by law. Electronically signed by: Armando Albright M.D. 05/01/2022 9:05 PM
[2022-06-09] MEDS: PANTOprazole 40 MG TAB PO SCH (21:01)
[2022-06-09] MEDS: traZODone HCL 50 MG TAB PO SCH (21:01)
[2022-06-09] MEDS: ENOXAPARIN INJ 40 MG/0.4 ML SYR SQ SCH (21:01)
[2022-06-10] MEDS: FIBERSOURCE HN 1.2 CAL 1000 ML BAG GT SCH ×6 (05:15→20:43)
[2022-06-10] MEDS: LORazepam 0.5 MG TAB PO SCH ×4 (06:15→23:40)
[2022-06-10] MEDS: TUBE FEEDING WATER FLUSH GT SCH ×6 (06:15→21:45)
[2022-06-10 07:26] LABS: BUN Creatinine Ratio 26.9 (10-20); Calcium 9.5 mg/dl (8.5-10.1); Creatinine Clr Calc Pharmacy 133.1 ml/min; Est GFR (African American) 136.4 ml/min; Est GFR (Non-African American) 117.7 ml/min; Potassium 4.2 mmol/L (3.5-5.1)
[2022-06-10] MEDS: LORATADINE 10 MG TAB PO SCH (09:06)
[2022-06-10] MEDS: AUSTEDO 12 MG PO SCH ×2 (09:06→20:43)
[2022-06-10] MEDS: SERTRALINE HCL 50 MG TABLET PO SCH (09:06)
--- NOTE | 2022-06-10 10:58 | Hospitalist Progress Note ---
Date of Service June 10, 2022 Assessment & Plan (1) Suzy chorea: (2) Ambulatory dysfunction: (3) Frequent falls: (4) Sacral decubitus ulcer, stage II: Plan Patient is a 41 yr male who has significant past medical history of [place]'s chorea and GERD who presented to ED on 04/30 secondary to fall prior to arrival. Suzy Chorea Ambulatory dysfunction Frequent falls Patient's adopted mother (aunt) has been caring for him, but appears she is having much more difficult time managing patient as his [place]ost[place]'s is worsening Patient needs placement due to significant increasing care at home Scheduled Ativan 0.5 mg every 6 hours for Chorea; hold if patient is drowsy. Waiting for placement; referral sent to multiple places. Acute urinary retention No evidence of UTI Quinn catheter in place Constipation Feeding by G-Tube Rotating Field Assembler consulted, started bolus feeding Continue tube feeds bowel regimen as needed Continue wound care at G-tube site Stage II sacral decubitus ulcer Breakdown to buttock per Aunt prior to admission. Consulted wound care for wound care Continue to reposition DVT px:SQ Lovenox Dispo- Awaiting placement. Medically stable. CM following Pt was seen and examined in collaboration with Dr. Barone, please see addendum Admission and Anticipated Discharge Date Admission Date: April 30, 2022 Supervising Physician Co-Signing Physician Notes delayed entry date of service noted above Attending Addendum: care coordinated with TRACEE Rios. please refer to her notes for full details, I agree with her notes patient seen and examined, records reviewed by myself as well seen resting in bed, comfortable, not in distress diagnoses and plan of care as per TRACEE Rios. Paul Barone MD Subjective Patient was seen and examined in room 304. Follow-up Fostoria's chorea, awaiting placement. He offers no acute complaints. Denies chest pain, shortness of breath, nausea, vomiting, abdominal pain. Quinn catheter remains in place. Currently receiving tube feedings. He is drinking liquids. Review of Systems Review of Systems: All systems reviewed & are unremarkable except as noted in HPI & below Physical Exam Physical Exam: Gen: Thin, Tall Male, +Chorea, NAD, A&O to self and place HEENT: Normocephalic, atraumatic, conjunctivae moist, sclerae anicteric, mucous membranes moist. Lung: Clear to Auscultation bilaterally, no wheezes/rales/rhonchi Heart: Regular rate, regular rhythm, no murmurs, rubs, or gallops Abdomen: Soft, NT, ND +BS x 4, + peg tube, mild surrounding erythema but oth erwise clean and dry Extremities: No edema Skin: Warm, no rash, negative turgor. Results & Data Results & Data ([facility]) Vital Signs (Past 12 Hours) Vital Signs Temp Pulse Resp BP Pulse Ox O2 Del Method 06/10/22 07:16 36.6 C 74 16 91/46 L 97 Room Air Laboratory Results [facility] 06/10/22 05:58 Sodium 138 Potassium 4.2 Chloride 102 Carbon Dioxide 31 BUN 18 Creatinine 0.67 Glucose 106 H Calcium 9.5 Medications Administered Current Inpatient Medications Acetaminophen (Acetaminophen 325 Mg Tab) 650 mg PO Q4H PRN PRN Reason: pain/fever Stop: 07/17/22 17:39 Last Admin: 05/03/22 12:27 Dose: 650 mg Al Hydrox/Mg Hydrox/Simethicone (Aluminum/Magnesium Susp 30 Ml Udc) 30 ml PO Q6H PRN PRN Reason: Dyspepsia Stop: 07/17/22 17:39 Benzonatate (Benzonatate 100 Mg Capsule) 100 mg PO BID PRN PRN Reason: Cough Stop: 07/17/22 17:39 Deutetrabenazine (Austedo 12 Mg Tablet) 2 each PO BID [facility] Stop: 07/17/22 10:59 Last Admin: 06/10/22 09:06 Dose: 2 each Enoxaparin Sodium (Enoxaparin Inj 40 Mg/0.4 Ml Syr) 40 mg SQ Q24H [facility] Stop: 07/17/22 21:59 Last Admin: 06/09/22 21:01 Dose: 40 mg Enteral Nutritional Formula (Fibersource Hn 1.2 Erich 1000 Ml Bag) 330 ml GT 0600,0900,1200,1500,1800,2100 [facility]; Protocol Stop: 07/17/22 05:59 Last Admin: 06/10/22 09:07 Dose: 330 ml Loratadine (Loratadine 10 Mg Tab) 10 mg PO QAM [facility] Stop: 07/17/22 08:59 Last Admin: 06/10/22 09:06 Dose: 10 mg Lorazepam (Lorazepam 0.5 Mg Tab) 0.5 mg PO Q6 [facility] Stop: 07/08/22 17:59 Last Admin: 06/10/22 06:15 Dose: 0.5 mg Magnesium Hydroxide (Magnesium Hydroxide Susp 30 Ml Udc) 30 ml PO Q6H PRN PRN Reason: Constipation Stop: 07/17/22 17:39 Ondansetron HCl (Ondansetron Inj 2 Mg/Ml 2 Ml Vial) 4 mg IV Q6H PRN PRN Reason: Nausea Stop: 07/17/22 17:39 Pantoprazole Sodium (Pantoprazole 40 Mg Tab) 40 mg PO [facility] Stop: 07/17/22 20:59 Last Admin: 06/09/22 21:01 Dose: 40 mg Polyethylene Glycol (Polyethylene (Miralax) 17 Gm Pack) 17 gm PO DAILY PRN PRN Reason: Constipation Stop: 07/17/22 17:39 Senna/Docusate Sodium (Docusate Sodium/Senna 50/8.6mg Tab) 1 tab PO BID [facility] Stop: 07/17/22 20:59 Last Admin: 05/20/22 08:41 Dose: Not Given Sertraline HCl (Sertraline Hcl 50 Mg Tablet) 25 mg PO QAM [facility] Stop: 07/17/22 08:59 Last Admin: 06/10/22 09:06 Dose: 25 mg Sterile Water (Tube Feeding Water Flush) 30 ml GT 0630,0930,1230,1530,1830,2130 [facility]; Protocol Stop: 07/08/22 15:29 Last Admin: 06/10/22 09:07 Dose: 30 ml Trazodone HCl (Trazodone Hcl 50 Mg Tab) 50 mg PO HS [facility] Stop: 07/17/22 20:59 Last Admin: 06/09/22 21:01 Dose: 50 mg
[2022-06-10] MEDS: PANTOprazole 40 MG TAB PO SCH (20:44)
[2022-06-10] MEDS: traZODone HCL 50 MG TAB PO SCH (20:44)
[2022-06-10] MEDS: ENOXAPARIN INJ 40 MG/0.4 ML SYR SQ SCH (21:45)
[2022-06-11] MEDS: FIBERSOURCE HN 1.2 CAL 1000 ML BAG GT SCH ×6 (05:21→20:38)
[2022-06-11] MEDS: TUBE FEEDING WATER FLUSH GT SCH ×6 (06:27→20:38)
[2022-06-11] MEDS: LORazepam 0.5 MG TAB PO SCH ×3 (06:27→18:31)
[2022-06-11] MEDS: SERTRALINE HCL 50 MG TABLET PO SCH (10:05)
[2022-06-11] MEDS: LORATADINE 10 MG TAB PO SCH (10:05)
[2022-06-11] MEDS: AUSTEDO 12 MG PO SCH ×2 (10:07→19:46)
--- NOTE | 2022-06-11 10:46 | Hospitalist Progress Note ---
Date of Service June 11, 2022 Assessment & Plan (1) Suzy chorea: (2) Ambulatory dysfunction: (3) Frequent falls: (4) Sacral decubitus ulcer, stage II: Plan Patient is a 41 yr male who has significant past medical history of [place]'s chorea and GERD who presented to ED on 04/30 secondary to fall prior to arrival. [place]zy Chorea Ambulatory dysfunction Frequent falls Patient's adopted mother (aunt) has been caring for him, but appears she is having much more difficult time managing patient as his [place]'s is worsening Patient needs placement due to significant increasing care at home Scheduled Ativan 0.5 mg every 6 hours for Chorea; hold if patient is drowsy. Waiting for placement; referral sent to multiple places. Acute urinary retention No evidence of UTI Quinn catheter in place Constipation Feeding by G-Tube Equipment Processer Storage consulted, started bolus feeding Continue tube feeds bowel regimen as needed Continue wound care at G-tube site Stage II sacral decubitus ulcer Breakdown to buttock per Aunt prior to admission. Consulted wound care for wound care Continue to reposition DVT px:SQ Lovenox Dispo- Awaiting placement. Medically stable. CM following Pt was seen and examined in collaboration with Dr. Barone, please see addendum Admission and Anticipated Discharge Date Admission Date: April 30, 2022 Supervising Physician Co-Signing Physician Notes delayed entry date of service noted above Attending Addendum: care coordinated with TRACEE Schneider please refer to her notes for full details, I agree with her notes patient seen and examined, records reviewed by myself as well Paul Barone MD Subjective Patient was seen and examined in room 304 in follow-up for Suzy's chorea. Awaiting placement. No acute complaints or new issues overnight. Denies chest pain, shortness of breath, nausea, vomiting, abdominal pain. Quinn catheter remains in place. Currently receiving tube feedings. He is drinking liquids. Review of Systems Review of Systems: At least ten systems reviewed and negative except as noted in the HPI. Physical Exam Physical Exam: Gen: Thin, Tall Male, +Chorea, NAD, A&O to self and place HEENT: Normocephalic, atraumatic, conjunctivae moist, sclerae anicteric, mucous membranes moist. Lung: Clear to Auscultation bilaterally, no wheezes/rales/rhonchi Heart: Regular rate, regular rhythm, no murmurs, rubs, or gallops Abdomen: Soft, NT, ND +BS x 4, + peg tube clean and dry : Quinn Extremities: No edema Skin: Warm, no rash Results & Data Results & [facility] ([facility]) Vital Signs (Past 12 Hours) Vital Signs Temp Pulse Pulse Resp BP BP Pulse Ox 06/11/22 08:20 36.9 C 88 18 104/72 93 06/10/22 23:43 36.7 C 74 16 106/67 96 O2 Del Method 06/11/22 08:20 Room Air 06/10/22 23:43 Room Air Diagnostic Findings Cervical Spine CT 04/30/22 11:[address] DOSE: 1365.71 mGy.cm HISTORY: Neck pain. Fall, hit back of head TECHNIQUE: Multiaxial CT images of the cervical spine were performed and reformatted in the sagittal and coronal plane without the use of contrast. A dose lowering technique was utilized adhering to the principles of ALARA. COMPARISON: Cervical spine CT 10/23/2019. FINDINGS: No fractures. No subluxation. Prevertebral soft tissues and the C1-C2 interval are intact. No pneumothorax. Stable small nodular densities at the lung apices likely representing scarring. Mild motion artifact at the superior aspect of C3. Mild degenerative disc disease at C6-C7. IMPRESSION: No fractures within the cervical spine. ACT 112: Negative or not required by law. Electronically signed by: Mick Addison M.D. 04/30/2022 12:[address] 04/30/22 11:15 CT SCAN OF THE BRAIN WITHOUT IV CONTRAST CLINICAL HISTORY: Fall. Head injury. COMPARISON STUDY: CT of the brain dated 10/23/2019. TECHNIQUE: Unenhanced axial CT scan of the brain is performed from the vertex to the skull base. A dose lowering technique was utilized adhering to the principles of ALARA. The skull base was scanned twice due to motion artifact. FINDINGS: Brain parenchyma: There is age-advanced cortical atrophy. There is no hemorrhage, mass effect, or evidence of acute territorial ischemia by CT criteria. Haley-white matter differentiation is preserved. No extra-axial fluid collection is seen. Ventricles, sulci, cisterns: Normal in configuration. Intracranial vasculature: The visualized intracranial vasculature at the skull base is normal in appearance. Calvarium: There is no depressed calvarial fracture. Soft tissues: There is a suboccipital scalp contusion. Sinuses and mastoids: There is trace mucosal thickening in the left maxillary antrum. The remaining paranasal sinuses are clear. The mastoid air cells are well pneumatized. Cerumen is noted in the external auditory canals. Orbits: The bony orbits are grossly intact. IMPRESSION: There is no hemorrhage, mass effect, or evidence of acute territorial ischemia by CT criteria. ACT 112: Negative or not required by law. Electronically signed by: Armando Albright M.D. 04/30/2022 12:37 PM KUB X-Ray 04/30/22 11:15 KUB CLINICAL HISTORY: Constipation. FINDINGS: An AP, portable, supine abdominal radiograph is correlated with abdominal CT dated 04/25/2022. The examination is degraded by motion artifact. A gastrostomy tube projects over the stomach. No bowel obstruction is seen. There is mild colonic fecal retention. No evidence of intraperitoneal free air is seen on this supine image. There are no abnormal abdominal calcifications. The bony structures appear intact. The lung bases are clear as imaged. IMPRESSION: No acute abnormality is identified. Electronically signed by: Armando Albright M.D. 04/30/2022 11:[address] 05/01/22 20:14 CT SCAN OF THE BRAIN WITHOUT IV CONTRAST CLINICAL HISTORY: Fall. Head injury. COMPARISON STUDY: CT of the brain dated 04/30/2022. TECHNIQUE: Unenhanced axial CT scan of the brain is performed from the vertex to the skull base. A dose lowering technique was utilized adhering to the principles of ALARA. The skull base was scanned twice due to motion artifact. FINDINGS: Brain parenchyma: There is age-advanced cortical atrophy. There is no hemorrhage, mass effect, or evidence of acute territorial ischemia by CT criteria. Haley-white matter differentiation is preserved. No extra-axial fluid collection is seen. Ventricles, sulci, cisterns: Normal in configuration. Intracranial vasculature: The visualized intracranial vasculature at the skull base is normal in appearance. Calvarium: There is no depressed calvarial fracture. Soft tissues: There is a suboccipital scalp contusion. Sinuses and mastoids: There is trace mucosal thickening in the left maxillary antrum. The remaining paranasal sinuses are clear. The mastoid air cells are well pneumatized. Cerumen is noted in the external auditory canals. Orbits: The bony orbits are grossly intact. IMPRESSION: There is no hemorrhage, mass effect, or evidence of acute territorial ischemia by CT criteria. No change from yesterday. ACT 112: Negative or not required by law. Electronically signed by: Armando Albright M.D. 05/01/2022 9:05 PM
[2022-06-11] MEDS: PANTOprazole 40 MG TAB PO SCH (19:46)
[2022-06-11] MEDS: ENOXAPARIN INJ 40 MG/0.4 ML SYR SQ SCH (19:46)
[2022-06-11] MEDS: traZODone HCL 50 MG TAB PO SCH (19:47)
[2022-06-12] MEDS: LORazepam 0.5 MG TAB PO SCH ×5 (05:36→23:51)
[2022-06-12] MEDS: FIBERSOURCE HN 1.2 CAL 1000 ML BAG GT SCH ×6 (05:36→21:18)
[2022-06-12] MEDS: TUBE FEEDING WATER FLUSH GT SCH ×6 (05:36→21:51)
[2022-06-12] MEDS: AUSTEDO 12 MG PO SCH ×2 (08:34→21:16)
[2022-06-12] MEDS: SERTRALINE HCL 50 MG TABLET PO SCH (08:36)
[2022-06-12] MEDS: LORATADINE 10 MG TAB PO SCH (08:36)
--- NOTE | 2022-06-12 12:07 | Hospitalist Progress Note ---
Date of Service June 12, 2022 Assessment & Plan (1) Suzy chorea: (2) Ambulatory dysfunction: (3) Frequent falls: (4) Sacral decubitus ulcer, stage II: Plan Patient is a 41 yr male who has significant past medical history of [place]'s chorea and GERD who presented to ED on 04/30 secondary to fall prior to arrival. [place] Chorea Ambulatory dysfunction Frequent falls Patient's adopted mother (aunt) has been caring for him, but appears she is having much more difficult time managing patient as his [place]'s is worsening Patient needs placement due to significant increasing care at home Scheduled Ativan 0.5 mg every 6 hours for Chorea; hold if patient is drowsy. Waiting for placement; referral sent to multiple places. Acute urinary retention No evidence of UTI Quinn catheter in place Constipation Feeding by G-Tube Vending Enterprises Supervisor consulted, started bolus feeding Continue tube feeds Bowel regimen as needed Continue wound care at G-tube site Stage II sacral decubitus ulcer Breakdown to buttock per Aunt prior to admission. Consulted wound care for wound care Continue to reposition DVT px:SQ Lovenox Dispo- Awaiting placement. Medically stable. CM following Pt was seen and examined in collaboration with Dr. Barone, please see addendum Admission and Anticipated Discharge Date Admission Date: April 30, 2022 Supervising Physician Co-Signing Physician Notes Attending Addendum: care coordinated with TRACEE Schneider please refer to her notes for full details, I agree with her notes patient seen and examined, records reviewed by myself as well Paul Barone MD Subjective Patient was seen and examined in room 304 in follow-up for Suzy's chorea. Awaiting placement. No acute complaints or new issues overnight. Drinking milk, states he is comfortable currently. Denies chest pain, shortness of breath, nausea, vomiting, abdominal pain. Quinn catheter remains in place. Currently receiving tube feedings. Review of Systems Review of Systems: At least ten systems reviewed and negative except as noted in the HPI. Physical Exam Physical Exam: Gen: Thin, Tall Male, +Chorea, NAD, A&O to self and place HEENT: Normocephalic, atraumatic, conjunctivae moist, sclerae anicteric, mucous membranes moist. Lung: Clear to Auscultation bilaterally, no wheezes/rales/rhonchi Heart: Regular rate, regular rhythm, no murmurs, rubs, or gallops Abdomen: Soft, NT, ND +BS x 4, + peg tube clean and dry : Quinn Extremities: No edema Skin: Warm, no rash Results & Data Results & Data ([facility]) Vital Signs (Past 12 Hours) Vital Signs Temp Pulse Pulse Resp BP Pulse Ox O2 Del Method 06/12/22 11:53 36.6 C 90 16 96 Room Air 06/12/22 07:59 36.8 C 80 16 107/80 93 Room Air
[2022-06-12] MEDS: PANTOprazole 40 MG TAB PO SCH (21:16)
[2022-06-12] MEDS: traZODone HCL 50 MG TAB PO SCH (21:16)
[2022-06-12] MEDS: ENOXAPARIN INJ 40 MG/0.4 ML SYR SQ SCH (21:17)
[2022-06-13] MEDS: LORazepam 0.5 MG TAB PO SCH ×3 (05:51→18:34)
[2022-06-13] MEDS: FIBERSOURCE HN 1.2 CAL 1000 ML BAG GT SCH ×6 (05:53→21:16)
[2022-06-13] MEDS: TUBE FEEDING WATER FLUSH GT SCH ×6 (07:41→23:25)
[2022-06-13] MEDS: AUSTEDO 12 MG PO SCH ×2 (09:36→21:16)
[2022-06-13] MEDS: LORATADINE 10 MG TAB PO SCH (09:36)
[2022-06-13] MEDS: SERTRALINE HCL 50 MG TABLET PO SCH (09:36)
--- NOTE | 2022-06-13 19:06 | Hospitalist Progress Note ---
Date of Service June 13, 2022 Assessment & Plan (1) Suzy chorea: (2) Ambulatory dysfunction: (3) Frequent falls: (4) Sacral decubitus ulcer, stage II: Plan Per previous hospitalist's notes with addendum: Patient is a 41 yr male who has significant past medical history of [place]'s chorea and GERD who presented to ED on 04/30 secondary to fall prior to arrival. [place] Chorea Ambulatory dysfunction Frequent falls Patient's adopted mother (aunt) has been caring for him, but appears she is having much more difficult time managing patient as his [place]'s is worsening Patient needs placement due to significant increasing care at home Scheduled Ativan 0.5 mg every 6 hours for Chorea; hold if patient is drowsy. 06/13 Stable overall Continue Ativan Awaiting acceptance to [facility]way facility Acute urinary retention No evidence of UTI Quinn catheter in place Constipation Feeding by G-Tube Licensed Veterinary Technician consulted, started bolus feeding Continue tube feeds Bowel regimen as needed Continue wound care at G-tube site Stage II sacral decubitus ulcer Breakdown to buttock per Aunt prior to admission. Daily wound care DVT px:SQ Lovenox Dispo- Awaiting placement. Medically stable. CM following Admission and Anticipated Discharge Date Admission Date: April 30, 2022 Subjective Follow-up for [place]'s chorea, etc. Seen with patient's mother at bedside visiting Patient awake and alert, comfortable, in good spirits States he feels fine overall No other new symptoms Review of Systems Review of Systems: all noted and negative except for above Physical Exam Physical Exam: General- oriented , not in distress,breathing with no effort or accessory muscle use Eyes- anicteric Neck- no JVD Lungs- clear breath sounds bilaterally, no rales/wheezes Heart- normal rate, regular rhythm; no murmurs Abdomen- normal bowel sounds, nondistended, soft, nontender Extremities- no pretibial edema, no calf tenderness Neuro- alert, oriented x 3; (+) involuntary movements no gross focal neurologic deficits Skin- warm & dry Results & Data Results & Data ([facility]) Vital Signs (Past 12 Hours) Vital Signs Temp Pulse Pulse Resp BP Pulse Ox O2 Del Method 06/13/22 14:30 37.0 C 81 16 106/67 96 Room Air 06/13/22 08:00 Room Air 06/13/22 07:36 37.1 C 81 16 96/66 L 97 Room Air all noted and reviewed including below
[2022-06-13] MEDS: traZODone HCL 50 MG TAB PO SCH (21:16)
[2022-06-13] MEDS: PANTOprazole 40 MG TAB PO SCH (21:16)
[2022-06-13] MEDS: ENOXAPARIN INJ 40 MG/0.4 ML SYR SQ SCH (21:17)
[2022-06-14] MEDS: LORazepam 0.5 MG TAB PO SCH ×5 (01:00→23:43)
[2022-06-14] MEDS: FIBERSOURCE HN 1.2 CAL 1000 ML BAG GT SCH ×6 (06:33→21:15)
[2022-06-14] MEDS: TUBE FEEDING WATER FLUSH GT SCH ×6 (07:45→22:13)
[2022-06-14] MEDS: SERTRALINE HCL 50 MG TABLET PO SCH (09:22)
[2022-06-14] MEDS: LORATADINE 10 MG TAB PO SCH (09:22)
[2022-06-14] MEDS: AUSTEDO 12 MG PO SCH ×2 (09:23→21:15)
[2022-06-14] MEDS ORDERED: Nursing to Pharmacy Communication SCH (10:00)
--- NOTE | 2022-06-14 10:58 | Hospitalist Progress Note ---
Date of Service June 14, 2022 Assessment & Plan (1) [place] chorea: (2) Ambulatory dysfunction: (3) Frequent falls: (4) Sacral decubitus ulcer, stage II: Plan Per previous hospitalist's notes with addendum: Patient is a 41 yr male who has significant past medical history of [place]'s chorea and GERD who presented to ED on 04/30 secondary to fall prior to arrival. [place] Chorea Ambulatory dysfunction Frequent falls Patient's adopted mother (aunt) has been caring for him, but appears she is having much more difficult time managing patient as his [place]'s is worsening Patient needs placement due to significant increasing care at home Scheduled Ativan 0.5 mg every 6 hours for Chorea; hold if patient is drowsy. 06/14 Stable overall Continue Ativan Awaiting acceptance to [facility] facility Acute urinary retention No evidence of UTI Kelly catheter in place (+) episode of hematuria after accidentally tugging the catheter- resolved hold Lovenox for now, resume tomorrow if no recurrence of hematuria Constipation Feeding by G-Tube Rug Weaver consulted, started bolus feeding Continue tube feeds Bowel regimen as needed Continue wound care at G-tube site -- no issues Stage II sacral decubitus ulcer Breakdown to buttock per Aunt prior to admission. Daily wound care DVT px:SQ Lovenox- held for episode of hematuria overnight Dispo- Awaiting placement. Medically stable. CM following Admission and Anticipated Discharge Date Admission Date: April 30, 2022 Subjective ff up for diaz's chorea, etc seen resting in bed, comfortable states he feels fine overall had hematuria via kelly last night, accidentally tugged the kelly denies pain over the penile area, or suprapubic area no chest pain, dyspnea, palpitations, dizziness no other symptoms Review of Systems Review of Systems: all noted and negative except for above Physical Exam Physical Exam: General- oriented x 3, not in distress, speaks in sentences with no effort or accessory muscle use Eyes- anicteric Neck- no JVD Lungs- clear BS bilaterally, no rales/wheezes Heart- normal rate, regular rhythm; no murmurs Abdomen- normal bowel sounds, nondistended, soft, nontender Extremities- no pretibial edema, no calf tenderness Kelly cath in place: no bleeding per urethra, yellow urine draining Neuro- alert, oriented x 3; no gross focal neurologic deficits Skin- warm & dry Results & Data Results & Data ([facility]) Vital Signs (Past 12 Hours) Vital Signs Temp Pulse Resp BP Pulse Ox O2 Del Method 06/14/22 07:37 36.6 C 92 H 16 111/73 94 Room Air all noted and reviewed including below
[2022-06-14] MEDS: traZODone HCL 50 MG TAB PO SCH (21:15)
[2022-06-14] MEDS: PANTOprazole 40 MG TAB PO SCH (21:15)
[2022-06-15] MEDS: FIBERSOURCE HN 1.2 CAL 1000 ML BAG GT SCH ×6 (06:25→21:41)
[2022-06-15] MEDS: LORazepam 0.5 MG TAB PO SCH ×3 (06:25→18:34)
[2022-06-15] MEDS: TUBE FEEDING WATER FLUSH GT SCH ×6 (07:32→21:40)
[2022-06-15] MEDS: SERTRALINE HCL 50 MG TABLET PO SCH (09:34)
[2022-06-15] MEDS: AUSTEDO 12 MG PO SCH ×2 (09:34→21:41)
[2022-06-15] MEDS: LORATADINE 10 MG TAB PO SCH (09:34)
--- NOTE | 2022-06-15 19:13 | Hospitalist Progress Note ---
Date of Service June 15, 2022 Delayed entry Assessment & Plan (1) Suzy chorea: (2) Ambulatory dysfunction: (3) Frequent falls: (4) Sacral decubitus ulcer, stage II: Plan Per previous hospitalist's notes with addendum: Patient is a 41 yr male who has significant past medical history of [place]'s chorea and GERD who presented to ED on 04/30 secondary to fall prior to arrival. [place] Chorea Ambulatory dysfunction Frequent falls Patient's adopted mother (aunt) has been caring for him, but appears she is having much more difficult time managing patient as his Suzy's is worsening Patient needs placement due to significant increasing care at home Scheduled Ativan 0.5 mg every 6 hours for Chorea; hold if patient is drowsy. 06/15 Remained stable Continue Ativan Awaiting acceptance to senior care facility Acute urinary retention No evidence of UTI Quinn catheter in place (+) episode of hematuria after accidentally tugging the catheter- resolved hold Lovenox for now, resume tomorrow if no recurrence of hematuria -- No hematuria Constipation Feeding by G-Tube Department Operations Manager consulted, started bolus feeding Continue tube feeds Bowel regimen as needed Continue wound care at G-tube site -- no issues Stage II sacral decubitus ulcer Breakdown to buttock per Aunt prior to admission. Daily wound care DVT px:SQ Lovenox- held for episode of hematuria Dispo- Awaiting placement. Medically stable. CM following Admission and Anticipated Discharge Date Admission Date: April 30, 2022 Subjective Follow-up for [place]'s chorea, etc. Seen resting in bed, comfortable, not distressed States he feels fine overall No hematuria No new symptoms Review of Systems Review of Systems: all noted and negative except for above Physical Exam Physical Exam: General- oriented x 3, not in distress, speaks in sentences with no effort or accessory muscle use Eyes- anicteric Neck- no JVD Lungs- clear BS L Heart- normal rate, regular rhythm; no murmurs Abdomen- normal bowel sounds, nondistended, soft, nontender Extremities- no pretibial edema, no calf tenderness Neuro- alert, oriented x 3; no new gross focal neurologic deficits Skin- warm & dry Results & Data Results & Data ([facility]) Vital Signs (Past 12 Hours) Vital Signs Temp Pulse Pulse Resp BP Pulse Ox O2 Del Method 06/15/22 15:27 36.6 C 71 16 94/64 L 94 Room Air 06/15/22 07:42 36.6 C 94 H 16 102/65 93 Room Air all noted and reviewed including below
[2022-06-15] MEDS: traZODone HCL 50 MG TAB PO SCH (21:42)
[2022-06-15] MEDS: PANTOprazole 40 MG TAB PO SCH (21:43)
[2022-06-16] MEDS: LORazepam 0.5 MG TAB PO SCH ×4 (00:21→18:22)
[2022-06-16] MEDS: FIBERSOURCE HN 1.2 CAL 1000 ML BAG GT SCH ×6 (06:26→21:22)
[2022-06-16] MEDS: TUBE FEEDING WATER FLUSH GT SCH ×6 (07:30→22:59)
[2022-06-16] MEDS: AUSTEDO 12 MG PO SCH ×2 (10:44→21:23)
[2022-06-16] MEDS: LORATADINE 10 MG TAB PO SCH (10:45)
[2022-06-16] MEDS: SERTRALINE HCL 50 MG TABLET PO SCH (10:45)
--- NOTE | 2022-06-16 19:25 | Hospitalist Progress Note ---
Date of Service June 16, 2022 Assessment & Plan (1) Suzy chorea: (2) Ambulatory dysfunction: (3) Frequent falls: (4) Sacral decubitus ulcer, stage II: Plan Per previous hospitalist's notes with addendum: Patient is a 41 yr male who has significant past medical history of [place]'s chorea and GERD who presented to ED on 04/30 secondary to fall prior to arrival. [place] Chorea Ambulatory dysfunction Frequent falls Patient's adopted mother (aunt) has been caring for him, but appears she is having much more difficult time managing patient as his [place]'s is worsening Patient needs placement due to significant increasing care at home Scheduled Ativan 0.5 mg every 6 hours for Chorea; hold if patient is drowsy. 06/16 Remained stable Continue Ativan 0.5 mg p.o. every 6 hours Additional Ativan 0.5 mg p.o. every 6 hours as needed for increased involuntary movements [facility] Acute urinary retention No evidence of UTI Quinn catheter in place (+) episode of hematuria after accidentally tugging the catheter- resolved hold Lovenox for now, resume tomorrow if no recurrence of hematuria --Quinn catheter reposition to prevent accidental pulling -- No hematuria Resume Lovenox Constipation Feeding by G-Tube Rice Field Worker consulted, started bolus feeding Continue tube feeds Bowel regimen as needed Continue wound care at G-tube site -- no issues Stage II sacral decubitus ulcer Breakdown to buttock per Aunt prior to admission. Daily wound care DVT px:SQ Lovenox Dispo- Awaiting placement. Medically stable. CM following Admission and Anticipated Discharge Date Admission Date: April 30, 2022 Subjective Follow-up for Suzy's chorea, etc. Seen resting in bed, comfortable, not in distress Feeling fine overall No issues with Quinn catheter No other symptom Review of Systems Review of Systems: all noted and negative except for above Physical Exam Physical Exam: General- oriented x 3, not in distress, speaking few words with no effort or accessory muscle use Eyes- anicteric Neck- no JVD Lungs- clear BS bilaterally Heart- normal rate, regular rhythm; no murmurs Abdomen- normal bowel sounds, nondistended, soft, nontender Extremities- no pretibial edema, no calf tenderness Neuro- alert, oriented x 3; no new gross focal neurologic deficits Skin- warm & dry Results & Data Results & Data ([facility]) Vital Signs (Past 12 Hours) Vital Signs Temp Pulse Pulse Resp BP Pulse Ox O2 Del Method 06/16/22 09:30 Room Air 06/16/22 15:20 36.5 C 75 16 104/68 93 Room Air 06/16/22 07:35 36.9 C 85 18 104/75 92 Room Air all noted and reviewed including below
[2022-06-16] MEDS: traZODone HCL 50 MG TAB PO SCH (21:23)
[2022-06-16] MEDS: PANTOprazole 40 MG TAB PO SCH (21:23)
[2022-06-16] MEDS: ENOXAPARIN INJ 40 MG/0.4 ML SYR SQ SCH (21:24)
[2022-06-17] MEDS: LORazepam 0.5 MG TAB PO SCH ×4 (00:03→18:10)
[2022-06-17] MEDS: FIBERSOURCE HN 1.2 CAL 1000 ML BAG GT SCH ×6 (05:53→20:51)
[2022-06-17] MEDS: TUBE FEEDING WATER FLUSH GT SCH ×6 (05:54→20:51)
[2022-06-17] MEDS: LORATADINE 10 MG TAB PO SCH (08:45)
[2022-06-17] MEDS: AUSTEDO 12 MG PO SCH ×2 (08:45→20:51)
[2022-06-17] MEDS: SERTRALINE HCL 50 MG TABLET PO SCH (08:45)
--- NOTE | 2022-06-17 09:15 | Hospitalist Progress Note ---
Date of Service June 17, 2022 Assessment & Plan (1) Suzy chorea: (2) Ambulatory dysfunction: (3) Frequent falls: (4) Sacral decubitus ulcer, stage II: Plan Per previous hospitalist's notes with addendum: Patient is a 41 yr male who has significant past medical history of [place]'s chorea and GERD who presented to ED on 04/30 secondary to fall prior to arrival. [place] Chorea Ambulatory dysfunction Frequent falls Patient's adopted mother (aunt) has been caring for him, but appears she is having much more difficult time managing patient as his [place]'s is worsening Patient needs placement due to significant increasing care at home Scheduled Ativan 0.5 mg every 6 hours for [place]; hold if patient is drowsy. 06/16 Remained stable Continue Ativan 0.5 mg p.o. every 6 hours Additional Ativan 0.5 mg p.o. every 6 hours as needed for increased involuntary movements Awaiting acceptance to shelter facility Acute urinary retention No evidence of UTI Quinn catheter in place (+) episode of hematuria after accidentally tugging the catheter- resolved hold Lovenox for now, resume tomorrow if no recurrence of hematuria --Quinn catheter reposition to prevent accidental pulling -- No hematuria Resumed Lovenox Constipation Feeding by G-Tube Early Breastfeeding Care Specialist consulted, started bolus feeding Continue tube feeds Bowel regimen as needed Continue wound care at G-tube site -- no issues Stage II sacral decubitus ulcer Breakdown to buttock per Aunt prior to admission. Daily wound care DVT px:SQ Lovenox Dispo- Awaiting placement. Medically stable. CM following Admission and Anticipated Discharge Date Admission Date: April 30, 2022 Subjective Follow-up for [place]'s chorea, etc. Seen laying in bed, not in distress +choreiform movements - seem improved Feeling fine overall Denies any fevers, chills, chest pain, shortness of breath, abdominal pain, n/v No issues with Quinn catheter No other symptoms Review of Systems Review of Systems: All systems reviewed & are unremarkable except as noted in Subjective Physical Exam Physical Exam: General- oriented x 3, not in distress, speaking few words with no effort or accessory muscle use Eyes- anicteric Neck- no JVD Lungs- clear BS bilaterally Heart- normal rate, regular rhythm; no murmurs Abdomen- normal bowel sounds, nondistended, soft, nontender Extremities- no pretibial edema, no calf tenderness Neuro- alert, oriented x 3; no new gross focal neurologic deficits Skin- warm & dry Results & Data Results & Data ([facility]) Vital Signs (Past 12 Hours) Vital Signs Temp Pulse Pulse Resp BP BP Pulse Ox 06/17/22 07:18 36.9 C 79 16 105/71 98 06/16/22 22:18 36.8 C 68 18 99/65 L 99 O2 Del Method 06/17/22 07:18 Room Air 06/16/22 22:18 Room Air Medications Administered Current Inpatient Medications Acetaminophen (Acetaminophen 325 Mg Tab) 650 mg PO Q4H PRN PRN Reason: pain/fever Stop: 07/17/22 17:39 Last Admin: 05/03/22 12:27 Dose: 650 mg Al Hydrox/Mg Hydrox/Simethicone (Aluminum/Magnesium Susp 30 Ml Udc) 30 ml PO Q6H PRN PRN Reason: Dyspepsia Stop: 07/17/22 17:39 Benzonatate (Benzonatate 100 Mg Capsule) 100 mg PO BID PRN PRN Reason: Cough Stop: 07/17/22 17:39 Deutetrabenazine (Austedo 12 Mg Tablet) 2 each PO BID [facility] Stop: 07/17/22 10:59 Last Admin: 06/17/22 08:45 Dose: 2 each Enoxaparin Sodium (Enoxaparin Inj 40 Mg/0.4 Ml Syr) 40 mg SQ Q24H [facility] Stop: 07/17/22 21:59 Last Admin: 06/16/22 21:24 Dose: 40 mg Enteral Nutritional Formula (Fibersource Hn 1.2 Erich 1000 Ml Bag) 330 ml GT 0600,0900,1200,1500,1800,2100 [facility]; Protocol Stop: 07/17/22 05:59 Last Admin: 06/17/22 08:45 Dose: 330 ml Loratadine (Loratadine 10 Mg Tab) 10 mg PO QAM [facility] Stop: 07/17/22 08:59 Last Admin: 06/17/22 08:45 Dose: 10 mg Lorazepam (Lorazepam 0.5 Mg Tab) 0.5 mg PO Q6 [facility] Stop: 07/08/22 17:59 Last Admin: 06/17/22 05:54 Dose: 0.5 mg Lorazepam (Lorazepam 0.5 Mg Tab) 0.5 mg PO Q6H PRN PRN Reason: Worsening involuntary movement Stop: 07/16/22 19:19 Magnesium Hydroxide (Magnesium Hydroxide Susp 30 Ml Udc) 30 ml PO Q6H PRN PRN Reason: Constipation Stop: 07/17/22 17:39 Ondansetron HCl (Ondansetron Inj 2 Mg/Ml 2 Ml Vial) 4 mg IV Q6H PRN PRN Reason: Nausea Stop: 07/17/22 17:39 Pantoprazole Sodium (Pantoprazole 40 Mg Tab) 40 mg PO HS [facility] Stop: 07/17/22 20:59 Last Admin: 06/16/22 21:23 Dose: 40 mg Polyethylene Glycol (Polyethylene (Miralax) 17 Gm Pack) 17 gm PO DAILY PRN PRN Reason: Constipation Stop: 07/17/22 17:39 Senna/Docusate Sodium (Docusate Sodium/Senna 50/8.6mg Tab) 1 tab PO BID [facility] Stop: 07/17/22 20:59 Last Admin: 05/20/22 08:41 Dose: Not Given Sertraline HCl (Sertraline Hcl 50 Mg Tablet) 25 mg PO QAM [facility] Stop: 07/17/22 08:59 Last Admin: 06/17/22 08:45 Dose: 25 mg Sterile Water (Tube Feeding Water Flush) 30 ml GT 0630,0930,1230,1530,1830,2130 [facility]; Protocol Stop: 07/08/22 15:29 Last Admin: 06/17/22 08:45 Dose: 30 ml Trazodone HCl (Trazodone Hcl 50 Mg Tab) 50 mg PO HS [facility] Stop: 07/17/22 20:59 Last Admin: 06/16/22 21:23 Dose: 50 mg
[2022-06-17] MEDS: traZODone HCL 50 MG TAB PO SCH (20:52)
[2022-06-17] MEDS: PANTOprazole 40 MG TAB PO SCH (20:53)
[2022-06-17] MEDS: ENOXAPARIN INJ 40 MG/0.4 ML SYR SQ SCH (20:53)
[2022-06-18] MEDS: LORazepam 0.5 MG TAB PO SCH ×5 (01:06→23:31)
[2022-06-18] MEDS: FIBERSOURCE HN 1.2 CAL 1000 ML BAG GT SCH ×6 (05:31→20:45)
[2022-06-18] MEDS: TUBE FEEDING WATER FLUSH GT SCH ×6 (05:31→21:40)
--- NOTE | 2022-06-18 08:04 | Hospitalist Progress Note ---
Date of Service June 18, 2022 Assessment & Plan (1) Suzy chorea: (2) Ambulatory dysfunction: (3) Frequent falls: (4) Sacral decubitus ulcer, stage II: Plan Per previous hospitalist's notes with addendum: Patient is a 41 yr male who has significant past medical history of [place]'s chorea and GERD who presented to ED on 04/30 secondary to fall prior to arrival. [place] Chorea Ambulatory dysfunction Frequent falls Patient's adopted mother (aunt) has been caring for him, but appears she is having much more difficult time managing patient as his [place]'s is worsening Patient needs placement due to significant increasing care at home Scheduled Ativan 0.5 mg every 6 hours for [place]; hold if patient is drowsy. 06/16 Remained stable Continue Ativan 0.5 mg p.o. every 6 hours Additional Ativan 0.5 mg p.o. every 6 hours as needed for increased involuntary movements Awaiting acceptance to long-term facility Acute urinary retention No evidence of UTI Quinn catheter in place (+) episode of hematuria after accidentally tugging the catheter- resolved hold Lovenox for now, resume tomorrow if no recurrence of hematuria --Quinn catheter reposition to prevent accidental pulling -- No hematuria Resumed Lovenox Constipation Feeding by G-Tube Electrician Master consulted, started bolus feeding Continue tube feeds Bowel regimen as needed Continue wound care at G-tube site -- no issues Stage II sacral decubitus ulcer Breakdown to buttock per Aunt prior to admission. Daily wound care DVT px:SQ Lovenox Dispo- Awaiting placement. Medically stable. CM following Admission and Anticipated Discharge Date Admission Date: April 30, 2022 Subjective Follow-up for [place]'s chorea, etc. Seen laying in bed, not in distress +choreiform movements - seem improved Feeling fine overall Denies any fevers, chills, chest pain, shortness of breath, abdominal pain, n/v Able to call nurse/ push the nurse button Reports no concerns Review of Systems Review of Systems: All systems reviewed & are unremarkable except as noted in Subjective Physical Exam Physical Exam: General- oriented x 3, not in distress, speaking few words with no effort or accessory muscle use Eyes- anicteric Neck- no JVD Lungs- clear BS bilaterally Heart- normal rate, regular rhythm; no murmurs Abdomen- normal bowel sounds, nondistended, soft, nontender Extremities- no pretibial edema, no calf tenderness Neuro- alert, oriented x 3; no new gross focal neurologic deficits Skin- warm & dry Results & Data Results & Data ([facility]) Vital Signs (Past 12 Hours) Vital Signs Temp Pulse Resp BP Pulse Ox O2 Del Method 06/17/22 20:50 Room Air 06/17/22 20:47 36.9 C 82 18 101/63 95 Room Air Medications Administered Current Inpatient Medications Acetaminophen (Acetaminophen 325 Mg Tab) 650 mg PO Q4H PRN PRN Reason: pain/fever Stop: 07/17/22 17:39 Last Admin: 05/03/22 12:27 Dose: 650 mg Al Hydrox/Mg Hydrox/Simethicone (Aluminum/Magnesium Susp 30 Ml Udc) 30 ml PO Q6H PRN PRN Reason: Dyspepsia Stop: 07/17/22 17:39 Benzonatate (Benzonatate 100 Mg Capsule) 100 mg PO BID PRN PRN Reason: Cough Stop: 07/17/22 17:39 Deutetrabenazine (Austedo 12 Mg Tablet) 2 each PO BID [facility] Stop: 07/17/22 10:59 Last Admin: 06/17/22 20:51 Dose: 2 each Enoxaparin Sodium (Enoxaparin Inj 40 Mg/0.4 Ml Syr) 40 mg SQ Q24H [facility] Stop: 07/17/22 21:59 Last Admin: 06/17/22 20:53 Dose: 40 mg Enteral Nutritional Formula (Fibersource Hn 1.2 Erich 1000 Ml Bag) 330 ml GT 0600,0900,1200,1500,1800,2100 [facility]; Protocol Stop: 07/17/22 05:59 Last Admin: 06/18/22 05:31 Dose: 330 ml Loratadine (Loratadine 10 Mg Tab) 10 mg PO QAM [facility] Stop: 07/17/22 08:59 Last Admin: 06/17/22 08:45 Dose: 10 mg Lorazepam (Lorazepam 0.5 Mg Tab) 0.5 mg PO Q6 [facility] Stop: 07/08/22 17:59 Last Admin: 06/18/22 05:30 Dose: 0.5 mg Lorazepam (Lorazepam 0.5 Mg Tab) 0.5 mg PO Q6H PRN PRN Reason: Worsening involuntary movement Stop: 07/16/22 19:19 Magnesium Hydroxide (Magnesium Hydroxide Susp 30 Ml Udc) 30 ml PO Q6H PRN PRN Reason: Constipation Stop: 07/17/22 17:39 Ondansetron HCl (Ondansetron Inj 2 Mg/Ml 2 Ml Vial) 4 mg IV Q6H PRN PRN Reason: Nausea Stop: 07/17/22 17:39 Pantoprazole Sodium (Pantoprazole 40 Mg Tab) 40 mg PO [facility] Stop: 07/17/22 20:59 Last Admin: 06/17/22 20:53 Dose: 40 mg Polyethylene Glycol (Polyethylene (Miralax) 17 Gm Pack) 17 gm PO DAILY PRN PRN Reason: Constipation Stop: 07/17/22 17:39 Senna/Docusate Sodium (Docusate Sodium/Senna 50/8.6mg Tab) 1 tab PO BID [facility] Stop: 07/17/22 20:59 Last Admin: 05/20/22 08:41 Dose: Not Given Sertraline HCl (Sertraline Hcl 50 Mg Tablet) [facility] Stop: 07/17/22 08:59 Last Admin: 06/17/22 08:45 Dose: 25 mg Sterile Water (Tube Feeding Water Flush) 30 ml GT 0630,0930,1230,1530,1830,2130 [facility]; Protocol Stop: 07/08/22 15:29 Last Admin: 06/18/22 05:31 Dose: 30 ml Trazodone HCl (Trazodone Hcl 50 Mg Tab) 50 mg PO [facility] Stop: 07/17/22 20:59 Last Admin: 06/17/22 20:52 Dose: 50 mg
[2022-06-18] MEDS: SERTRALINE HCL 50 MG TABLET PO SCH (09:07)
[2022-06-18] MEDS: AUSTEDO 12 MG PO SCH ×2 (09:07→20:41)
[2022-06-18] MEDS: LORATADINE 10 MG TAB PO SCH (09:08)
[2022-06-18] MEDS: traZODone HCL 50 MG TAB PO SCH (20:43)
[2022-06-18] MEDS: PANTOprazole 40 MG TAB PO SCH (20:43)
[2022-06-18] MEDS: ENOXAPARIN INJ 40 MG/0.4 ML SYR SQ SCH (21:40)
[2022-06-19] MEDS: FIBERSOURCE HN 1.2 CAL 1000 ML BAG GT SCH ×6 (05:30→21:48)
[2022-06-19] MEDS: LORazepam 0.5 MG TAB PO SCH ×4 (06:29→23:00)
[2022-06-19] MEDS: TUBE FEEDING WATER FLUSH GT SCH ×6 (06:46→21:48)
[2022-06-19] MEDS: SERTRALINE HCL 50 MG TABLET PO SCH (09:29)
[2022-06-19] MEDS: AUSTEDO 12 MG PO SCH ×2 (09:29→20:13)
[2022-06-19] MEDS: LORATADINE 10 MG TAB PO SCH (09:30)
--- NOTE | 2022-06-19 14:11 | Hospitalist Progress Note ---
Date of Service June 19, 2022 Assessment & Plan (1) Suzy chorea: (2) Ambulatory dysfunction: (3) Frequent falls: (4) Sacral decubitus ulcer, stage II: Plan Per previous hospitalist's notes with addendum: Patient is a 41 yr male who has significant past medical history of Suzy's chorea and GERD who presented to ED on 04/30 secondary to fall prior to arrival. [place] Chorea Ambulatory dysfunction Frequent falls Patient's adopted mother (aunt) has been caring for him, but appears she is having much more difficult time managing patient as his [place]'s is worsening Patient needs placement due to significant increasing care at home Scheduled Ativan 0.5 mg every 6 hours for [place]; hold if patient is drowsy. 06/16 Continue Ativan 0.5 mg p.o. every 6 hours Additional Ativan 0.5 mg p.o. every 6 hours as needed for increased involuntary movements Awaiting acceptance to senior care facility 06/19 cough, poss. aspiration pneumonitis pt w/ cough on phys. exam reports having for several days discussed w/ RN - aspiration precautions, IS, flutter valve -obtain CXR, procal, CBC CXR - Possible right midlung opacity. Pneumonia cannot be excluded. Radiographic follow-up to ensure resolution is recommended. - start Unasyn Acute urinary retention No evidence of UTI Quinn catheter in place (+) episode of hematuria after accidentally tugging the catheter- resolved hold Lovenox for now, resume tomorrow if no recurrence of hematuria --Quinn catheter reposition to prevent accidental pulling -- No hematuria Resumed Lovenox Constipation Feeding by G-Tube General Sales Manager consulted, started bolus feeding Continue tube feeds Bowel regimen as needed Continue wound care at G-tube site -- no issues Stage II sacral decubitus ulcer Breakdown to buttock per Aunt prior to admission. Daily wound care DVT px:SQ Lovenox Dispo- Awaiting placement. Medically stable. CM following Admission and Anticipated Discharge Date Admission Date: April 30, 2022 Subjective Follow-up for Su[place]'s chorea, etc. Seen laying in bed, not in distress +choreiform movements - seem improved since admission Denies any fevers, chills, chest pain, shortness of breath, abdominal pain, n/v However pt developed cough on /off - says he had some cough for several days Discussed w/ RN aspiration precautions, IS, flutter valve, CXR Review of Systems Review of Systems: All systems reviewed & are unremarkable except as noted in Subjective Physical Exam Physical Exam: General- oriented x 3, not in distress, speaking few words with no effort or accessory muscle use Eyes- anicteric Neck- no JVD Lungs- clear BS bilaterally, occasional cough Heart- normal rate, regular rhythm; no murmurs Abdomen- normal bowel sounds, nondistended, soft, nontender Extremities- no pretibial edema, no calf tenderness Neuro- alert, oriented x 3; no new gross focal neurologic deficits Skin- warm & dry Results & Data Results & Data ([facility]) Vital Signs (Past 12 Hours) Vital Signs Temp Pulse Resp BP Pulse Ox O2 Del Method 06/19/22 10:48 Room Air 06/19/22 07:30 36.5 C 77 16 98/65 L 96 Room Air Medications Administered Current Inpatient Medications Acetaminophen (Acetaminophen 325 Mg Tab) 650 mg PO Q4H PRN PRN Reason: pain/fever Stop: 07/17/22 17:39 Last Admin: 05/03/22 12:27 Dose: 650 mg Al Hydrox/Mg Hydrox/Simethicone (Aluminum/Magnesium Susp 30 Ml Udc) 30 ml PO Q6H PRN PRN Reason: Dyspepsia Stop: 07/17/22 17:39 Benzonatate (Benzonatate 100 Mg Capsule) 100 mg PO BID PRN PRN Reason: Cough Stop: 07/17/22 17:39 Deutetrabenazine (Austedo 12 Mg Tablet) 2 each PO BID [facility] Stop: 07/17/22 10:59 Last Admin: 06/19/22 09:29 Dose: 2 each Enoxaparin Sodium (Enoxaparin Inj 40 Mg/0.4 Ml Syr) 40 mg SQ Q24H [facility] Stop: 07/17/22 21:59 Last Admin: 06/18/22 21:40 Dose: 40 mg Enteral Nutritional Formula (Fibersource Hn 1.2 Erich 1000 Ml Bag) 330 ml GT 0600,0900,1200,1500,1800,2100 [facility]; Protocol Stop: 07/17/22 05:59 Last Admin: 06/19/22 12:03 Dose: 330 ml Loratadine (Loratadine 10 Mg Tab) 10 mg PO QAM [facility] Stop: 07/17/22 08:59 Last Admin: 06/19/22 09:30 Dose: 10 mg Lorazepam (Lorazepam 0.5 Mg Tab) 0.5 mg PO Q6 [facility] Stop: 07/08/22 17:59 Last Admin: 06/19/22 12:03 Dose: 0.5 mg Lorazepam (Lorazepam 0.5 Mg Tab) 0.5 mg PO Q6H PRN PRN Reason: Worsening involuntary movement Stop: 07/16/22 19:19 Magnesium Hydroxide (Magnesium Hydroxide Susp 30 Ml Udc) 30 ml PO Q6H PRN PRN Reason: Constipation Stop: 07/17/22 17:39 Ondansetron HCl (Ondansetron Inj 2 Mg/Ml 2 Ml Vial) 4 mg IV Q6H PRN PRN Reason: Nausea Stop: 07/17/22 17:39 Pantoprazole Sodium (Pantoprazole 40 Mg Tab) 40 mg PO [facility] Stop: 07/17/22 20:59 Last Admin: 06/18/22 20:43 Dose: 40 mg Polyethylene Glycol (Polyethylene (Miralax) 17 Gm Pack) 17 gm PO DAILY PRN PRN Reason: Constipation Stop: 07/17/22 17:39 Senna/Docusate Sodium (Docusate Sodium/Senna 50/8.6mg Tab) 1 tab PO BID [facility] Stop: 07/17/22 20:59 Last Admin: 05/20/22 08:41 Dose: Not Given Sertraline HCl (Sertraline Hcl 50 Mg Tablet) 25 mg PO QAM [facility] Stop: 07/17/22 08:59 Last Admin: 06/19/22 09:29 Dose: 25 mg Sterile Water (Tube Feeding Water Flush) 30 ml GT 0630,0930,1230,1530,1830,2130 [facility]; Protocol Stop: 07/08/22 15:29 Last Admin: 06/19/22 13:35 Dose: 30 ml Trazodone HCl (Trazodone Hcl 50 Mg Tab) 50 mg PO [facility] Stop: 07/17/22 20:59 Last Admin: 06/18/22 20:43 Dose: 50 mg
--- NOTE | 2022-06-19 14:59 | XRay Report ---
XR chest 1V portable supine CLINICAL HISTORY: Cough. COMPARISON STUDY: Chest CT October 23, 2019. Chest radiograph April 25, 2022. FINDINGS: Lung volumes are normal. There may be right midlung airspace opacity. There is no pneumotho rax or pleural effusion. Cardiac size is normal. Mediastinal contours are normal. There is no evidenc e for pulmonary edema. IMPRESSION: Possible right midlung opacity. Pneumonia cannot be excluded. Radiographic follow-up to ensure resolution is recommended. ACT 112: Negative or not required by law. Electronically signed by: Aristides Reyes M.D. 06/19/2022 2:58 PM
[2022-06-19 15:36] LABS: Hematocrit (blood only) 42.5 % (40.1-51.0); Hemoglobin 14.4 g/dl (14.0-18.0); Mean Corpuscular Hemoglobin 32.1 pg (25.0-34.0); Mean Corpuscular Hgb Conc 33.9 g/dL (32.0-36.0); Mean Corpuscular Volume 94.7 fL (80.0-100.0); Mean Platelet Volume 8.4 fL (9.4-12.4); Platelet Count 306 K/uL (130-400); RDW Coefficient of Variation 12.7 % (11.5-14.5); RDW Standard Deviation 44.1 fL (36.4-46.3); Red Blood Count 4.49 M/uL (4.63-6.08); White Blood Count 9.22 K/ul (4.8-10.8)
[2022-06-19] MEDS: AMPICILLIN/SULBACTAM SOD 3,000 MG in 0.9 % SODIUM CHLORIDE 100 ML IV SCH ×2 (15:46→23:00)
[2022-06-19 16:25] LABS: BUN Creatinine Ratio 32.2 (10-20); Calcium 9.4 mg/dl (8.5-10.1); Creatinine Clr Calc Pharmacy 151.2 ml/min; Est GFR (African American) 143.7 ml/min; Potassium 4.2 mmol/L (3.5-5.1)
[2022-06-19] MEDS: PANTOprazole 40 MG TAB PO SCH (20:13)
[2022-06-19] MEDS: traZODone HCL 50 MG TAB PO SCH (20:14)
[2022-06-19] MEDS: ENOXAPARIN INJ 40 MG/0.4 ML SYR SQ SCH (23:01)
[2022-06-20] MEDS: AMPICILLIN/SULBACTAM SOD 3,000 MG in 0.9 % SODIUM CHLORIDE 100 ML IV SCH ×4 (04:55→21:57)
[2022-06-20] MEDS: LORazepam 0.5 MG TAB PO SCH ×4 (05:39→23:38)
[2022-06-20] MEDS: FIBERSOURCE HN 1.2 CAL 1000 ML BAG GT SCH ×6 (05:42→21:57)
[2022-06-20] MEDS: TUBE FEEDING WATER FLUSH GT SCH ×6 (06:42→21:57)
--- NOTE | 2022-06-20 08:26 | Hospitalist Progress Note ---
Date of Service June 20, 2022 Assessment & Plan (1) Suzy chorea: (2) Ambulatory dysfunction: (3) Frequent falls: (4) Sacral decubitus ulcer, stage II: Plan Per previous hospitalist's notes with addendum: Patient is a 41 yr male who has significant past medical history of Suzy's chorea and GERD who presented to ED on 04/30 secondary to fall prior to arrival. [place] Chorea Ambulatory dysfunction Frequent falls Patient's adopted mother (aunt) has been caring for him, but appears she is having much more difficult time managing patient as his [place]'s is worsening Patient needs placement due to significant increasing care at home Scheduled Ativan 0.5 mg every 6 hours for [place]; hold if patient is drowsy. 06/16 Continue Ativan 0.5 mg p.o. every 6 hours Additional Ativan 0.5 mg p.o. every 6 hours as needed for increased involuntary movements Awaiting acceptance to group home facility 06/19 cough, poss. aspiration pneumonitis pt w/ cough on phys. exam reports having for several days discussed w/ RN - aspiration precautions, IS, flutter valve -obtained CXR, procal - negat., WBC at 9K but previously about 4K CXR - Possible right midlung opacity. Pneumonia cannot be excluded. Radiographic follow-up to ensure resolution is recommended. - started Unasyn day2 Acute urinary retention No evidence of UTI Quinn catheter in place (+) episode of hematuria after accidentally tugging the catheter- resolved hold Lovenox for now, resume tomorrow if no recurrence of hematuria --Quinn catheter reposition to prevent accidental pulling -- No hematuria Resumed Lovenox Constipation Feeding by G-Tube Exchange Floor Manager consulted, started bolus feeding Continue tube feeds Bowel regimen as needed Continue wound care at G-tube site -- no issues Stage II sacral decubitus ulcer Breakdown to buttock per Aunt prior to admission. Daily wound care DVT px:SQ Lovenox Dispo- Awaiting placement. Medically stable. CM following Admission and Anticipated Discharge Date Admission Date: April 30, 2022 Subjective Follow-up for [place]'s chorea, etc. Seen laying in bed, not in distress +choreiform movements - seem improved since admission Denies any fevers, chills, chest pain, shortness of breath, abdominal pain, n/v However pt developed cough on /off - says he had some cough for several days Obtained CXR and started on Abx yesterday Review of Systems Review of Systems: All systems reviewed & are unremarkable except as noted in Subjective Physical Exam Physical Exam: General- oriented x 3, not in distress, speaking few words with no effort or accessory muscle use Eyes- anicteric Neck- no JVD Lungs- clear BS bilaterally, occasional cough Heart- normal rate, regular rhythm; no murmurs Abdomen- normal bowel sounds, nondistended, soft, nontender Extremities- no pretibial edema, no calf tenderness Neuro- alert, oriented x 3; no new gross focal neurologic deficits Skin- warm & dry Results & Data Results & Data ([facility]) Vital Signs (Past 12 Hours) Vital Signs Temp Pulse Resp BP Pulse Ox O2 Del Method 06/20/22 07:06 36.4 C L 74 18 97 Room Air 06/19/22 22:39 36.7 C 84 18 96/81 L 95 Room Air Laboratory Results 06/19/22 06/19/22 06/19/22 Range/Units 15:22 15:22 15:22 WBC 9.22 (4.8-10.8) K/ul RBC 4.49 L (4.63-6.08) M/uL Hgb 14.4 (14.0-18.0) g/dl Hct 42.5 (40.1-51.0) % MCV 94.7 (80.0-100.0) fL MCH 32.1 (25.0-34.0) pg MCHC 33.9 (32.0-36.0) g/dL RDW Std Deviation 44.1 (36.4-46.3) fL RDW Coeff of Edgar 12.7 (11.5-14.5) % Plt Count 306 (130-400) K/uL MPV 8.4 L (9.4-12.4) fL Sodium 138 (136-145) mmol/L Potassium 4.2 (3.5-5.1) mmol/L Chloride 101 (98-107) mmol/L Carbon Dioxide 31 (21-32) mmol/L Anion Gap 6 (3-11) BUN 19 (6-23) mg/dl Creatinine 0.59 L (0.6-1.4) mg/dl Est Cr Clr Drug Dosing 151.2 ml/min Est GFR ( Amer) 143.7 ml/min Est GFR (Non-Af Amer) 124.0 ml/min BUN/Creatinine Ratio 32.2 H (10-20) Glucose 100 H (70-99(Fasting)) mg/dl Calcium 9.4 (8.5-10.1) mg/dl Procalcitonin < 0.05 (0-0.5) ng/ml Medications Administered Current Inpatient Medications Acetaminophen (Acetaminophen 325 Mg Tab) 650 mg PO Q4H PRN PRN Reason: pain/fever Stop: 07/17/22 17:39 Last Admin: 05/03/22 12:27 Dose: 650 mg Al Hydrox/Mg Hydrox/Simethicone (Aluminum/Magnesium Susp 30 Ml Udc) 30 ml PO Q6H PRN PRN Reason: Dyspepsia Stop: 07/17/22 17:39 Benzonatate (Benzonatate 100 Mg Capsule) 100 mg PO BID PRN PRN Reason: Cough Stop: 07/17/22 17:39 Deutetrabenazine (Austedo 12 Mg Tablet) 2 each PO BID [facility] Stop: 07/17/22 10:59 Last Admin: 06/20/22 08:58 Dose: 2 each Enoxaparin Sodium (Enoxaparin Inj 40 Mg/0.4 Ml Syr) 40 mg SQ Q24H [facility] Stop: 07/17/22 21:59 Last Admin: 06/19/22 23:01 Dose: 40 mg Enteral Nutritional Formula (Fibersource Hn 1.2 Erich 1000 Ml Bag) 330 ml GT 0600,0900,1200,1500,1800,2100 [facility]; Protocol Stop: 07/17/22 05:59 Last Admin: 06/20/22 09:00 Dose: 330 ml Ampicillin Sodium/Sulbactam Sodium 3,000 mg/ Sodium Chloride 108 mls @ 200 mls/hr IV Q6H [facility]; Protocol Stop: 06/26/22 15:59 Last Admin: 06/20/22 10:12 Dose: 200 mls/hr Loratadine (Loratadine 10 Mg Tab) 10 mg PO QAM [facility] Stop: 07/17/22 08:59 Last Admin: 06/20/22 08:58 Dose: 10 mg Lorazepam (Lorazepam 0.5 Mg Tab) 0.5 mg PO Q6 [facility] Stop: 07/08/22 17:59 Last Admin: 06/20/22 05:39 Dose: 0.5 mg Lorazepam (Lorazepam 0.5 Mg Tab) 0.5 mg PO Q6H PRN PRN Reason: Worsening involuntary movement Stop: 07/16/22 19:19 Magnesium Hydroxide (Magnesium Hydroxide Susp 30 Ml Udc) 30 ml PO Q6H PRN PRN Reason: Constipation Stop: 07/17/22 17:39 Ondansetron HCl (Ondansetron Inj 2 Mg/Ml 2 Ml Vial) 4 mg IV Q6H PRN PRN Reason: Nausea Stop: 07/17/22 17:39 Pantoprazole Sodium (Pantoprazole 40 Mg Tab) 40 mg PO HS [facility] Stop: 07/17/22 20:59 Last Admin: 06/19/22 20:13 Dose: 40 mg Polyethylene Glycol (Polyethylene (Miralax) 17 Gm Pack) 17 gm PO DAILY PRN PRN Reason: Constipation Stop: 07/17/22 17:39 Senna/Docusate Sodium (Docusate Sodium/Senna 50/8.6mg Tab) 1 tab PO BID [facility] Stop: 07/17/22 20:59 Last Admin: 05/20/22 08:41 Dose: Not Given Sertraline HCl (Sertraline Hcl 50 Mg Tablet) 25 mg PO QAM [facility] Stop: 07/17/22 08:59 Last Admin: 06/20/22 08:58 Dose: 25 mg Sterile Water (Tube Feeding Water Flush) 30 ml GT 0630,0930,1230,1530,1830,2130 [facility]; Protocol Stop: 07/08/22 15:29 Last Admin: 06/20/22 10:24 Dose: 30 ml Trazodone HCl (Trazodone Hcl 50 Mg Tab) 50 mg PO HS [facility] Stop: 07/17/22 20:59 Last Admin: 06/19/22 20:14 Dose: 50 mg
[2022-06-20] MEDS: SERTRALINE HCL 50 MG TABLET PO SCH (08:58)
[2022-06-20] MEDS: LORATADINE 10 MG TAB PO SCH (08:58)
[2022-06-20] MEDS: AUSTEDO 12 MG PO SCH ×2 (08:58→19:49)
[2022-06-20] MEDS: guaiFENesin/DEXTROM SYRUP 100MG/10MG 5ML UDC PO PRN (17:39)
[2022-06-20] MEDS ORDERED: Nursing to Pharmacy Communication SCH (18:45)
[2022-06-20] MEDS: PANTOprazole 40 MG TAB PO SCH (19:50)
[2022-06-20] MEDS: traZODone HCL 50 MG TAB PO SCH (19:50)
[2022-06-21] MEDS: AMPICILLIN/SULBACTAM SOD 3,000 MG in 0.9 % SODIUM CHLORIDE 100 ML IV SCH ×4 (04:55→21:49)
[2022-06-21] MEDS: TUBE FEEDING WATER FLUSH GT SCH ×6 (05:40→21:49)
[2022-06-21] MEDS: FIBERSOURCE HN 1.2 CAL 1000 ML BAG GT SCH ×6 (05:40→20:43)
[2022-06-21] MEDS: LORazepam 0.5 MG TAB PO SCH ×4 (05:42→23:12)
--- NOTE | 2022-06-21 07:52 | Hospitalist Progress Note ---
Date of Service June 21, 2022 Assessment & Plan (1) Suzy chorea: (2) Ambulatory dysfunction: (3) Frequent falls: (4) Sacral decubitus ulcer, stage II: Plan Per previous hospitalist's notes with addendum: Patient is a 41 yr male who has significant past medical history of Suzy's chorea and GERD who presented to ED on 04/30 secondary to fall prior to arrival. [place] Chorea Ambulatory dysfunction Frequent falls Patient's adopted mother (aunt) has been caring for him, but appears she is having much more difficult time managing patient as his [place]'s is worsening Patient needs placement due to significant increasing care at home Scheduled Ativan 0.5 mg every 6 hours for Chorea; hold if patient is drowsy. 06/16 Continue Ativan 0.5 mg p.o. every 6 hours Additional Ativan 0.5 mg p.o. every 6 hours as needed for increased involuntary movements [facility] cough, poss. aspiration pneumonitis pt w/ cough on phys. exam reports having for several days discussed w/ RN - aspiration precautions, IS, flutter valve -obtained CXR, procal - negat., WBC at 9K but previously about 4K CXR - Possible right midlung opacity. Pneumonia cannot be excluded. Radiographic follow-up to ensure resolution is recommended. - started Unasyn day 3 Acute urinary retention No evidence of UTI Quinn catheter in place (+) episode of hematuria after accidentally tugging the catheter- resolved hold Lovenox for now, resume tomorrow if no recurrence of hematuria --Quinn catheter reposition to prevent accidental pulling -- No hematuria Resumed Lovenox Constipation Feeding by G-Tube Cake Winder consulted, started bolus feeding Continue tube feeds Bowel regimen as needed Continue wound care at G-tube site -- no issues Stage II sacral decubitus ulcer Breakdown to buttock per Aunt prior to admission. Daily wound care DVT px:SQ Lovenox Dispo- Awaiting placement. Medically stable. CM following Admission and Anticipated Discharge Date Admission Date: April 30, 2022 Subjective Follow-up for [place]'s chorea, etc. Seen laying in bed, not in distress +choreiform movements - seem somewhat improved since admission Denies any fevers, chills, chest pain, shortness of breath, abdominal pain, n/v cough seems improved Review of Systems Review of Systems: All systems reviewed & are unremarkable except as noted in Subjective Physical Exam Physical Exam: General- oriented x 3, not in distress, speaking few words with no effort or accessory muscle use Eyes- anicteric Neck- no JVD Lungs- clear BS bilaterally, occasional cough Heart- normal rate, regular rhythm; no murmurs Abdomen- normal bowel sounds, nondistended, soft, nontender Extremities- no pretibial edema, no calf tenderness Neuro- alert, oriented x 3; no new gross focal neurologic deficits Skin- warm & dry Results & Data Results & Data ([facility]) Vital Signs (Past 12 Hours) Vital Signs Temp Pulse Resp BP Pulse Ox O2 Del Method 06/20/22 20:45 36.8 C 80 18 100/59 L 95 Room Air Laboratory Results 06/21/22 06/21/22 Range/Units 08:05 08:05 WBC 9.80 (4.8-10.8) K/ul RBC 4.74 (4.63-6.08) M/uL Hgb 15.2 (14.0-18.0) g/dl Hct 45.1 (40.1-51.0) % MCV 95.1 (80.0-100.0) fL MCH 32.1 (25.0-34.0) pg MCHC 33.7 (32.0-36.0) g/dL RDW Std Deviation 45.2 (36.4-46.3) fL RDW Coeff of Edgar 12.8 (11.5-14.5) % Plt Count 303 (130-400) K/uL MPV 8.4 L (9.4-12.4) fL Sodium 138 (136-145) mmol/L Potassium 4.3 (3.5-5.1) mmol/L Chloride 103 (98-107) mmol/L Carbon Dioxide 31 (21-32) mmol/L Anion Gap 4 (3-11) BUN 20 (6-23) mg/dl Creatinine 0.65 (0.6-1.4) mg/dl Est Cr Clr Drug Dosing 137.2 ml/min Est GFR ( Amer) 138.1 ml/min Est GFR (Non-Af Amer) 119.2 ml/min BUN/Creatinine Ratio 30.8 H (10-20) Glucose 64 L (70-99(Fasting)) mg/dl Calcium 9.4 (8.5-10.1) mg/dl Magnesium 2.1 (1.7-2.4) mg/dl Medications Administered Current Inpatient Medications Acetaminophen (Acetaminophen 325 Mg Tab) 650 mg PO Q4H PRN PRN Reason: pain/fever Stop: 07/17/22 17:39 Last Admin: 05/03/22 12:27 Dose: 650 mg Al Hydrox/Mg Hydrox/Simethicone (Aluminum/Magnesium Susp 30 Ml Udc) 30 ml PO Q6H PRN PRN Reason: Dyspepsia Stop: 07/17/22 17:39 Benzonatate (Benzonatate 100 Mg Capsule) 100 mg PO BID PRN PRN Reason: Cough Stop: 07/17/22 17:39 Deutetrabenazine (Austedo 12 Mg Tablet) 2 each PO BID [facility] Stop: 07/17/22 10:59 Last Admin: 06/21/22 09:20 Dose: 2 each Enoxaparin Sodium (Enoxaparin Inj 40 Mg/0.4 Ml Syr) 40 mg SQ Q24H [facility] Stop: 07/17/22 21:59 Last Admin: 06/19/22 23:01 Dose: 40 mg Enteral Nutritional Formula (Fibersource Hn 1.2 Erich 1000 Ml Bag) 330 ml GT 0600,0900,1200,1500,1800,2100 [facility]; Protocol Stop: 07/17/22 05:59 Last Admin: 06/21/22 09:24 Dose: 330 ml Guaifenesin/Dextromethorphan (Guaifenesin/Dextrom Syrup 100mg/10mg 5ml Udc) 5 ml PO Q6H PRN PRN Reason: Cough Stop: 07/20/22 15:14 Last Admin: 06/20/22 17:39 Dose: 5 ml Ampicillin Sodium/Sulbactam Sodium 3,000 mg/ Sodium Chloride 108 mls @ 200 mls/hr IV Q6H [facility]; Protocol Stop: 06/26/22 15:59 Last Infusion: 06/21/22 10:55 Dose: Infused Loratadine (Loratadine 10 Mg Tab) 10 mg PO QAM [facility] Stop: 07/17/22 08:59 Last Admin: 06/21/22 09:21 Dose: 10 mg Lorazepam (Lorazepam 0.5 Mg Tab) 0.5 mg PO Q6 [facility] Stop: 07/08/22 17:59 Last Admin: 06/21/22 05:42 Dose: 0.5 mg Lorazepam (Lorazepam 0.5 Mg Tab) 0.5 mg PO Q6H PRN PRN Reason: Worsening involuntary movement Stop: 07/16/22 19:19 Magnesium Hydroxide (Magnesium Hydroxide Susp 30 Ml Udc) 30 ml PO Q6H PRN PRN Reason: Constipation Stop: 07/17/22 17:39 Ondansetron HCl (Ondansetron Inj 2 Mg/Ml 2 Ml Vial) 4 mg IV Q6H PRN PRN Reason: Nausea Stop: 07/17/22 17:39 Pantoprazole Sodium (Pantoprazole 40 Mg Tab) 40 mg PO HS [facility] Stop: 07/17/22 20:59 Last Admin: 06/20/22 19:50 Dose: 40 mg Polyethylene Glycol (Polyethylene (Miralax) 17 Gm Pack) 17 gm PO DAILY PRN PRN Reason: Constipation Stop: 07/17/22 17:39 Senna/Docusate Sodium (Docusate Sodium/Senna 50/8.6mg Tab) 1 tab PO BID [facility] Stop: 07/17/22 20:59 Last Admin: 05/20/22 08:41 Dose: Not Given Sertraline HCl (Sertraline Hcl 50 Mg Tablet) 25 mg PO QAM [facility] Stop: 07/17/22 08:59 Last Admin: 06/21/22 09:21 Dose: 25 mg Sterile Water (Tube Feeding Water Flush) 30 ml GT 0630,0930,1230,1530,1830,2130 [facility]; Protocol Stop: 07/08/22 15:29 Last Admin: 06/21/22 10:33 Dose: 30 ml Trazodone HCl (Trazodone Hcl 50 Mg Tab) 50 mg PO HS [facility] Stop: 07/17/22 20:59 Last Admin: 06/20/22 19:50 Dose: 50 mg
[2022-06-21 08:22] LABS: Hematocrit (blood only) 45.1 % (40.1-51.0); Hemoglobin 15.2 g/dl (14.0-18.0); Mean Corpuscular Hemoglobin 32.1 pg (25.0-34.0); Mean Corpuscular Hgb Conc 33.7 g/dL (32.0-36.0); Mean Corpuscular Volume 95.1 fL (80.0-100.0); Mean Platelet Volume 8.4 fL (9.4-12.4); Platelet Count 303 K/uL (130-400); RDW Coefficient of Variation 12.8 % (11.5-14.5); RDW Standard Deviation 45.2 fL (36.4-46.3); Red Blood Count 4.74 M/uL (4.63-6.08)
[2022-06-21 08:46] LABS: BUN Creatinine Ratio 30.8 (10-20); Calcium 9.4 mg/dl (8.5-10.1); Creatinine Clr Calc Pharmacy 137.2 ml/min; Est GFR (African American) 138.1 ml/min; Est GFR (Non-African American) 119.2 ml/min; Magnesium 2.1 mg/dl (1.7-2.4); Potassium 4.3 mmol/L (3.5-5.1)
[2022-06-21] MEDS: AUSTEDO 12 MG PO SCH ×2 (09:20→20:44)
[2022-06-21] MEDS: LORATADINE 10 MG TAB PO SCH (09:21)
[2022-06-21] MEDS: SERTRALINE HCL 50 MG TABLET PO SCH (09:21)
[2022-06-21] MEDS: traZODone HCL 50 MG TAB PO SCH (20:44)
[2022-06-21] MEDS: PANTOprazole 40 MG TAB PO SCH (20:45)
[2022-06-22] MEDS: AMPICILLIN/SULBACTAM SOD 3,000 MG in 0.9 % SODIUM CHLORIDE 100 ML IV SCH ×4 (04:21→20:49)
[2022-06-22] MEDS ORDERED: LACTATED RINGER'S 1,000 ML IV ONE (04:53)
[2022-06-22] MEDS: LORazepam 0.5 MG TAB PO SCH ×4 (05:13→23:11)
[2022-06-22] MEDS: FIBERSOURCE HN 1.2 CAL 1000 ML BAG GT SCH ×6 (05:16→20:48)
[2022-06-22] MEDS: TUBE FEEDING WATER FLUSH GT SCH ×6 (06:28→21:56)
[2022-06-22] MEDS: AUSTEDO 12 MG PO SCH ×2 (08:50→20:49)
[2022-06-22] MEDS: LORazepam 0.5 MG TAB PO PRN (08:50)
[2022-06-22] MEDS: SERTRALINE HCL 50 MG TABLET PO SCH (08:50)
[2022-06-22] MEDS: LORATADINE 10 MG TAB PO SCH (08:50)
--- NOTE | 2022-06-22 15:41 | Hospitalist Progress Note ---
Date of Service June 22, 2022 Assessment & Plan (1) Suzy chorea: (2) Ambulatory dysfunction: (3) Frequent falls: (4) Sacral decubitus ulcer, stage II: Plan Patient is a 41 yr male who has significant past medical history of [place]'s chorea and GERD who presented to ED on 04/30 secondary to fall prior to arrival. [place] Chorea Ambulatory dysfunction Frequent falls Patient's adopted mother (aunt) has been caring for him, but appears she is having much more difficult time managing patient as his Suzy's is worsening Patient needs placement due to significant increasing care at home Scheduled Ativan 0.5 mg every 6 hours for Chorea; hold if patient is drowsy. 06/16 Continue Ativan 0.5 mg p.o. every 6 hours Additional Ativan 0.5 mg p.o. every 6 hours as needed for increased involuntary movements [facility] cough, poss. aspiration pneumonitis pt w/ cough on phys. exam reports having for several days discussed w/ RN - aspiration precautions, IS, flutter valve -obtained CXR, procal - negat., WBC at 9K but previously about 4K CXR - Possible right midlung opacity. Pneumonia cannot be excluded. Radiographic follow-up to ensure resolution is recommended. - started Unasyn day 4 Acute urinary retention No evidence of UTI Quinn catheter in place (+) episode of hematuria after accidentally tugging the catheter- another episode (06/22) hold Lovenox for now, resume tomorrow if no recurrence of hematuria --Quinn catheter reposition to prevent accidental pulling Constipation Feeding by G-Tube Dye [employer] Coordinator consulted, started bolus feeding Continue tube feeds Bowel regimen as needed Continue wound care at G-tube site -- no issues Stage II sacral decubitus ulcer Breakdown to buttock per Aunt prior to admission. Daily wound care DVT px:SQ Lovenox Dispo- Awaiting placement. Medically stable. CM following Admission and Anticipated Discharge Date Admission Date: April 30, 2022 Subjective Follow-up for [place]'s chorea, etc. Seen laying in bed, not in distress +choreiform movements - seem somewhat improved since admission Denies any fevers, chills, chest pain, shortness of breath, abdominal pain, n/v cough improved + hematuria - from pulling on Quinn Review of Systems Review of Systems: All systems reviewed & are unremarkable except as noted in Subjective Physical Exam Physical Exam: General- oriented x 3, not in distress, speaking few words with no effort or accessory muscle use Eyes- anicteric Neck- no JVD Lungs- clear BS bilaterally, occasional cough Heart- normal rate, regular rhythm; no murmurs Abdomen- normal bowel sounds, nondistended, soft, nontender Extremities- no pretibial edema, no calf tenderness : Quinn misplaced, +light hematuria Neuro- alert, oriented x 3; + choreic movements Skin- warm & dry Results & Data Results & Data ([facility]) Vital Signs (Past 12 Hours) Vital Signs Temp Pulse Resp BP BP Pulse Ox O2 Del Method 06/22/22 08:54 36.4 C L 91 H 20 98/57 L 99 Room Air 06/22/22 04:19 71 89/64 L Medications Administered Current Inpatient Medications Acetaminophen (Acetaminophen 325 Mg Tab) 650 mg PO Q4H PRN PRN Reason: pain/fever Stop: 07/17/22 17:39 Last Admin: 05/03/22 12:27 Dose: 650 mg Al Hydrox/Mg Hydrox/Simethicone (Aluminum/Magnesium Susp 30 Ml Udc) 30 ml PO Q6H PRN PRN Reason: Dyspepsia Stop: 07/17/22 17:39 Benzonatate (Benzonatate 100 Mg Capsule) 100 mg PO BID PRN PRN Reason: Cough Stop: 07/17/22 17:39 Deutetrabenazine (Austedo 12 Mg Tablet) 2 each PO BID [facility] Stop: 07/17/22 10:59 Last Admin: 06/22/22 08:50 Dose: 2 each Enoxaparin Sodium (Enoxaparin Inj 40 Mg/0.4 Ml Syr) 40 mg SQ Q24H [facility] Stop: 07/17/22 21:59 Last Admin: 06/19/22 23:01 Dose: 40 mg Enteral Nutritional Formula (Fibersource Hn 1.2 Erich 1000 Ml Bag) 330 ml GT 0600,0900,1200,1500,1800,2100 [facility]; Protocol Stop: 07/17/22 05:59 Last Admin: 06/22/22 15:05 Dose: 330 ml Guaifenesin/Dextromethorphan (Guaifenesin/Dextrom Syrup 100mg/10mg 5ml Udc) 5 ml PO Q6H PRN PRN Reason: Cough Stop: 07/20/22 15:14 Last Admin: 06/20/22 17:39 Dose: 5 ml Ampicillin Sodium/Sulbactam Sodium 3,000 mg/ Sodium Chloride 108 mls @ 200 mls/hr IV Q6H [facility]; Protocol Stop: 06/26/22 15:59 Last Admin: 06/22/22 15:09 Dose: 200 mls/hr Loratadine (Loratadine 10 Mg Tab) 10 mg PO QAM [facility] Stop: 07/17/22 08:59 Last Admin: 06/22/22 08:50 Dose: 10 mg Lorazepam (Lorazepam 0.5 Mg Tab) 0.5 mg PO Q6 [facility] Stop: 07/08/22 17:59 Last Admin: 06/22/22 11:52 Dose: 0.5 mg Lorazepam (Lorazepam 0.5 Mg Tab) 0.5 mg PO Q6H PRN PRN Reason: Worsening involuntary movement Stop: 07/16/22 19:19 Last Admin: 06/22/22 08:50 Dose: 0.5 mg Magnesium Hydroxide (Magnesium Hydroxide Susp 30 Ml Udc) 30 ml PO Q6H PRN PRN Reason: Constipation Stop: 07/17/22 17:39 Ondansetron HCl (Ondansetron Inj 2 Mg/Ml 2 Ml Vial) 4 mg IV Q6H PRN PRN Reason: Nausea Stop: 07/17/22 17:39 Pantoprazole Sodium (Pantoprazole 40 Mg Tab) 40 mg PO HS [facility] Stop: 07/17/22 20:59 Last Admin: 06/21/22 20:45 Dose: 40 mg Polyethylene Glycol (Polyethylene (Miralax) 17 Gm Pack) 17 gm PO DAILY PRN PRN Reason: Constipation Stop: 07/17/22 17:39 Senna/Docusate Sodium (Docusate Sodium/Senna 50/8.6mg Tab) 1 tab PO BID [facility] Stop: 07/17/22 20:59 Last Admin: 05/20/22 08:41 Dose: Not Given Sertraline HCl (Sertraline Hcl 50 Mg Tablet) 25 mg PO QAM [facility] Stop: 07/17/22 08:59 Last Admin: 06/22/22 08:50 Dose: 25 mg Sterile Water (Tube Feeding Water Flush) 30 ml GT 0630,0930,1230,1530,1830,2130 [facility]; Protocol Stop: 07/08/22 15:29 Last Admin: 06/22/22 13:22 Dose: 30 ml Trazodone HCl (Trazodone Hcl 50 Mg Tab) 50 mg PO HS [facility] Stop: 07/17/22 20:59 Last Admin: 06/21/22 20:44 Dose: 50 mg
[2022-06-22] MEDS: PANTOprazole 40 MG TAB PO SCH (20:48)
[2022-06-22] MEDS: traZODone HCL 50 MG TAB PO SCH (20:48)
[2022-06-23] MEDS: FIBERSOURCE HN 1.2 CAL 1000 ML BAG GT SCH ×3 (05:02→12:18)
[2022-06-23] MEDS: AMPICILLIN/SULBACTAM SOD 3,000 MG in 0.9 % SODIUM CHLORIDE 100 ML IV SCH ×4 (05:02→22:33)
[2022-06-23] MEDS: LORazepam 0.5 MG TAB PO SCH ×4 (05:02→23:16)
[2022-06-23] MEDS: TUBE FEEDING WATER FLUSH GT SCH ×6 (06:15→23:10)
[2022-06-23] MEDS: SERTRALINE HCL 50 MG TABLET PO SCH (09:11)
[2022-06-23] MEDS: AUSTEDO 12 MG PO SCH ×2 (09:11→22:21)
[2022-06-23] MEDS: LORATADINE 10 MG TAB PO SCH (09:12)
--- NOTE | 2022-06-23 10:02 | Hospitalist Progress Note ---
Date of Service June 23, 2022 Assessment & Plan (1) [place] chorea: (2) Ambulatory dysfunction: (3) Frequent falls: (4) Sacral decubitus ulcer, stage II: Plan Patient is a 41 yr male who has significant past medical history of [place]'s chorea and GERD who presented to ED on 04/30 secondary to fall prior to arrival. [place] Chorea Ambulatory dysfunction Frequent falls Patient's adopted mother (aunt) has been caring for him, but appears she is having much more difficult time managing patient as his Suzy's is worsening Patient needs placement due to significant increasing care at home Scheduled Ativan 0.5 mg every 6 hours for Chorea; hold if patient is drowsy. Pt follows Dr. Rodriguez of Neurology at [facility] Also on Austedo 24mg twice daily - max dose Did discuss with Dr. Rodriguez and only current options to assist with movement is benzos. Could consider increasing lorazepam or switching to clonazepam Dr. Rodriguez also states medical marijuana can be helpful in some patients as well Possible Aspiration Pneumonitis cough on phys. exam discussed w/ RN - aspiration precautions, IS, flutter valve CXR - Possible right midlung opacity. Pneumonia cannot be excluded. Radiog raphic follow-up to ensure resolution is recommended. On Unasyn Day 5 Acute urinary retention No evidence of UTI Kelly catheter in place (+) episode of hematuria after accidentally tugging the catheter- another episode (06/22) hold Lovenox for now Discussed with nursing Kelly placed due to retention on admission 2/2 constipation will do TOV, remove kelly, bladder scan q6h and prn consider condom cath to prevent skin breakdown but will wait and see if pt able to spontaneously void will continue to hold lovenox given recent trauma with cath, consider resuming if kelly does not need replaced Constipation Feeding by G-Tube Learning Support Resource Room Teacher consulted, started bolus feeding Continue tube feeds Bowel regimen as needed Continue wound care at G-tube site -- no issues Stage II sacral decubitus ulcer Breakdown to buttock per Aunt prior to admission. Daily wound care DVT px:SQ Lovenox on hold given hematuria, TOV ordered, if successful and no further hematuria will resume Dispo- Awaiting placement. Medically stable. CM following DNR/DNI Pt was seen and examined in collaboration with Dr. Elmore, please see addendum Admission and Anticipated Discharge Date Admission Date: April 30, 2022 Supervising Physician Co-Signing Physician Notes Patient seen and examined by me, care coordinated with Sherrill Osborne PA-C, please refer to her note above for further detail. Patient seen in follow-up of [place] chorea. Cough improved, currently on IV Unasyn. Yesterday another episode of hematuria due to displaced Kelly catheter. We will try to do a voiding trial. Currently hematuria resolved. Contacted patient's neurologist in [place]. Please see the note above for further detail. Overall patient is feeling well, has no complaints. Physical exam as above. MD Ramírez Subjective Patient was seen and examined in room 304. Follow-up [place]'s chorea, awaiting placement, aspiration PNA. He offers no acute complaints. Denies chest pain, shortness of breath, nausea, vomiting, abdominal pain. Kelly catheter remains in place. Currently receiving tube feedings. He is drinking liquids. + cough, feels it is same as well. Review of Systems Review of Systems: All systems reviewed & are unremarkable except as noted in HPI & below Physical Exam Physical Exam: Gen: Thin, Tall Male, +Chorea, NAD, A&O to self and place HEENT: Normocephalic, atraumatic, conjunctivae moist, sclerae anicteric, mucous membranes moist. Lung: Clear to Auscultation bilaterally, no wheezes/rales/rhonchi Heart: Regular rate, regular rhythm, no murmurs, rubs, or gallops Abdomen: Soft, NT, ND +BS x 4, + peg tube, no surrounding erythema but otherwise clean and dry Extremities: No edema Skin: Warm, no rash, negative turgor. Results & Data Results & Data ([facility]) Vital Signs (Past 12 Hours) Vital Signs Temp Pulse Resp BP Pulse Ox O2 Del Method 06/23/22 07:42 36.5 C 85 18 101/68 96 Room Air Medications Administered Current Inpatient Medications Acetaminophen (Acetaminophen 325 Mg Tab) 650 mg PO Q4H PRN PRN Reason: pain/fever Stop: 07/17/22 17:39 Last Admin: 05/03/22 12:27 Dose: 650 mg Al Hydrox/Mg Hydrox/Simethicone (Aluminum/Magnesium Susp 30 Ml Udc) 30 ml PO Q6H PRN PRN Reason: Dyspepsia Stop: 07/17/22 17:39 Benzonatate (Benzonatate 100 Mg Capsule) 100 mg PO BID PRN PRN Reason: Cough Stop: 07/17/22 17:39 Deutetrabenazine (Austedo 12 Mg Tablet) 2 each PO BID [facility] Stop: 07/17/22 10:59 Last Admin: 06/23/22 09:11 Dose: 2 each Enoxaparin Sodium (Enoxaparin Inj 40 Mg/0.4 Ml Syr) 40 mg SQ Q24H [facility] Stop: 07/17/22 21:59 Last Admin: 06/19/22 23:01 Dose: 40 mg Enteral Nutritional Formula (Fibersource Hn 1.2 Erich 1000 Ml Bag) 330 ml GT 0600,0900,1200,1500,1800,2100 [facility]; Protocol Stop: 07/17/22 05:59 Last Admin: 06/23/22 09:12 Dose: 330 ml Guaifenesin/Dextromethorphan (Guaifenesin/Dextrom Syrup 100mg/10mg 5ml Udc) 5 ml PO Q6H PRN PRN Reason: Cough Stop: 07/20/22 15:14 Last Admin: 06/20/22 17:39 Dose: 5 ml Ampicillin Sodium/Sulbactam Sodium 3,000 mg/ Sodium Chloride 108 mls @ 200 mls/hr IV Q6H [facility]; Protocol Stop: 06/26/22 15:59 Last Admin: 06/23/22 09:53 Dose: 200 mls/hr Loratadine (Loratadine 10 Mg Tab) 10 mg PO QAM [facility] Stop: 07/17/22 08:59 Last Admin: 06/23/22 09:12 Dose: 10 mg Lorazepam (Lorazepam 0.5 Mg Tab) 0.5 mg PO Q6 [facility] Stop: 07/08/22 17:59 Last Admin: 06/23/22 05:02 Dose: 0.5 mg Lorazepam (Lorazepam 0.5 Mg Tab) 0.5 mg PO Q6H PRN PRN Reason: Worsening involuntary movement Stop: 07/16/22 19:19 Last Admin: 06/22/22 08:50 Dose: 0.5 mg Magnesium Hydroxide (Magnesium Hydroxide Susp 30 Ml Udc) 30 ml PO Q6H PRN PRN Reason: Constipation Stop: 07/17/22 17:39 Ondansetron HCl (Ondansetron Inj 2 Mg/Ml 2 Ml Vial) 4 mg IV Q6H PRN PRN Reason: Nausea Stop: 07/17/22 17:39 Pantoprazole Sodium (Pantoprazole 40 Mg Tab) 40 mg PO [facility] Stop: 07/17/22 20:59 Last Admin: 06/22/22 20:48 Dose: 40 mg Polyethylene Glycol (Polyethylene (Miralax) 17 Gm Pack) 17 gm PO DAILY PRN PRN Reason: Constipation Stop: 07/17/22 17:39 Senna/Docusate Sodium (Docusate Sodium/Senna 50/8.6mg Tab) 1 tab PO BID [facility] Stop: 07/17/22 20:59 Last Admin: 05/20/22 08:41 Dose: Not Given Sertraline HCl (Sertraline Hcl 50 Mg Tablet) 25 mg PO QAM [facility] Stop: 07/17/22 08:59 Last Admin: 06/23/22 09:11 Dose: 25 mg Sterile Water (Tube Feeding Water Flush) 30 ml GT 0630,0930,1230,1530,1830,2130 [facility]; Protocol Stop: 07/08/22 15:29 Last Admin: 06/23/22 06:15 Dose: 30 ml Trazodone HCl (Trazodone Hcl 50 Mg Tab) 50 mg PO [facility] Stop: 07/17/22 20:59 Last Admin: 06/22/22 20:48 Dose: 50 mg
[2022-06-23] MEDS ORDERED: PEPTAMEN 1.5 CAL 1,000 ML BAG PO SCH (15:00)
[2022-06-23] MEDS ORDERED: PEPTAMEN 1.5 CAL 1,000 ML BAG PO ONE (15:30)
[2022-06-23] MEDS: PEPTAMEN 1.5 CAL 1,000 ML BAG PO SCH ×2 (18:08→22:22)
[2022-06-23] MEDS: traZODone HCL 50 MG TAB PO SCH (22:20)
[2022-06-23] MEDS: PANTOprazole 40 MG TAB PO SCH (22:20)
[2022-06-24] MEDS: TUBE FEEDING WATER FLUSH GT SCH ×6 (04:22→22:02)
[2022-06-24] MEDS: AMPICILLIN/SULBACTAM SOD 3,000 MG in 0.9 % SODIUM CHLORIDE 100 ML IV SCH ×4 (04:33→22:05)
[2022-06-24] MEDS: PEPTAMEN 1.5 CAL 1,000 ML BAG PO SCH ×6 (05:37→20:11)
[2022-06-24] MEDS: LORazepam 0.5 MG TAB PO SCH ×4 (05:37→23:21)
[2022-06-24] MEDS: AUSTEDO 12 MG PO SCH ×2 (08:58→20:10)
[2022-06-24] MEDS: SERTRALINE HCL 50 MG TABLET PO SCH (08:58)
[2022-06-24] MEDS: LORATADINE 10 MG TAB PO SCH (08:59)
--- NOTE | 2022-06-24 10:07 | Hospitalist Progress Note ---
Date of Service June 24, 2022 Assessment & Plan (1) [place] chorea: (2) Ambulatory dysfunction: (3) Frequent falls: (4) Sacral decubitus ulcer, stage II: Plan Patient is a 41 yr male who has significant past medical history of [place]'s chorea and GERD who presented to ED on 04/30 secondary to fall prior to arrival. [place] Chorea Ambulatory dysfunction Frequent falls Patient's adopted mother (aunt) has been caring for him, but appears she is having much more difficult time managing patient as his Suzy's is worsening Patient needs placement due to significant increasing care at home Scheduled Ativan 0.5 mg every 6 hours for Chorea; hold if patient is drowsy. Pt follows Dr. Rodriguez of Neurology at [facility] Also on Austedo 24mg twice daily - max dose Did discuss with Dr. Rodriguez and only current options to assist with movement is benzos. Could consider increasing lorazepam or switching to clonazepam Dr. Rodriguez also states medical marijuana can be helpful in some patients as well Possible Aspiration Pneumonitis improving discussed w/ RN - aspiration precautions, IS, flutter valve CXR - Possible right midlung opacity. Pneumonia cannot be excluded. Radiographic follow-up to ensure resolution is recommended. On Unasyn Day 6, to complete on 06/26 Acute urinary retention No evidence of UTI Quinn catheter in place (+) episode of hematuria after accidentally tugging the catheter- another episode (06/22) hold Lovenox for now Discussed with nursing Quinn placed due to retention on admission 2/2 constipation TOV successful 06/23 tolerating condom cath, pvrs minimal bladder scan prn hematuria resolved Constipation Feeding by G-Tube Cash Applications Representative consulted, started bolus feeding Continue tube feeds - discussed with Aditya on 06/23, he is adjusting feedings daily weights Bowel regimen as needed Continue wound care at G-tube site Stage II sacral decubitus ulcer Breakdown to buttock per Aunt prior to admission. Daily wound care DVT px: resume SQ lovenox Dispo- Awaiting placement. Medically stable. CM following DNR/DNI Pt was seen and examined in collaboration with Dr. Dumont, please see addendum Admission and Anticipated Discharge Date Admission Date: April 30, 2022 Supervising Physician Co-Signing Physician Notes Patient is seen and examined at bedside. Offers no complaints today. Hematuria seems to be resolved. Voiding as per patient. On exam patient is thin, frail,+ Chorea, normocephalic atraumatic, lungs are clear to auscultation, S1-S2, no murmur, no pedal edema, abdomen soft, nontender,+ PEG tube, alert, awake, oriented, grossly no focal deficits. Continue current medications for [place]'s chorea. Fall precautions. Needs follow-up with neurology upon discharge. Complete antibiotic course for aspiration pneumonitis. Monitor for urinary retention. Waiting for placement. I personally reviewed the record. Patient is interviewed and examined at bedside. Patient's care is coordinated with Lorena Osborne PA-C. Please refer to the documentation above for details of patient's presentation and for discussion of other issues. Subjective Patient was seen and examined in room 304. Follow-up Suzy's chorea, awaiting placement, aspiration PNA. He offers no acute complaints. States he spilled his drink all over his gown. Denies pain. Feels chorea at baseline. Quinn removed yesterday and voiding well, replaced with condom cath and tolerating well. Tolerating feeds. Review of Systems Review of Systems: All systems reviewed & are unremarkable except as noted in HPI & below Physical Exam Physical Exam: Gen: Thin, Tall Male, +Chorea, NAD, A&O to self and place HEENT: Normocephalic, atraumatic, conjunctivae moist, sclerae anicteric, mucous membranes moist. Lung: Clear to Auscultation bilaterally, no wheezes/rales/rhonchi Heart: Regular rate, regular rhythm, no murmurs, rubs, or gallops Abdomen: Soft, NT, ND +BS x 4, + peg tube, no surrounding erythema but otherwise clean and dry Extremities: No edema Skin: Warm, no rash, negative turgor. Results & Data Results & Data ([facility]) Vital Signs (Past 12 Hours) Vital Signs Temp Pulse Resp BP Pulse Ox O2 Del Method 06/24/22 07:44 36.5 C 70 16 91/59 L 99 Room Air 06/23/22 23:47 Room Air
[2022-06-24] MEDS: traZODone HCL 50 MG TAB PO SCH (20:11)
[2022-06-24] MEDS: PANTOprazole 40 MG TAB PO SCH (20:12)
[2022-06-24] MEDS: ENOXAPARIN INJ 40 MG/0.4 ML SYR SQ SCH (22:05)
[2022-06-25] MEDS: TUBE FEEDING WATER FLUSH GT SCH ×6 (03:14→22:31)
[2022-06-25] MEDS: AMPICILLIN/SULBACTAM SOD 3,000 MG in 0.9 % SODIUM CHLORIDE 100 ML IV SCH ×4 (04:55→21:47)
[2022-06-25] MEDS: PEPTAMEN 1.5 CAL 1,000 ML BAG PO SCH ×6 (05:00→20:38)
[2022-06-25] MEDS: LORazepam 0.5 MG TAB PO SCH ×3 (05:00→18:21)
[2022-06-25] MEDS: SERTRALINE HCL 50 MG TABLET PO SCH (08:49)
[2022-06-25] MEDS: LORATADINE 10 MG TAB PO SCH (08:49)
[2022-06-25] MEDS: AUSTEDO 12 MG PO SCH ×2 (08:50→20:38)
--- NOTE | 2022-06-25 12:40 | Hospitalist Progress Note ---
Date of Service June 25, 2022 Assessment & Plan (1) [place] chorea: (2) Ambulatory dysfunction: (3) Frequent falls: (4) Sacral decubitus ulcer, stage II: Plan Patient is a 41 yr male who has significant past medical history of [place]'s chorea and GERD who presented to ED on 04/30 secondary to fall prior to arrival. [place] Chorea Ambulatory dysfunction Frequent falls Patient's adopted mother (aunt) has been caring for him, but appears she is having much more difficult time managing patient as his Suzy's is worsening Patient needs placement due to significant increasing care at home Scheduled Ativan 0.5 mg every 6 hours for Chorea; hold if patient is drowsy. Patient also on deutetrabenazine. Waiting for placement; referral sent to multiple places. Acute urinary retention No evidence of UTI Required a Quinn catheter which was removed on 06/23, currently using condom cath without difficulty Constipation Feeding by G-Tube Seating Upholsterer consulted, started bolus feeding Continue tube feeds bowel regimen as needed Continue wound care at G-tube site Stage II sacral decubitus ulcer Breakdown to buttock per Aunt prior to admission. Consulted wound care for wound care Continue to reposition DVT px:SQ Lovenox Dispo- Awaiting placement. Medically stable. CM following Admission and Anticipated Discharge Date Admission Date: April 30, 2022 Supervising Physician Co-Signing Physician Notes Patient is seen and examined at bedside. No new complaints. Waiting for placement. On exam patient is thin, frail,+ Chorea, normocephalic atraumatic, lungs are clear to auscultation, S1-S2, no murmur, no pedal edema, abdomen soft, nontender,+ PEG tube, alert, awake, oriented, grossly no focal deficits. Continue current medications for Su[place]'s chorea. Needs follow up with Neurology upon discharge. Fall precautions. Complete antibiotic course for aspiration pneumonitis. Tolerating tube feeds. Waiting for placement. I personally reviewed the record. Patient is interviewed and examined at bedside. Patient's care is coordinated with Kerri Luna MANAGER OF MERCHANDISING. Please refer to the documentation above for details of patient's presentation and for discussion of other issues. Subjective Follow up for [place] chorea, ambulatory dysfunction. Patient seen and examined. No acute distress. Continues with uncontrolled choreiform movements. Patient offers no complaints. Tolerating tube feedings. Denies abdominal pain, nausea. Quinn removed, voiding without difficulty. Review of Systems Review of Systems: ROS per HPI, all other systems reviewed and negative Physical Exam Constitutional: WD/WN, vitals as above Respiratory: normal respiratory effort, lungs clear to auscultation Cardiovascular: Rate/Rhythm: regular rate and regular rhythm Vessels: normal peripheral pulses Extremities: no edema Gastrointestinal (Abdomen): Percussion/Palpation: abdomen soft; abdomen nontender PEG tube in place Skin: no rashes, warm and dry Neurologic: Chronic choreiform movements Psychiatric: A+Ox3, euthymic affect Results & Data Results & Data ([facility]) Vital Signs (Past 12 Hours) Vital Signs Temp Pulse Resp BP Pulse Ox O2 Del Method 06/25/22 09:00 Room Air 06/25/22 07:24 36.7 C 75 18 96/64 L 97 Room Air
[2022-06-25] MEDS: traZODone HCL 50 MG TAB PO SCH (20:38)
[2022-06-25] MEDS: PANTOprazole 40 MG TAB PO SCH (20:39)
[2022-06-25] MEDS: ENOXAPARIN INJ 40 MG/0.4 ML SYR SQ SCH (21:50)
[2022-06-26] MEDS: LORazepam 0.5 MG TAB PO SCH ×4 (00:05→17:36)
[2022-06-26] MEDS: TUBE FEEDING WATER FLUSH GT SCH ×8 (03:50→23:05)
[2022-06-26] MEDS: AMPICILLIN/SULBACTAM SOD 3,000 MG in 0.9 % SODIUM CHLORIDE 100 ML IV SCH ×2 (03:55→09:25)
[2022-06-26] MEDS: PEPTAMEN 1.5 CAL 1,000 ML BAG PO SCH ×6 (05:35→21:04)
[2022-06-26] MEDS: AUSTEDO 12 MG PO SCH ×2 (08:07→20:42)
[2022-06-26] MEDS: LORATADINE 10 MG TAB PO SCH (08:09)
[2022-06-26] MEDS: SERTRALINE HCL 50 MG TABLET PO SCH (08:09)
--- NOTE | 2022-06-26 12:05 | Hospitalist Progress Note ---
Date of Service June 26, 2022 Assessment & Plan (1) [place] chorea: (2) Ambulatory dysfunction: (3) Frequent falls: (4) Sacral decubitus ulcer, stage II: Plan Patient is a 41 yr male who has significant past medical history of [place]'s chorea and GERD who presented to ED on 04/30 secondary to fall prior to arrival. [place] Chorea Ambulatory dysfunction Frequent falls Patient's adopted mother (aunt) has been caring for him, but appears she is having much more difficult time managing patient as his Suzy's is worsening Patient needs placement due to significant increasing care at home Scheduled Ativan 0.5 mg every 6 hours for Chorea; hold if patient is drowsy. Patient also on deutetrabenazine 24 mg twice daily, max dose Pt follows Dr. Rodriguez of Neurology at [facility] Previous provider discussed with Dr. Rodriguez and only current options to assist with movement is benzos. Could consider increasing lorazepam or switching to clonazepam. Dr. Rodriguez also states medical marijuana can be helpful in some patients as well. Waiting for placement; referral sent to multiple places. Possible Aspiration Pneumonitis improving aspiration precautions CXR - Possible right midlung opacity. Pneumonia cannot be excluded. Radiographic follow-up to ensure resolution is recommended. Will complete a 7-day Unasyn course today Acute urinary retention No evidence of UTI (+) episode of hematuria after accidentally tugging the catheter- another episode (06/22). Lovenox held and has since been restarted. Hematuria resolved. Required a Quinn catheter which was removed on 06/23, currently using condom cath without difficulty Constipation Feeding by G-Tube Supervisor Drapery Hanging consulted, started bolus feeding Continue tube feeds bowel regimen as needed Continue wound care at G-tube site Stage II sacral decubitus ulcer Breakdown to buttock per Aunt prior to admission. Consulted wound care for wound care Continue to reposition DVT px:SQ Lovenox Dispo- Awaiting placement. Medically stable. CM following Admission and Anticipated Discharge Date Admission Date: April 30, 2022 Supervising Physician Co-Signing Physician Notes Patient is seen and examined at bedside. cough is improving. Tolerates current diet. No other complaints. Waiting for placement. On exam patient is thin, frail,+ Chorea, normocephalic atraumatic, lungs are clear to auscultation, S1- S2, no murmur, no pedal edema, abdomen soft, nontender,+ PEG tube, alert, awake, oriented, grossly no focal deficits. Completed the antibiotic course. Aspiration precautions. continue medications for [place]'s chorea. Needs follow up with Neurology upon discharge. Fall precautions.Tolerating tube feeds. Waiting for placement. I personally reviewed the record. Patient is interviewed and examined at bedside. Patient's care is coordinated with Kerri Luna ASE MASTER MECHANIC. Please refer to the documentation above for details of patient's presentation and for discussion of other issues. Subjective Follow-up for ambulatory dysfunction, [place] chorea. Patient seen and examined. No acute distress, offers no complaints. Tolerating tube feeds, denies abdominal pain or nausea. Urinating and having BM without difficulty. Review of Systems Review of Systems: ROS per HPI, all other systems reviewed and negative Physical Exam Constitutional: + thin; no acute distress Respiratory: normal respiratory effort, lungs clear to auscultation Cardiovascular: Rate/Rhythm: regular rate and regular rhythm Vessels: normal peripheral pulses Extremities: no edema Gastrointestinal (Abdomen): Percussion/Palpation: abdomen soft; abdomen nontender PEG tube in place Skin: no rashes, warm and dry Neurologic: Uncontrolled choreiform movements Psychiatric: A+Ox3, euthymic affect Results & Data Results & Data ([facility]) Vital Signs (Past 12 Hours) Vital Signs Temp Pulse Resp BP Pulse Ox O2 Del Method 06/26/22 07:55 Room Air 06/26/22 08:23 36.7 C 73 18 99/62 L 96 Room Air
[2022-06-26] MEDS: traZODone HCL 50 MG TAB PO SCH (20:43)
[2022-06-26] MEDS: PANTOprazole 40 MG TAB PO SCH (20:43)
[2022-06-26] MEDS: ENOXAPARIN INJ 40 MG/0.4 ML SYR SQ SCH (21:05)
[2022-06-27] MEDS: LORazepam 0.5 MG TAB PO SCH ×4 (00:26→18:14)
[2022-06-27] MEDS: TUBE FEEDING WATER FLUSH GT SCH ×6 (03:30→22:11)
[2022-06-27] MEDS: PEPTAMEN 1.5 CAL 1,000 ML BAG PO SCH ×6 (06:50→20:57)
[2022-06-27 08:32] LABS: BUN Creatinine Ratio 25.7 (10-20); Calcium 9.7 mg/dl (8.5-10.1); Creatinine Clr Calc Pharmacy 126.6 ml/min; Est GFR (Non-African American) 115.6 ml/min; Potassium 4.1 mmol/L (3.5-5.1)
[2022-06-27] MEDS: SERTRALINE HCL 50 MG TABLET PO SCH (08:38)
[2022-06-27] MEDS: LORATADINE 10 MG TAB PO SCH (08:39)
[2022-06-27] MEDS: AUSTEDO 12 MG PO SCH ×2 (08:39→20:21)
--- NOTE | 2022-06-27 15:53 | Hospitalist Progress Note ---
Date of Service June 27, 2022 Assessment & Plan (1) Sacral decubitus ulcer, stage II: (2) Urinary retention: (3) Ambulatory dysfunction: (4) Ambulatory dysfunction: (5) [place] chorea: Plan: Patient is a 41 yr male who has significant past medical history of [place]'s chorea and GERD who presented to ED on 04/30 secondary to fall prior to arrival. [place] Chorea Ambulatory dysfunction Frequent falls Patient's family no longer able to care patient due to worsening [place]'s Chorea Continue Deutetrabenazine, Ativan Hold Ativan for excessive sedation Prior hospitalist discussed with Dr. Rodriguez of Neurology at [facility] Fall precautions Waiting for placement Possible Aspiration Pneumonitis CXR - Possible right midlung opacity. Pneumonia cannot be excluded. Radiographic follow-up to ensure resolution is recommended. Complete 7day course of Unasyn Aspiration precautions Acute urinary retention Hematuria due to traumatic catheter Resolved Constipation Feeding by G-Tube Risk Control Officer consulted, started bolus feeding Continue tube feeds bowel regimen as needed Continue wound care at G-tube site Stage II sacral decubitus ulcer Consulted wound care for wound care Continue to reposition DVT px: SQ Lovenox Disposition: Awaiting placement Admission and Anticipated Discharge Date Admission Date: April 30, 2022 Subjective Patient is seen and examined at bedside Offers no complaints today Denies any chest pain, dyspnea Waiting for placement Review of Systems Review of Systems: All systems reviewed & are unremarkable except as noted in Subjective Physical Exam Physical Exam: Physical Exam: Vitals signs as noted above General Appearance: Thin, frail, ill-appearing, + chorea movements Head: normocephalic, Atraumatic Eyes: normal inspection, EOMI Neck: supple, Trachea midline Respiratory/Chest: Normal breath sounds, CTA, No accessory muscle use Cardiovascular: S1, S2, No murmur Abdomen/GI:Soft, Non tender, Bowel sounds present Extremities/Musculoskeletal:normal inspection, no edema Neurologic/Psych:AAOX3, grossly no focal neurological deficits Skin: normal color, warm Results & Data Results & Data ([facility]) Vital Signs (Past 12 Hours) Vital Signs Temp Pulse Resp BP Pulse Ox O2 Del Method 06/27/22 08:00 Room Air 06/27/22 08:33 36.5 C 86 18 90/55 L 98 Room Air Laboratory Results [facility] 06/27/22 07:03 Sodium 137 Potassium 4.1 Chloride 101 Carbon Dioxide 32 BUN 18 Creatinine 0.70 Glucose 69 L Calcium 9.7
[2022-06-27] MEDS: PANTOprazole 40 MG TAB PO SCH (20:21)
[2022-06-27] MEDS: traZODone HCL 50 MG TAB PO SCH (20:21)
[2022-06-27] MEDS: ENOXAPARIN INJ 40 MG/0.4 ML SYR SQ SCH (21:00)
[2022-06-28] MEDS: LORazepam 0.5 MG TAB PO SCH ×6 (00:33→23:09)
[2022-06-28] MEDS: TUBE FEEDING WATER FLUSH GT SCH ×6 (03:20→23:09)
[2022-06-28] MEDS: PEPTAMEN 1.5 CAL 1,000 ML BAG PO SCH ×6 (05:22→21:09)
[2022-06-28] MEDS: SERTRALINE HCL 50 MG TABLET PO SCH (09:04)
[2022-06-28] MEDS: LORATADINE 10 MG TAB PO SCH (09:04)
[2022-06-28] MEDS: AUSTEDO 12 MG PO SCH ×2 (09:04→19:41)
--- NOTE | 2022-06-28 15:10 | Hospitalist Progress Note ---
Date of Service June 28, 2022 Assessment & Plan (1) Sacral decubitus ulcer, stage II: (2) Urinary retention: (3) Ambulatory dysfunction: (4) [place] chorea: Plan: Patient is a 41 yr male who has significant past medical history of [place]'s chorea and GERD who presented to ED on 04/30 secondary to fall prior to arrival. [place] Chorea Ambulatory dysfunction Frequent falls Patient's family no longer able to care patient due to worsening [place]'s Chorea Continue Deutetrabenazine, Ativan Hold Ativan for excessive sedation Prior hospitalist discussed with Dr. Rodriguez of Neurology at [facility] Fall precautions Waiting for placement Stable medically for discharge Possible Aspiration Pneumonitis CXR - Possible right midlung opacity. Pneumonia cannot be excluded. Radiographic follow-up to ensure resolution is recommended. Complete 7day course of Unasyn Aspiration precautions Acute urinary retention Hematuria due to traumatic catheter Resolved Constipation Feeding by G-Tube Firewall Security Engineer consulted, started bolus feeding Continue tube feeds bowel regimen as needed Continue wound care at G-tube site Stage II sacral decubitus ulcer Consulted wound care for wound care Continue to reposition DVT px: SQ Lovenox Disposition: Awaiting placement Admission and Anticipated Discharge Date Admission Date: April 30, 2022 Subjective Patient is seen and examined at bedside No new complaints Denies any chest pain, dyspnea, nausea, abd pain Waiting for placement Review of Systems Review of Systems: All systems reviewed & are unremarkable except as noted in Subjective Physical Exam Physical Exam: Physical Exam: Vitals signs as noted above General Appearance: Thin, frail, ill-appearing, + chorea movements Head: normocephalic, Atraumatic Eyes: normal inspection, EOMI Neck: supple, Trachea midline Respiratory/Chest: Normal breath sounds, CTA, No accessory muscle use Cardiovascular: S1, S2, No murmur Abdomen/GI:Soft, Non tender, Bowel sounds present Extremities/Musculoskeletal:normal inspection, no edema Neurologic/Psych:AAOX3, grossly no focal neurological deficits Skin: normal color, warm Results & Data Results & Data ([facility]) Vital Signs (Past 12 Hours) Vital Signs Temp Pulse Resp BP Pulse Ox O2 Del Method 06/28/22 09:00 Room Air 06/28/22 07:49 36.7 C 66 18 91/54 L 98 Room Air
[2022-06-28] MEDS: PANTOprazole 40 MG TAB PO SCH (19:41)
[2022-06-28] MEDS: traZODone HCL 50 MG TAB PO SCH (19:42)
[2022-06-28] MEDS: ENOXAPARIN INJ 40 MG/0.4 ML SYR SQ SCH (21:09)
[2022-06-29] MEDS: TUBE FEEDING WATER FLUSH GT SCH ×6 (03:30→21:00)
[2022-06-29] MEDS: PEPTAMEN 1.5 CAL 1,000 ML BAG PO SCH ×6 (05:51→20:57)
[2022-06-29] MEDS: LORazepam 0.5 MG TAB PO SCH ×4 (05:51→23:52)
[2022-06-29] MEDS: SERTRALINE HCL 50 MG TABLET PO SCH (08:03)
[2022-06-29] MEDS: LORATADINE 10 MG TAB PO SCH (08:04)
[2022-06-29] MEDS: AUSTEDO 12 MG PO SCH ×2 (08:05→20:56)
--- NOTE | 2022-06-29 18:02 | Hospitalist Progress Note ---
Date of Service June 29, 2022 Assessment & Plan (1) Sacral decubitus ulcer, stage II: (2) Urinary retention: (3) Ambulatory dysfunction: (4) [place] chorea: Plan: Patient is a 41 yr male who has significant past medical history of [place]'s chorea and GERD who presented to ED on 04/30 secondary to fall prior to arrival. [place] Chorea Ambulatory dysfunction Frequent falls Patient's family no longer able to care patient due to worsening [place]'s Chorea Continue Deutetrabenazine, Ativan Hold Ativan for excessive sedation Prior hospitalist discussed with Dr. Rodriguez of Neurology at [facility] Fall precautions Waiting for placement BP relatively low today, monitor Possible Aspiration Pneumonitis CXR - Possible right midlung opacity. Pneumonia cannot be excluded. Radiographic follow-up to ensure resolution is recommended. Complete 7day course of Unasyn Aspiration precautions Acute urinary retention Hematuria due to traumatic catheter Resolved Constipation Feeding by G-Tube Utility Helicopter Repairer consulted, started bolus feeding Continue tube feeds bowel regimen as needed Continue wound care at G-tube site Stage II sacral decubitus ulcer Consulted wound care for wound care Continue to reposition DVT px: SQ Lovenox Disposition: Awaiting placement Admission and Anticipated Discharge Date Admission Date: April 30, 2022 Subjective Patient is seen and examined at bedside Denies any chest pain, dyspnea, nausea, abd pain Waiting for placement Offers no complaints Review of Systems Review of Systems: All systems reviewed & are unremarkable except as noted in Subjective Physical Exam Physical Exam: Physical Exam: Vitals signs as noted above General Appearance: Thin, frail, ill-appearing, + chorea movements Head: normocephalic, Atraumatic Eyes: normal inspection, EOMI Neck: supple, Trachea midline Respiratory/Chest: Normal breath sounds, CTA, No accessory muscle use Cardiovascular: S1, S2, No murmur Abdomen/GI:Soft, Non tender, Bowel sounds present Extremities/Musculoskeletal:normal inspection, no edema Neurologic/Psych:AAOX3, grossly no focal neurological deficits Skin: normal color, warm Results & Data Results & Data ([facility]) Vital Signs (Past 12 Hours) Vital Signs Temp Pulse Pulse Resp BP Pulse Ox O2 Del Method 06/29/22 14:54 36.6 C 62 18 87/58 L 97 Room Air 06/29/22 08:16 36.2 C L 92 H 18 98/66 L 98 Room Air 06/29/22 08:00 Room Air
[2022-06-29] MEDS: PANTOprazole 40 MG TAB PO SCH (20:56)
[2022-06-29] MEDS: traZODone HCL 50 MG TAB PO SCH (20:56)
[2022-06-29] MEDS: ENOXAPARIN INJ 40 MG/0.4 ML SYR SQ SCH (21:00)
[2022-06-30] MEDS: TUBE FEEDING WATER FLUSH GT SCH ×6 (03:00→23:37)
[2022-06-30] MEDS: PEPTAMEN 1.5 CAL 1,000 ML BAG PO SCH ×6 (06:04→21:19)
[2022-06-30] MEDS: LORazepam 0.5 MG TAB PO SCH ×4 (06:04→23:37)
[2022-06-30] MEDS: SERTRALINE HCL 50 MG TABLET PO SCH (07:37)
[2022-06-30] MEDS: LORATADINE 10 MG TAB PO SCH (07:37)
[2022-06-30] MEDS: AUSTEDO 12 MG PO SCH ×2 (07:37→21:18)
--- NOTE | 2022-06-30 15:45 | Hospitalist Progress Note ---
Date of Service June 30, 2022 Assessment & Plan (1) Sacral decubitus ulcer, stage II: (2) Urinary retention: (3) Ambulatory dysfunction: (4) [place] chorea: Plan: Patient is a 41 yr male who has significant past medical history of [place]'s chorea and GERD who presented to ED on 04/30 secondary to fall prior to arrival. [place] Chorea Ambulatory dysfunction Frequent falls Patient's family no longer able to care patient due to worsening [place]'s Chorea Continue Deutetrabenazine, Ativan Hold Ativan for excessive sedation Prior hospitalist discussed with Dr. Rodriguez of Neurology at [facility] Fall precautions Waiting for placement Medically Stable Possible Aspiration Pneumonitis CXR - Possible right midlung opacity. Pneumonia cannot be excluded. Radiographic follow-up to ensure resolution is recommended. Complete 7day course of Unasyn Aspiration precautions Acute urinary retention Hematuria due to traumatic catheter Resolved Constipation Feeding by G-Tube Rn Hemodialysis Charge consulted, started bolus feeding Continue tube feeds bowel regimen as needed Continue wound care at G-tube site Stage II sacral decubitus ulcer Consulted wound care for wound care Continue to reposition DVT px: SQ Lovenox Disposition: Awaiting placement Admission and Anticipated Discharge Date Admission Date: April 30, 2022 Subjective Patient is seen and examined at bedside No new complaints Patient feels his chorea movements are at his baseline Denies any chest pain, dyspnea, nausea, abd pain Waiting for placement Review of Systems Review of Systems: All systems reviewed & are unremarkable except as noted in Subjective Physical Exam Physical Exam: Physical Exam: Vitals signs as noted above General Appearance: Thin, frail, ill-appearing, + chorea movements Head: normocephalic, Atraumatic Eyes: normal inspection, EOMI Neck: supple, Trachea midline Respiratory/Chest: Normal breath sounds, CTA, No accessory muscle use Cardiovascular: S1, S2, No murmur Abdomen/GI:Soft, Non tender, Bowel sounds present Extremities/Musculoskeletal:normal inspection, no edema Neurologic/Psych:AAOX3, grossly no focal neurological deficits Skin: normal color, warm Results & Data Results & Data ([facility]) Vital Signs (Past 12 Hours) Vital Signs Temp Pulse Resp BP Pulse Ox O2 Del Method 06/30/22 14:43 36.7 C 72 18 96/63 L 95 Room Air 06/30/22 08:00 Room Air 06/30/22 07:21 36.6 C 83 18 101/67 100 Room Air
[2022-06-30] MEDS: PANTOprazole 40 MG TAB PO SCH (21:18)
[2022-06-30] MEDS: ENOXAPARIN INJ 40 MG/0.4 ML SYR SQ SCH (21:19)
[2022-06-30] MEDS: traZODone HCL 50 MG TAB PO SCH (21:19)
[2022-07-01] MEDS: TUBE FEEDING WATER FLUSH GT SCH ×6 (03:27→23:39)
[2022-07-01] MEDS: LORazepam 0.5 MG TAB PO SCH ×4 (06:38→23:39)
[2022-07-01] MEDS: PEPTAMEN 1.5 CAL 1,000 ML BAG PO SCH ×6 (06:38→21:55)
[2022-07-01] MEDS: LORATADINE 10 MG TAB PO SCH (07:31)
[2022-07-01] MEDS: AUSTEDO 12 MG PO SCH ×2 (07:31→21:55)
[2022-07-01] MEDS: SERTRALINE HCL 50 MG TABLET PO SCH (07:31)
--- NOTE | 2022-07-01 08:36 | Hospitalist Progress Note ---
Date of Service July 01, 2022 Assessment & Plan (1) Sacral decubitus ulcer, stage II: (2) Urinary retention: (3) Ambulatory dysfunction: (4) [place] chorea: Plan: Patient is a 41 yr male who has significant past medical history of [place]'s chorea and GERD who presented to ED on 04/30 secondary to fall prior to arrival. [place] Chorea Ambulatory dysfunction Frequent falls Patient's family no longer able to care patient due to worsening [place]'s Chorea Continue Deutetrabenazine (Austedo) at max dose 24 mg bid, Ativan Hold Ativan for excessive sedation Discussed with Dr. Rodriguez - pt's neurologist at [facility] Fall precautions Waiting for placement Medically Stable Possible Aspiration Pneumonitis CXR - Possible right midlung opacity. Pneumonia cannot be excluded. Radiographic follow-up to ensure resolution is recommended. Completed 7day course of Unasyn Aspiration precautions Acute urinary retention Hematuria due to traumatic catheter Resolved Constipation Feeding by G-Tube Rolled Glass Crosscutter consulted, started bolus feeding Continue tube feeds bowel regimen as needed Continue wound care at G-tube site Stage II sacral decubitus ulcer wound care consulted Continue to reposition DVT px: SQ Lovenox Disposition: Awaiting placement Admission and Anticipated Discharge Date Admission Date: April 30, 2022 Subjective Patient is seen in follow-up of [place]'s chorea No new complaints Patient feels his chorea movements are at his baseline Denies any chest pain, dyspnea, nausea, abd pain Waiting for placement Review of Systems Review of Systems: All systems reviewed & are unremarkable except as noted in Subjective Physical Exam Physical Exam: General Appearance: Thin, frail, ill-appearing, + chorea movements Head: normocephalic, Atraumatic Eyes: normal inspection, EOMI Neck: supple Respiratory/Chest: Normal breath sounds, CTA, No accessory muscle use Cardiovascular: S1, S2, No murmur Abdomen/GI:Soft, Non tender, Bowel sounds present Extremities/Musculoskeletal:normal inspection, no edema Neurologic/Psych:AAOX3, + chorea movements Skin: normal color, warm Results & Data Results [facility]) Vital Signs (Past 12 Hours) Vital Signs Temp Pulse Resp BP Pulse Ox O2 Del Method 07/01/22 08:00 Room Air 07/01/22 07:40 36.9 C 78 18 96/60 L 94 Room Air 07/01/22 04:00 92/52 L 06/30/22 21:20 Room Air 06/30/22 22:29 36.8 C 71 16 92 Room Air Medications Administered Current Inpatient Medications Acetaminophen (Acetaminophen 325 Mg Tab) 650 mg PO Q4H PRN PRN Reason: pain/fever Stop: 07/17/22 17:39 Last Admin: 05/03/22 12:27 Dose: 650 mg Al Hydrox/Mg Hydrox/Simethicone (Aluminum/Magnesium Susp 30 Ml Udc) 30 ml PO Q6H PRN PRN Reason: Dyspepsia Stop: 07/17/22 17:39 Benzonatate (Benzonatate 100 Mg Capsule) 100 mg PO BID PRN PRN Reason: Cough Stop: 07/17/22 17:39 Deutetrabenazine (Austedo 12 Mg Tablet) 2 each PO BID ESTELA Stop: 07/17/22 10:59 Last Admin: 07/01/22 07:31 Dose: 2 each Enoxaparin Sodium (Enoxaparin Inj 40 Mg/0.4 Ml Syr) 40 mg SQ Q24H ESTELA Stop: 07/17/22 21:59 Last Admin: 06/30/22 21:19 Dose: 40 mg Enteral Nutritional Formula (Peptamen 1.5 Erich 1,000 Ml Bag) 200 ml PO 0600,0900,1200,1500,1800,2100 ESTELA; Protocol Stop: 07/23/22 14:59 Last Admin: 07/01/22 06:38 Dose: 200 ml Guaifenesin/Dextromethorphan (Guaifenesin/Dextrom Syrup 100mg/10mg 5ml Udc) 5 ml PO Q6H PRN PRN Reason: Cough Stop: 07/20/22 15:14 Last Admin: 06/20/22 17:39 Dose: 5 ml Loratadine (Loratadine 10 Mg Tab) 10 mg PO QAM ESTELA Stop: 07/17/22 08:59 Last Admin: 07/01/22 07:31 Dose: 10 mg Lorazepam (Lorazepam 0.5 Mg Tab) 0.5 mg PO Q6 ESTELA Stop: 07/08/22 17:59 Last Admin: 07/01/22 06:38 Dose: 0.5 mg Lorazepam (Lorazepam 0.5 Mg Tab) 0.5 mg PO Q6H PRN PRN Reason: Worsening involuntary movement Stop: 07/16/22 19:19 Last Admin: 06/22/22 08:50 Dose: 0.5 mg Magnesium Hydroxide (Magnesium Hydroxide Susp 30 Ml Udc) 30 ml PO Q6H PRN PRN Reason: Constipation Stop: 07/17/22 17:39 Ondansetron HCl (Ondansetron Inj 2 Mg/Ml 2 Ml Vial) 4 mg IV Q6H PRN PRN Reason: Nausea Stop: 07/17/22 17:39 Last Admin: 06/24/22 20:10 Dose: 4 mg Pantoprazole Sodium (Pantoprazole 40 Mg Tab) 40 mg PO HS ESTELA Stop: 07/17/22 20:59 Last Admin: 06/30/22 21:18 Dose: 40 mg Polyethylene Glycol (Polyethylene (Miralax) 17 Gm Pack) 17 gm PO DAILY PRN PRN Reason: Constipation Stop: 07/17/22 17:39 Senna/Docusate Sodium (Docusate Sodium/Senna 50/8.6mg Tab) 1 tab PO BID ESTELA Stop: 07/17/22 20:59 Last Admin: 05/20/22 08:41 Dose: Not Given Sertraline HCl (Sertraline Hcl 50 Mg Tablet) 25 mg PO QAM ESTELA Stop: 07/17/22 08:59 Last Admin: 07/01/22 07:31 Dose: 25 mg Sterile Water (Tube Feeding Water Flush) 30 ml GT Q4H ESTELA Stop: 07/23/22 14:59 Last Admin: 07/01/22 07:30 Dose: 30 ml Trazodone HCl (Trazodone Hcl 50 Mg Tab) 50 mg PO HS ESTELA Stop: 07/17/22 20:59 Last Admin: 06/30/22 21:19 Dose: 50 mg
[2022-07-01] MEDS: traZODone HCL 50 MG TAB PO SCH (21:55)
[2022-07-01] MEDS: PANTOprazole 40 MG TAB PO SCH (21:55)
[2022-07-01] MEDS: ENOXAPARIN INJ 40 MG/0.4 ML SYR SQ SCH (22:26)
[2022-07-02] MEDS: TUBE FEEDING WATER FLUSH GT SCH ×5 (03:50→18:37)
[2022-07-02] MEDS: LORazepam 0.5 MG TAB PO SCH ×3 (05:59→17:33)
[2022-07-02] MEDS: PEPTAMEN 1.5 CAL 1,000 ML BAG PO SCH ×6 (05:59→21:24)
[2022-07-02] MEDS: LORATADINE 10 MG TAB PO SCH (09:04)
[2022-07-02] MEDS: SERTRALINE HCL 50 MG TABLET PO SCH (09:04)
[2022-07-02] MEDS: AUSTEDO 12 MG PO SCH ×2 (09:05→21:25)
--- NOTE | 2022-07-02 19:48 | Hospitalist Progress Note ---
Date of Service July 02, 2022 Assessment & Plan (1) Sacral decubitus ulcer, stage II: (2) Urinary retention: (3) Ambulatory dysfunction: (4) [place] chorea: Plan: Patient is a 41 yr male who has significant past medical history of [place]'s chorea and GERD who presented to ED on 04/30 secondary to fall prior to arrival. 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 Rodriguez - pt's neurologist at [facility] Fall precautions Waiting for placement Medically Stable Possible Aspiration Pneumonitis CXR - Possible right midlung opacity. Pneumonia cannot be excluded. Radiographic follow-up to ensure resolution is recommended. Completed 7day course of Unasyn Aspiration precautions Acute urinary retention Hematuria due to traumatic catheter Resolved Constipation Feeding by G-Tube Concrete Tile Machine Operator consulted, started bolus feeding Continue tube feeds bowel regimen as needed Continue wound care at G-tube site Stage II sacral decubitus ulcer wound care consulted Continue to reposition DVT px: SQ Lovenox Disposition: Awaiting placement Admission and Anticipated Discharge Date Admission Date: April 30, 2022 Subjective Patient is seen in follow-up of Suzy's chorea No new complaints Patient feels his chorea movements are at his baseline Denies any chest pain, dyspnea, nausea, abd pain Waiting for placement Review of Systems Review of Systems: All systems reviewed & are unremarkable except as noted in Subjective Physical Exam Physical Exam: General Appearance: Thin, frail, ill-appearing, + chorea movements Head: normocephalic, Atraumatic Eyes: normal inspection, EOMI Neck: supple Respiratory/Chest: Normal breath sounds, CTA, No accessory muscle use Cardiovascular: S1, S2, No murmur Abdomen/GI:Soft, Non tender, Bowel sounds present Extremities/Musculoskeletal:normal inspection, no edema Neurologic/Psych:AAOX3, + chorea movements Skin: normal color, warm Results & Data Results & Data ([facility]) Vital Signs (Past 12 Hours) Vital Signs Temp Pulse Resp BP Pulse Ox O2 Del Method 07/02/22 14:32 36.4 C L 81 18 93/57 L 97 Room Air 07/02/22 11:08 36.4 C L 82 25 H 94/63 L 97 Room Air 07/02/22 09:09 36.4 C L 82 90/70 L 100 Room Air
[2022-07-02] MEDS: PANTOprazole 40 MG TAB PO SCH (21:25)
[2022-07-02] MEDS: traZODone HCL 50 MG TAB PO SCH (21:26)
[2022-07-02] MEDS: ENOXAPARIN INJ 40 MG/0.4 ML SYR SQ SCH (21:26)
[2022-07-03] MEDS: TUBE FEEDING WATER FLUSH GT SCH ×7 (00:15→23:23)
[2022-07-03] MEDS: LORazepam 0.5 MG TAB PO SCH ×5 (00:15→23:23)
[2022-07-03] MEDS: PEPTAMEN 1.5 CAL 1,000 ML BAG PO SCH ×6 (06:04→20:42)
[2022-07-03] MEDS: SERTRALINE HCL 50 MG TABLET PO SCH (08:58)
[2022-07-03] MEDS: AUSTEDO 12 MG PO SCH ×2 (08:58→20:41)
[2022-07-03] MEDS: LORATADINE 10 MG TAB PO SCH (08:59)
[2022-07-03] MEDS: LORazepam 0.5 MG TAB PO PRN (17:41)
--- NOTE | 2022-07-03 18:37 | Hospitalist Progress Note ---
Date of Service July 03, 2022 Assessment & Plan (1) Sacral decubitus ulcer, stage II: (2) Urinary retention: (3) Ambulatory dysfunction: (4) [place] chorea: Plan: Patient is a 41 yr male who has significant past medical history of [place]'s chorea and GERD who presented to ED on 04/30 secondary to fall prior to arrival. 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 Rodriguez - pt's neurologist at [facility] Fall precautions Waiting for placement Medically Stable Possible Aspiration Pneumonitis CXR - Possible right midlung opacity. Pneumonia cannot be excluded. Radiographic follow-up to ensure resolution is recommended. Completed 7day course of Unasyn Aspiration precautions Acute urinary retention Hematuria due to traumatic catheter Resolved Constipation Feeding by G-Tube Seedling Puller consulted, started bolus feeding Continue tube feeds bowel regimen as needed Continue wound care at G-tube site Stage II sacral decubitus ulcer wound care consulted Continue to reposition DVT px: SQ Lovenox Disposition: Awaiting placement Admission and Anticipated Discharge Date Admission Date: April 30, 2022 Subjective Patient is seen in follow-up of [place]'s chorea No new complaints Denies any chest pain, dyspnea, nausea, abd pain Waiting for placement Review of Systems Review of Systems: All systems reviewed & are unremarkable except as noted in Subjective Physical Exam Physical Exam: General Appearance: Thin, frail, ill-appearing, + chorea movements Head: normocephalic, Atraumatic Eyes: normal inspection, EOMI Neck: supple Respiratory/Chest: Normal breath sounds, CTA, No accessory muscle use Cardiovascular: S1, S2, No murmur Abdomen/GI:Soft, Non tender, Bowel sounds present Extremities/Musculoskeletal:normal inspection, no edema Neurologic/Psych:AAOX3, + chorea movements Skin: normal color, warm Results & Data Results & Data ([facility]) Vital Signs (Past 12 Hours) Vital Signs Temp Pulse Resp BP Pulse Ox O2 Del Method 07/03/22 14:22 36.8 C 87 18 118/80 96 Room Air 07/03/22 07:35 Room Air 07/03/22 07:40 36.8 C 83 18 92/56 L 98 Room Air Medications Administered Current Inpatient Medications Acetaminophen (Acetaminophen 325 Mg Tab) 650 mg PO Q4H PRN PRN Reason: pain/fever Stop: 07/17/22 17:39 Last Admin: 05/03/22 12:27 Dose: 650 mg Al Hydrox/Mg Hydrox/Simethicone (Aluminum/Magnesium Susp 30 Ml Udc) 30 ml PO Q6H PRN PRN Reason: Dyspepsia Stop: 07/17/22 17:39 Benzonatate (Benzonatate 100 Mg Capsule) 100 mg PO BID PRN PRN Reason: Cough Stop: 07/17/22 17:39 Deutetrabenazine (Austedo 12 Mg Tablet) 2 each PO BID [facility] Stop: 07/17/22 10:59 Last Admin: 07/03/22 08:58 Dose: 2 each Enoxaparin Sodium (Enoxaparin Inj 40 Mg/0.4 Ml Syr) 40 mg SQ Q24H [facility] Stop: 07/17/22 21:59 Last Admin: 07/02/22 21:26 Dose: 40 mg Enteral Nutritional Formula (Peptamen 1.5 Erich 1,000 Ml Bag) 200 ml PO 0600,0900,1200,1500,1800,2100 [facility]; Protocol Stop: 07/23/22 14:59 Last Admin: 07/03/22 17:41 Dose: 200 ml Guaifenesin/Dextromethorphan (Guaifenesin/Dextrom Syrup 100mg/10mg 5ml Udc) 5 ml PO Q6H PRN PRN Reason: Cough Stop: 07/20/22 15:14 Last Admin: 06/20/22 17:39 Dose: 5 ml Loratadine (Loratadine 10 Mg Tab) 10 mg PO QAM [facility] Stop: 07/17/22 08:59 Last Admin: 07/03/22 08:59 Dose: 10 mg Lorazepam (Lorazepam 0.5 Mg Tab) 0.5 mg PO Q6 [facility] Stop: 07/08/22 17:59 Last Admin: 07/03/22 17:44 Dose: 0.5 mg Lorazepam (Lorazepam 0.5 Mg Tab) 0.5 mg PO Q6H PRN PRN Reason: Worsening involuntary movement Stop: 07/16/22 19:19 Last Admin: 07/03/22 17:41 Dose: 0.5 mg Magnesium Hydroxide (Magnesium Hydroxide Susp 30 Ml Udc) 30 ml PO Q6H PRN PRN Reason: Constipation Stop: 07/17/22 17:39 Ondansetron HCl (Ondansetron Inj 2 Mg/Ml 2 Ml Vial) 4 mg IV Q6H PRN PRN Reason: Nausea Stop: 07/17/22 17:39 Last Admin: 06/24/22 20:10 Dose: 4 mg Pantoprazole Sodium (Pantoprazole 40 Mg Tab) 40 mg PO HS [facility] Stop: 07/17/22 20:59 Last Admin: 07/02/22 21:25 Dose: 40 mg Polyethylene Glycol (Polyethylene (Miralax) 17 Gm Pack) 17 gm PO DAILY PRN PRN Reason: Constipation Stop: 07/17/22 17:39 Last Admin: 07/03/22 06:03 Dose: 17 gm Senna/Docusate Sodium (Docusate Sodium/Senna 50/8.6mg Tab) 1 tab PO BID [facility] Stop: 07/17/22 20:59 Last Admin: 05/20/22 08:41 Dose: Not Given Sertraline HCl (Sertraline Hcl 50 Mg Tablet) 25 mg PO QAM [facility] Stop: 07/17/22 08:59 Last Admin: 07/03/22 08:58 Dose: 25 mg Sterile Water (Tube Feeding Water Flush) 30 ml GT Q4H [facility] Stop: 07/23/22 14:59 Last Admin: 07/03/22 14:21 Dose: 30 ml Trazodone HCl (Trazodone Hcl 50 Mg Tab) 50 mg PO HS [facility] Stop: 07/17/22 20:59 Last Admin: 07/02/22 21:26 Dose: 50 mg
[2022-07-03] MEDS: PANTOprazole 40 MG TAB PO SCH (20:40)
[2022-07-03] MEDS: traZODone HCL 50 MG TAB PO SCH (20:40)
[2022-07-03] MEDS: ENOXAPARIN INJ 40 MG/0.4 ML SYR SQ SCH (20:41)
[2022-07-04] MEDS: TUBE FEEDING WATER FLUSH GT SCH ×6 (02:31→23:46)
[2022-07-04] MEDS: LORazepam 0.5 MG TAB PO SCH ×4 (05:49→23:46)
[2022-07-04] MEDS: PEPTAMEN 1.5 CAL 1,000 ML BAG PO SCH ×6 (05:52→21:01)
[2022-07-04] MEDS: SERTRALINE HCL 50 MG TABLET PO SCH (08:28)
[2022-07-04] MEDS: LORATADINE 10 MG TAB PO SCH (08:28)
[2022-07-04] MEDS: AUSTEDO 12 MG PO SCH ×2 (08:29→21:00)
--- NOTE | 2022-07-04 18:37 | Hospitalist Progress Note ---
Date of Service July 04, 2022 Assessment & Plan (1) Sacral decubitus ulcer, stage II: (2) Urinary retention: (3) Ambulatory dysfunction: (4) [place] chorea: Plan: Patient is a 41 yr male who has significant past medical history of [place]'s chorea and GERD who presented to ED on 04/30 secondary to fall prior to arrival. [place] Chorea Ambulatory dysfunction Frequent falls Patient's family no longer able to care patient due to worsening [place]'s Chorea Continue Deutetrabenazine (Austedo) at max dose 24 mg bid, Ativan Hold Ativan for excessive sedation Discussed with Dr. Rodriguez - pt's neurologist at [facility] Fall precautions Waiting for placement Medically Stable Possible Aspiration Pneumonitis CXR - Possible right midlung opacity. Pneumonia cannot be excluded. Radiographic follow-up to ensure resolution is recommended. Completed 7day course of Unasyn Aspiration precautions Acute urinary retention Hematuria due to traumatic catheter Resolved Constipation Feeding by G-Tube Design Engineer consulted, started bolus feeding Continue tube feeds bowel regimen as needed Continue wound care at G-tube site Stage II sacral decubitus ulcer wound care consulted Continue to reposition DVT px: SQ Lovenox Disposition: Awaiting placement Admission and Anticipated Discharge Date Admission Date: April 30, 2022 Subjective Patient is seen in follow-up of Suzy's chorea No new complaints Denies any chest pain, dyspnea, nausea, abd pain Waiting for placement Patient's aunt at the bedside today, updated. Review of Systems Review of Systems: All systems reviewed & are unremarkable except as noted in Subjective Physical Exam Physical Exam: General Appearance: Thin, frail, ill-appearing, + chorea movements Head: normocephalic, Atraumatic Eyes: normal inspection, EOMI Neck: supple Respiratory/Chest: Normal breath sounds, CTA, No accessory muscle use Cardiovascular: S1, S2, No murmur Abdomen/GI:Soft, Non tender, Bowel sounds present Extremities/Musculoskeletal:normal inspection, no edema Neurologic/Psych:AAOX3, + chorea movements Skin: normal color, warm Results & Data Results & Data ([facility]) Vital Signs (Past 12 Hours) Vital Signs Temp Pulse Resp BP Pulse Ox O2 Del Method 07/04/22 15:04 36.6 C 60 16 105/75 95 Room Air 07/04/22 07:30 Room Air 07/04/22 07:18 36.6 C 70 16 95/60 L 95 Room Air Medications Administered Current Inpatient Medications Acetaminophen (Acetaminophen 325 Mg Tab) 650 mg PO Q4H PRN PRN Reason: pain/fever Stop: 07/17/22 17:39 Last Admin: 05/03/22 12:27 Dose: 650 mg Al Hydrox/Mg Hydrox/Simethicone (Aluminum/Magnesium Susp 30 Ml Udc) 30 ml PO Q6H PRN PRN Reason: Dyspepsia Stop: 07/17/22 17:39 Benzonatate (Benzonatate 100 Mg Capsule) 100 mg PO BID PRN PRN Reason: Cough Stop: 07/17/22 17:39 Deutetrabenazine (Austedo 12 Mg Tablet) 2 each PO BID [facility] Stop: 07/17/22 10:59 Last Admin: 07/04/22 08:29 Dose: 2 each Enoxaparin Sodium (Enoxaparin Inj 40 Mg/0.4 Ml Syr) 40 mg SQ Q24H [facility] Stop: 07/17/22 21:59 Last Admin: 07/03/22 20:41 Dose: 40 mg Enteral Nutritional Formula (Peptamen 1.5 Erich 1,000 Ml Bag) 200 ml PO 0600,0900,1200,1500,1800,2100 [facility]; Protocol Stop: 07/23/22 14:59 Last Admin: 07/04/22 18:06 Dose: 200 ml Guaifenesin/Dextromethorphan (Guaifenesin/Dextrom Syrup 100mg/10mg 5ml Udc) 5 ml PO Q6H PRN PRN Reason: Cough Stop: 07/20/22 15:14 Last Admin: 06/20/22 17:39 Dose: 5 ml Loratadine (Loratadine 10 Mg Tab) 10 mg PO QAM [facility] Stop: 07/17/22 08:59 Last Admin: 07/04/22 08:28 Dose: 10 mg Lorazepam (Lorazepam 0.5 Mg Tab) 0.5 mg PO Q6 [facility] Stop: 07/08/22 17:59 Last Admin: 07/04/22 18:07 Dose: 0.5 mg Lorazepam (Lorazepam 0.5 Mg Tab) 0.5 mg PO Q6H PRN PRN Reason: Worsening involuntary movement Stop: 07/16/22 19:19 Last Admin: 07/03/22 17:41 Dose: 0.5 mg Magnesium Hydroxide (Magnesium Hydroxide Susp 30 Ml Udc) 30 ml PO Q6H PRN PRN Reason: Constipation Stop: 07/17/22 17:39 Ondansetron HCl (Ondansetron Inj 2 Mg/Ml 2 Ml Vial) 4 mg IV Q6H PRN PRN Reason: Nausea Stop: 07/17/22 17:39 Last Admin: 06/24/22 20:10 Dose: 4 mg Pantoprazole Sodium (Pantoprazole 40 Mg Tab) 40 mg PO HS [facility] Stop: 07/17/22 20:59 Last Admin: 07/03/22 20:40 Dose: 40 mg Polyethylene Glycol (Polyethylene (Miralax) 17 Gm Pack) 17 gm PO DAILY PRN PRN Reason: Constipation Stop: 07/17/22 17:39 Last Admin: 07/03/22 06:03 Dose: 17 gm Senna/Docusate Sodium (Docusate Sodium/Senna 50/8.6mg Tab) 1 tab PO BID [facility] Stop: 07/17/22 20:59 Last Admin: 05/20/22 08:41 Dose: Not Given Sertraline HCl (Sertraline Hcl 50 Mg Tablet) 25 mg PO QAM [facility] Stop: 07/17/22 08:59 Last Admin: 07/04/22 08:28 Dose: 25 mg Sterile Water (Tube Feeding Water Flush) 30 ml GT Q4H [facility] Stop: 07/23/22 14:59 Last Admin: 07/04/22 18:07 Dose: 30 ml Trazodone HCl (Trazodone Hcl 50 Mg Tab) 50 mg PO HS [facility] Stop: 07/17/22 20:59 Last Admin: 07/03/22 20:40 Dose: 50 mg
[2022-07-04] MEDS: traZODone HCL 50 MG TAB PO SCH (21:01)
[2022-07-04] MEDS: PANTOprazole 40 MG TAB PO SCH (21:01)
[2022-07-04] MEDS: ENOXAPARIN INJ 40 MG/0.4 ML SYR SQ SCH (21:02)
[2022-07-05] MEDS: TUBE FEEDING WATER FLUSH GT SCH ×6 (03:50→21:54)
[2022-07-05] MEDS: PEPTAMEN 1.5 CAL 1,000 ML BAG PO SCH ×6 (05:53→20:38)
[2022-07-05] MEDS: LORazepam 0.5 MG TAB PO SCH ×4 (05:53→23:26)
[2022-07-05] MEDS: SERTRALINE HCL 50 MG TABLET PO SCH (08:36)
[2022-07-05] MEDS: AUSTEDO 12 MG PO SCH ×2 (08:36→20:37)
[2022-07-05] MEDS: LORATADINE 10 MG TAB PO SCH (08:36)
[2022-07-05] MEDS: LORazepam 0.5 MG TAB PO PRN (08:38)
--- NOTE | 2022-07-05 12:10 | Hospitalist Progress Note ---
Date of Service July 05, 2022 Assessment & Plan (1) Sacral decubitus ulcer, stage II: (2) Urinary retention: (3) Ambulatory dysfunction: (4) [place] chorea: Plan: Patient is a 41 yr male who has significant past medical history of [place]'s chorea and GERD who presented to ED on 04/30 secondary to fall prior to arrival. 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 Rodriguez - pt's neurologist at [facility] Fall precautions Waiting for placement Medically Stable Possible Aspiration Pneumonitis CXR - Possible right midlung opacity. Pneumonia cannot be excluded. Radiographic follow-up to ensure resolution is recommended. Completed 7day course of Unasyn Aspiration precautions Acute urinary retention Hematuria due to traumatic catheter Resolved Constipation Feeding by G-Tube Ell Tutor consulted, started bolus feeding Continue tube feeds bowel regimen as needed Continue wound care at G-tube site Stage II sacral decubitus ulcer wound care consulted Continue to reposition DVT px: SQ Lovenox Disposition: Awaiting placement Admission and Anticipated Discharge Date Admission Date: April 30, 2022 Subjective Patient is seen in follow-up of Suzy's chorea No new complaints Denies any chest pain, dyspnea, nausea, abd pain Waiting for placement Patient's aunt present at the bedside yesterday, and updated. Review of Systems Review of Systems: All systems reviewed & are unremarkable except as noted in Subjective Physical Exam Physical Exam: General Appearance: Thin, frail, ill-appearing, + chorea movements Head: normocephalic, Atraumatic Eyes: normal inspection, EOMI Neck: supple Respiratory/Chest: Normal breath sounds, CTA, No accessory muscle use Cardiovascular: S1, S2, No murmur Abdomen/GI:Soft, Non tender, Bowel sounds present Extremities/Musculoskeletal:normal inspection, no edema Neurologic/Psych:AAOX3, + chorea movements Skin: normal color, warm Results & Data Results & Data ([facility]) Medications Administered Current Inpatient Medications Acetaminophen (Acetaminophen 325 Mg Tab) 650 mg PO Q4H PRN PRN Reason: pain/fever Stop: 07/17/22 17:39 Last Admin: 05/03/22 12:27 Dose: 650 mg Al Hydrox/Mg Hydrox/Simethicone (Aluminum/Magnesium Susp 30 Ml Udc) 30 ml PO Q6H PRN PRN Reason: Dyspepsia Stop: 07/17/22 17:39 Benzonatate (Benzonatate 100 Mg Capsule) 100 mg PO BID PRN PRN Reason: Cough Stop: 07/17/22 17:39 Deutetrabenazine (Austedo 12 Mg Tablet) 2 each PO BID [facility] Stop: 07/17/22 10:59 Last Admin: 07/05/22 08:36 Dose: 2 each Enoxaparin Sodium (Enoxaparin Inj 40 Mg/0.4 Ml Syr) 40 mg SQ Q24H [facility] Stop: 07/17/22 21:59 Last Admin: 07/04/22 21:02 Dose: 40 mg Enteral Nutritional Formula (Peptamen 1.5 Erich 1,000 Ml Bag) 200 ml PO 0600,0900,1200,1500,1800,2100 [facility]; Protocol Stop: 07/23/22 14:59 Last Admin: 07/05/22 09:11 Dose: 200 ml Guaifenesin/Dextromethorphan (Guaifenesin/Dextrom Syrup 100mg/10mg 5ml Udc) 5 ml PO Q6H PRN PRN Reason: Cough Stop: 07/20/22 15:14 Last Admin: 06/20/22 17:39 Dose: 5 ml Loratadine (Loratadine 10 Mg Tab) 10 mg PO QAM [facility] Stop: 07/17/22 08:59 Last Admin: 07/05/22 08:36 Dose: 10 mg Lorazepam (Lorazepam 0.5 Mg Tab) 0.5 mg PO Q6 [facility] Stop: 07/08/22 17:59 Last Admin: 07/05/22 05:53 Dose: 0.5 mg Lorazepam (Lorazepam 0.5 Mg Tab) 0.5 mg PO Q6H PRN PRN Reason: Worsening involuntary movement Stop: 07/16/22 19:19 Last Admin: 07/05/22 08:38 Dose: 0.5 mg Magnesium Hydroxide (Magnesium Hydroxide Susp 30 Ml Udc) 30 ml PO Q6H PRN PRN Reason: Constipation Stop: 07/17/22 17:39 Ondansetron HCl (Ondansetron Inj 2 Mg/Ml 2 Ml Vial) 4 mg IV Q6H PRN PRN Reason: Nausea Stop: 07/17/22 17:39 Last Admin: 06/24/22 20:10 Dose: 4 mg Pantoprazole Sodium (Pantoprazole 40 Mg Tab) 40 mg PO HS [facility] Stop: 07/17/22 20:59 Last Admin: 07/04/22 21:01 Dose: 40 mg Polyethylene Glycol (Polyethylene (Miralax) 17 Gm Pack) 17 gm PO DAILY PRN PRN Reason: Constipation Stop: 07/17/22 17:39 Last Admin: 07/03/22 06:03 Dose: 17 gm Senna/Docusate Sodium (Docusate Sodium/Senna 50/8.6mg Tab) 1 tab PO BID [facility] Stop: 07/17/22 20:59 Last Admin: 05/20/22 08:41 Dose: Not Given Sertraline HCl (Sertraline Hcl 50 Mg Tablet) 25 mg PO QAM [facility] Stop: 07/17/22 08:59 Last Admin: 07/05/22 08:36 Dose: 25 mg Sterile Water (Tube Feeding Water Flush) 30 ml GT Q4H [facility] Stop: 07/23/22 14:59 Last Admin: 07/05/22 11:00 Dose: 30 ml Trazodone HCl (Trazodone Hcl 50 Mg Tab) 50 mg PO HS [facility] Stop: 07/17/22 20:59 Last Admin: 07/04/22 21:01 Dose: 50 mg
[2022-07-05] MEDS: traZODone HCL 50 MG TAB PO SCH (20:38)
[2022-07-05] MEDS: PANTOprazole 40 MG TAB PO SCH (20:38)
[2022-07-05] MEDS: ENOXAPARIN INJ 40 MG/0.4 ML SYR SQ SCH (21:52)
[2022-07-06] MEDS: TUBE FEEDING WATER FLUSH GT SCH ×6 (03:01→23:13)
[2022-07-06] MEDS: PEPTAMEN 1.5 CAL 1,000 ML BAG PO SCH ×6 (06:03→21:14)
[2022-07-06] MEDS: LORazepam 0.5 MG TAB PO SCH ×4 (06:03→23:13)
[2022-07-06] MEDS: LORATADINE 10 MG TAB PO SCH (08:47)
[2022-07-06] MEDS: SERTRALINE HCL 50 MG TABLET PO SCH (08:47)
[2022-07-06] MEDS: AUSTEDO 12 MG PO SCH ×2 (08:47→21:14)
--- NOTE | 2022-07-06 09:07 | Hospitalist Progress Note ---
Date of Service July 06, 2022 Assessment & Plan (1) Sacral decubitus ulcer, stage II: (2) Urinary retention: (3) Ambulatory dysfunction: (4) [place] chorea: Plan: Patient is a 41 yr male who has significant past medical history of [place]'s chorea and GERD who presented to ED on 04/30 secondary to fall prior to arrival. [place] Chorea Ambulatory dysfunction Frequent falls Patient's family no longer able to care patient due to worsening [place]'s Chorea Continue Deutetrabenazine (Austedo) at max dose 24 mg bid, Ativan Hold Ativan for excessive sedation Discussed with Dr. Rodriguez - pt's neurologist at [facility] Fall precautions Waiting for placement Medically Stable Possible Aspiration Pneumonitis CXR - Possible right midlung opacity. Pneumonia cannot be excluded. Radiographic follow-up to ensure resolution is recommended. Completed 7day course of Unasyn Aspiration precautions Acute urinary retention Hematuria due to traumatic catheter Resolved Constipation Feeding by G-Tube Water Reclamation Systems Operator consulted, started bolus feeding Continue tube feeds bowel regimen as needed Continue wound care at G-tube site Stage II sacral decubitus ulcer wound care consulted Continue to reposition DVT px: SQ Lovenox Disposition: Awaiting placement Admission and Anticipated Discharge Date Admission Date: April 30, 2022 Subjective Patient is seen in follow-up of [place]'s chorea No new complaints Denies any chest pain, dyspnea, nausea, abd pain Waiting for placement Patient's aunt present at the bedside over he weekend. Review of Systems Review of Systems: All systems reviewed & are unremarkable except as noted in Subjective Physical Exam Physical Exam: General Appearance: Thin, frail, ill-appearing, + chorea movements Head: normocephalic, Atraumatic Eyes: normal inspection, EOMI Neck: supple Respiratory/Chest: Normal breath sounds, CTA, No accessory muscle use Cardiovascular: S1, S2, No murmur Abdomen/GI:Soft, Non tender, Bowel sounds present Extremities/Musculoskeletal:normal inspection, no edema Neurologic/Psych:AAOX3, + chorea movements Skin: normal color, warm Results & Data Results & Data ([facility]) Vital Signs (Past 12 Hours) Vital Signs Temp Pulse Resp BP Pulse Ox O2 Del Method 07/06/22 08:27 36.4 C L 73 16 100/68 98 Room Air 07/05/22 21:29 36.8 C 63 18 93/59 L 97 Room Air Medications Administered Current Inpatient Medications Acetaminophen (Acetaminophen 325 Mg Tab) 650 mg PO Q4H PRN PRN Reason: pain/fever Stop: 07/17/22 17:39 Last Admin: 05/03/22 12:27 Dose: 650 mg Al Hydrox/Mg Hydrox/Simethicone (Aluminum/Magnesium Susp 30 Ml Udc) 30 ml PO Q6H PRN PRN Reason: Dyspepsia Stop: 07/17/22 17:39 Benzonatate (Benzonatate 100 Mg Capsule) 100 mg PO BID PRN PRN Reason: Cough Stop: 07/17/22 17:39 Deutetrabenazine (Austedo 12 Mg Tablet) 2 each PO BID [facility] Stop: 07/17/22 10:59 Last Admin: 07/06/22 08:47 Dose: 2 each Enoxaparin Sodium (Enoxaparin Inj 40 Mg/0.4 Ml Syr) 40 mg SQ Q24H [facility] Stop: 07/17/22 21:59 Last Admin: 07/05/22 21:52 Dose: 40 mg Enteral Nutritional Formula (Peptamen 1.5 Erich 1,000 Ml Bag) 200 ml PO 0600,0900,1200,1500,1800,2100 [facility]; Protocol Stop: 07/23/22 14:59 Last Admin: 07/06/22 08:48 Dose: 200 ml Guaifenesin/Dextromethorphan (Guaifenesin/Dextrom Syrup 100mg/10mg 5ml Udc) 5 ml PO Q6H PRN PRN Reason: Cough Stop: 07/20/22 15:14 Last Admin: 06/20/22 17:39 Dose: 5 ml Loratadine (Loratadine 10 Mg Tab) 10 mg PO QAM [facility] Stop: 07/17/22 08:59 Last Admin: 07/06/22 08:47 Dose: 10 mg Lorazepam (Lorazepam 0.5 Mg Tab) 0.5 mg PO Q6 [facility] Stop: 07/08/22 17:59 Last Admin: 07/06/22 06:03 Dose: 0.5 mg Lorazepam (Lorazepam 0.5 Mg Tab) 0.5 mg PO Q6H PRN PRN Reason: Worsening involuntary movement Stop: 07/16/22 19:19 Last Admin: 07/05/22 08:38 Dose: 0.5 mg Magnesium Hydroxide (Magnesium Hydroxide Susp 30 Ml Udc) 30 ml PO Q6H PRN PRN Reason: Constipation Stop: 07/17/22 17:39 Ondansetron HCl (Ondansetron Inj 2 Mg/Ml 2 Ml Vial) 4 mg IV Q6H PRN PRN Reason: Nausea Stop: 07/17/22 17:39 Last Admin: 06/24/22 20:10 Dose: 4 mg Pantoprazole Sodium (Pantoprazole 40 Mg Tab) 40 mg PO HS [facility] Stop: 07/17/22 20:59 Last Admin: 07/05/22 20:38 Dose: 40 mg Polyethylene Glycol (Polyethylene (Miralax) 17 Gm Pack) 17 gm PO DAILY PRN PRN Reason: Constipation Stop: 07/17/22 17:39 Last Admin: 07/03/22 06:03 Dose: 17 gm Senna/Docusate Sodium (Docusate Sodium/Senna 50/8.6mg Tab) 1 tab PO BID [facility] Stop: 07/17/22 20:59 Last Admin: 05/20/22 08:41 Dose: Not Given Sertraline HCl (Sertraline Hcl 50 Mg Tablet) 25 mg PO QAM [facility] Stop: 07/17/22 08:59 Last Admin: 07/06/22 08:47 Dose: 25 mg Sterile Water (Tube Feeding Water Flush) 30 ml GT Q4H [facility] Stop: 07/23/22 14:59 Last Admin: 07/06/22 07:24 Dose: 30 ml Trazodone HCl (Trazodone Hcl 50 Mg Tab) 50 mg PO HS [facility] Stop: 07/17/22 20:59 Last Admin: 07/05/22 20:38 Dose: 50 mg
[2022-07-06] MEDS: PANTOprazole 40 MG TAB PO SCH (21:14)
[2022-07-06] MEDS: traZODone HCL 50 MG TAB PO SCH (21:14)
[2022-07-06] MEDS: ENOXAPARIN INJ 40 MG/0.4 ML SYR SQ SCH (21:14)
[2022-07-07] MEDS: TUBE FEEDING WATER FLUSH GT SCH ×6 (03:52→23:34)
[2022-07-07] MEDS: LORazepam 0.5 MG TAB PO SCH ×4 (05:56→23:35)
[2022-07-07] MEDS: PEPTAMEN 1.5 CAL 1,000 ML BAG PO SCH ×6 (05:56→21:25)
[2022-07-07] MEDS: LORATADINE 10 MG TAB PO SCH (09:16)
[2022-07-07] MEDS: SERTRALINE HCL 50 MG TABLET PO SCH (09:16)
[2022-07-07] MEDS: AUSTEDO 12 MG PO SCH ×2 (09:17→21:25)
[2022-07-07] MEDS: LORazepam 0.5 MG TAB PO PRN (09:19)
--- NOTE | 2022-07-07 13:46 | Hospitalist Progress Note ---
Date of Service July 07, 2022 Assessment & Plan (1) Sacral decubitus ulcer, stage II: (2) Urinary retention: (3) Ambulatory dysfunction: (4) [place] chorea: Plan: Patient is a 41 yr male who has significant past medical history of [place]'s chorea and GERD who presented to ED on 04/30 secondary to fall prior to arrival. 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 Rodriguez - pt's neurologist at [facility] Fall precautions Waiting for placement Medically Stable Possible Aspiration Pneumonitis CXR - Possible right midlung opacity. Pneumonia cannot be excluded. Radiographic follow-up to ensure resolution is recommended. Completed 7day course of Unasyn Aspiration precautions Acute urinary retention Hematuria due to traumatic catheter Resolved Constipation Feeding by G-Tube Certified Ski Patroller consulted, started bolus feeding Continue tube feeds bowel regimen as needed Continue wound care at G-tube site Stage II sacral decubitus ulcer wound care consulted Continue to reposition DVT px: SQ Lovenox Disposition: Awaiting placement Admission and Anticipated Discharge Date Admission Date: April 30, 2022 Subjective Patient is seen in follow-up of [place]'s chorea No new complaints Denies any chest pain, dyspnea, nausea, abd pain Waiting for placement Patient's aunt present at the bedside over he weekend. Review of Systems Review of Systems: All systems reviewed & are unremarkable except as noted in Subjective Physical Exam Physical Exam: General Appearance: Thin, frail, ill-appearing, + chorea movements Head: normocephalic, Atraumatic Eyes: normal inspection, EOMI Neck: supple Respiratory/Chest: Normal breath sounds, CTA, No accessory muscle use Cardiovascular: S1, S2, No murmur Abdomen/GI:Soft, Non tender, Bowel sounds present Extremities/Musculoskeletal:normal inspection, no edema Neurologic/Psych:AAOX3, + chorea movements Skin: normal color, warm Results & Data Results & Data ([facility]) Vital Signs (Past 12 Hours) Vital Signs Temp Pulse Resp BP Pulse Ox O2 Del Method 07/07/22 07:34 36.6 C 65 16 95/60 L 95 Room Air Medications Administered Current Inpatient Medications Acetaminophen (Acetaminophen 325 Mg Tab) 650 mg PO Q4H PRN PRN Reason: pain/fever Stop: 07/17/22 17:39 Last Admin: 05/03/22 12:27 Dose: 650 mg Al Hydrox/Mg Hydrox/Simethicone (Aluminum/Magnesium Susp 30 Ml Udc) 30 ml PO Q6H PRN PRN Reason: Dyspepsia Stop: 07/17/22 17:39 Benzonatate (Benzonatate 100 Mg Capsule) 100 mg PO BID PRN PRN Reason: Cough Stop: 07/17/22 17:39 Deutetrabenazine (Austedo 12 Mg Tablet) 2 each PO BID [facility] Stop: 07/17/22 10:59 Last Admin: 07/07/22 09:17 Dose: Not Given Enoxaparin Sodium (Enoxaparin Inj 40 Mg/0.4 Ml Syr) 40 mg SQ Q24H [facility] Stop: 07/17/22 21:59 Last Admin: 07/06/22 21:14 Dose: 40 mg Enteral Nutritional Formula (Peptamen 1.5 Erich 1,000 Ml Bag) 200 ml PO 0600,0900,1200,1500,1800,2100 [facility]; Protocol Stop: 07/23/22 14:59 Last Admin: 07/07/22 12:23 Dose: 200 ml Guaifenesin/Dextromethorphan (Guaifenesin/Dextrom Syrup 100mg/10mg 5ml Udc) 5 ml PO Q6H PRN PRN Reason: Cough Stop: 07/20/22 15:14 Last Admin: 06/20/22 17:39 Dose: 5 ml Loratadine (Loratadine 10 Mg Tab) 10 mg PO QAM [facility] Stop: 07/17/22 08:59 Last Admin: 07/07/22 09:16 Dose: 10 mg Lorazepam (Lorazepam 0.5 Mg Tab) 0.5 mg PO Q6 [facility] Stop: 07/08/22 17:59 Last Admin: 07/07/22 12:24 Dose: 0.5 mg Lorazepam (Lorazepam 0.5 Mg Tab) 0.5 mg PO Q6H PRN PRN Reason: Worsening involuntary movement Stop: 07/16/22 19:19 Last Admin: 07/07/22 09:19 Dose: 0.5 mg Magnesium Hydroxide (Magnesium Hydroxide Susp 30 Ml Udc) 30 ml PO Q6H PRN PRN Reason: Constipation Stop: 07/17/22 17:39 Ondansetron HCl (Ondansetron Inj 2 Mg/Ml 2 Ml Vial) 4 mg IV Q6H PRN PRN Reason: Nausea Stop: 07/17/22 17:39 Last Admin: 06/24/22 20:10 Dose: 4 mg Pantoprazole Sodium (Pantoprazole 40 Mg Tab) 40 mg PO HS ESTELA Stop: 07/17/22 20:59 Last Admin: 07/06/22 21:14 Dose: 40 mg Polyethylene Glycol (Polyethylene (Miralax) 17 Gm Pack) 17 gm PO DAILY PRN PRN Reason: Constipation Stop: 07/17/22 17:39 Last Admin: 07/03/22 06:03 Dose: 17 gm Senna/Docusate Sodium (Docusate Sodium/Senna 50/8.6mg Tab) 1 tab PO BID [facility] Stop: 07/17/22 20:59 Last Admin: 05/20/22 08:41 Dose: Not Given Sertraline HCl (Sertraline Hcl 50 Mg Tablet) 25 mg PO QAM [facility] Stop: 07/17/22 08:59 Last Admin: 07/07/22 09:16 Dose: 25 mg Sterile Water (Tube Feeding Water Flush) 30 ml GT Q4H [facility]ELA Stop: 07/23/22 14:59 Last Admin: 07/07/22 10:25 Dose: 30 ml Trazodone HCl (Trazodone Hcl 50 Mg Tab) 50 mg PO HS ESTELA Stop: 07/17/22 20:59 Last Admin: 07/06/22 21:14 Dose: 50 mg
[2022-07-07] MEDS: PANTOprazole 40 MG TAB PO SCH (21:25)
[2022-07-07] MEDS: traZODone HCL 50 MG TAB PO SCH (21:26)
[2022-07-07] MEDS: ENOXAPARIN INJ 40 MG/0.4 ML SYR SQ SCH (21:26)
[2022-07-08] MEDS: TUBE FEEDING WATER FLUSH GT SCH ×6 (02:58→22:11)
[2022-07-08] MEDS: PEPTAMEN 1.5 CAL 1,000 ML BAG PO SCH ×6 (05:31→21:01)
[2022-07-08] MEDS: LORazepam 0.5 MG TAB PO SCH ×3 (05:34→19:22)
[2022-07-08] MEDS: AUSTEDO 12 MG PO SCH ×2 (08:30→21:00)
[2022-07-08] MEDS: LORATADINE 10 MG TAB PO SCH (08:30)
[2022-07-08] MEDS: SERTRALINE HCL 50 MG TABLET PO SCH (10:24)
--- NOTE | 2022-07-08 18:15 | Hospitalist Progress Note ---
Date of Service July 08, 2022 Assessment & Plan (1) Sacral decubitus ulcer, stage II: (2) Urinary retention: (3) Ambulatory dysfunction: (4) [place] chorea: Plan: Patient is a 41 yr male who has significant past medical history of [place]'s chorea and GERD who presented to ED on 04/30 secondary to fall prior to arrival. 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 Rodriguez - pt's neurologist at [facility] Fall precautions Waiting for placement Continue current medications Possible Aspiration Pneumonitis CXR - Possible right midlung opacity. Pneumonia cannot be excluded. Radiographic follow-up to ensure resolution is recommended. Completed 7day course of Unasyn Aspiration precautions Acute urinary retention Hematuria due to traumatic catheter Resolved Constipation Feeding by G-Tube Ballet Company Member consulted, started bolus feeding Continue tube feeds bowel regimen as needed Continue wound care at G-tube site Stage II sacral decubitus ulcer wound care consulted Continue to reposition DVT px: SQ Lovenox Disposition: Awaiting placement Admission and Anticipated Discharge Date Admission Date: April 30, 2022 Subjective Patient is seen and examined at bedside Having lunch during my encounter Offers no new complaints Waiting for placement Denies any chest pain, shortness of breath, dizziness, nausea, abdominal pain Review of Systems Review of Systems: All systems reviewed & are unremarkable except as noted in Subjective Physical Exam Physical Exam: Physical Exam: Vitals signs as noted above General Appearance: Thin, frail, ill-appearing, + chorea movements Head: normocephalic, Atraumatic Eyes: normal inspection, EOMI Neck: supple, Trachea midline Respiratory/Chest: Normal breath sounds, CTA, No accessory muscle use Cardiovascular: S1, S2, No murmur Abdomen/GI:Soft, Non tender, Bowel sounds present Extremities/Musculoskeletal:normal inspection, no edema Neurologic/Psych:AAOX3, grossly no focal neurological deficits Skin: normal color, warm Results & Data Results & Data ([facility]) Vital Signs (Past 12 Hours) Vital Signs Temp Pulse Resp BP Pulse Ox O2 Del Method 07/08/22 07:19 36.5 C 67 16 96/60 L 95 Room Air
[2022-07-08] MEDS: traZODone HCL 50 MG TAB PO SCH (21:00)
[2022-07-08] MEDS: PANTOprazole 40 MG TAB PO SCH (21:00)
[2022-07-08] MEDS: ENOXAPARIN INJ 40 MG/0.4 ML SYR SQ SCH (21:01)
[2022-07-09] MEDS: LORazepam 0.5 MG TAB PO SCH ×4 (01:48→20:47)
[2022-07-09] MEDS: TUBE FEEDING WATER FLUSH GT SCH ×6 (03:42→23:03)
[2022-07-09] MEDS: PEPTAMEN 1.5 CAL 1,000 ML BAG PO SCH ×6 (05:39→21:56)
[2022-07-09] MEDS: AUSTEDO 12 MG PO SCH ×2 (08:05→22:01)
[2022-07-09] MEDS: LORATADINE 10 MG TAB PO SCH (08:05)
[2022-07-09] MEDS: SERTRALINE HCL 50 MG TABLET PO SCH (08:05)
--- NOTE | 2022-07-09 16:52 | Hospitalist Progress Note ---
Date of Service July 09, 2022 Assessment & Plan (1) Sacral decubitus ulcer, stage II: (2) Urinary retention: (3) Ambulatory dysfunction: (4) [place] chorea: Plan: Patient is a 41 yr male who has significant past medical history of [place]'s chorea and GERD who presented to ED on 04/30 secondary to fall prior to arrival. 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 Rodriguez - pt's neurologist at [facility] Fall precautions Waiting for placement Possible Aspiration Pneumonitis CXR - Possible right midlung opacity. Pneumonia cannot be excluded. Radiographic follow-up to ensure resolution is recommended. Completed 7day course of Unasyn Aspiration precautions Acute urinary retention Hematuria due to traumatic catheter on Quinn Constipation Feeding by G-Tube Research Methods Instructor consulted, started bolus feeding Continue tube feeds bowel regimen as needed Continue wound care at G-tube site Stage II sacral decubitus ulcer wound care consulted Continue to reposition DVT px: SQ Lovenox Disposition: Awaiting placement Admission and Anticipated Discharge Date Admission Date: April 30, 2022 Subjective Patient is seen and examined at bedside Waiting for placement Denies any chest pain, shortness of breath, dizziness, nausea, abdominal pain Review of Systems Review of Systems: All systems reviewed & are unremarkable except as noted in Subjective Physical Exam Physical Exam: Physical Exam: Vitals signs as noted above General Appearance: Thin, frail, ill-appearing, + chorea movements Head: normocephalic, Atraumatic Eyes: normal inspection, EOMI Neck: supple, Trachea midline Respiratory/Chest: Normal breath sounds, CTA, No accessory muscle use Cardiovascular: S1, S2, No murmur Abdomen/GI:Soft, Non tender, Bowel sounds present Extremities/Musculoskeletal:normal inspection, no edema Neurologic/Psych:AAOX3, grossly no focal neurological deficits Skin: normal color, warm Results & Data Results & Data ([facility]) Vital Signs (Past 12 Hours) Vital Signs Temp Pulse Resp BP Pulse Ox O2 Del Method 07/09/22 15:42 36.6 C 92 H 16 94/61 L 93 Room Air 07/09/22 08:13 36.5 C 70 16 99/63 L 97 Room Air
[2022-07-09] MEDS: PANTOprazole 40 MG TAB PO SCH (20:48)
[2022-07-09] MEDS: traZODone HCL 50 MG TAB PO SCH (20:49)
[2022-07-09] MEDS: ENOXAPARIN INJ 40 MG/0.4 ML SYR SQ SCH (21:55)
[2022-07-10] MEDS: LORazepam 0.5 MG TAB PO SCH ×4 (01:13→19:51)
[2022-07-10] MEDS: TUBE FEEDING WATER FLUSH GT SCH ×6 (03:49→22:35)
[2022-07-10] MEDS: PEPTAMEN 1.5 CAL 1,000 ML BAG PO SCH ×6 (05:10→20:22)
[2022-07-10] MEDS: LORATADINE 10 MG TAB PO SCH (08:17)
[2022-07-10] MEDS: SERTRALINE HCL 50 MG TABLET PO SCH (08:18)
[2022-07-10] MEDS: AUSTEDO 12 MG PO SCH ×2 (09:03→20:21)
--- NOTE | 2022-07-10 17:39 | Hospitalist Progress Note ---
Date of Service July 10, 2022 Assessment & Plan (1) Sacral decubitus ulcer, stage II: (2) Urinary retention: (3) Ambulatory dysfunction: (4) [place] chorea: Plan: Patient is a 41 yr male who has significant past medical history of [place]'s chorea and GERD who presented to ED on 04/30 secondary to fall prior to arrival. 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 Rodriguez - pt's neurologist at [facility] Fall precautions Waiting for placement Continue current management Possible Aspiration Pneumonitis CXR - Possible right midlung opacity. Pneumonia cannot be excluded. Radiographic follow-up to ensure resolution is recommended. Completed 7day course of Unasyn Aspiration precautions Acute urinary retention Hematuria due to traumatic catheter on Quinn Constipation Feeding by G-Tube Senior Web Developer consulted, started bolus feeding Continue tube feeds bowel regimen as needed Continue wound care at G-tube site Stage II sacral decubitus ulcer wound care consulted Continue to reposition DVT px: SQ Lovenox Disposition: Awaiting placement Admission and Anticipated Discharge Date Admission Date: April 30, 2022 Subjective Patient is seen and examined at bedside No new complaints Waiting for placement Denies any chest pain, shortness of breath, dizziness, nausea, abdominal pain Review of Systems Review of Systems: All systems reviewed & are unremarkable except as noted in Subjective Physical Exam Physical Exam: Physical Exam: Vitals signs as noted above General Appearance: Thin, frail, ill-appearing, + chorea movements Head: normocephalic, Atraumatic Eyes: normal inspection, EOMI Neck: supple, Trachea midline Respiratory/Chest: Normal breath sounds, CTA, No accessory muscle use Cardiovascular: S1, S2, No murmur Abdomen/GI:Soft, Non tender, Bowel sounds present Extremities/Musculoskeletal:normal inspection, no edema Neurologic/Psych:AAOX3, grossly no focal neurological deficits Skin: normal color, warm Results & Data Results & Data ([facility]) Vital Signs (Past 12 Hours) Vital Signs Temp Pulse Resp BP BP Pulse Ox O2 Del Method 07/10/22 15:39 37.1 C 68 18 109/71 98 Room Air 07/10/22 06:22 36.8 C 79 18 93/60 L 96 Room Air
[2022-07-10] MEDS: PANTOprazole 40 MG TAB PO SCH (20:21)
[2022-07-10] MEDS: traZODone HCL 50 MG TAB PO SCH (20:21)
[2022-07-10] MEDS: ENOXAPARIN INJ 40 MG/0.4 ML SYR SQ SCH (21:07)
[2022-07-11] MEDS: LORazepam 0.5 MG TAB PO SCH ×4 (01:16→20:11)
[2022-07-11] MEDS: TUBE FEEDING WATER FLUSH GT SCH ×6 (05:16→21:56)
[2022-07-11] MEDS: PEPTAMEN 1.5 CAL 1,000 ML BAG PO SCH ×6 (05:42→20:41)
[2022-07-11] MEDS: AUSTEDO 12 MG PO SCH ×2 (07:35→19:28)
[2022-07-11] MEDS: SERTRALINE HCL 50 MG TABLET PO SCH (07:36)
[2022-07-11] MEDS: LORATADINE 10 MG TAB PO SCH (07:36)
--- NOTE | 2022-07-11 19:51 | Hospitalist Progress Note ---
Date of Service July 11, 2022 Assessment & Plan (1) Sacral decubitus ulcer, stage II: (2) Urinary retention: (3) Ambulatory dysfunction: (4) [place] chorea: Plan: Patient is a 41 yr male who has significant past medical history of [place]'s chorea and GERD who presented to ED on 04/30 secondary to fall prior to arrival. 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 Rodriguez - pt's neurologist at [facility] Fall precautions Waiting for placement Stable for discharge Possible Aspiration Pneumonitis CXR - Possible right midlung opacity. Pneumonia cannot be excluded. Radiographic follow-up to ensure resolution is recommended. Completed 7day course of Unasyn Aspiration precautions Acute urinary retention Hematuria due to traumatic catheter on Quinn Constipation Feeding by G-Tube Crop Farm Helper consulted, started bolus feeding Continue tube feeds bowel regimen as needed Continue wound care at G-tube site Stage II sacral decubitus ulcer wound care consulted Continue to reposition DVT px: SQ Lovenox Disposition: Awaiting placement Admission and Anticipated Discharge Date Admission Date: April 30, 2022 Subjective Patient is seen and examined at bedside Denies any chest pain, shortness of breath, dizziness, nausea, abdominal pain Stable for discharge Review of Systems Review of Systems: All systems reviewed & are unremarkable except as noted in Subjective Physical Exam Physical Exam: Physical Exam: Vitals signs as noted above General Appearance: Thin, frail, ill-appearing, + chorea movements Head: normocephalic, Atraumatic Eyes: normal inspection, EOMI Neck: supple, Trachea midline Respiratory/Chest: Normal breath sounds, CTA, No accessory muscle use Cardiovascular: S1, S2, No murmur Abdomen/GI:Soft, Non tender, Bowel sounds present Extremities/Musculoskeletal:normal inspection, no edema Neurologic/Psych:AAOX3, grossly no focal neurological deficits Skin: normal color, warm Results & Data Results & Data ([facility]) Vital Signs (Past 12 Hours) Vital Signs Temp Pulse Resp BP Pulse Ox O2 Del Method 07/11/22 15:26 36.3 C L 75 17 100/66 94 Room Air
[2022-07-11] MEDS: traZODone HCL 50 MG TAB PO SCH (20:39)
[2022-07-11] MEDS: PANTOprazole 40 MG TAB PO SCH (20:39)
[2022-07-11] MEDS: ENOXAPARIN INJ 40 MG/0.4 ML SYR SQ SCH (20:40)
[2022-07-12] MEDS: LORazepam 0.5 MG TAB PO SCH ×4 (02:22→19:46)
[2022-07-12] MEDS: TUBE FEEDING WATER FLUSH GT SCH ×6 (03:31→22:33)
[2022-07-12] MEDS: PEPTAMEN 1.5 CAL 1,000 ML BAG PO SCH ×6 (05:58→21:13)
[2022-07-12] MEDS: SERTRALINE HCL 50 MG TABLET PO SCH (08:04)
[2022-07-12] MEDS: AUSTEDO 12 MG PO SCH ×2 (08:04→19:29)
[2022-07-12] MEDS: LORATADINE 10 MG TAB PO SCH (08:04)
[2022-07-12] MEDS: LORazepam 0.5 MG TAB PO PRN ×2 (11:58→22:47)
--- NOTE | 2022-07-12 16:51 | Hospitalist Progress Note ---
Date of Service July 12, 2022 Assessment & Plan (1) Sacral decubitus ulcer, stage II: (2) Urinary retention: (3) Ambulatory dysfunction: (4) [place] chorea: Plan: Patient is a 41 yr male who has significant past medical history of [place]'s chorea and GERD who presented to ED on 04/30 secondary to fall prior to arrival. 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 Rodriguez - pt's neurologist at [facility] Fall precautions Waiting for placement Continue current medications Possible Aspiration Pneumonitis CXR - Possible right midlung opacity. Pneumonia cannot be excluded. Radiographic follow-up to ensure resolution is recommended. Completed 7day course of Unasyn Aspiration precautions Acute urinary retention Hematuria due to traumatic catheter on Quinn Constipation Feeding by G-Tube Senior Insight Manager consulted, started bolus feeding Continue tube feeds bowel regimen as needed Continue wound care at G-tube site Stage II sacral decubitus ulcer wound care consulted Continue to reposition DVT px: SQ Lovenox Disposition: Awaiting placement Admission and Anticipated Discharge Date Admission Date: April 30, 2022 Subjective Patient is seen and examined at bedside No new complaints Denies any chest pain, shortness of breath, dizziness, nausea, abdominal pain Stable for discharge Review of Systems Review of Systems: All systems reviewed & are unremarkable except as noted in Subjective Physical Exam Physical Exam: Physical Exam: Vitals signs as noted above General Appearance: Thin, frail, ill-appearing, + chorea movements Head: normocephalic, Atraumatic Eyes: normal inspection, EOMI Neck: supple, Trachea midline Respiratory/Chest: Normal breath sounds, CTA, No accessory muscle use Cardiovascular: S1, S2, No murmur Abdomen/GI:Soft, Non tender, Bowel sounds present Extremities/Musculoskeletal:normal inspection, no edema Neurologic/Psych:AAOX3, grossly no focal neurological deficits Skin: normal color, warm Results & Data Results & Data ([facility]) Vital Signs (Past 12 Hours) Vital Signs Temp Pulse Resp BP BP Pulse Ox O2 Del Method 07/12/22 14:55 36.6 C 79 17 106/70 96 Room Air 07/12/22 05:57 36.4 C L 61 18 93/59 L 98 Room Air
[2022-07-12] MEDS: PANTOprazole 40 MG TAB PO SCH (19:46)
[2022-07-12] MEDS: traZODone HCL 50 MG TAB PO SCH (19:46)
[2022-07-12] MEDS: ENOXAPARIN INJ 40 MG/0.4 ML SYR SQ SCH (21:13)
[2022-07-12] MEDS: BENZONATATE 100 MG CAPSULE PO PRN (22:47)
[2022-07-13] MEDS: LORazepam 0.5 MG TAB PO SCH ×4 (01:59→20:50)
[2022-07-13] MEDS: TUBE FEEDING WATER FLUSH GT SCH ×6 (04:05→23:48)
[2022-07-13] MEDS: PEPTAMEN 1.5 CAL 1,000 ML BAG PO SCH ×6 (06:22→20:51)
[2022-07-13] MEDS: SERTRALINE HCL 50 MG TABLET PO SCH (09:11)
[2022-07-13] MEDS: LORATADINE 10 MG TAB PO SCH (09:12)
[2022-07-13] MEDS: AUSTEDO 12 MG PO SCH ×2 (09:13→20:51)
[2022-07-13] MEDS: BENZONATATE 100 MG CAPSULE PO PRN (09:15)
--- NOTE | 2022-07-13 16:31 | Hospitalist Progress Note ---
Date of Service July 13, 2022 Assessment & Plan (1) Sacral decubitus ulcer, stage II: (2) Urinary retention: (3) Ambulatory dysfunction: (4) [place] chorea: Plan: Patient is a 41 yr male who has significant past medical history of [place]'s chorea and GERD who presented to ED on 04/30 secondary to fall prior to arrival. 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 Rodriguez - pt's neurologist at [facility] Fall precautions Waiting for placement Possible Aspiration Pneumonitis CXR - Possible right midlung opacity. Pneumonia cannot be excluded. Radiographic follow-up to ensure resolution is recommended. Completed 7day course of Unasyn Aspiration precautions Acute urinary retention Hematuria due to traumatic catheter Resolved Quinn catheter discontinued Constipation Feeding by G-Tube Quality Supervisor consulted, started bolus feeding Continue tube feeds bowel regimen as needed Continue wound care at G-tube site Stage II sacral decubitus ulcer wound care consulted Continue to reposition DVT px: SQ Lovenox Disposition: Awaiting placement Admission and Anticipated Discharge Date Admission Date: April 30, 2022 Subjective Patient is seen and examined at bedside Denies any chest pain, shortness of breath, dizziness, nausea, abdominal pain Waiting for placement BP relatively low but asymptomatic Review of Systems Review of Systems: All systems reviewed & are unremarkable except as noted in Subjective Physical Exam Physical Exam: Physical Exam: Vitals signs as noted above General Appearance: Thin, frail, ill-appearing, + chorea movements Head: normocephalic, Atraumatic Eyes: normal inspection, EOMI Neck: supple, Trachea midline Respiratory/Chest: Normal breath sounds, CTA, No accessory muscle use Cardiovascular: S1, S2, No murmur Abdomen/GI:Soft, Non tender, Bowel sounds present Extremities/Musculoskeletal:normal inspection, no edema Neurologic/Psych:AAOX3, grossly no focal neurological deficits Skin: normal color, warm Results & Data Results & Data ([facility]) Vital Signs (Past 12 Hours) Vital Signs Temp Pulse Resp BP BP Pulse Ox O2 Del Method 07/13/22 15:13 36.3 C L 62 18 96/63 L 95 Room Air 07/13/22 07:46 36.3 C L 68 18 100/66 97 Room Air
[2022-07-13] MEDS: PANTOprazole 40 MG TAB PO SCH (20:51)
[2022-07-13] MEDS: ENOXAPARIN INJ 40 MG/0.4 ML SYR SQ SCH (20:52)
[2022-07-13] MEDS: traZODone HCL 50 MG TAB PO SCH (20:52)
[2022-07-14] MEDS: TUBE FEEDING WATER FLUSH GT SCH ×6 (04:32→23:20)
[2022-07-14] MEDS: LORazepam 0.5 MG TAB PO SCH ×4 (04:32→22:14)
[2022-07-14] MEDS: PEPTAMEN 1.5 CAL 1,000 ML BAG PO SCH ×6 (05:57→22:16)
[2022-07-14] MEDS: SERTRALINE HCL 50 MG TABLET PO SCH (08:54)
[2022-07-14] MEDS: AUSTEDO 12 MG PO SCH ×2 (08:55→22:15)
[2022-07-14] MEDS: LORATADINE 10 MG TAB PO SCH (08:55)
--- NOTE | 2022-07-14 17:50 | Hospitalist Progress Note ---
Date of Service July 14, 2022 Assessment & Plan (1) Sacral decubitus ulcer, stage II: (2) Urinary retention: (3) Ambulatory dysfunction: (4) [place] chorea: Plan: Patient is a 41 yr male who has significant past medical history of [place]'s chorea and GERD who presented to ED on 04/30 secondary to fall prior to arrival. 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 Rodriguez - pt's neurologist at [facility] Fall precautions Waiting for placement Continue current management Possible Aspiration Pneumonitis CXR - Possible right midlung opacity. Pneumonia cannot be excluded. Radiographic follow-up to ensure resolution is recommended. Completed 7day course of Unasyn Aspiration precautions Acute urinary retention Hematuria due to traumatic catheter Resolved Quinn catheter discontinued Constipation Feeding by G-Tube Servomechanism Assembler consulted, started bolus feeding Continue tube feeds bowel regimen as needed Continue wound care at G-tube site Stage II sacral decubitus ulcer wound care consulted Continue to reposition DVT px: SQ Lovenox Disposition: Awaiting placement Admission and Anticipated Discharge Date Admission Date: April 30, 2022 Subjective Patient is seen and examined at bedside No new complaints Denies any chest pain, shortness of breath, dizziness, nausea, abdominal pain Waiting for placement BP better today Review of Systems Review of Systems: All systems reviewed & are unremarkable except as noted in Subjective Physical Exam Physical Exam: Physical Exam: Vitals signs as noted above General Appearance: Thin, frail, ill-appearing, + chorea movements Head: normocephalic, Atraumatic Eyes: normal inspection, EOMI Neck: supple, Trachea midline Respiratory/Chest: Normal breath sounds, CTA, No accessory muscle use Cardiovascular: S1, S2, No murmur Abdomen/GI:Soft, Non tender, Bowel sounds present Extremities/Musculoskeletal:normal inspection, no edema Neurologic/Psych:AAOX3, grossly no focal neurological deficits Skin: normal color, warm Results & Data Results & Data ([facility]) Vital Signs (Past 12 Hours) Vital Signs Temp Pulse Resp BP BP Pulse Ox O2 Del Method 07/14/22 15:06 36.5 C 80 108/70 96 07/14/22 11:31 75 87/65 L 95 Room Air 07/14/22 08:20 Room Air 07/14/22 07:52 36.7 C 86 18 132/78
[2022-07-14] MEDS: BENZONATATE 100 MG CAPSULE PO PRN (18:00)
[2022-07-14] MEDS: PANTOprazole 40 MG TAB PO SCH (22:14)
[2022-07-14] MEDS: traZODone HCL 50 MG TAB PO SCH (22:14)
[2022-07-14] MEDS: ENOXAPARIN INJ 40 MG/0.4 ML SYR SQ SCH (22:15)
[2022-07-15] MEDS: LORazepam 0.5 MG TAB PO SCH ×4 (01:23→20:00)
[2022-07-15 03:32] LABS: Bilirubin Urine Negative (Negative); Blood Urine Negative (Negative); Color Urine Yellow; Glucose Urine UA Negative (Negative); Ketones Urine Negative (Negative); Leukocyte Esterase Urine Negative (Negative); Nitrite Urine Negative (Negative); Protein Urine Negative (Negative); Specific Gravity Urine 1.016 (1.000-1.030); Urobilinogen Urine Negative (Negative)
[2022-07-15 03:35] LABS: Appearance Urine Clear (Clear)
[2022-07-15] MEDS: TUBE FEEDING WATER FLUSH GT SCH ×7 (03:38→22:29)
[2022-07-15] MEDS: PEPTAMEN 1.5 CAL 1,000 ML BAG PO SCH ×6 (05:51→21:17)
[2022-07-15] MEDS: LORazepam 0.5 MG TAB PO PRN (05:51)
[2022-07-15] MEDS: AUSTEDO 12 MG PO SCH ×2 (09:39→21:08)
[2022-07-15] MEDS: SERTRALINE HCL 50 MG TABLET PO SCH (09:39)
[2022-07-15] MEDS: LORATADINE 10 MG TAB PO SCH (09:40)
[2022-07-15] MEDS ORDERED: ONDANSETRON 4 MG OD TAB PO PRN (10:26)
[2022-07-15] MEDS: BENZONATATE 100 MG CAPSULE PO PRN (15:44)
--- NOTE | 2022-07-15 17:58 | Hospitalist Progress Note ---
Date of Service July 15, 2022 Assessment & Plan (1) Sacral decubitus ulcer, stage II: (2) Urinary retention: (3) Ambulatory dysfunction: (4) G[place] chorea: Plan: Patient is a 41 yr male who has significant past medical history of Gail's chorea and GERD who presented to ED on 04/30 secondary to fall prior to arrival. [place] Chorea Ambulatory dysfunction Frequent falls Patient's family no longer able to care patient due to worsening Gail's Chorea Continue Deutetrabenazine (Austedo) at max dose 24 mg bid, Ativan Hold Ativan for excessive sedation Discussed with Dr. Rodriguez - pt's neurologist at [facility] Fall precautions Waiting for placement No change in current management Possible Aspiration Pneumonitis CXR - Possible right midlung opacity. Pneumonia cannot be excluded. Radiographic follow-up to ensure resolution is recommended. Completed 7day course of Unasyn Aspiration precautions Acute urinary retention Hematuria due to traumatic catheter Resolved Quinn catheter discontinued Constipation Feeding by G-Tube Home Appliance Washing Machine Mechanic consulted, started bolus feeding Continue tube feeds bowel regimen as needed Continue wound care at G-tube site Stage II sacral decubitus ulcer wound care consulted Continue to reposition DVT px: SQ Lovenox Disposition: Awaiting placement Admission and Anticipated Discharge Date Admission Date: April 30, 2022 Subjective Patient is seen and examined at bedside Denies any chest pain, shortness of breath, dizziness, nausea, abdominal pain Waiting for placement Review of Systems Review of Systems: All systems reviewed & are unremarkable except as noted in Subjective Physical Exam Physical Exam: Physical Exam: Vitals signs as noted above General Appearance: Thin, frail, ill-appearing, + chorea movements Head: normocephalic, Atraumatic Eyes: normal inspection, EOMI Neck: supple, Trachea midline Respiratory/Chest: Normal breath sounds, CTA, No accessory muscle use Cardiovascular: S1, S2, No murmur Abdomen/GI:Soft, Non tender, Bowel sounds present Extremities/Musculoskeletal:normal inspection, no edema Neurologic/Psych:AAOX3, grossly no focal neurological deficits Skin: normal color, warm Results & Data Results & Data ([facility]) Vital Signs (Past 12 Hours) Vital Signs Temp Pulse Resp BP Pulse Ox 07/15/22 16:12 36.8 C 78 16 105/72 94 07/15/22 07:14 36.8 C 77 16 98/64 L 93 Laboratory Results Urine 07/15/22 Range/Units 01:00 Urine Color Yellow Urine Appearance Clear (Clear) Urine pH 7.0 (4.5-7.5) Ur Specific [place] 1.016 (1.000-1.030) Urine Protein Negative (Negative) Urine Glucose (UA) Negative (Negative)
[2022-07-15] MEDS: ENOXAPARIN INJ 40 MG/0.4 ML SYR SQ SCH (21:08)
[2022-07-15] MEDS: PANTOprazole 40 MG TAB PO SCH (21:08)
[2022-07-15] MEDS: traZODone HCL 50 MG TAB PO SCH (21:08)
[2022-07-16] MEDS: LORazepam 0.5 MG TAB PO SCH ×4 (01:20→18:33)
[2022-07-16] MEDS: guaiFENesin/DEXTROM SYRUP 100MG/10MG 5ML UDC PO PRN ×2 (03:14→20:55)
[2022-07-16] MEDS: TUBE FEEDING WATER FLUSH GT SCH ×6 (03:17→23:45)
[2022-07-16] MEDS: PEPTAMEN 1.5 CAL 1,000 ML BAG PO SCH ×6 (05:47→20:54)
[2022-07-16] MEDS: SERTRALINE HCL 50 MG TABLET PO SCH (08:38)
[2022-07-16] MEDS: LORATADINE 10 MG TAB PO SCH (08:38)
[2022-07-16] MEDS: AUSTEDO 12 MG PO SCH ×2 (08:39→20:48)
--- NOTE | 2022-07-16 17:20 | Hospitalist Progress Note ---
Date of Service July 16, 2022 Assessment & Plan (1) Sacral decubitus ulcer, stage II: (2) Urinary retention: (3) Ambulatory dysfunction: (4) [place] chorea: Plan: Patient is a 41 yr male who has significant past medical history of [place]'s chorea and GERD who presented to ED on 04/30 secondary to fall prior to arrival. [place] Chorea Ambulatory dysfunction Frequent falls Patient's family no longer able to care patient due to worsening [place]'s Chorea Continue Deutetrabenazine (Austedo) at max dose 24 mg bid, Ativan Hold Ativan for excessive sedation Discussed with Dr. Rodriguez - pt's neurologist at [facility] Fall precautions Waiting for placement Continue current medications Possible Aspiration Pneumonitis CXR - Possible right midlung opacity. Pneumonia cannot be excluded. Radiographic follow-up to ensure resolution is recommended. Completed 7day course of Unasyn Aspiration precautions Acute urinary retention Hematuria due to traumatic catheter Resolved Quinn catheter discontinued Constipation Feeding by G-Tube Milk Hauler consulted, started bolus feeding Continue tube feeds bowel regimen as needed Continue wound care at G-tube site Stage II sacral decubitus ulcer wound care consulted Continue to reposition DVT px: SQ Lovenox Disposition: Awaiting placement Admission and Anticipated Discharge Date Admission Date: April 30, 2022 Subjective Patient is seen and examined at bedside Offers no complaints Denies any chest pain, shortness of breath, dizziness, nausea, abdominal pain Waiting for placement Review of Systems Review of Systems: All systems reviewed & are unremarkable except as noted in Subjective Physical Exam Physical Exam: Physical Exam: Vitals signs as noted above General Appearance: Thin, frail, ill-appearing, + chorea movements Head: normocephalic, Atraumatic Eyes: normal inspection, EOMI Neck: supple, Trachea midline Respiratory/Chest: Normal breath sounds, CTA, No accessory muscle use Cardiovascular: S1, S2, No murmur Abdomen/GI:Soft, Non tender, Bowel sounds present Extremities/Musculoskeletal:normal inspection, no edema Neurologic/Psych:AAOX3, grossly no focal neurological deficits Skin: normal color, warm Results & Data Results & Data ([facility]) Vital Signs (Past 12 Hours) Vital Signs Temp Pulse Resp BP Pulse Ox O2 Del Method 07/16/22 15:11 36.7 C 78 18 106/71 96 Room Air
[2022-07-16] MEDS: ENOXAPARIN INJ 40 MG/0.4 ML SYR SQ SCH (20:48)
[2022-07-16] MEDS: PANTOprazole 40 MG TAB PO SCH (20:48)
[2022-07-16] MEDS: traZODone HCL 50 MG TAB PO SCH (20:48)
[2022-07-17] MEDS: LORazepam 0.5 MG TAB PO SCH ×4 (01:22→18:43)
[2022-07-17] MEDS: TUBE FEEDING WATER FLUSH GT SCH ×6 (03:39→23:29)
[2022-07-17] MEDS: PEPTAMEN 1.5 CAL 1,000 ML BAG PO SCH ×6 (05:47→20:41)
[2022-07-17] MEDS: AUSTEDO 12 MG PO SCH ×2 (09:14→20:38)
--- NOTE | 2022-07-17 17:10 | Hospitalist Progress Note ---
Date of Service July 17, 2022 Assessment & Plan (1) Sacral decubitus ulcer, stage II: (2) Urinary retention: (3) Ambulatory dysfunction: (4) [place] chorea: Plan: Patient is a 41 yr male who has significant past medical history of [place]'s chorea and GERD who presented to ED on 04/30 secondary to fall prior to arrival. [place] Chorea Ambulatory dysfunction Frequent falls Patient's family no longer able to care patient due to worsening [place]'s Chorea Continue Deutetrabenazine (Austedo) at max dose 24 mg bid, Ativan Hold Ativan for excessive sedation Discussed with Dr. Rodriguez - pt's neurologist at [facility] Fall precautions Waiting for placement Continue current medications Possible Aspiration Pneumonitis CXR - Possible right midlung opacity. Pneumonia cannot be excluded. Radiographic follow-up to ensure resolution is recommended. Completed 7day course of Unasyn Aspiration precautions Acute urinary retention Hematuria due to traumatic catheter Resolved Quinn catheter discontinued Constipation Feeding by G-Tube Human Resource Analyst consulted, started bolus feeding Continue tube feeds bowel regimen as needed Continue wound care at G-tube site Stage II sacral decubitus ulcer wound care consulted Continue to reposition DVT px: SQ Lovenox Disposition: Awaiting placement Admission and Anticipated Discharge Date Admission Date: April 30, 2022 Subjective Patient is seen and examined at bedside Offers no complaints Denies any chest pain, shortness of breath, dizziness, nausea, abdominal pain Waiting for placement Review of Systems Review of Systems: ROS per HPI, all other systems reviewed and negative Neurologic: Continues to have abnormal choreiform movements involving the extremities and the trunk Physical Exam Physical Exam: CONSTITUTIONAL: WNWD, vitals as above, generally well- appearing, NAD, choreiform movements constant/very debilitating, cannot sit up in bed as he is a fall risk. Has evidence of drooling/issues with drinking fluids. EYES: normal conjunctivae, no scleral icterus ENT: external ear and nose normal, MMM NECK: trachea midline RESPIRATORY: clear to auscultation bilaterally, no crackles, rales or wheezes, normal respiratory effort CARDIOVASCULAR: regular rate and rhythm, S1 and 2 heard without murmurs, gallops or rubs, no JVD, no peripheral edema CHEST: inspection of chest was normal GASTROINTESTINAL: soft, nontender, ND, no guarding MUSCULOSKELETAL: strength 5/5 throughout, head is normocephalic and atraumatic, neck supple, normal palpation of chest wall without tenderness SKIN: warm and dry NEUROLOGIC: CN 2-12 grossly intact, no sensory deficit, normal cognition, normal speech, no tremor PSYCHIATRIC: alert cooperative and oriented to person, place and time. Results & Data Results & Data ([facility]) Vital Signs (Past 12 Hours) Vital Signs Temp Pulse Resp BP BP Pulse Ox O2 Del Method 07/17/22 15:27 36.4 C L 64 16 98/65 L 92 Room Air 07/17/22 09:09 36.6 C 87 18 114/74 98 Room Air Diagnostic Findings Laboratory Results WBC 9.80 K/ul (4.8-10.8) 06/21/22 08:05 RBC 4.74 M/uL (4.63-6.08) 06/21/22 08:05 Hgb 15.2 g/dl (14.0-18.0) 06/21/22 08:05 Hct 45.1 % (40.1-51.0) 06/21/22 08:05 MCV 95.1 fL (80.0-100.0) 06/21/22 08:05 MCH 32.1 pg (25.0-34.0) 06/21/22 08:05 MCHC 33.7 g/dL (32.0-36.0) 06/21/22 08:05 RDW Std Deviation 45.2 fL (36.4-46.3) 06/21/22 08:05 RDW Coeff of Edgar 12.8 % (11.5-14.5) 06/21/22 08:05 Plt Count 303 K/uL (130-400) 06/21/22 08:05 MPV 8.4 fL (9.4-12.4) L 06/21/22 08:05 Immature Gran % (Auto) 0.2 % 05/25/22 05:41 Neut % (Auto) 71.0 % 05/25/22 05:41 Lymph % (Auto) 16.5 % 05/25/22 05:41 [place] % (Auto) 7.7 % 05/25/22 05:41 Eos % (Auto) 3.4 % 05/25/22 05:41 Baso % (Auto) 1.2 % 05/25/22 05:41 Neut # (Auto) 4.17 K/uL (1.4-6.5) 05/25/22 05:41 Lymph # (Auto) 0.97 K/uL (1.2-3.4) L 05/25/22 05:41 [place] # (Auto) 0.45 K/uL (0.24-0.82) 05/25/22 05:41 Eos # (Auto) 0.20 K/uL (0-0.50) 05/25/22 05:41 Baso # (Auto) 0.07 K/uL (0-0.2) 05/25/22 05:41 Immature Gran # (Auto) 0.01 K/uL (0.00-0.02) 05/25/22 05:41 Sodium 137 mmol/L (136-145) 06/27/22 07:03 Potassium 4.1 mmol/L (3.5-5.1) 06/27/22 07:03 Chloride 101 mmol/L (98-107) 06/27/22 07:03 Carbon Dioxide 32 mmol/L (21-32) 06/27/22 07:03 Anion Gap 4 (3-11) 06/27/22 07:03 BUN 18 mg/dl (6-23) 06/27/22 07:03 Creatinine 0.70 mg/dl (0.6-1.4) 06/27/22 07:03 Est Cr Clr Drug Dosing 126.6 ml/min 06/27/22 07:03 Est GFR ( Amer) 134.0 ml/min 06/27/22 07:03 Est GFR (Non-Af Amer) 115.6 ml/min 06/27/22 07:03 BUN/Creatinine Ratio 25.7 (10-20) H 06/27/22 07:03 Glucose 69 mg/dl (70-99(Fasting)) L 06/27/22 07:03 POC Glucose 94 mg/dl (70-99) 06/27/22 08:45 Calcium 9.7 mg/dl (8.5-10.1) 06/27/22 07:03 Phosphorus 3.6 mg/dl (2.5-4.9) 06/06/22 07:18 Magnesium 2.1 mg/dl (1.7-2.4) 06/21/22 08:05 Total Bilirubin 0.6 mg/dl (0.2-1.0) 06/06/22 07:18 AST 15 U/L (13-39) 06/06/22 07:18 ALT 17 U/L (7-52) 06/06/22 07:18 Alkaline Phosphatase 44 U/L (34-104) 06/06/22 07:18 Total Protein 6.7 gm/dl (6.0-8.3) 06/06/22 07:18 Albumin 3.8 gm/dl (3.4-5.0) 06/06/22 07:18 Globulin 2.9 gm/dl (2.5-4.0) 06/06/22 07:18 Albumin/Globulin Ratio 1.3 (0.9-2) 06/06/22 07:18 Procalcitonin < 0.05 ng/ml (0-0.5) 06/19/22 15:22 Urine Color Yellow 07/15/22 01:00 Urine Appearance Clear (Clear) 07/15/22 01:00 Urine pH 7.0 (4.5-7.5) 07/15/22 01:00 Ur Specific [place] 1.016 (1.000-1.030) 07/15/22 01:00 Urine Protein Negative (Negative) 07/15/22 01:00 Urine Glucose (UA) Negative (Negative) 07/15/22 01:00 Urine Ketones Negative (Negative) 07/15/22 01:00 Urine Blood Negative (Negative) 07/15/22 01:00 Urine Nitrite Negative (Negative) 07/15/22 01:00 Urine Bilirubin Negative (Negative) 07/15/22 01:00 Urine Urobilinogen Negative (Negative) 07/15/22 01:00 Ur Leukocyte Esterase Negative (Negative) 07/15/22 01:00 SARS-CoV-2, RNA, NAAT NEGATIVE (NEGATIVE) 04/30/22 12:[address] 04/30/22 11:[address] DOSE: 1365.71 mGy.cm HISTORY: Neck pain. Fall, hit back of head TECHNIQUE: Multiaxial CT images of the cervical spine were performed and reformatted in the sagittal and coronal plane without the use of contrast. A dose lowering technique was utilized adhering to the principles of ALARA. COMPARISON: Cervical spine CT 10/23/2019. FINDINGS: No fractures. No subluxation. Prevertebral soft tissues and the C1-C2 interval are intact. No pneumothorax. Stable small nodular densities at the lung apices likely representing scarring. Mild motion artifact at the superior aspect of C3. Mild degenerative disc disease at C6-C7. IMPRESSION: No fractures within the cervical spine. ACT 112: Negative or not required by law. Electronically signed by: Mick Addison M.D. 04/30/2022 12:39 PM KUB X-Ray 04/30/22 11:15 KUB CLINICAL HISTORY: Constipation. FINDINGS: An AP, portable, supine abdominal radiograph is correlated with a bdominal CT dated 04/25/2022. The examination is degraded by motion artifact. A gastrostomy tube projects over the stomach. No bowel obstruction is seen. There is mild colonic fecal retention. No evidence of intraperitoneal free air is seen on this supine image. There are no abnormal abdominal calcifications. The bony structures appear intact. The lung bases are clear as imaged. IMPRESSION: No acute abnormality is identified. Electronically signed by: Armando Albright M.D. 04/30/2022 11:[address] 05/01/22 20:14 CT SCAN OF THE BRAIN WITHOUT IV CONTRAST CLINICAL HISTORY: Fall. Head injury. COMPARISON STUDY: CT of the brain dated 04/30/2022. TECHNIQUE: Unenhanced axial CT scan of the brain is performed from the vertex to the skull base. A dose lowering technique was utilized adhering to the principles of ALARA. The skull base was scanned twice due to motion artifact. FINDINGS: Brain parenchyma: There is age-advanced cortical atrophy. There is no hemorrhage, mass effect, or evidence of acute territorial ischemia by CT criteria. Haley-white matter differentiation is preserved. No extra-axial fluid collection is seen. Ventricles, sulci, cisterns: Normal in configuration. Intracranial vasculature: The visualized intracranial vasculature at the skull base is normal in appearance. Calvarium: There is no depressed calvarial fracture. Soft tissues: There is a suboccipital scalp contusion. Sinuses and mastoids: There is trace mucosal thickening in the left maxillary antrum. The remaining paranasal sinuses are clear. The mastoid air cells are well pneumatized. Cerumen is noted in the external auditory canals. Orbits: The bony orbits are grossly intact. IMPRESSION: There is no hemorrhage, mass effect, or evidence of acute territorial ischemia by CT criteria. No change from yesterday. ACT 112: Negative or not required by law. Electronically signed by: Armando Albright M.D. 05/01/2022 9:05 PM Chest X-Ray 06/19/22 13:59 XR chest 1V portable supine CLINICAL HISTORY: Cough. COMPARISON STUDY: Chest CT October 23, 2019. Chest radiograph April 25, 2022. FINDINGS: Lung volumes are normal. There may be right midlung airspace opacity. There is no pneumothorax or pleural effusion. Cardiac size is normal. Mediastinal contours are normal. There is no evidence for pulmonary edema. IMPRESSION: Possible right midlung opacity. Pneumonia cannot be excluded. Radiographic follow-up to ensure resolution is recommended. ACT 112: Negative or not required by law. Electronically signed by: Aristides Reyes M.D. 06/19/2022 2:58 PM Medications Administered Current Inpatient Medications Acetaminophen (Acetaminophen 325 Mg Tab) 650 mg PO Q4H PRN PRN Reason: pain/fever Stop: 07/17/22 17:39 Last Admin: 05/03/22 12:27 Dose: 650 mg Al Hydrox/Mg Hydrox/Simethicone (Aluminum/Magnesium Susp 30 Ml Udc) 30 ml PO Q6H PRN PRN Reason: Dyspepsia Stop: 07/17/22 17:39 Benzonatate (Benzonatate 100 Mg Capsule) 100 mg PO BID PRN PRN Reason: Cough Stop: 07/17/22 17:39 Last Admin: 07/15/22 15:44 Dose: 100 mg Deutetrabenazine (Austedo 12 Mg Tablet) 2 each PO BID [facility] Stop: 09/13/22 10:59 Last Admin: 07/17/22 09:14 Dose: 2 each Enoxaparin Sodium (Enoxaparin Inj 40 Mg/0.4 Ml Syr) 40 mg SQ Q24H [facility] Stop: 07/17/22 21:59 Last Admin: 07/16/22 20:48 Dose: 40 mg Enteral Nutritional Formula (Peptamen 1.5 Erich 1,000 Ml Bag) 200 ml PO 0600,0900,1200,1500,1800,2100 [facility]; Protocol Stop: 07/23/22 14:59 Last Admin: 07/17/22 15:14 Dose: 200 ml Guaifenesin/Dextromethorphan (Guaifenesin/Dextrom Syrup 100mg/10mg 5ml Udc) 5 ml PO Q6H PRN PRN Reason: Cough Stop: 07/20/22 15:14 Last Admin: 07/16/22 20:55 Dose: 5 ml Lorazepam (Lorazepam 0.5 Mg Tab) 0.5 mg PO Q6H [facility] Stop: 08/07/22 19:29 Last Admin: 07/17/22 12:48 Dose: 0.5 mg Magnesium Hydroxide (Magnesium Hydroxide Susp 30 Ml Udc) 30 ml PO Q6H PRN PRN Reason: Constipation Stop: 07/17/22 17:39 Ondansetron HCl (Ondansetron 4 Mg Od Tab) 4 mg PO Q6H PRN PRN Reason: Nausea Stop: 08/14/22 10:25 Last Admin: 07/15/22 10:45 Dose: 4 mg Pantoprazole Sodium (Pantoprazole 40 Mg Tab) 40 mg PO HS ESTELA Stop: 07/17/22 20:59 Last Admin: 07/16/22 20:48 Dose: 40 mg Polyethylene Glycol (Polyethylene (Miralax) 17 Gm Pack) 17 gm PO DAILY PRN PRN Reason: Constipation Stop: 07/17/22 17:39 Last Admin: 07/03/22 06:03 Dose: 17 gm Senna/Docusate Sodium (Docusate Sodium/Senna 50/8.6mg Tab) 1 tab PO BID [facility]A Stop: 07/17/22 20:59 Last Admin: 05/20/22 08:41 Dose: Not Given Sterile Water (Tube Feeding Water Flush) 30 ml GT Q4H [facility]EL[facility] Stop: 07/23/22 14:59 Last Admin: 07/17/22 15:15 Dose: 30 ml Trazodone HCl (Trazodone Hcl 50 Mg Tab) 50 mg PO HS [facility]A Stop: 07/17/22 20:59 Last Admin: 07/16/22 20:48 Dose: 50 mg
[2022-07-17] MEDS: PANTOprazole 40 MG TAB PO SCH (20:39)
[2022-07-17] MEDS: traZODone HCL 50 MG TAB PO SCH (20:39)
[2022-07-17] MEDS: ENOXAPARIN INJ 40 MG/0.4 ML SYR SQ SCH (20:40)
[2022-07-17] MEDS: guaiFENesin/DEXTROM SYRUP 100MG/10MG 5ML UDC PO PRN (20:42)
[2022-07-17] MEDS ORDERED: traZODone HCL 50 MG TAB PO SCH (21:00)
[2022-07-17] MEDS ORDERED: PANTOprazole 40 MG TAB PO SCH (21:00)
[2022-07-17] MEDS ORDERED: ENOXAPARIN INJ 40 MG/0.4 ML SYR SQ SCH (21:00)
[2022-07-18] MEDS: LORazepam 0.5 MG TAB PO SCH ×4 (00:44→19:35)
[2022-07-18] MEDS: TUBE FEEDING WATER FLUSH GT SCH ×6 (03:35→22:17)
[2022-07-18] MEDS: PEPTAMEN 1.5 CAL 1,000 ML BAG PO SCH ×6 (05:40→20:29)
[2022-07-18 06:24] LABS: Basophils # (auto) 0.09 K/uL (0-0.2); Basophils % (auto) 1.2 %; Eosinophils # (auto) 0.47 K/uL (0-0.50); Eosinophils % (auto) 6.3 %; Hemoglobin 14.7 g/dl (14.0-18.0); Immature Granulocytes # (auto) 0.01 K/uL (0.00-0.02); Immature Granulocytes % (auto) 0.1 %; Lymphocytes # (auto) 1.28 K/uL (1.2-3.4); Lymphocytes % (auto) 17.2 %; Mean Corpuscular Hemoglobin 32.3 pg (25.0-34.0); Mean Corpuscular Volume 92.3 fL (80.0-100.0); Mean Platelet Volume 8.2 fL (9.4-12.4); Monocytes # (auto) 0.65 K/uL (0.24-0.82); Monocytes % (auto) 8.7 %; Neutrophils # (auto) 4.94 K/uL (1.4-6.5); Neutrophils % (auto) 66.5 %; Platelet Count 284 K/uL (130-400); RDW Coefficient of Variation 12.2 % (11.5-14.5); RDW Standard Deviation 41.6 fL (36.4-46.3); Red Blood Count 4.55 M/uL (4.63-6.08); White Blood Count 7.44 K/ul (4.8-10.8)
[2022-07-18 07:47] LABS: Albumin Globulin Ratio 1.4 (0.9-2); Albumin Level 3.6 gm/dl (3.4-5.0); BUN Creatinine Ratio 32.2 (10-20); Bilirubin,Total 0.4 mg/dl (0.2-1.0); Calcium 9.3 mg/dl (8.5-10.1); Creatinine Clr Calc Pharmacy 145.4 ml/min; Est GFR (African American) 143.7 ml/min; Globulin 2.6 gm/dl (2.5-4.0); Magnesium 2.1 mg/dl (1.7-2.4); Phosphorus 3.2 mg/dl (2.5-4.9); Potassium 3.9 mmol/L (3.5-5.1); Total Protein 6.2 gm/dl (6.0-8.3)
[2022-07-18] MEDS: AUSTEDO 12 MG PO SCH ×2 (09:00→20:27)
--- NOTE | 2022-07-18 12:46 | Hospitalist Progress Note ---
Date of Service July 18, 2022 Assessment & Plan (1) Sacral decubitus ulcer, stage II: (2) Urinary retention: (3) Ambulatory dysfunction: (4) [place] chorea: Plan: Patient is a 41 yr male who has significant past medical history of [place]'s chorea and GERD who presented to ED on 04/30 secondary to fall prior to arrival. [place] Chorea Ambulatory dysfunction Frequent falls Patient's family no longer able to care patient due to worsening [place]'s Chorea Continue Deutetrabenazine (Austedo) at max dose 24 mg bid, Ativan Hold Ativan for excessive sedation Discussed with Dr. Rodriguez - pt's neurologist at [facility] Fall precautions Waiting for placement Continue current medications Possible Aspiration Pneumonitis CXR - Possible right midlung opacity. Pneumonia cannot be excluded. Radiographic follow-up to ensure resolution is recommended. Completed 7day course of Unasyn Aspiration precautions Acute urinary retention Hematuria due to traumatic catheter Resolved Quinn catheter discontinued Constipation Feeding by G-Tube Assistant Associate Full Professor consulted, started bolus feeding Continue tube feeds bowel regimen as needed Continue wound care at G-tube site Stage II sacral decubitus ulcer wound care consulted Continue to reposition DVT px: SQ Lovenox Disposition: Awaiting placement Admission and Anticipated Discharge Date Admission Date: April 30, 2022 Subjective Patient is seen and examined at bedside Offers no complaints Denies any chest pain, shortness of breath, dizziness, nausea, abdominal pain Waiting for placement Review of Systems Review of Systems: ROS per HPI, all other systems reviewed and negative Neurologic: Continues to have abnormal choreiform movements involving the extremities and the trunk Physical Exam Physical Exam: CONSTITUTIONAL: WNWD, vitals as above, generally well- appearing, NAD, choreiform movements constant/very debilitating, cannot sit up in bed as he is a fall risk. Has evidence of drooling/issues with drinking fluids. EYES: normal conjunctivae, no scleral icterus ENT: external ear and nose normal, MMM NECK: trachea midline RESPIRATORY: clear to auscultation bilaterally, no crackles, rales or wheezes, normal respiratory effort CARDIOVASCULAR: regular rate and rhythm, S1 and 2 heard without murmurs, gallops or rubs, no JVD, no peripheral edema CHEST: inspection of chest was normal GASTROINTESTINAL: soft, nontender, ND, no guarding MUSCULOSKELETAL: strength 5/5 throughout, head is normocephalic and atraumatic, neck supple, normal palpation of chest wall without tenderness SKIN: warm and dry NEUROLOGIC: CN 2-12 grossly intact, no sensory deficit, normal cognition, normal speech, no tremor PSYCHIATRIC: alert cooperative and oriented to person, place and time. Results & Data Results & Data ([facility]) Vital Signs (Past 12 Hours) Vital Signs Temp Pulse Resp BP Pulse Ox O2 Del Method 07/18/22 11:10 36.6 C 76 20 101/59 L 95 Room Air 07/18/22 09:15 Room Air 07/18/22 08:00 37.4 C 72 18 104/64 96 Room Air
[2022-07-18] MEDS: ENOXAPARIN INJ 40 MG/0.4 ML SYR SQ SCH (20:28)
[2022-07-18] MEDS: PANTOprazole 40 MG TAB PO SCH (20:28)
[2022-07-18] MEDS: traZODone HCL 50 MG TAB PO SCH (20:29)
[2022-07-19] MEDS: TUBE FEEDING WATER FLUSH GT SCH ×6 (02:30→22:39)
[2022-07-19] MEDS: LORazepam 0.5 MG TAB PO SCH ×4 (02:30→19:22)
[2022-07-19] MEDS: PEPTAMEN 1.5 CAL 1,000 ML BAG PO SCH ×6 (06:32→21:23)
[2022-07-19] MEDS: AUSTEDO 12 MG PO SCH ×2 (09:01→21:22)
--- NOTE | 2022-07-19 11:28 | Hospitalist Progress Note ---
Date of Service July 19, 2022 Assessment & Plan (1) Sacral decubitus ulcer, stage II: (2) Urinary retention: (3) Ambulatory dysfunction: (4) Suzy chorea: Plan: Patient is a 41 yr male who has significant past medical history of [place]'s chorea and GERD who presented to ED on 04/30 secondary to fall prior to arrival. [place] Chorea Ambulatory dysfunction Frequent falls Patient's family no longer able to care patient due to worsening [place]'s Chorea Continue Deutetrabenazine (Austedo) at max dose 24 mg bid, Ativan Hold Ativan for excessive sedation Discussed with Dr. Rodriguez - pt's neurologist at [facility] Fall precautions Waiting for placement Continue current medications Possible Aspiration Pneumonitis CXR - Possible right midlung opacity. Pneumonia cannot be excluded. Radiographic follow-up to ensure resolution is recommended. Completed 7day course of Unasyn Aspiration precautions Acute urinary retention Hematuria due to traumatic catheter Resolved Quinn catheter discontinued Constipation Feeding by G-Tube Coldfusion consulted, started bolus feeding Continue tube feeds bowel regimen as needed Continue wound care at G-tube site Stage II sacral decubitus ulcer wound care consulted Continue to reposition DVT px: SQ Lovenox Disposition: Awaiting placement Admission and Anticipated Discharge Date Admission Date: April 30, 2022 Subjective Patient is seen and examined at bedside Offers no complaints Denies any chest pain, shortness of breath, dizziness, nausea, abdominal pain Waiting for placement Review of Systems Review of Systems: All systems reviewed & are unremarkable except as noted in Subjective Physical Exam Physical Exam: CONSTITUTIONAL: WNWD, vitals as above, generally well-anaid earing, NAD, choreiform movements constant/very debilitating, cannot sit up in bed as he is a fall risk. Has evidence of drooling/issues with drinking fluids. EYES: normal conjunctivae, no scleral icterus ENT: external ear and nose normal, MMM NECK: trachea midline RESPIRATORY: clear to auscultation bilaterally, no crackles, rales or wheezes, normal respiratory effort CARDIOVASCULAR: regular rate and rhythm, S1 and 2 heard without murmurs, gallops or rubs, no JVD, no peripheral edema CHEST: inspection of chest was normal GASTROINTESTINAL: soft, nontender, ND, no guarding MUSCULOSKELETAL: strength 5/5 throughout, head is normocephalic and atraumatic, neck supple, normal palpation of chest wall without tenderness SKIN: warm and dry NEUROLOGIC: CN 2-12 grossly intact, no sensory deficit, normal cognition, normal speech, no tremor PSYCHIATRIC: alert cooperative and oriented to person, place and time. Results & Data Results & Data ([facility]) Vital Signs (Past 12 Hours) Vital Signs O2 Del Method 07/19/22 07:30 Room Air Diagnostic Findings Laboratory Results WBC 7.44 K/ul (4.8-10.8) 07/18/22 05:57 RBC 4.55 M/uL (4.63-6.08) L 07/18/22 05:57 Hgb 14.7 g/dl (14.0-18.0) 07/18/22 05:57 Hct 42.0 % (40.1-51.0) 07/18/22 05:57 MCV 92.3 fL (80.0-100.0) 07/18/22 05:57 MCH 32.3 pg (25.0-34.0) 07/18/22 05:57 MCHC 35.0 g/dL (32.0-36.0) 07/18/22 05:57 RDW Std Deviation 41.6 fL (36.4-46.3) 07/18/22 05:57 RDW Coeff of Edgar 12.2 % (11.5-14.5) 07/18/22 05:57 Plt Count 284 K/uL (130-400) 07/18/22 05:57 MPV 8.2 fL (9.4-12.4) L 07/18/22 05:57 Immature Gran % (Auto) 0.1 % 07/18/22 05:57 Neut % (Auto) 66.5 % 07/18/22 05:57 Lymph % (Auto) 17.2 % 07/18/22 05:57 [place] % (Auto) 8.7 % 07/18/22 05:57 Eos % (Auto) 6.3 % 07/18/22 05:57 Baso % (Auto) 1.2 % 07/18/22 05:57 Neut # (Auto) 4.94 K/uL (1.4-6.5) 07/18/22 05:57 Lymph # (Auto) 1.28 K/uL (1.2-3.4) 07/18/22 05:57 [place] # (Auto) 0.65 K/uL (0.24-0.82) 07/18/22 05:57 Eos # (Auto) 0.47 K/uL (0-0.50) 07/18/22 05:57 Baso # (Auto) 0.09 K/uL (0-0.2) 07/18/22 05:57 Immature Gran # (Auto) 0.01 K/uL (0.00-0.02) 07/18/22 05:57 Sodium 136 mmol/L (136-145) 07/18/22 05:57 Potassium 3.9 mmol/L (3.5-5.1) 07/18/22 05:57 Chloride 101 mmol/L (98-107) 07/18/22 05:57 Carbon Dioxide 30 mmol/L (21-32) 07/18/22 05:57 Anion Gap 5 (3-11) 07/18/22 05:57 BUN 19 mg/dl (6-23) 07/18/22 05:57 Creatinine 0.59 mg/dl (0.6-1.4) L 07/18/22 05:57 Est Cr Clr Drug Dosing 145.4 ml/min 07/18/22 05:57 Est GFR ( Amer) 143.7 ml/min 07/18/22 05:57 Est GFR (Non-Af Amer) 124.0 ml/min 07/18/22 05:57 BUN/Creatinine Ratio 32.2 (10-20) H 07/18/22 05:57 Glucose 88 mg/dl (70-99(Fasting)) 07/18/22 05:57 POC Glucose 94 mg/dl (70-99) 06/27/22 08:45 Calcium 9.3 mg/dl (8.5-10.1) 07/18/22 05:57 Phosphorus 3.2 mg/dl (2.5-4.9) 07/18/22 05:57 Magnesium 2.1 mg/dl (1.7-2.4) 07/18/22 05:57 Total Bilirubin 0.4 mg/dl (0.2-1.0) 07/18/22 05:57 AST 17 U/L (13-39) 07/18/22 05:57 ALT 16 U/L (7-52) 07/18/22 05:57 Alkaline Phosphatase 52 U/L (34-104) 07/18/22 05:57 Total Protein 6.2 gm/dl (6.0-8.3) 07/18/22 05:57 Albumin 3.6 gm/dl (3.4-5.0) 07/18/22 05:57 Globulin 2.6 gm/dl (2.5-4.0) 07/18/22 05:57 Albumin/Globulin Ratio 1.4 (0.9-2) 07/18/22 05:57 Procalcitonin < 0.05 ng/ml (0-0.5) 06/19/22 15:22 Urine Color Yellow 07/15/22 01:00 Urine Appearance Clear (Clear) 07/15/22 01:00 Urine pH 7.0 (4.5-7.5) 07/15/22 01:00 Ur Specific [place] 1.016 (1.000-1.030) 07/15/22 01:00 Urine Protein Negative (Negative) 07/15/22 01:00 Urine Glucose (UA) Negative (Negative) 07/15/22 01:00 Urine Ketones Negative (Negative) 07/15/22 01:00 Urine Blood Negative (Negative) 07/15/22 01:00 Urine Nitrite Negative (Negative) 07/15/22 01:00 Urine Bilirubin Negative (Negative) 07/15/22 01:00 Urine Urobilinogen Negative (Negative) 07/15/22 01:00 Ur Leukocyte Esterase Negative (Negative) 07/15/22 01:00 SARS-CoV-2, RNA, NAAT NEGATIVE (NEGATIVE) 04/30/22 12:[address] 04/30/22 11:[address] DOSE: 1365.71 mGy.cm HISTORY: Neck pain. Fall, hit back of head TECHNIQUE: Multiaxial CT images of the cervical spine were performed and reformatted in the sagittal and coronal plane without the use of contrast. A dose lowering technique was utilized adhering to the principles of ALARA. COMPARISON: Cervical spine CT 10/23/2019. FINDINGS: No fractures. No subluxation. Prevertebral soft tissues and the C1-C2 interval are intact. No pneumothorax. Stable small nodular densities at the lung apices likely representing scarring. Mild motion artifact at the superior aspect of C3. Mild degenerative disc disease at C6-C7. IMPRESSION: No fractures within the cervical spine. ACT 112: Negative or not required by law. Electronically signed by: Mick Addison M.D. 04/30/2022 12:39 PM KUB X-Ray 04/30/22 11:15 KUB CLINICAL HISTORY: Constipation. FINDINGS: An AP, portable, supine abdominal radiograph is correlated with abdominal CT dated 04/25/2022. The examination is degraded by motion artifact. A g astrostomy tube projects over the stomach. No bowel obstruction is seen. There is mild colonic fecal retention. No evidence of intraperitoneal free air is seen on this supine image. There are no abnormal abdominal calcifications. The bony structures appear intact. The lung bases are clear as imaged. IMPRESSION: No acute abnormality is identified. Electronically signed by: Armando Albright M.D. 04/30/2022 11:[address] 05/01/22 20:14 CT SCAN OF THE BRAIN WITHOUT IV CONTRAST CLINICAL HISTORY: Fall. Head injury. COMPARISON STUDY: CT of the brain dated 04/30/2022. TECHNIQUE: Unenhanced axial CT scan of the brain is performed from the vertex to the skull base. A dose lowering technique was utilized adhering to the principles of ALARA. The skull base was scanned twice due to motion artifact. FINDINGS: Brain parenchyma: There is age-advanced cortical atrophy. There is no hemorrhage, mass effect, or evidence of acute territorial ischemia by CT c riteria. Haley-white matter differentiation is preserved. No extra-axial fluid collection is seen. Ventricles, sulci, cisterns: Normal in configuration. Intracranial vasculature: The visualized intracranial vasculature at the skull base is normal in appearance. Calvarium: There is no depressed calvarial fracture. Soft tissues: There is a suboccipital scalp contusion. Sinuses and mastoids: There is trace mucosal thickening in the left maxillary antrum. The remaining paranasal sinuses are clear. The mastoid air cells are well pneumatized. Cerumen is noted in the external auditory canals. Orbits: The bony orbits are grossly intact. IMPRESSION: There is no hemorrhage, mass effect, or evidence of acute territorial ischemia by CT criteria. No change from yesterday. ACT 112: Negative or not required by law. Electronically signed by: Armando Albright M.D. 05/01/2022 9:05 PM Chest X-Ray 06/19/22 13:59 XR chest 1V portable supine CLINICAL HISTORY: Cough. COMPARISON STUDY: Chest CT October 23, 2019. Chest radiograph April 25, 2022. FINDINGS: Lung volumes are normal. There may be right midlung airspace opacity. There is no pneumothorax or pleural effusion. Cardiac size is normal. Mediastinal contours are normal. There is no evidence for pulmonary edema. IMPRESSION: Possible right midlung opacity. Pneumonia cannot be excluded. Rad iographic follow-up to ensure resolution is recommended. ACT 112: Negative or not required by law. Electronically signed by: Aristides Reyes M.D. 06/19/2022 2:58 PM Medications Administered Current Inpatient Medications Deutetrabenazine (Austedo 12 Mg Tablet) 2 each PO BID ESTELA Stop: 09/13/22 10:59 Last Admin: 07/19/22 09:01 Dose: 2 each Enoxaparin Sodium (Enoxaparin Inj 40 Mg/0.4 Ml Syr) 40 mg SQ Q24H ESTELA Stop: 08/17/22 20:59 Last Admin: 07/18/22 20:28 Dose: 40 mg Enteral Nutritional Formula (Peptamen 1.5 Erich 1,000 Ml Bag) 200 ml PO 0600,0900,1200,1500,1800,2100 ESTELA; Protocol Stop: 07/23/22 14:59 Last Admin: 07/19/22 09:01 Dose: 200 ml Guaifenesin/Dextromethorphan (Guaifenesin/Dextrom Syrup 100mg/10mg 5ml Udc) 5 ml PO Q6H PRN PRN Reason: Cough Stop: 07/20/22 15:14 Last Admin: 07/17/22 20:42 Dose: 5 ml Lorazepam (Lorazepam 0.5 Mg Tab) 0.5 mg PO Q6H ESTELA Stop: 08/07/22 19:29 Last Admin: 07/19/22 09:01 Dose: 0.5 mg Ondansetron HCl (Ondansetron 4 Mg Od Tab) 4 mg PO Q6H PRN PRN Reason: Nausea Stop: 08/14/22 10:25 Last Admin: 07/15/22 10:45 Dose: 4 mg Pantoprazole Sodium (Pantoprazole 40 Mg Tab) 40 mg PO HS ESTELA Stop: 08/17/22 20:59 Last Admin: 07/18/22 20:28 Dose: 40 mg Sterile Water (Tube Feeding Water Flush) 30 ml GT Q4H ESTELA Stop: 07/23/22 14:59 Last Admin: 07/19/22 11:09 Dose: 30 ml Trazodone HCl (Trazodone Hcl 50 Mg Tab) 50 mg PO [facility] Stop: 08/17/22 20:59 Last Admin: 07/18/22 20:29 Dose: 50 mg
[2022-07-19] MEDS: ENOXAPARIN INJ 40 MG/0.4 ML SYR SQ SCH (21:23)
[2022-07-19] MEDS: PANTOprazole 40 MG TAB PO SCH (21:23)
[2022-07-19] MEDS: traZODone HCL 50 MG TAB PO SCH (21:23)
[2022-07-20] MEDS: LORazepam 0.5 MG TAB PO SCH ×4 (01:54→20:57)
[2022-07-20] MEDS: TUBE FEEDING WATER FLUSH GT SCH ×6 (02:54→22:07)
[2022-07-20] MEDS: PEPTAMEN 1.5 CAL 1,000 ML BAG PO SCH ×6 (05:57→21:00)
[2022-07-20] MEDS: AUSTEDO 12 MG PO SCH ×2 (08:03→20:58)
--- NOTE | 2022-07-20 12:01 | Hospitalist Progress Note ---
Date of Service July 20, 2022 Assessment & Plan (1) Sacral decubitus ulcer, stage II: (2) Urinary retention: (3) Ambulatory dysfunction: (4) Suzy chorea: Plan: Patient is a 41 yr male who has significant past medical history of [place]'s chorea and GERD who presented to ED on 04/30 secondary to fall prior to arrival. [place] Chorea Ambulatory dysfunction Frequent falls Patient's family no longer able to care patient due to worsening [place]'s Chorea Continue Deutetrabenazine (Austedo) at max dose 24 mg bid, Ativan Hold Ativan for excessive sedation Discussed with Dr. Rodriguez - pt's neurologist at [facility] Fall precautions Waiting for placement Continue current medications Possible Aspiration Pneumonitis CXR - Possible right midlung opacity. Pneumonia cannot be excluded. Radiographic follow-up to ensure resolution is recommended. Completed 7day course of Unasyn Aspiration precautions Acute urinary retention Hematuria due to traumatic catheter Resolved Quinn catheter discontinued Constipation Feeding by G-Tube Printing Supervisor consulted, started bolus feeding Continue tube feeds bowel regimen as needed Continue wound care at G-tube site Stage II sacral decubitus ulcer wound care consulted Continue to reposition DVT px: SQ Lovenox Disposition: Awaiting placement Admission and Anticipated Discharge Date Admission Date: April 30, 2022 Subjective Patient is seen and examined at bedside Offers no complaints Denies any chest pain, shortness of breath, dizziness, nausea, abdominal pain Waiting for placement Review of Systems Review of Systems: ROS per HPI, all other systems reviewed and negative Neurologic: Continues to have abnormal choreiform movements involving the extremities and the trunk Physical Exam Physical Exam: CONSTITUTIONAL: WNWD, vitals as above, generally well- appearing, NAD, choreiform movements constant/very debilitating, cannot sit up in bed as he is a fall risk. Has evidence of drooling/issues with drinking fluids. EYES: normal conjunctivae, no scleral icterus ENT: external ear and nose normal, MMM NECK: trachea midline RESPIRATORY: clear to auscultation bilaterally, no crackles, rales or wheezes, normal respiratory effort CARDIOVASCULAR: regular rate and rhythm, S1 and 2 heard without murmurs, gallops or rubs, no JVD, no peripheral edema CHEST: inspection of chest was normal GASTROINTESTINAL: soft, nontender, ND, no guarding MUSCULOSKELETAL: strength 5/5 throughout, head is normocephalic and atraumatic, neck supple, normal palpation of chest wall without tenderness SKIN: warm and dry NEUROLOGIC: CN 2-12 grossly intact, no sensory deficit, normal cognition, normal speech, no tremor PSYCHIATRIC: alert cooperative and oriented to person, place and time. Results & Data Results & Data ([facility]) Vital Signs (Past 12 Hours) Vital Signs Temp Pulse Resp BP Pulse Ox O2 Del Method 07/20/22 08:40 Room Air 07/20/22 08:27 36.1 C L 93 H 16 117/79 92 Room Air
[2022-07-20] MEDS ORDERED: LACTATED RINGER'S 1,000 ML IV ONE (15:00)
[2022-07-20] MEDS: traZODone HCL 50 MG TAB PO SCH (20:58)
[2022-07-20] MEDS: PANTOprazole 40 MG TAB PO SCH (20:59)
[2022-07-20] MEDS: ENOXAPARIN INJ 40 MG/0.4 ML SYR SQ SCH (20:59)
[2022-07-21] MEDS: LORazepam 0.5 MG TAB PO SCH ×4 (02:14→20:02)
[2022-07-21] MEDS: TUBE FEEDING WATER FLUSH GT SCH ×6 (02:14→22:07)
[2022-07-21] MEDS: PEPTAMEN 1.5 CAL 1,000 ML BAG PO SCH ×6 (05:06→20:04)
[2022-07-21] MEDS: AUSTEDO 12 MG PO SCH ×2 (08:16→20:03)
[2022-07-21 09:44] LABS: Potassium 4.4 mmol/L (3.5-5.1)
[2022-07-21 10:12] LABS: BUN Creatinine Ratio 28.8 (10-20); Calcium 9.5 mg/dl (8.5-10.1); Est GFR (African American) 137.2 ml/min; Est GFR (Non-African American) 118.4 ml/min
--- NOTE | 2022-07-21 12:09 | Hospitalist Progress Note ---
Date of Service July 21, 2022 Assessment & Plan (1) Sacral decubitus ulcer, stage II: (2) Urinary retention: (3) Ambulatory dysfunction: (4) Suzy chorea: Plan: Patient is a 41 yr male who has significant past medical history of [place]'s chorea and GERD who presented to ED on 04/30 secondary to fall prior to arrival. [place] Chorea Ambulatory dysfunction Frequent falls Patient's family no longer able to care patient due to worsening [place]'s Chorea Continue Deutetrabenazine (Austedo) at max dose 24 mg bid, Ativan Hold Ativan for excessive sedation Discussed with Dr. Rodriguez - pt's neurologist at [facility] Fall precautions Waiting for placement Continue current medications Possible Aspiration Pneumonitis CXR - Possible right midlung opacity. Pneumonia cannot be excluded. Radiographic follow-up to ensure resolution is recommended. Completed 7day course of Unasyn Aspiration precautions Acute urinary retention Hematuria due to traumatic catheter Resolved Quinn catheter discontinued Constipation Feeding by G-Tube Correspondence School Teacher consulted, started bolus feeding Continue tube feeds bowel regimen as needed Continue wound care at G-tube site Stage II sacral decubitus ulcer wound care consulted Continue to reposition DVT px: SQ Lovenox Disposition: Awaiting placement Admission and Anticipated Discharge Date Admission Date: April 30, 2022 Subjective Patient is seen and examined at bedside Offers no complaints Denies any chest pain, shortness of breath, dizziness, nausea, abdominal pain Waiting for placement Review of Systems Review of Systems: ROS per HPI, all other systems reviewed and negative Neurologic: Continues to have abnormal choreiform movements involving the extremities and the trunk Physical Exam Physical Exam: CONSTITUTIONAL: WNWD, vitals as above, generally well- appearing, NAD, choreiform movements constant/very debilitating, cannot sit up in bed as he is a fall risk. Has evidence of drooling/issues with drinking fluids. EYES: normal conjunctivae, no scleral icterus ENT: external ear and nose normal, MMM NECK: trachea midline RESPIRATORY: clear to auscultation bilaterally, no crackles, rales or wheezes, normal respiratory effort CARDIOVASCULAR: regular rate and rhythm, S1 and 2 heard without murmurs, gallops or rubs, no JVD, no peripheral edema CHEST: inspection of chest was normal GASTROINTESTINAL: soft, nontender, ND, no guarding MUSCULOSKELETAL: strength 5/5 throughout, head is normocephalic and atraumatic, neck supple, normal palpation of chest wall without tenderness SKIN: warm and dry NEUROLOGIC: CN 2-12 grossly intact, no sensory deficit, normal cognition, normal speech, no tremor PSYCHIATRIC: alert cooperative and oriented to person, place and time. Results & Data Results & Data ([facility]) Vital Signs (Past 12 Hours) Vital Signs Temp Pulse Resp BP Pulse Ox O2 Del Method 07/21/22 08:00 36.4 C L 82 14 90/56 L 98 Room Air
[2022-07-21] MEDS: ENOXAPARIN INJ 40 MG/0.4 ML SYR SQ SCH (20:02)
[2022-07-21] MEDS: PANTOprazole 40 MG TAB PO SCH (20:03)
[2022-07-21] MEDS: traZODone HCL 50 MG TAB PO SCH (20:03)
[2022-07-22] MEDS: LORazepam 0.5 MG TAB PO SCH ×4 (02:01→20:05)
[2022-07-22] MEDS: TUBE FEEDING WATER FLUSH GT SCH ×6 (02:01→22:13)
[2022-07-22] MEDS: PEPTAMEN 1.5 CAL 1,000 ML BAG PO SCH ×6 (05:08→20:49)
[2022-07-22] MEDS: AUSTEDO 12 MG PO SCH ×2 (08:50→20:05)
--- NOTE | 2022-07-22 19:19 | Hospitalist Progress Note ---
Date of Service July 22, 2022 Assessment & Plan (1) Sacral decubitus ulcer, stage II: (2) Urinary retention: (3) Ambulatory dysfunction: (4) Suzy chorea: Plan: Patient is a 41 yr male who has significant past medical history of [place]'s chorea and GERD who presented to ED on 04/30 secondary to fall prior to arrival. [place] Chorea Ambulatory dysfunction Frequent falls Patient's family no longer able to care patient due to worsening [place]'s Chorea Continue Deutetrabenazine (Austedo) at max dose 24 mg bid, Ativan Hold Ativan for excessive sedation Discussed with Dr. Rodriguez - pt's neurologist at [facility] Fall precautions Waiting for placement Continue current medications Possible Aspiration Pneumonitis CXR - Possible right midlung opacity. Pneumonia cannot be excluded. Radiographic follow-up to ensure resolution is recommended. Completed 7day course of Unasyn Aspiration precautions Acute urinary retention Hematuria due to traumatic catheter Resolved Quinn catheter discontinued Constipation Feeding by G-Tube Fourth Grade Teacher consulted, started bolus feeding Continue tube feeds bowel regimen as needed Continue wound care at G-tube site Stage II sacral decubitus ulcer wound care on board Continue to reposition Will need to follow up wound clinic DVT px: SQ Lovenox Disposition: Awaiting placement Admission and Anticipated Discharge Date Admission Date: April 30, 2022 Subjective Patient is seen and examined at bedside Denies any chest pain, shortness of breath, dizziness, nausea, abdominal pain Waiting for placement Review of Systems Review of Systems: All systems reviewed & are unremarkable except as noted in Subjective Physical Exam Physical Exam: General Appearance: Thin, frail, ill-appearing, + chorea movements Head: normocephalic, Atraumatic Eyes: normal inspection, EOMI Neck: supple, Trachea midline Respiratory/Chest: Normal breath sounds, CTA, No accessory muscle use Cardiovascular: S1, S2, No murmur Abdomen/GI:Soft, Non tender, Bowel sounds present Extremities/Musculoskeletal:normal inspection, no edema Neurologic/Psych:AAOX3, grossly no focal neurological deficits Skin: normal color, warm Results & Data Results & Data ([facility]) Vital Signs (Past 12 Hours) Vital Signs Temp Pulse Resp BP Pulse Ox O2 Del Method 07/22/22 07:45 36.6 C 79 18 107/73 99 Room Air
[2022-07-22] MEDS: ENOXAPARIN INJ 40 MG/0.4 ML SYR SQ SCH (20:05)
[2022-07-22] MEDS: traZODone HCL 50 MG TAB PO SCH (20:06)
[2022-07-22] MEDS: PANTOprazole 40 MG TAB PO SCH (20:06)
[2022-07-23] MEDS: TUBE FEEDING WATER FLUSH GT SCH ×3 (02:17→12:09)
[2022-07-23] MEDS: LORazepam 0.5 MG TAB PO SCH ×4 (02:17→20:04)
[2022-07-23] MEDS: PEPTAMEN 1.5 CAL 1,000 ML BAG PO SCH ×3 (05:13→12:30)
[2022-07-23] MEDS: AUSTEDO 12 MG PO SCH ×2 (10:21→20:05)
--- NOTE | 2022-07-23 16:10 | Hospitalist Progress Note ---
Date of Service July 23, 2022 Assessment & Plan (1) Sacral decubitus ulcer, stage II: (2) Urinary retention: (3) Ambulatory dysfunction: (4) Suzy chorea: Plan: Patient is a 41 yr male who has significant past medical history of [place]'s chorea and GERD who presented to ED on 04/30 secondary to fall prior to arrival. [place] Chorea Ambulatory dysfunction Frequent falls Patient's family no longer able to care patient due to worsening [place]'s Chorea Continue Deutetrabenazine (Austedo) at max dose 24 mg bid, Ativan Hold Ativan for excessive sedation Discussed with Dr. Rodriguez - pt's neurologist at [facility] Fall precautions Waiting for placement Continue current medications Possible Aspiration Pneumonitis CXR - Possible right midlung opacity. Pneumonia cannot be excluded. Radiographic follow-up to ensure resolution is recommended. Completed 7day course of Unasyn Aspiration precautions Acute urinary retention Hematuria due to traumatic catheter Resolved Quinn catheter discontinued Constipation Feeding by G-Tube Health Facilities Surveyor consulted, started bolus feeding Continue tube feeds bowel regimen as needed Continue wound care at G-tube site Stage II sacral decubitus ulcer wound care on board Continue to reposition Will need to follow up wound clinic DVT px: SQ Lovenox Disposition: Awaiting placement Admission and Anticipated Discharge Date Admission Date: April 30, 2022 Subjective Patient is seen and examined at bedside Lying in bed with no acute distress Denies any chest pain, shortness of breath, dizziness, nausea, abdominal pain Waiting for placement Review of Systems Review of Systems: All systems reviewed & are unremarkable except as noted in Subjective Physical Exam Physical Exam: General Appearance: Thin, frail, ill-appearing, + chorea movements Head: normocephalic, Atraumatic Eyes: normal inspection, EOMI Neck: supple, Trachea midline Respiratory/Chest: Normal breath sounds, CTA, No accessory muscle use Cardiovascular: S1, S2, No murmur Abdomen/GI:Soft, Non tender, Bowel sounds present Extremities/Musculoskeletal:normal inspection, no edema Neurologic/Psych:AAOX3, grossly no focal neurological deficits Skin: normal color, warm
[2022-07-23] MEDS: PEPTAMEN 1.5 CAL 1,000 ML BAG PEG SCH ×2 (18:06→21:26)
[2022-07-23] MEDS: PANTOprazole 40 MG TAB PO SCH (20:05)
[2022-07-23] MEDS: ENOXAPARIN INJ 40 MG/0.4 ML SYR SQ SCH (20:05)
[2022-07-23] MEDS: traZODone HCL 50 MG TAB PO SCH (20:06)
[2022-07-24] MEDS: LORazepam 0.5 MG TAB PO SCH ×4 (02:06→18:36)
[2022-07-24] MEDS: PEPTAMEN 1.5 CAL 1,000 ML BAG PEG SCH ×6 (05:46→21:07)
[2022-07-24] MEDS: AUSTEDO 12 MG PO SCH ×2 (09:34→21:07)
--- NOTE | 2022-07-24 12:17 | Hospitalist Progress Note ---
Date of Service July 24, 2022 Assessment & Plan (1) Sacral decubitus ulcer, stage II: (2) Urinary retention: (3) Ambulatory dysfunction: (4) Suzy chorea: Plan: Patient is a 41 yr male who has significant past medical history of [place]'s chorea and GERD who presented to ED on 04/30 secondary to fall prior to arrival. [place] Chorea Ambulatory dysfunction Frequent falls Patient's family no longer able to care patient due to worsening [place]'s Chorea Continue Deutetrabenazine (Austedo) at max dose 24 mg bid, Ativan Hold Ativan for excessive sedation Discussed with Dr. Rodriguez - pt's neurologist at [facility] Fall precautions Waiting for placement Continue current medications Possible Aspiration Pneumonitis CXR - Possible right midlung opacity. Pneumonia cannot be excluded. Radiographic follow-up to ensure resolution is recommended. Completed 7day course of Unasyn Aspiration precautions Acute urinary retention Hematuria due to traumatic catheter Resolved Quinn catheter discontinued Constipation Feeding by G-Tube Outreach Professional consulted, started bolus feeding Continue tube feeds bowel regimen as needed Continue wound care at G-tube site Stage II sacral decubitus ulcer wound care on board Continue to reposition Will need to follow up wound clinic DVT px: SQ Lovenox Disposition: Awaiting placement Admission and Anticipated Discharge Date Admission Date: April 30, 2022 Subjective Patient is seen and examined at bedside Lying in bed with no acute distress Denies any chest pain, shortness of breath, dizziness, nausea, abdominal pain Review of Systems Review of Systems: All systems reviewed & are unremarkable except as noted in Subjective Physical Exam Physical Exam: General Appearance: Thin, frail, ill-appearing, + chorea movements Head: normocephalic, Atraumatic Eyes: normal inspection, EOMI Neck: supple, Trachea midline Respiratory/Chest: Normal breath sounds, CTA, No accessory muscle use Cardiovascular: S1, S2, No murmur Abdomen/GI:Soft, Non tender, Bowel sounds present Extremities/Musculoskeletal:normal inspection, no edema Neurologic/Psych:AAOX3, grossly no focal neurological deficits Skin: normal color, warm Results & Data Results & Data ([facility]) Vital Signs (Past 12 Hours) Vital Signs Temp Pulse Resp BP Pulse Ox O2 Del Method 07/24/22 08:15 Room Air 07/24/22 07:20 36.3 C L 59 L 18 95/57 L 98 Room Air
[2022-07-24] MEDS: traZODone HCL 50 MG TAB PO SCH (21:07)
[2022-07-24] MEDS: ENOXAPARIN INJ 40 MG/0.4 ML SYR SQ SCH (21:07)
[2022-07-24] MEDS: PANTOprazole 40 MG TAB PO SCH (21:07)
[2022-07-25] MEDS: LORazepam 0.5 MG TAB PO SCH ×4 (01:37→18:32)
[2022-07-25] MEDS: PEPTAMEN 1.5 CAL 1,000 ML BAG PEG SCH ×6 (06:14→21:10)
[2022-07-25] MEDS: AUSTEDO 12 MG PO SCH ×2 (08:07→21:09)
[2022-07-25] MEDS: SERTRALINE HCL 50 MG TABLET PEG SCH (10:44)
--- NOTE | 2022-07-25 12:01 | Hospitalist Progress Note ---
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 Ambulatory dysfunction Frequent falls Patient's family no longer able to care patient Continue Deutetrabenazine (Austedo) at max dose 24 mg bid, Ativan given scheduled. Hold Ativan for excessive sedation Dr. Rodriguez - pt's neurologist at [facility] Fall precautions Possible Aspiration Pneumonitis CXR - Possible right midlung opacity. Pneumonia cannot be excluded. Radiographic follow-up to ensure resolution is recommended. Completed 7day course of Unasyn Aspiration precautions (2) Sacral decubitus ulcer, stage II: Plan: chronic, cont to reposition and keep pressure off this area (3) Urinary retention: Plan: chronic, indwelling kelly--exchange every 30 days. (4) Depression: Plan: chronic, appears stable. Restarted home sertraline today. Continues on trazodone qHS. (5) Ambulatory dysfunction: Plan: Bedbound, awaiting placement. (6) Constipation: Plan: Feeding by G-Tube Jigsawyer consulted, started bolus feeding Continue tube feeds bowel regimen as needed Continue wound care at G-tube site (7) DVT prophylaxis: Plan: Lovenox DNR/SNI Dispo-awaiting placement. Rocio Evans DO [facility] Admission and Anticipated Discharge Date Admission Date: April 30, 2022 Subjective 41-year-old man with [place]'s disease awaiting placement Patient reports still tolerating fluids by mouth with a straw and doing well with this. Denies any pain or other issues today We discussed that his sertraline had fallen off the medication list and had been replaced again today. He verbalized understanding. Discussed plan of care with bedside RN. Review of Systems Review of Systems: All systems reviewed negative except as indicated above. Physical Exam Physical Exam: CONSTITUTIONAL: thin, vitals as above, generally well- appearing, NAD, choreiform movements constant/very debilitating, cannot sit up in bed as he is a fall risk. EYES: normal conjunctivae, no scleral icterus ENT: external ear and nose normal, MMM NECK: trachea midline RESPIRATORY: clear to auscultation bilaterally, no crackles, rales or wheezes, normal respiratory effort CARDIOVASCULAR: regular rate and rhythm, S1 and 2 heard without murmurs, gallops or rubs, no JVD, no peripheral edema CHEST: inspection of chest was normal GASTROINTESTINAL: soft, nontender, ND, no guarding, PEG site intact with no surrounding erythema or drainage. MUSCULOSKELETAL: strength 5/5 throughout, head is normocephalic and atraumatic, neck supple, normal palpation of chest wall without tenderness SKIN: warm and dry NEUROLOGIC: CN 2-12 grossly intact, no sensory deficit, normal cognition, normal speech, no tremor PSYCHIATRIC: alert cooperative and oriented to person, place and time. Results & Data Results & Data ([facility]) Vital Signs (Past 12 Hours) Vital Signs Temp Pulse Resp BP Pulse Ox O2 Del Method 07/25/22 08:00 36.7 C 65 16 95/60 L 95 Room Air Medications Administered Current Inpatient Medications Deutetrabenazine (Austedo 12 Mg Tablet) 2 each PO BID [facility] Stop: 09/13/22 10:59 Last Admin: 07/25/22 08:07 Dose: 2 each Enoxaparin Sodium (Enoxaparin Inj 40 Mg/0.4 Ml Syr) 40 mg SQ Q24H [facility] Stop: 08/17/22 20:59 Last Admin: 07/24/22 21:07 Dose: 40 mg Enteral Nutritional Formula (Peptamen 1.5 Erich 1,000 Ml Bag) 200 ml PEG TID@0600,0900,1200 ESTELA; Protocol Stop: 08/23/22 05:59 Last Admin: 07/25/22 10:31 Dose: 200 ml Enteral Nutritional Formula (Peptamen 1.5 Erich 1,000 Ml Bag) 200 ml PEG TID@1500,1800,2100 ESTELA; Protocol Stop: 08/22/22 17:59 Last Admin: 07/24/22 21:07 Dose: 200 ml Lorazepam (Lorazepam 0.5 Mg Tab) 0.5 mg PO Q6H [facility] Stop: 08/07/22 19:29 Last Admin: 07/25/22 08:07 Dose: 0.5 mg Ondansetron HCl (Ondansetron 4 Mg Od Tab) 4 mg PO Q6H PRN PRN Reason: Nausea Stop: 08/14/22 10:25 Last Admin: 07/15/22 10:45 Dose: 4 mg Pantoprazole Sodium (Pantoprazole 40 Mg Tab) 40 mg PO HS [facility] Stop: 08/17/22 20:59 Last Admin: 07/24/22 21:07 Dose: 40 mg Sertraline HCl (Sertraline Hcl 50 Mg Tablet) 25 mg PEG QAM [facility] Stop: 08/24/22 08:59 Last Admin: 07/25/22 10:44 Dose: 25 mg Trazodone HCl (Trazodone Hcl 50 Mg Tab) 50 mg PO HS ESTELA Stop: 08/17/22 20:59 Last Admin: 07/24/22 21:07 Dose: 50 mg
[2022-07-25] MEDS: PANTOprazole 40 MG TAB PO SCH (21:09)
[2022-07-25] MEDS: ENOXAPARIN INJ 40 MG/0.4 ML SYR SQ SCH (21:09)
[2022-07-25] MEDS: traZODone HCL 50 MG TAB PO SCH (21:10)
[2022-07-26] MEDS: LORazepam 0.5 MG TAB PO SCH ×4 (01:01→19:52)
[2022-07-26] MEDS: PEPTAMEN 1.5 CAL 1,000 ML BAG PEG SCH ×6 (06:11→21:25)
[2022-07-26] MEDS: SERTRALINE HCL 50 MG TABLET PEG SCH (09:18)
[2022-07-26] MEDS: AUSTEDO 12 MG PO SCH ×2 (09:18→19:50)
[2022-07-26] MEDS: ENOXAPARIN INJ 40 MG/0.4 ML SYR SQ SCH (19:49)
[2022-07-26] MEDS: traZODone HCL 50 MG TAB PO SCH (19:49)
[2022-07-26] MEDS: PANTOprazole 40 MG TAB PO SCH (19:49)
--- NOTE | 2022-07-26 21:08 | Hospitalist Progress Note ---
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 Ambulatory dysfunction Frequent falls Patient's family no longer able to care patient Continue Deutetrabenazine (Austedo) at max dose 24 mg bid, Ativan given scheduled. Hold Ativan for excessive sedation Dr. Rodriguez - pt's neurologist at [facility] Fall precautions Possible Aspiration Pneumonitis CXR - Possible right midlung opacity. Pneumonia cannot be excluded. Radiographic follow-up to ensure resolution is recommended. Completed 7day course of Unasyn Aspiration precautions (2) Sacral decubitus ulcer, stage II: Plan: chronic, cont to reposition and keep pressure off this area (3) Urinary retention: Plan: chronic, indwelling kelly--exchange every 30 days. (4) Depression: Plan: chronic, appears stable. Restarted home sertraline today. Continues on trazodone qHS. (5) Ambulatory dysfunction: Plan: Bedbound, awaiting placement. (6) Constipation: Plan: Feeding by G-Tube Facility Administrator consulted, started bolus feeding Continue tube feeds bowel regimen as needed Continue wound care at G-tube site (7) DVT prophylaxis: Plan: Lovenox DNR/SNI Dispo-awaiting placement. Admission and Anticipated Discharge Date Admission Date: April 30, 2022 Subjective Patient is seen and examined at bedside Lying in bed with no acute distress Denies any chest pain, shortness of breath, dizziness, nausea, abdominal pain Review of Systems Review of Systems: All systems reviewed & are unremarkable except as noted in Subjective Physical Exam Physical Exam: General Appearance: Thin, frail, ill-appearing, + chorea movements Head: normocephalic, Atraumatic Eyes: normal inspection, EOMI Neck: supple, Trachea midline Respiratory/Chest: Normal breath sounds, CTA, No accessory muscle use Cardiovascular: S1, S2, No murmur Abdomen/GI:Soft, Non tender, Bowel sounds present Extremities/Musculoskeletal:normal inspection, no edema Neurologic/Psych:AAOX3, grossly no focal neurological deficits Skin: normal color, warm Results & Data Results & Data ([facility]) Vital Signs (Past 12 Hours) Vital Signs Temp Pulse Resp BP Pulse Ox O2 Del Method 07/26/22 14:44 36.6 C 67 16 96/67 L 95 Room Air
[2022-07-27] MEDS: LORazepam 0.5 MG TAB PO SCH ×4 (01:17→18:45)
[2022-07-27] MEDS: PEPTAMEN 1.5 CAL 1,000 ML BAG PEG SCH ×6 (05:11→21:03)
[2022-07-27] MEDS: AUSTEDO 12 MG PO SCH ×2 (08:17→20:07)
[2022-07-27] MEDS: SERTRALINE HCL 50 MG TABLET PEG SCH (08:17)
[2022-07-27] MEDS: PANTOprazole 40 MG TAB PO SCH (20:08)
[2022-07-27] MEDS: ENOXAPARIN INJ 40 MG/0.4 ML SYR SQ SCH (20:08)
[2022-07-27] MEDS: traZODone HCL 50 MG TAB PO SCH (20:08)
--- NOTE | 2022-07-27 20:44 | Hospitalist Progress Note ---
Date of Service July 27, 2022 Assessment & Plan (1) [place] chorea: Plan: Suzy Chorea-movements are constant and debilitating. Ambulatory dysfunction Frequent falls Patient's family no longer able to care patient Continue Deutetrabenazine (Austedo) at max dose 24 mg bid, Ativan given scheduled. Hold Ativan for excessive sedation Dr. Rodriguez - pt's neurologist at [facility] Fall precautions Possible Aspiration Pneumonitis CXR - Possible right midlung opacity. Pneumonia cannot be excluded. Radiographic follow-up to ensure resolution is recommended. Completed 7day course of Unasyn Aspiration precautions (2) Sacral decubitus ulcer, stage II: Plan: chronic, cont to reposition and keep pressure off this area (3) Urinary retention: Plan: chronic, indwelling kelly--exchange every 30 days. (4) Depression: Plan: chronic, appears stable. Restarted home sertraline today. Continues on trazodone qHS. (5) Ambulatory dysfunction: Plan: Bedbound, awaiting placement. (6) Constipation: Plan: Feeding by G-Tube Health Occupations Teacher consulted, started bolus feeding Continue tube feeds bowel regimen as needed Continue wound care at G-tube site (7) DVT prophylaxis: Plan: Lovenox DNR/SNI Dispo-awaiting placement. Admission and Anticipated Discharge Date Admission Date: April 30, 2022 Subjective Patient is seen and examined at bedside Lying in bed with no acute distress Denies any chest pain, shortness of breath, dizziness, nausea, abdominal pain Review of Systems Review of Systems: All systems reviewed & are unremarkable except as noted in Subjective Physical Exam Physical Exam: General Appearance: Thin, frail, ill-appearing, + chorea movements Head: normocephalic, Atraumatic Eyes: normal inspection, EOMI Neck: supple, Trachea midline Respiratory/Chest: Normal breath sounds, CTA, No accessory muscle use Cardiovascular: S1, S2, No murmur Abdomen/GI:Soft, Non tender, Bowel sounds present Extremities/Musculoskeletal:normal inspection, no edema Neurologic/Psych:AAOX3, grossly no focal neurological deficits Skin: normal color, warm Results & Data Results & Data ([facility]) Vital Signs (Past 12 Hours) Vital Signs Temp Pulse Resp BP BP Pulse Ox O2 Del Method 07/27/22 20:09 36.7 C 75 18 95/62 L 95 Room Air 07/27/22 15:34 36.6 C 75 16 111/70 93 Room Air
[2022-07-28] MEDS: LORazepam 0.5 MG TAB PO SCH ×4 (02:12→20:11)
[2022-07-28] MEDS: PEPTAMEN 1.5 CAL 1,000 ML BAG PEG SCH ×6 (05:31→20:55)
[2022-07-28] MEDS: AUSTEDO 12 MG PO SCH ×2 (08:17→20:12)
[2022-07-28] MEDS: SERTRALINE HCL 50 MG TABLET PEG SCH (08:18)
[2022-07-28] MEDS: PANTOprazole 40 MG TAB PO SCH (20:11)
[2022-07-28] MEDS: ENOXAPARIN INJ 40 MG/0.4 ML SYR SQ SCH (20:13)
[2022-07-28] MEDS: traZODone HCL 50 MG TAB PO SCH (20:55)
--- NOTE | 2022-07-28 23:28 | Hospitalist Progress Note ---
Date of Service July 28, 2022 Assessment & Plan (1) [place] chorea: Plan: Suzy Chorea-movements are constant and debilitating. Ambulatory dysfunction Frequent falls Patient's family no longer able to care patient Continue Deutetrabenazine (Austedo) at max dose 24 mg bid, Ativan given scheduled. Hold Ativan for excessive sedation Dr. Rodriguez - pt's neurologist at [facility] Fall precautions Possible Aspiration Pneumonitis CXR - Possible right midlung opacity. Pneumonia cannot be excluded. Radiographic follow-up to ensure resolution is recommended. Completed 7day course of Unasyn Aspiration precautions (2) Sacral decubitus ulcer, stage II: Plan: chronic, cont to reposition and keep pressure off this area (3) Urinary retention: Plan: chronic, indwelling kelly--exchange every 30 days. (4) Depression: Plan: chronic, appears stable. Restarted home sertraline today. Continues on trazodone qHS. (5) Ambulatory dysfunction: Plan: Bedbound, awaiting placement. (6) Constipation: Plan: Feeding by G-Tube Casualty Insurance Claim Adjuster consulted, started bolus feeding Continue tube feeds bowel regimen as needed Continue wound care at G-tube site (7) DVT prophylaxis: Plan: Lovenox DNR/SNI Dispo-awaiting placement. Admission and Anticipated Discharge Date Admission Date: April 30, 2022 Subjective Patient is seen and examined at bedside Lying in bed with no acute distress Denies any chest pain, shortness of breath, dizziness, nausea, abdominal pain Review of Systems Review of Systems: All systems reviewed & are unremarkable except as noted in Subjective Physical Exam Physical Exam: General Appearance: Thin, frail, ill-appearing, + chorea movements Head: normocephalic, Atraumatic Eyes: normal inspection, EOMI Neck: supple, Trachea midline Respiratory/Chest: Normal breath sounds, CTA, No accessory muscle use Cardiovascular: S1, S2, No murmur Abdomen/GI:Soft, Non tender, Bowel sounds present Extremities/Musculoskeletal:normal inspection, no edema Neurologic/Psych:AAOX3, grossly no focal neurological deficits Skin: normal color, warm Results & Data Results & Data ([facility]) Vital Signs (Past 12 Hours) Vital Signs Temp Pulse Resp BP Pulse Ox O2 Del Method 07/28/22 20:00 Room Air 07/28/22 20:41 36.2 C L 68 18 102/60 93 Room Air
[2022-07-29] MEDS: LORazepam 0.5 MG TAB PO SCH ×4 (02:22→19:42)
[2022-07-29] MEDS: PEPTAMEN 1.5 CAL 1,000 ML BAG PEG SCH ×6 (05:50→21:52)
[2022-07-29] MEDS: AUSTEDO 12 MG PO SCH ×2 (08:10→21:54)
[2022-07-29] MEDS: SERTRALINE HCL 50 MG TABLET PEG SCH (08:11)
--- NOTE | 2022-07-29 16:38 | Hospitalist Progress Note ---
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 Ambulatory dysfunction Frequent falls Patient's family no longer able to care patient Continue Deutetrabenazine (Austedo) at max dose 24 mg bid, Ativan given scheduled. Hold Ativan for excessive sedation Dr. Rodriguez - pt's neurologist at [facility] Fall precautions Possible Aspiration Pneumonitis CXR - Possible right midlung opacity. Pneumonia cannot be excluded. Radiographic follow-up to ensure resolution is recommended. Completed 7day course of Unasyn Aspiration precautions (2) Sacral decubitus ulcer, stage II: Plan: chronic, cont to reposition and keep pressure off this area (3) Urinary retention: Plan: chronic, indwelling kelly--exchange every 30 days. (4) Depression: Plan: chronic, appears stable. Restarted home sertraline today. Continues on trazodone qHS. (5) Ambulatory dysfunction: Plan: Bedbound, awaiting placement. (6) Constipation: Plan: Feeding by G-Tube Foil Cutter consulted, started bolus feeding Continue tube feeds bowel regimen as needed Continue wound care at G-tube site (7) DVT prophylaxis: Plan: Lovenox DNR/SNI Dispo-awaiting placement. Admission and Anticipated Discharge Date Admission Date: April 30, 2022 Subjective Patient is seen and examined at bedside Lying in bed with no acute distress Denies any chest pain, shortness of breath, dizziness, nausea, abdominal pain Review of Systems Review of Systems: All systems reviewed & are unremarkable except as noted in Subjective Physical Exam Physical Exam: General Appearance: Thin, frail, ill-appearing, + chorea movements Head: normocephalic, Atraumatic Eyes: normal inspection, EOMI Neck: supple, Trachea midline Respiratory/Chest: Normal breath sounds, CTA, No accessory muscle use Cardiovascular: S1, S2, No murmur Abdomen/GI:Soft, Non tender, Bowel sounds present Extremities/Musculoskeletal:normal inspection, no edema Neurologic/Psych:AAOX3, grossly no focal neurological deficits Skin: normal color, warm Results & Data Results & Data ([facility]) Vital Signs (Past 12 Hours) Vital Signs Temp Pulse Pulse Resp BP Pulse Ox O2 Del Method 07/29/22 15:09 36.2 C L 72 17 80/49 L 96 Room Air 07/29/22 11:08 Room Air 07/29/22 07:32 36.3 C L 72 18 89/62 L 97 Room Air
[2022-07-29] MEDS ORDERED: SODIUM CHLORIDE 0.9% 1000ML 250 ML IV ONE (18:41)
[2022-07-29] MEDS ORDERED: bisacodyL 5 MG TABEC PO ONE (19:32)
[2022-07-29] MEDS: traZODone HCL 50 MG TAB PO SCH (21:53)
[2022-07-29] MEDS: PANTOprazole 40 MG TAB PO SCH (21:53)
[2022-07-29] MEDS: ENOXAPARIN INJ 40 MG/0.4 ML SYR SQ SCH (21:53)
[2022-07-30] MEDS: LORazepam 0.5 MG TAB PO SCH ×4 (01:50→19:47)
[2022-07-30] MEDS: PEPTAMEN 1.5 CAL 1,000 ML BAG PEG SCH ×6 (05:52→21:29)
[2022-07-30] MEDS: SERTRALINE HCL 50 MG TABLET PEG SCH (09:03)
[2022-07-30] MEDS: AUSTEDO 12 MG PO SCH ×2 (09:03→21:28)
--- NOTE | 2022-07-30 13:42 | Hospitalist Progress Note ---
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 Ambulatory dysfunction Frequent falls Patient's family no longer able to care patient Continue Deutetrabenazine (Austedo) at max dose 24 mg bid, Ativan given scheduled. Hold Ativan for excessive sedation, currently ongoing Dr. Rodriguez - wale's neurologist at [facility] Fall precautions Possible Aspiration Pneumonitis CXR - Possible right midlung opacity. Pneumonia cannot be excluded. Radiographic follow-up to ensure resolution is recommended. Completed 7day course of Unasyn Aspiration precautions (2) Sacral decubitus ulcer, stage II: Plan: chronic, cont to reposition and keep pressure off this area (3) Urinary retention: Plan: chronic, indwelling kelly--exchange every 30 days. (4) Depression: Plan: chronic, appears stable. Restarted home sertraline today. Continues on trazodone qHS. (5) Ambulatory dysfunction: Plan: Bedbound, awaiting placement. (6) Constipation: Plan: Feeding by G-Tube Web Offset Press Feeder consulted, started bolus feeding Continue tube feeds bowel regimen as needed Continue wound care at G-tube site RN reports BM today (7) DVT prophylaxis: Plan: Lovenox DNR/SNI Dispo-[facility]. [facility]ated Discharge Date Admission Date: April 30, 2022 Subjective Patient is seen and examined at bedside-admitted for placement with Suzy's chorea. Lying in bed with no acute distress Denies any chest pain, shortness of breath, dizziness, nausea, abdominal pain Review of Systems Review of Systems: All systems were reviewed and negative except as indicated above. Physical Exam Physical Exam: CONSTITUTIONAL: thin, vitals as above, generally well- appearing, NAD, choreiform movements constant but seems to be more relaxed today on his side after Ativan. EYES: discharge and crusting to R>L eyes. normal conjunctivae, no scleral icterus ENT: external ear and nose normal, MMM NECK: trachea midline RESPIRATORY: clear to auscultation bilaterally, no crackles, rales or wheezes, normal respiratory effort CARDIOVASCULAR: regular rate and rhythm, S1 and 2 heard without murmurs, gallops or rubs, no JVD, no peripheral edema CHEST: inspection of chest was normal GASTROINTESTINAL: soft, nontender, ND, no guarding, PEG site intact with no surrounding erythema or drainage. MUSCULOSKELETAL: strength 5/5 throughout, head is normocephalic and atraumatic, neck supple, normal palpation of chest wall without tenderness SKIN: warm and dry, stage II sacral decubitus ulcer without signs of infection or drainage. Extensor surfaces of elbows are also erythematous and irritated at contact points. NEUROLOGIC: CN 2-12 grossly intact, no sensory deficit, normal cognition, normal speech, no tremor PSYCHIATRIC: alert cooperative and oriented to person, place and time. Results & Data Results & Data ([facility]) Vital Signs (Past 12 Hours) Vital Signs Pulse BP Pulse Ox O2 Del Method 07/30/22 11:21 71 93/58 L 96 Room Air 07/30/22 07:27 Room Air 07/30/22 08:00 79 98 Room Air Medications Administered Current Inpatient Medications Deutetrabenazine (Austedo 12 Mg Tablet) 2 each PO BID [facility] Stop: 09/13/22 10:59 Last Admin: 07/30/22 09:03 Dose: 2 each Enoxaparin Sodium (Enoxaparin Inj 40 Mg/0.4 Ml Syr) 40 mg SQ Q24H [facility] Stop: 08/17/22 20:59 Last Admin: 07/29/22 21:53 Dose: 40 mg Enteral Nutritional Formula (Peptamen 1.5 Erich 1,000 Ml Bag) 200 ml PEG TID@0600,0900,1200 ESTELA; Protocol Stop: 08/23/22 05:59 Last Admin: 07/30/22 12:01 Dose: 200 ml Enteral Nutritional Formula (Peptamen 1.5 Erich 1,000 Ml Bag) 200 ml PEG TID@1500,1800,2100 ESTELA; Protocol Stop: 08/22/22 17:59 Last Admin: 07/29/22 21:52 Dose: 200 ml Lorazepam (Lorazepam 0.5 Mg Tab) 0.5 mg PO Q6H [facility] Stop: 08/07/22 19:29 Last Admin: 07/30/22 13:32 Dose: 0.5 mg Ondansetron HCl (Ondansetron 4 Mg Od Tab) 4 mg PO Q6H PRN PRN Reason: Nausea Stop: 08/14/22 10:25 Last Admin: 07/15/22 10:45 Dose: 4 mg Pantoprazole Sodium (Pantoprazole 40 Mg Tab) 40 mg PO HS [facility]A Stop: 08/17/22 20:59 Last Admin: 07/29/22 21:53 Dose: 40 mg Sertraline HCl (Sertraline Hcl 50 Mg Tablet) 25 mg PEG QAM [facility] Stop: 08/24/22 08:59 Last Admin: 07/30/22 09:03 Dose: 25 mg Trazodone HCl (Trazodone Hcl 50 Mg Tab) 50 mg PO HS [facility]ELA Stop: 08/17/22 20:59 Last Admin: 07/29/22 21:53 Dose: 50 mg
[2022-07-30] MEDS: PANTOprazole 40 MG TAB PO SCH (21:28)
[2022-07-30] MEDS: ENOXAPARIN INJ 40 MG/0.4 ML SYR SQ SCH (21:28)
[2022-07-30] MEDS: traZODone HCL 50 MG TAB PO SCH (21:32)
[2022-07-31] MEDS: LORazepam 0.5 MG TAB PO SCH ×4 (02:20→19:44)
[2022-07-31] MEDS: PEPTAMEN 1.5 CAL 1,000 ML BAG PEG SCH ×6 (06:01→20:36)
[2022-07-31] MEDS: AUSTEDO 12 MG PO SCH ×2 (09:01→20:33)
[2022-07-31] MEDS: SERTRALINE HCL 50 MG TABLET PEG SCH (09:02)
--- NOTE | 2022-07-31 09:56 | Hospitalist Progress Note ---
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 Ambulatory dysfunction Frequent falls Patient's family no longer able to care patient Continue Deutetrabenazine (Austedo) at max dose 24 mg bid, Ativan given scheduled. Hold Ativan for excessive sedation, currently ongoing Dr. Rodriguez - wale's neurologist at [facility] Fall precautions Possible Aspiration Pneumonitis CXR - Possible right midlung opacity. Pneumonia cannot be excluded. Radiographic follow-up to ensure resolution is recommended. Completed 7day course of Unasyn Aspiration precautions (2) Sacral decubitus ulcer, stage II: Plan: chronic, cont to reposition and keep pressure off this area (3) Urinary retention: Plan: chronic, indwelling kelly--exchange every 30 days. (4) Depression: Plan: chronic, appears stable. Restarted home sertraline today. Continues on trazodone qHS. (5) Ambulatory dysfunction: Plan: Bedbound, awaiting placement. (6) Constipation: Plan: Feeding by G-Tube Stopperer Assembler consulted, started bolus feeding Continue tube feeds bowel regimen as needed Continue wound care at G-tube site RN reports BM today (7) DVT prophylaxis: Plan: Lovenox DNR/SNI Dispo-awaiting placement. Rocio Evans DO [place] [facility]ist Admission and Anticipated Discharge Date Admission Date: April 30, 2022 Subjective Patient is seen and examined at bedside-admitted for placement with Suzy's chorea. Lying in bed with no acute distress Denies any pain or other issues today. Was drinking some Powerade Eyes are clear of crust today. Review of Systems Review of Systems: All systems were reviewed and negative except as indicated above. Neurologic: Continues to have abnormal choreiform movements involving the extremities and the trunk Physical Exam Physical Exam: CONSTITUTIONAL: thin, vitals as above, generally well- appearing, NAD, choreiform movements constant EYES: normal conjunctivae, no scleral icterus, blepharitis has resolved. ENT: external ear and nose normal, MMM NECK: trachea midline RESPIRATORY: clear to auscultation bilaterally, no crackles, rales or wheezes, normal respiratory effort CARDIOVASCULAR: regular rate and rhythm, S1 and 2 heard without murmurs, gallops or rubs, no JVD, no peripheral edema CHEST: inspection of chest was normal GASTROINTESTINAL: soft, nontender, ND, no guarding, PEG site intact with no surrounding erythema or drainage. MUSCULOSKELETAL: strength 5/5 throughout, head is normocephalic and atraumatic, neck supple, normal palpation of chest wall without tenderness SKIN: warm and dry, stage II sacral decubitus ulcer without signs of infection or drainage. Extensor surfaces of elbows are also erythematous and irritated at contact points. NEUROLOGIC: CN 2-12 grossly intact, no sensory deficit, normal cognition, normal speech, no tremor PSYCHIATRIC: alert cooperative and oriented to person, place and time. Results & Data Results & Data ([facility]) Vital Signs (Past 12 Hours) Vital Signs Temp Pulse Resp BP Pulse Ox O2 Del Method 07/31/22 07:19 36.3 C L 102 H 18 94/59 L 94 Room Air Medications Administered Current Inpatient Medications Deutetrabenazine (Austedo 12 Mg Tablet) 2 each PO BID [facility] Stop: 09/13/22 10:59 Last Admin: 07/31/22 09:01 Dose: 2 each Enoxaparin Sodium (Enoxaparin Inj 40 Mg/0.4 Ml Syr) 40 mg SQ Q24H [facility] Stop: 08/17/22 20:59 Last Admin: 07/30/22 21:28 Dose: 40 mg Enteral Nutritional Formula (Peptamen 1.5 Erich 1,000 Ml Bag) 200 ml PEG TID@0600,0900,1200 ESTELA; Protocol Stop: 08/23/22 05:59 Last Admin: 07/31/22 09:02 Dose: 200 ml Enteral Nutritional Formula (Peptamen 1.5 Erich 1,000 Ml Bag) 200 ml PEG TID@1500,1800,2100 ESTELA; Protocol Stop: 08/22/22 17:59 Last Admin: 07/30/22 21:29 Dose: 200 ml Lorazepam (Lorazepam 0.5 Mg Tab) 0.5 mg PO Q6H [facility] Stop: 08/07/22 19:29 Last Admin: 07/31/22 06:37 Dose: 0.5 mg Ondansetron HCl (Ondansetron 4 Mg Od Tab) 4 mg PO Q6H PRN PRN Reason: Nausea Stop: 08/14/22 10:25 Last Admin: 07/15/22 10:45 Dose: 4 mg Pantoprazole Sodium (Pantoprazole 40 Mg Tab) 40 mg PO HS [facility]A Stop: 08/17/22 20:59 Last Admin: 07/30/22 21:28 Dose: 40 mg Sertraline HCl (Sertraline Hcl 50 Mg Tablet) 25 mg PEG QAM [facility] Stop: 08/24/22 08:59 Last Admin: 07/31/22 09:02 Dose: 25 mg Trazodone HCl (Trazodone Hcl 50 Mg Tab) 50 mg PO HS [facility] Stop: 08/17/22 20:59 Last Admin: 07/30/22 21:32 Dose: 50 mg
[2022-07-31] MEDS: traZODone HCL 50 MG TAB PO SCH (20:32)
[2022-07-31] MEDS: ENOXAPARIN INJ 40 MG/0.4 ML SYR SQ SCH (20:32)
[2022-07-31] MEDS: PANTOprazole 40 MG TAB PO SCH (20:33)
[2022-08-01] MEDS: LORazepam 0.5 MG TAB PO SCH ×4 (00:53→19:27)
[2022-08-01] MEDS: PEPTAMEN 1.5 CAL 1,000 ML BAG PEG SCH ×7 (05:15→21:39)
[2022-08-01] MEDS: SERTRALINE HCL 50 MG TABLET PEG SCH ×2 (08:24→09:29)
[2022-08-01] MEDS: AUSTEDO 12 MG PO SCH ×2 (08:25→21:38)
--- NOTE | 2022-08-01 11:11 | Hospitalist Progress Note ---
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 Ambulatory dysfunction Frequent falls Patient's family no longer able to care patient Continue Deutetrabenazine (Austedo) at max dose 24 mg bid, Ativan given scheduled. Hold Ativan for excessive sedation, currently ongoing Dr. Rodriguez - pt's neurologist at [facility] Fall precautions Possible Aspiration Pneumonitis CXR - Possible right midlung opacity. Pneumonia cannot be excluded. Radiographic follow-up to ensure resolution is recommended. Completed 7day course of Unasyn Aspiration precautions (2) Sacral decubitus ulcer, stage II: Plan: chronic, cont to reposition and keep pressure off this area (3) Urinary retention: Plan: chronic, indwelling kelly--exchange every 30 days. (4) Depression: Plan: chronic, appears stable. Restarted home sertraline today. Continues on trazodone qHS. (5) Ambulatory dysfunction: Plan: Bedbound, awaiting placement. (6) Constipation: Plan: Feeding by G-Tube Silk Conditioner consulted, started bolus feeding Continue tube feeds bowel regimen as needed Continue wound care at G-tube site RN reports BM today (7) DVT prophylaxis: Plan: Lovenox DNR/SNI Dispo-awaiting placement. Rocio Evans DO [facility] Admission and Anticipated Discharge Date Admission Date: April 30, 2022 Subjective Patient is seen and examined at bedside-admitted for placement with Suzy's chorea. Lying in bed with no acute distress Denies any pain or other issues today. Continues to slide down in the bed and chorea causing involuntary irritation on his bilateral extensor surfaces of elbows. Bilateral hips and sacrum are at risk for continued breakdown from pressure ulceration Nurses are continuing to rearrange his position. Review of Systems Review of Systems: All systems were reviewed and negative except as indicated above. Physical Exam Physical Exam: CONSTITUTIONAL: thin, vitals as above, generally well- appearing, NAD, choreiform movements constant EYES: normal conjunctivae, no scleral icterus, blepharitis has resolved. ENT: external ear and nose normal, MMM NECK: trachea midline RESPIRATORY: clear to auscultation bilaterally, no crackles, rales or wheezes, normal respiratory effort CARDIOVASCULAR: regular rate and rhythm, S1 and 2 heard without murmurs, gallops or rubs, no JVD, no peripheral edema CHEST: inspection of chest was normal GASTROINTESTINAL: soft, nontender, ND, no guarding, PEG site intact with no surrounding erythema or drainage. MUSCULOSKELETAL: strength 5/5 throughout, head is normocephalic and atraumatic, neck supple, normal palpation of chest wall without tenderness SKIN: warm and dry, stage II sacral decubitus ulcer without signs of infection or drainage. Extensor surfaces of elbows are also erythematous and irritated at contact points. NEUROLOGIC: CN 2-12 grossly intact, no sensory deficit, normal cognition, normal speech, no tremor PSYCHIATRIC: alert cooperative and oriented to person, place and time. Results & Data Results & Data ([facility]) Vital Signs (Past 12 Hours) Vital Signs Temp Pulse Resp BP Pulse Ox O2 Del Method 08/01/22 07:25 36.4 C L 70 18 99/59 L 97 Room Air Medications Administered Current Inpatient Medications Deutetrabenazine (Austedo 12 Mg Tablet) 2 each PO BID ESTELA Stop: 09/13/22 10:59 Last Admin: 08/01/22 08:25 Dose: 2 each Enoxaparin Sodium (Enoxaparin Inj 40 Mg/0.4 Ml Syr) 40 mg SQ Q24H ESTELA Stop: 08/17/22 20:59 Last Admin: 07/31/22 20:32 Dose: 40 mg Enteral Nutritional Formula (Peptamen 1.5 Erich 1,000 Ml Bag) 200 ml PEG TID@0600,0900,1200 ESTELA; Protocol Stop: 08/23/22 05:59 Last Admin: 08/01/22 08:26 Dose: 200 ml Enteral Nutritional Formula (Peptamen 1.5 Erich 1,000 Ml Bag) 200 ml PEG TID@1500,1800,2100 ESTELA; Protocol Stop: 08/22/22 17:59 Last Admin: 07/31/22 20:36 Dose: 200 ml Lorazepam (Lorazepam 0.5 Mg Tab) 0.5 mg PO Q6H ESTELA Stop: 08/07/22 19:29 Last Admin: 08/01/22 08:24 Dose: 0.5 mg Ondansetron HCl (Ondansetron 4 Mg Od Tab) 4 mg PO Q6H PRN PRN Reason: Nausea Stop: 08/14/22 10:25 Last Admin: 07/15/22 10:45 Dose: 4 mg Pantoprazole Sodium (Pantoprazole 40 Mg Tab) 40 mg PO HS ESTELA Stop: 08/17/22 20:59 Last Admin: 07/31/22 20:33 Dose: 40 mg Sertraline HCl (Sertraline Hcl 50 Mg Tablet) 25 mg PEG QAM ESTELA Stop: 08/24/22 08:59 Last Admin: 08/01/22 09:29 Dose: 25 mg Trazodone HCl (Trazodone Hcl 50 Mg Tab) 50 mg PO HS ESTELA Stop: 08/17/22 20:59 Last Admin: 07/31/22 20:32 Dose: 50 mg
[2022-08-01] MEDS: traZODone HCL 50 MG TAB PO SCH (21:38)
[2022-08-01] MEDS: ENOXAPARIN INJ 40 MG/0.4 ML SYR SQ SCH (21:38)
[2022-08-01] MEDS: PANTOprazole 40 MG TAB PO SCH (21:38)
[2022-08-02] MEDS: LORazepam 0.5 MG TAB PO SCH ×4 (01:30→19:31)
[2022-08-02] MEDS: PEPTAMEN 1.5 CAL 1,000 ML BAG PEG SCH ×6 (06:12→21:01)
[2022-08-02] MEDS: SERTRALINE HCL 50 MG TABLET PEG SCH (07:23)
[2022-08-02] MEDS: AUSTEDO 12 MG PO SCH ×2 (07:23→21:01)
--- NOTE | 2022-08-02 11:27 | Hospitalist Progress Note ---
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 Ambulatory dysfunction Frequent falls Patient's family no longer able to care patient Continue Deutetrabenazine (Austedo) at max dose 24 mg bid, Ativan given scheduled. Hold Ativan for excessive sedation, currently being given on a scheduled basis Dr. Rodriguez - wale's neurologist at [facility] Fall precautions Possible Aspiration Pneumonitis CXR - Possible right midlung opacity. Pneumonia cannot be excluded. Radiographic follow-up to ensure resolution is recommended. Completed 7day course of Unasyn Aspiration precautions (2) Sacral decubitus ulcer, stage II: Plan: chronic, cont to reposition and keep pressure off this area (3) Urinary retention: Plan: chronic, indwelling kelly--exchange every 30 days. (4) Underweight: Plan: PEG tube and full liquid. Mostly he is drinking Powerade and tea on occasion; not handling much else by mouth. Reached out to nutrition to discuss his weight which has not improved after initial loss, and noted trend of low to low-normal blood sugars when this has been checked. Want to make sure we are maximizing calories. Good BMs at this time. Cont close monitoring. (5) Depression: Plan: chronic, appears stable. Restarted home sertraline today. Continues on trazodone qHS. (6) Ambulatory dysfunction: Plan: Bedbound, awaiting placement. (7) Constipation: Plan: Feeding by G-Tube Prison Psychiatrist consulted, started bolus feeding Continue tube feeds bowel regimen as needed Continue wound care at G-tube site RN reports BM today (8) DVT prophylaxis: Plan: Lovenox DNR/SNI Dispo-awaiting placement. Rocio Evans DO [facility]ist Admission and Anticipated Discharge Date Admission Date: April 30, 2022 Subjective Patient is seen and examined at bedside-admitted for placement with [place]'s chorea. Lying in bed with no acute distress Denies any pain or other issues today. Just had a BM and is waiting to be cleaned up. Review of Systems Review of Systems: All systems were reviewed and negative except as indicated above. Neurologic: Continues to have abnormal choreiform movements involving the extremities and the trunk Physical Exam Physical Exam: CONSTITUTIONAL: thin, vitals as above, generally well- appearing, NAD, choreiform movements constant EYES: normal conjunctivae, no scleral icterus, blepharitis has resolved. ENT: external ear and nose normal, MMM NECK: trachea midline RESPIRATORY: clear to auscultation bilaterally, no crackles, rales or wheezes, normal respiratory effort CARDIOVASCULAR: regular rate and rhythm, S1 and 2 heard without murmurs, gallops or rubs, no JVD, no peripheral edema CHEST: inspection of chest was normal GASTROINTESTINAL: soft, nontender, ND, no guarding, PEG site intact with no surrounding erythema or drainage. MUSCULOSKELETAL: strength 5/5 throughout, head is normocephalic and atraumatic, neck supple, normal palpation of chest wall without tenderness SKIN: warm and dry, stage II sacral decubitus ulcer without signs of infection or drainage. Extensor surfaces of elbows are also erythematous and irritated at contact points. NEUROLOGIC: CN 2-12 grossly intact, no sensory deficit, normal cognition, normal speech, no tremor PSYCHIATRIC: alert cooperative and oriented to person, place and time. Results & Data Results & Data ([facility]) Vital Signs (Past 12 Hours) Vital Signs Temp Pulse Resp BP Pulse Ox O2 Del Method 08/02/22 07:51 36.1 C L 76 18 83/54 L 99 Room Air Medications Administered Current Inpatient Medications Deutetrabenazine (Austedo 12 Mg Tablet) 2 each PO BID ESTELA Stop: 09/13/22 10:59 Last Admin: 08/02/22 07:23 Dose: 2 each Enoxaparin Sodium (Enoxaparin Inj 40 Mg/0.4 Ml Syr) 40 mg SQ Q24H ESTELA Stop: 08/17/22 20:59 Last Admin: 08/01/22 21:38 Dose: 40 mg Enteral Nutritional Formula (Peptamen 1.5 Erich 1,000 Ml Bag) 200 ml PEG TID@0600,0900,1200 ESTELA; Protocol Stop: 08/23/22 05:59 Last Admin: 08/02/22 08:58 Dose: 200 ml Enteral Nutritional Formula (Peptamen 1.5 Erich 1,000 Ml Bag) 200 ml PEG TID@1500,1800,2100 ESTELA; Protocol Stop: 08/22/22 17:59 Last Admin: 08/01/22 21:39 Dose: 200 ml Lorazepam (Lorazepam 0.5 Mg Tab) 0.5 mg PO Q6H ESTELA Stop: 08/07/22 19:29 Last Admin: 08/02/22 07:23 Dose: 0.5 mg Ondansetron HCl (Ondansetron 4 Mg Od Tab) 4 mg PO Q6H PRN PRN Reason: Nausea Stop: 08/14/22 10:25 Last Admin: 07/15/22 10:45 Dose: 4 mg Pantoprazole Sodium (Pantoprazole 40 Mg Tab) 40 mg PO ESTELA Stop: 08/17/22 20:59 Last Admin: 08/01/22 21:38 Dose: 40 mg Sertraline HCl (Sertraline Hcl 50 Mg Tablet) 25 mg PEG QAM ESTELA Stop: 08/24/22 08:59 Last Admin: 08/02/22 07:23 Dose: 25 mg Trazodone HCl (Trazodone Hcl 50 Mg Tab) 50 mg PO HS ESTELA Stop: 08/17/22 20:59 Last Admin: 08/01/22 21:38 Dose: 50 mg
[2022-08-02] MEDS: PANTOprazole 40 MG TAB PO SCH (21:00)
[2022-08-02] MEDS: traZODone HCL 50 MG TAB PO SCH (21:00)
[2022-08-02] MEDS: ENOXAPARIN INJ 40 MG/0.4 ML SYR SQ SCH (21:01)
[2022-08-03] MEDS: LORazepam 0.5 MG TAB PO SCH ×4 (01:27→20:13)
[2022-08-03] MEDS: PEPTAMEN 1.5 CAL 1,000 ML BAG PEG SCH ×6 (05:53→20:14)
[2022-08-03 06:33] LABS: Hematocrit (blood only) 44.2 % (40.1-51.0); Hemoglobin 15.6 g/dl (14.0-18.0); Mean Corpuscular Hemoglobin 32.5 pg (25.0-34.0); Mean Corpuscular Hgb Conc 35.3 g/dL (32.0-36.0); Mean Corpuscular Volume 92.1 fL (80.0-100.0); Platelet Count 329 K/uL (130-400); RDW Standard Deviation 41.1 fL (36.4-46.3); White Blood Count 5.95 K/ul (4.8-10.8)
[2022-08-03 06:58] LABS: BUN Creatinine Ratio 27.4 (10-20); Calcium 9.8 mg/dl (8.5-10.1); Creatinine Clr Calc Pharmacy 115.7 ml/min; Est GFR (African American) 131.7 ml/min; Est GFR (Non-African American) 113.6 ml/min; Magnesium 2.2 mg/dl (1.7-2.4); Phosphorus 3.4 mg/dl (2.5-4.9); Potassium 4.2 mmol/L (3.5-5.1)
[2022-08-03] MEDS: AUSTEDO 12 MG PO SCH ×2 (08:21→20:14)
[2022-08-03] MEDS: SERTRALINE HCL 50 MG TABLET PEG SCH (08:22)
[2022-08-03] MEDS ORDERED: TUBE FEEDING WATER FLUSH GT SCH (09:00)
[2022-08-03] MEDS: TUBE FEEDING WATER FLUSH GT SCH ×4 (12:08→20:14)
--- NOTE | 2022-08-03 18:05 | Hospitalist Progress Note ---
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 Ambulatory dysfunction Frequent falls Patient's family no longer able to care patient Continue Deutetrabenazine (Austedo) at max dose 24 mg bid, Ativan given scheduled. Hold Ativan for excessive sedation, currently being given on a scheduled basis Dr. Rodriguez - wale's neurologist at [facility] Fall precautions Possible Aspiration Pneumonitis CXR - Possible right midlung opacity. Pneumonia cannot be excluded. Radiographic follow-up to ensure resolution is recommended. Completed 7day course of Unasyn Aspiration precautions (2) Sacral decubitus ulcer, stage II: Plan: chronic, cont to reposition and keep pressure off this area (3) Urinary retention: Plan: chronic, indwelling kelly--exchange every 30 days. (4) Underweight: Plan: PEG tube and full liquid. Mostly he is drinking Powerade and tea on occasion; not handling much else by mouth. Reached out to nutrition to discuss his weight which has not improved after initial loss, and noted trend of low to low-normal blood sugars when this has been checked. Fill Plant Operator has increased caloric amount today (08/03) and patient will be on a higher concentration food as outpatient which is not currently on formulary. Good BMs at this time. Cont close monitoring. (5) Depression: Plan: chronic, appears stable. Restarted home sertraline today. Continues on trazodone qHS. (6) Ambulatory dysfunction: Plan: Bedbound, awaiting placement. (7) Constipation: Plan: Feeding by G-Tube Fill Plant Operator consulted, started bolus feeding Continue tube feeds bowel regimen as needed Continue wound care at G-tube site RN reports BM today (8) DVT prophylaxis: Plan: Lovenox DNR/SNI Dispo-medically stable, awaiting placement. [facility] and Anticipated Discharge Date Admission Date: April 30, 2022 Subjective Patient is seen and examined at bedside-admitted for placement with [place]'s chorea. Lying in bed with no acute distress Denies any pain or other issues today. Discussed plan with nutrition to increase his caloric intake based on weight trend. Discussed this with patient today.. Review of Systems Review of Systems: All systems were reviewed and negative except as indicated above. Neurologic: Continues to have abnormal choreiform movements involving the extremities and the trunk Physical Exam Physical Exam: CONSTITUTIONAL: thin, vitals as above, generally well- appearing, NAD, choreiform movements constant EYES: normal conjunctivae, no scleral icterus, blepharitis has resolved. ENT: external ear and nose normal, MMM NECK: trachea midline RESPIRATORY: clear to auscultation bilaterally, no crackles, rales or wheezes, normal respiratory effort CARDIOVASCULAR: regular rate and rhythm, S1 and 2 heard without murmurs, gallops or rubs, no JVD, no peripheral edema CHEST: inspection of chest was normal GASTROINTESTINAL: soft, nontender, ND, no guarding, PEG site intact with no surrounding erythema or drainage. MUSCULOSKELETAL: strength 5/5 throughout, head is normocephalic and atraumatic, neck supple, normal palpation of chest wall without tenderness SKIN: warm and dry, stage II sacral decubitus ulcer without signs of infection or drainage. Extensor surfaces of elbows are also erythematous and irritated at contact points. NEUROLOGIC: CN 2-12 grossly intact, no sensory deficit, normal cognition, normal speech, no tremor PSYCHIATRIC: alert cooperative and oriented to person, place and time. Results & Data Results & Data ([facility]) Vital Signs (Past 12 Hours) Vital Signs Temp Pulse Resp BP BP Pulse Ox O2 Del Method 08/03/22 15:18 36.6 C 60 16 93/56 L 96 Room Air 08/03/22 08:01 Room Air 08/03/22 08:19 36.8 C 86 18 106/68 97 Room Air Laboratory Results Short CBC 08/03/22 Range/Units 05:56 WBC 5.95 (4.8-10.8) K/ul Hgb 15.6 (14.0-18.0) g/dl Hct 44.2 (40.1-51.0) % Plt Count 329 (130-400) K/uL BMP 08/03/22 05:56 Sodium 137 Potassium 4.2 Chloride 100 Carbon Dioxide 35 H BUN 20 Creatinine 0.73 Glucose 74 Calcium 9.8 Medications Administered Current Inpatient Medications Deutetrabenazine (Austedo 12 Mg Tablet) 2 each PO BID ESTELA Stop: 09/13/22 10:59 Last Admin: 08/03/22 08:21 Dose: 2 each Enoxaparin Sodium (Enoxaparin Inj 40 Mg/0.4 Ml Syr) 40 mg SQ Q24H ESTELA Stop: 08/17/22 20:59 Last Admin: 08/02/22 21:01 Dose: 40 mg Enteral Nutritional Formula (Peptamen 1.5 Erich 1,000 Ml Bag) 240 ml PEG TID@0600,0900,1200 ESTELA; Protocol Stop: 09/02/22 11:59 Last Admin: 08/03/22 12:08 Dose: 240 ml Enteral Nutritional Formula (Peptamen 1.5 Erich 1,000 Ml Bag) 240 ml PEG TID@1500,1800,2100 ESTELA; Protocol Stop: 09/02/22 14:59 Last Admin: 08/03/22 15:09 Dose: 240 ml Lorazepam (Lorazepam 0.5 Mg Tab) 0.5 mg PO Q6H ESTELA Stop: 08/07/22 19:29 Last Admin: 08/03/22 14:02 Dose: 0.5 mg Ondansetron HCl (Ondansetron 4 Mg Od Tab) 4 mg PO Q6H PRN PRN Reason: Nausea Stop: 08/14/22 10:25 Last Admin: 07/15/22 10:45 Dose: 4 mg Pantoprazole Sodium (Pantoprazole 40 Mg Tab) 40 mg PO HS ESTELA Stop: 08/17/22 20:59 Last Admin: 08/02/22 21:00 Dose: 40 mg Sertraline HCl (Sertraline Hcl 50 Mg Tablet) 25 mg PEG QAM ESTELA Stop: 08/24/22 08:59 Last Admin: 08/03/22 08:22 Dose: 25 mg Sterile Water (Tube Feeding Water Flush) 30 ml GT Q3HWA ESTELA Stop: 09/02/22 11:59 Last Admin: 08/03/22 15:09 Dose: 30 ml Trazodone HCl (Trazodone Hcl 50 Mg Tab) 50 mg PO HS ESTELA Stop: 08/17/22 20:59 Last Admin: 08/02/22 21:00 Dose: 50 mg
[2022-08-03] MEDS: traZODone HCL 50 MG TAB PO SCH (20:13)
[2022-08-03] MEDS: PANTOprazole 40 MG TAB PO SCH (20:14)
[2022-08-03] MEDS: ENOXAPARIN INJ 40 MG/0.4 ML SYR SQ SCH (20:14)
[2022-08-04] MEDS: LORazepam 0.5 MG TAB PO SCH ×4 (02:22→19:57)
[2022-08-04] MEDS: PEPTAMEN 1.5 CAL 1,000 ML BAG PEG SCH ×6 (05:27→21:38)
[2022-08-04] MEDS: TUBE FEEDING WATER FLUSH GT SCH ×6 (05:27→21:39)
[2022-08-04] MEDS: AUSTEDO 12 MG PO SCH ×2 (08:21→20:00)
[2022-08-04] MEDS: SERTRALINE HCL 50 MG TABLET PEG SCH (08:21)
--- NOTE | 2022-08-04 13:51 | Hospitalist Progress Note ---
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 Ambulatory dysfunction Frequent falls Patient's family no longer able to care patient Continue Deutetrabenazine (Austedo) at max dose 24 mg bid, Ativan given scheduled. Hold Ativan for excessive sedation, currently being given on a scheduled basis Dr. Rodriguez - wale's neurologist at [facility] Fall precautions Possible Aspiration Pneumonitis CXR - Possible right midlung opacity. Pneumonia cannot be excluded. Radiographic follow-up to ensure resolution is recommended. Completed 7day course of Unasyn Aspiration precautions (2) Sacral decubitus ulcer, stage II: Plan: chronic, cont to reposition and keep pressure off this area (3) Urinary retention: Plan: chronic, indwelling kelly--exchange every 30 days. (4) Underweight: Plan: PEG tube and full liquid. Mostly he is drinking Powerade and tea on occasion; not handling much else by mouth. Reached out to nutrition to discuss his weight which has not improved after initial loss, and noted trend of low to low-normal blood sugars when this has been checked. Quantometer Operator has increased caloric amount today (08/03) and patient will be on a higher concentration food as outpatient which is not currently on formulary. Good BMs at this time. Cont close monitoring. (5) Depression: Plan: chronic, appears stable. Restarted home sertraline today. Continues on trazodone qHS. (6) Ambulatory dysfunction: Plan: Bedbound, awaiting placement. (7) Constipation: Plan: Feeding by G-Tube Quantometer Operator consulted, started bolus feeding Continue tube feeds bowel regimen as needed Continue wound care at G-tube site RN reports BM today (8) DVT prophylaxis: Plan: Lovenox DNR/SNI Dispo-medically stable, awaiting placement. [facility] and Anticipated Discharge Date Admission Date: April 30, 2022 Subjective Patient is seen and examined at bedside-admitted for placement with [place]'s chorea. Lying in bed with no acute distress Denies any pain or other issues today. No issues Review of Systems Review of Systems: All systems were reviewed and negative except as indicated above. Neurologic: Continues to have abnormal choreiform movements involving the extremities and the trunk Physical Exam Physical Exam: CONSTITUTIONAL: thin, vitals as above, generally well- appearing, NAD, choreiform movements constant EYES: normal conjunctivae, no scleral icterus, blepharitis has resolved. ENT: external ear and nose normal, MMM NECK: trachea midline RESPIRATORY: clear to auscultation bilaterally, no crackles, rales or wheezes, normal respiratory effort CARDIOVASCULAR: regular rate and rhythm, S1 and 2 heard without murmurs, gallops or rubs, no JVD, no peripheral edema CHEST: inspection of chest was normal GASTROINTESTINAL: soft, nontender, ND, no guarding, PEG site intact with no surrounding erythema or drainage. MUSCULOSKELETAL: strength 5/5 throughout, head is normocephalic and atraumatic, neck supple, normal palpation of chest wall without tenderness SKIN: warm and dry, stage II sacral decubitus ulcer without signs of infection or drainage. Extensor surfaces of elbows are also erythematous and irritated at contact points. NEUROLOGIC: CN 2-12 grossly intact, no sensory deficit, normal cognition, normal speech, no tremor PSYCHIATRIC: alert cooperative and oriented to person, place and time. Results & Data Results & Data ([facility]) Vital Signs (Past 12 Hours) Vital Signs Temp Pulse Resp BP Pulse Ox O2 Del Method 08/04/22 08:35 Room Air 08/04/22 08:24 36.6 C 72 14 100/62 96 Room Air Medications Administered Current Inpatient Medications Deutetrabenazine (Austedo 12 Mg Tablet) 2 each PO BID ESTELA Stop: 09/13/22 10:59 Last Admin: 08/04/22 08:21 Dose: 2 each Enoxaparin Sodium (Enoxaparin Inj 40 Mg/0.4 Ml Syr) 40 mg SQ Q24H ESTELA Stop: 08/17/22 20:59 Last Admin: 08/03/22 20:14 Dose: 40 mg Enteral Nutritional Formula (Peptamen 1.5 Erich 1,000 Ml Bag) 240 ml PEG TID@0600,0900,1200 ESTELA; Protocol Stop: 09/02/22 11:59 Last Admin: 08/04/22 12:07 Dose: 240 ml Enteral Nutritional Formula (Peptamen 1.5 Erich 1,000 Ml Bag) 240 ml PEG TID@1500,1800,2100 ESTELA; Protocol Stop: 09/02/22 14:59 Last Admin: 08/03/22 20:14 Dose: 240 ml Lorazepam (Lorazepam 0.5 Mg Tab) 0.5 mg PO Q6H ESTELA Stop: 08/07/22 19:29 Last Admin: 08/04/22 13:07 Dose: 0.5 mg Ondansetron HCl (Ondansetron 4 Mg Od Tab) 4 mg PO Q6H PRN PRN Reason: Nausea Stop: 08/14/22 10:25 Last Admin: 07/15/22 10:45 Dose: 4 mg Pantoprazole Sodium (Pantoprazole 40 Mg Tab) 40 mg PO HS ESTELA Stop: 08/17/22 20:59 Last Admin: 08/03/22 20:14 Dose: 40 mg Sertraline HCl (Sertraline Hcl 50 Mg Tablet) 25 mg PEG QAM ESTELA Stop: 08/24/22 08:59 Last Admin: 08/04/22 08:21 Dose: 25 mg Sterile Water (Tube Feeding Water Flush) 30 ml GT Q3HWA ESTELA Stop: 09/02/22 11:59 Last Admin: 08/04/22 12:07 Dose: 30 ml Trazodone HCl (Trazodone Hcl 50 Mg Tab) 50 mg PO HS ESTELA Stop: 08/17/22 20:59 Last Admin: 08/03/22 20:13 Dose: 50 mg
[2022-08-04] MEDS: PANTOprazole 40 MG TAB PO SCH (20:00)
[2022-08-04] MEDS: traZODone HCL 50 MG TAB PO SCH (20:00)
[2022-08-04] MEDS: ENOXAPARIN INJ 40 MG/0.4 ML SYR SQ SCH (20:00)
[2022-08-05] MEDS: LORazepam 0.5 MG TAB PO SCH ×4 (01:44→19:24)
[2022-08-05] MEDS: PEPTAMEN 1.5 CAL 1,000 ML BAG PEG SCH ×6 (06:02→20:47)
[2022-08-05] MEDS: TUBE FEEDING WATER FLUSH GT SCH ×6 (06:02→20:47)
[2022-08-05] MEDS: SERTRALINE HCL 50 MG TABLET PEG SCH (08:41)
[2022-08-05] MEDS: AUSTEDO 12 MG PO SCH ×2 (08:41→20:22)
--- NOTE | 2022-08-05 19:43 | Hospitalist Progress Note ---
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 Ambulatory dysfunction Frequent falls Patient's family no longer able to care patient Continue Deutetrabenazine (Austedo) at max dose 24 mg bid, Ativan given scheduled. Hold Ativan for excessive sedation, currently being given on a scheduled basis Dr. Rodriguez - wale's neurologist at [facility] Fall precautions Waiting for placement Possible Aspiration Pneumonitis CXR - Possible right midlung opacity. Pneumonia cannot be excluded. Radiographic follow-up to ensure resolution is recommended. Completed 7day course of Unasyn Aspiration precautions (2) Sacral decubitus ulcer, stage II: Plan: chronic continue to reposition (3) Urinary retention: Plan: Monitor (4) Underweight: Plan: on PEG tube feeds and full liquid. Nutrition consulted Increased caloric-Tube feeds (5) Depression: Plan: chronic, appears stable. Restarted home sertraline Continues on trazodone qHS. (6) Ambulatory dysfunction: Plan: Bedbound, awaiting placement. (7) Constipation: Plan: Feeding by G-Tube Packaging Assembler consulted, started bolus feeding Continue tube feeds bowel regimen as needed Continue wound care at G-tube site (8) DVT prophylaxis: Plan: Lovenox SQ Code Status DNR/DNI Disposition Awaiting placement. Admission and Anticipated Discharge Date Admission Date: April 30, 2022 Subjective Patient is seen and examined at bedside Offers no complaints Denies any chest pain, shortness of breath, dizziness Review of Systems Review of Systems: All systems reviewed & are unremarkable except as noted in Subjective Physical Exam Physical Exam: Physical Exam: Vitals signs as noted above General Appearance: Thin, frail, ill-appearing, + chorea movements Head: normocephalic, Atraumatic Eyes: normal inspection, EOMI Neck: supple, Trachea midline Respiratory/Chest: Normal breath sounds, CTA, No accessory muscle use Cardiovascular: S1, S2, No murmur Abdomen/GI:Soft, Non tender, Bowel sounds present Extremities/Musculoskeletal:normal inspection, no edema Neurologic/Psych:AAOX3, grossly no focal neurological deficits Skin: normal color, warm Results & Data Results & Data ([facility]) Vital Signs (Past 12 Hours) Vital Signs Temp Pulse Resp BP Pulse Ox O2 Del Method 08/05/22 14:28 36.7 C 60 18 94/58 L 96 Room Air 08/05/22 08:30 36.5 C 87 20 98 Room Air 08/05/22 08:11 Room Air
[2022-08-05] MEDS: traZODone HCL 50 MG TAB PO SCH (20:22)
[2022-08-05] MEDS: PANTOprazole 40 MG TAB PO SCH (20:22)
[2022-08-05] MEDS: ENOXAPARIN INJ 40 MG/0.4 ML SYR SQ SCH (20:22)
[2022-08-05] MEDS: EUCERIN CR 120 GM JAR EXT SCH (20:46)
[2022-08-06] MEDS: LORazepam 0.5 MG TAB PO SCH ×4 (01:21→19:44)
[2022-08-06] MEDS: PEPTAMEN 1.5 CAL 1,000 ML BAG PEG SCH ×6 (05:55→20:36)
[2022-08-06] MEDS: TUBE FEEDING WATER FLUSH GT SCH ×6 (05:55→20:36)
[2022-08-06] MEDS: AUSTEDO 12 MG PO SCH ×2 (08:18→20:34)
[2022-08-06] MEDS: SERTRALINE HCL 50 MG TABLET PEG SCH (08:18)
[2022-08-06] MEDS: EUCERIN CR 120 GM JAR EXT SCH ×2 (08:18→20:35)
[2022-08-06] MEDS ORDERED: SODIUM CHLORIDE 0.9% 1000ML 1,000 ML IV ONE (09:40)
--- NOTE | 2022-08-06 16:30 | Hospitalist Progress Note ---
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 Ambulatory dysfunction Frequent falls Patient's family no longer able to care patient Continue Deutetrabenazine (Austedo) at max dose 24 mg bid, Ativan given scheduled. Hold Ativan for excessive sedation, currently being given on a scheduled basis Dr. Rodriguez - wale's neurologist at [facility] Fall precautions Waiting for placement Possible Aspiration Pneumonitis CXR - Possible right midlung opacity. Pneumonia cannot be excluded. Radiographic follow-up to ensure resolution is recommended. Completed 7day course of Unasyn Aspiration precautions Chronic hypotension IV fluids as needed Monitoring blood pressure (2) Sacral decubitus ulcer, stage II: Plan: chronic continue to reposition (3) Urinary retention: Plan: Resolved Monitor (4) Underweight: Plan: on PEG tube feeds and full liquid. Nutrition consulted Increased caloric-Tube feeds (5) Depression: Plan: chronic, appears stable. Restarted home sertraline Continues on trazodone qHS. (6) Ambulatory dysfunction: Plan: Bedbound, awaiting placement. (7) Constipation: Plan: Feeding by G-Tube Import And Export Clerk consulted, started bolus feeding Continue tube feeds bowel regimen as needed Continue wound care at G-tube site (8) DVT prophylaxis: Plan: Lovenox SQ Code Status DNR/DNI Disposition Awaiting placement. Admission and Anticipated Discharge Date Admission Date: April 30, 2022 Subjective Patient is seen and examined at bedside Denies any chest pain, shortness of breath, dizziness, nausea, abdominal pain Blood pressure low today but asymptomatic Review of Systems Review of Systems: All systems reviewed & are unremarkable except as noted in Subjective Physical Exam Physical Exam: Physical Exam: Vitals signs as noted above General Appearance: Thin, frail, ill-appearing, + chorea movements Head: normocephalic, Atraumatic Eyes: normal inspection, EOMI Neck: supple, Trachea midline Respiratory/Chest: Normal breath sounds, CTA, No accessory muscle use Cardiovascular: S1, S2, No murmur Abdomen/GI:Soft, Non tender, Bowel sounds present Extremities/Musculoskeletal:normal inspection, no edema Neurologic/Psych:AAOX3, grossly no focal neurological deficits Skin: normal color, warm Results & Data Results & Data ([facility]) Vital Signs (Past 12 Hours) Vital Signs Temp Pulse Resp BP Pulse Ox O2 Del Method 08/06/22 14:36 36.6 C 78 16 93/45 L 94 Room Air 08/06/22 07:23 36.2 C L 60 17 74/49 L 98 Room Air
[2022-08-06] MEDS: traZODone HCL 50 MG TAB PO SCH (20:35)
[2022-08-06] MEDS: PANTOprazole 40 MG TAB PO SCH (20:35)
[2022-08-06] MEDS: ENOXAPARIN INJ 40 MG/0.4 ML SYR SQ SCH (20:35)
[2022-08-07] MEDS: LORazepam 0.5 MG TAB PO SCH ×4 (01:53→19:37)
[2022-08-07] MEDS: TUBE FEEDING WATER FLUSH GT SCH ×6 (05:46→21:12)
[2022-08-07] MEDS: PEPTAMEN 1.5 CAL 1,000 ML BAG PEG SCH ×6 (05:46→21:04)
[2022-08-07] MEDS: EUCERIN CR 120 GM JAR EXT SCH ×2 (08:50→21:05)
[2022-08-07] MEDS: SERTRALINE HCL 50 MG TABLET PEG SCH (08:50)
[2022-08-07] MEDS: AUSTEDO 12 MG PO SCH ×2 (08:50→21:03)
--- NOTE | 2022-08-07 17:28 | Hospitalist Progress Note ---
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 Ambulatory dysfunction Frequent falls Patient's family no longer able to care patient Continue Deutetrabenazine (Austedo) at max dose 24 mg bid, Ativan given scheduled. Hold Ativan for excessive sedation, currently being given on a scheduled basis Dr. Michael Mckinney pt's neurologist at [facility] Fall precautions Waiting for placement Continue current medications Possible Aspiration Pneumonitis CXR - Possible right midlung opacity. Pneumonia cannot be excluded. Radiographic follow-up to ensure resolution is recommended. Completed 7day course of Unasyn Aspiration precautions Chronic hypotension IV fluids as needed Monitoring blood pressure (2) Sacral decubitus ulcer, stage II: Plan: chronic continue to reposition (3) Urinary retention: Plan: Resolved Monitor (4) Underweight: Plan: on PEG tube feeds and full liquid. Nutrition consulted Increased caloric-Tube feeds (5) Depression: Plan: chronic, appears stable. Restarted home sertraline Continues on trazodone qHS. (6) Ambulatory dysfunction: Plan: Bedbound, awaiting placement. (7) Constipation: Plan: Feeding by G-Tube Packing Attendant consulted, started bolus feeding Continue tube feeds bowel regimen as needed Continue wound care at G-tube site (8) DVT prophylaxis: Plan: Lovenox SQ Code Status DNR/DNI Disposition Awaiting placement. Admission and Anticipated Discharge Date Admission Date: April 30, 2022 Subjective Patient is seen and examined at bedside No new complaints Denies any chest pain, shortness of breath, dizziness, nausea, abdominal pain Blood pressure stable today Review of Systems Review of Systems: All systems reviewed & are unremarkable except as noted in Subjective Physical Exam Physical Exam: Physical Exam: Vitals signs as noted above General Appearance: Thin, frail, ill-appearing, + chorea movements Head: normocephalic, Atraumatic Eyes: normal inspection, EOMI Neck: supple, Trachea midline Respiratory/Chest: Normal breath sounds, CTA, No accessory muscle use Cardiovascular: S1, S2, No murmur Abdomen/GI:Soft, Non tender, Bowel sounds present Extremities/Musculoskeletal:normal inspection, no edema Neurologic/Psych:AAOX3, grossly no focal neurological deficits Skin: normal color, warm Results & Data Results & Data ([facility]) Vital Signs (Past 12 Hours) Vital Signs Temp Pulse Resp BP Pulse Ox O2 Del Method 08/07/22 14:54 37.1 C 81 18 115/69 98 Room Air 08/07/22 08:45 Room Air 08/07/22 08:10 36.4 C L 87 18 95/66 L 92 Room Air
[2022-08-07] MEDS: ENOXAPARIN INJ 40 MG/0.4 ML SYR SQ SCH (21:04)
[2022-08-07] MEDS: PANTOprazole 40 MG TAB PO SCH (21:04)
[2022-08-07] MEDS: traZODone HCL 50 MG TAB PO SCH (21:05)
[2022-08-08] MEDS: LORazepam 0.5 MG TAB PO SCH ×4 (01:27→19:31)
[2022-08-08] MEDS: TUBE FEEDING WATER FLUSH GT SCH ×6 (05:58→21:19)
[2022-08-08] MEDS: PEPTAMEN 1.5 CAL 1,000 ML BAG PEG SCH ×6 (05:58→21:18)
[2022-08-08] MEDS: SERTRALINE HCL 50 MG TABLET PEG SCH (09:25)
[2022-08-08] MEDS: AUSTEDO 12 MG PO SCH ×2 (09:25→21:16)
[2022-08-08] MEDS: EUCERIN CR 120 GM JAR EXT SCH ×2 (09:26→21:17)
--- NOTE | 2022-08-08 16:46 | Hospitalist Progress Note ---
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 Ambulatory dysfunction Frequent falls Patient's family no longer able to care patient Continue Deutetrabenazine (Austedo) at max dose 24 mg bid, Ativan given scheduled. Hold Ativan for excessive sedation, currently being given on a scheduled basis Dr. Rodriguez - wale's neurologist at [facility] Fall precautions Waiting for placement Possible Aspiration Pneumonitis CXR - Possible right midlung opacity. Pneumonia cannot be excluded. Radiographic follow-up to ensure resolution is recommended. Completed 7day course of Unasyn Aspiration precautions Chronic hypotension IV fluids as needed Monitoring blood pressure (2) Sacral decubitus ulcer, stage II: Plan: chronic continue to reposition (3) Urinary retention: Plan: Resolved Monitor (4) Underweight: Plan: on PEG tube feeds and full liquid. Nutrition consulted Increased caloric-Tube feeds (5) Depression: Plan: chronic, appears stable. Restarted home sertraline Continues on trazodone qHS. (6) Ambulatory dysfunction: Plan: Bedbound, awaiting placement. (7) Constipation: Plan: Feeding by G-Tube Electronics Engineering Professor consulted, started bolus feeding Continue tube feeds bowel regimen as needed Continue wound care at G-tube site (8) DVT prophylaxis: Plan: Lovenox SQ Code Status DNR/DNI Disposition Awaiting placement. Admission and Anticipated Discharge Date Admission Date: April 30, 2022 Subjective Patient is seen and examined at bedside Denies any chest pain, shortness of breath, dizziness, nausea, abdominal pain Offers no complaints Waiting for placement Review of Systems Review of Systems: All systems reviewed & are unremarkable except as noted in Subjective Physical Exam Physical Exam: Physical Exam: Vitals signs as noted above General Appearance: Thin, frail, ill-appearing, + chorea movements Head: normocephalic, Atraumatic Eyes: normal inspection, EOMI Neck: supple, Trachea midline Respiratory/Chest: Normal breath sounds, CTA, No accessory muscle use Cardiovascular: S1, S2, No murmur Abdomen/GI:Soft, Non tender, Bowel sounds present Extremities/Musculoskeletal:normal inspection, no edema Neurologic/Psych:AAOX3, grossly no focal neurological deficits Skin: normal color, warm Results & Data Results & Data ([facility]) Vital Signs (Past 12 Hours) Vital Signs Temp Pulse Resp BP Pulse Ox O2 Del Method 08/08/22 15:10 36.6 C 73 18 99/66 L 95 Room Air
[2022-08-08] MEDS: PANTOprazole 40 MG TAB PO SCH (21:16)
[2022-08-08] MEDS: traZODone HCL 50 MG TAB PO SCH (21:16)
[2022-08-08] MEDS: ENOXAPARIN INJ 40 MG/0.4 ML SYR SQ SCH (21:17)
[2022-08-09] MEDS: LORazepam 0.5 MG TAB PO SCH ×4 (01:19→19:26)
[2022-08-09] MEDS: TUBE FEEDING WATER FLUSH GT SCH ×6 (05:40→21:36)
[2022-08-09] MEDS: PEPTAMEN 1.5 CAL 1,000 ML BAG PEG SCH ×6 (05:43→21:33)
[2022-08-09] MEDS: AUSTEDO 12 MG PO SCH ×2 (09:18→21:28)
[2022-08-09] MEDS: SERTRALINE HCL 50 MG TABLET PEG SCH (09:19)
[2022-08-09] MEDS: EUCERIN CR 120 GM JAR EXT SCH ×2 (09:19→21:29)
--- NOTE | 2022-08-09 17:03 | Hospitalist Progress Note ---
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 Ambulatory dysfunction Frequent falls Patient's family no longer able to care patient Continue Deutetrabenazine (Austedo) at max dose 24 mg bid, Ativan given scheduled. Hold Ativan for excessive sedation, currently being given on a scheduled basis Dr. Michael Mckinney pt's neurologist at [facility] Fall precautions Waiting for placement No change in current management Possible Aspiration Pneumonitis CXR - Possible right midlung opacity. Pneumonia cannot be excluded. Radiographic follow-up to ensure resolution is recommended. Completed 7day course of Unasyn Aspiration precautions Chronic hypotension IV fluids as needed Monitoring blood pressure (2) Sacral decubitus ulcer, stage II: Plan: chronic continue to reposition (3) Urinary retention: Plan: Resolved Monitor (4) Underweight: Plan: on PEG tube feeds and full liquid. Nutrition consulted Increased caloric-Tube feeds (5) Depression: Plan: chronic, appears stable. Restarted home sertraline Continues on trazodone qHS. (6) Ambulatory dysfunction: Plan: Bedbound, awaiting placement. (7) Constipation: Plan: Feeding by G-Tube Drug Abuse Social Worker consulted, started bolus feeding Continue tube feeds bowel regimen as needed Continue wound care at G-tube site (8) DVT prophylaxis: Plan: Lovenox SQ Code Status DNR/DNI Disposition Awaiting placement. Admission and Anticipated Discharge Date Admission Date: April 30, 2022 Subjective Patient is seen and examined at bedside No new complaints Denies any chest pain, shortness of breath, dizziness, nausea, abdominal pain Review of Systems Review of Systems: All systems reviewed & are unremarkable except as noted in Subjective Physical Exam Physical Exam: Physical Exam: Vitals signs as noted above General Appearance: Thin, frail, ill-appearing, + chorea movements Head: normocephalic, Atraumatic Eyes: normal inspection, EOMI Neck: supple, Trachea midline Respiratory/Chest: Normal breath sounds, CTA, No accessory muscle use Cardiovascular: S1, S2, No murmur Abdomen/GI:Soft, Non tender, Bowel sounds present Extremities/Musculoskeletal:normal inspection, no edema Neurologic/Psych:AAOX3, grossly no focal neurological deficits Skin: normal color, warm Results & Data Results & Data ([facility]) Vital Signs (Past 12 Hours) Vital Signs Temp Pulse Resp BP Pulse Ox O2 Del Method 08/09/22 14:31 36.6 C 83 18 118/76 93 Room Air 08/09/22 09:09 37.1 C 78 18 101/64 95 Room Air
[2022-08-09] MEDS: PANTOprazole 40 MG TAB PO SCH (21:28)
[2022-08-09] MEDS: traZODone HCL 50 MG TAB PO SCH (21:28)
[2022-08-09] MEDS: ENOXAPARIN INJ 40 MG/0.4 ML SYR SQ SCH (21:29)
[2022-08-10] MEDS: LORazepam 0.5 MG TAB PO SCH ×4 (00:47→19:17)
[2022-08-10] MEDS: PEPTAMEN 1.5 CAL 1,000 ML BAG PEG SCH ×6 (05:36→21:01)
[2022-08-10] MEDS: TUBE FEEDING WATER FLUSH GT SCH ×6 (06:00→21:01)
[2022-08-10] MEDS: SERTRALINE HCL 50 MG TABLET PEG SCH (09:02)
[2022-08-10] MEDS: AUSTEDO 12 MG PO SCH ×2 (09:02→20:59)
[2022-08-10] MEDS: EUCERIN CR 120 GM JAR EXT SCH ×2 (09:03→21:00)
--- NOTE | 2022-08-10 16:48 | Hospitalist Progress Note ---
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 Ambulatory dysfunction Frequent falls Patient's family no longer able to care patient Continue Deutetrabenazine (Austedo) at max dose 24 mg bid, Ativan given scheduled. Hold Ativan for excessive sedation, currently being given on a scheduled basis Dr. Rodriguez - wale's neurologist at [facility] Fall precautions Waiting for placement Clinically stable for discharge Possible Aspiration Pneumonitis CXR - Possible right midlung opacity. Pneumonia cannot be excluded. Radiographic follow-up to ensure resolution is recommended. Completed 7day course of Unasyn Aspiration precautions Chronic hypotension IV fluids as needed Monitoring blood pressure (2) Sacral decubitus ulcer, stage II: Plan: chronic continue to reposition (3) Urinary retention: Plan: Resolved Monitor (4) Underweight: Plan: on PEG tube feeds and full liquid. Nutrition consulted Increased caloric-Tube feeds (5) Depression: Plan: chronic, appears stable. Restarted home sertraline Continues on trazodone qHS. (6) Ambulatory dysfunction: Plan: Bedbound, awaiting placement. (7) Constipation: Plan: Feeding by G-Tube Central Services Tech consulted, started bolus feeding Continue tube feeds bowel regimen as needed Continue wound care at G-tube site (8) DVT prophylaxis: Plan: Lovenox SQ Code Status DNR/DNI Disposition Awaiting placement. Admission and Anticipated Discharge Date Admission Date: April 30, 2022 Subjective Patient is seen and examined at bedside Denies any chest pain, shortness of breath, dizziness, nausea, abdominal pain No significant change from yesterday Waiting for placement Review of Systems Review of Systems: All systems reviewed & are unremarkable except as noted in Subjective Physical Exam Physical Exam: Physical Exam: Vitals signs as noted above General Appearance: Thin, frail, ill-appearing, + chorea movements Head: normocephalic, Atraumatic Eyes: normal inspection, EOMI Neck: supple, Trachea midline Respiratory/Chest: Normal breath sounds, CTA, No accessory muscle use Cardiovascular: S1, S2, No murmur Abdomen/GI:Soft, Non tender, Bowel sounds present Extremities/Musculoskeletal:normal inspection, no edema Neurologic/Psych:AAOX3, grossly no focal neurological deficits Skin: normal color, warm Results & Data Results & Data ([facility]) Vital Signs (Past 12 Hours) Vital Signs Temp Pulse Resp BP Pulse Ox O2 Del Method 08/10/22 14:59 36.7 C 69 16 99/64 L 95 Room Air 08/10/22 07:46 36.5 C 74 16 87/55 L 95 Room Air
[2022-08-10] MEDS: ENOXAPARIN INJ 40 MG/0.4 ML SYR SQ SCH (20:59)
[2022-08-10] MEDS: traZODone HCL 50 MG TAB PO SCH (21:00)
[2022-08-10] MEDS: PANTOprazole 40 MG TAB PO SCH (21:00)
[2022-08-11] MEDS: LORazepam 0.5 MG TAB PO SCH ×4 (00:41→19:36)
[2022-08-11] MEDS: PEPTAMEN 1.5 CAL 1,000 ML BAG PEG SCH ×6 (06:00→21:31)
[2022-08-11] MEDS: TUBE FEEDING WATER FLUSH GT SCH ×6 (06:01→21:31)
[2022-08-11] MEDS: EUCERIN CR 120 GM JAR EXT SCH ×2 (08:07→19:33)
[2022-08-11] MEDS: SERTRALINE HCL 50 MG TABLET PEG SCH (08:07)
[2022-08-11] MEDS: AUSTEDO 12 MG PO SCH ×2 (08:08→19:33)
--- NOTE | 2022-08-11 17:33 | Hospitalist Progress Note ---
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 Ambulatory dysfunction Frequent falls Patient's family no longer able to care patient Continue Deutetrabenazine (Austedo) at max dose 24 mg bid, Ativan given scheduled. Hold Ativan for excessive sedation, currently being given on a scheduled basis Dr. Rodriguez - wale's neurologist at [facility] Fall precautions Waiting for placement Possible Aspiration Pneumonitis CXR - Possible right midlung opacity. Pneumonia cannot be excluded. Radiographic follow-up to ensure resolution is recommended. Completed 7day course of Unasyn Aspiration precautions Chronic hypotension IV fluids as needed Monitoring blood pressure (2) Sacral decubitus ulcer, stage II: Plan: chronic continue to reposition (3) Urinary retention: Plan: Resolved Monitor (4) Underweight: Plan: on PEG tube feeds and full liquid. Nutrition consulted Increased caloric-Tube feeds (5) Depression: Plan: chronic, appears stable. Restarted home sertraline Continues on trazodone qHS. (6) Ambulatory dysfunction: Plan: Bedbound, awaiting placement. (7) Constipation: Plan: Feeding by G-Tube Materials Director consulted, started bolus feeding Continue tube feeds bowel regimen as needed Continue wound care at G-tube site (8) DVT prophylaxis: Plan: Lovenox SQ Code Status DNR/DNI Disposition Awaiting placement. Admission and Anticipated Discharge Date Admission Date: April 30, 2022 Subjective Patient is seen and examined at bedside Denies any chest pain, shortness of breath, dizziness, nausea, abdominal pain Waiting for placement Review of Systems Review of Systems: All systems reviewed & are unremarkable except as noted in Subjective Physical Exam Physical Exam: Physical Exam: Vitals signs as noted above General Appearance: Thin, frail, ill-appearing, + chorea movements Head: normocephalic, Atraumatic Eyes: normal inspection, EOMI Neck: supple, Trachea midline Respiratory/Chest: Normal breath sounds, CTA, No accessory muscle use Cardiovascular: S1, S2, No murmur Abdomen/GI:Soft, Non tender, Bowel sounds present Extremities/Musculoskeletal:normal inspection, no edema Neurologic/Psych:AAOX3, grossly no focal neurological deficits Skin: normal color, warm Results & Data Results & Data ([facility]) Vital Signs (Past 12 Hours) Vital Signs Temp Pulse Resp BP Pulse Ox O2 Del Method 08/11/22 14:43 36.8 C 77 20 95/66 L 94 Room Air 08/11/22 11:15 35.1 C L 69 16 102/65 96 Room Air 08/11/22 07:42 36.5 C 65 16 97/64 L 97 Room Air
[2022-08-11] MEDS: traZODone HCL 50 MG TAB PO SCH (19:32)
[2022-08-11] MEDS: PANTOprazole 40 MG TAB PO SCH (19:32)
[2022-08-11] MEDS: ENOXAPARIN INJ 40 MG/0.4 ML SYR SQ SCH (19:33)
[2022-08-12] MEDS: LORazepam 0.5 MG TAB PO SCH ×4 (05:13→19:32)
[2022-08-12] MEDS: PEPTAMEN 1.5 CAL 1,000 ML BAG PEG SCH ×6 (05:40→19:31)
[2022-08-12] MEDS: TUBE FEEDING WATER FLUSH GT SCH ×6 (05:40→19:31)
[2022-08-12] MEDS: AUSTEDO 12 MG PO SCH ×2 (08:35→19:31)
[2022-08-12] MEDS: EUCERIN CR 120 GM JAR EXT SCH ×2 (08:35→19:30)
[2022-08-12] MEDS: SERTRALINE HCL 50 MG TABLET PEG SCH (08:35)
--- NOTE | 2022-08-12 09:37 | Hospitalist Progress Note ---
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 Ambulatory dysfunction Frequent falls Patient's family no longer able to care patient Continue Deutetrabenazine (Austedo) at max dose 24 mg bid, Ativan given scheduled. Hold Ativan for excessive sedation, currently being given on a scheduled basis Dr. Rodriguez - wale's neurologist at [facility] Fall precautions Waiting for placement Possible Aspiration Pneumonitis CXR - Possible right midlung opacity. Pneumonia cannot be excluded. Radiographic follow-up to ensure resolution is recommended. Completed 7day course of Unasyn Aspiration precautions Chronic hypotension IV fluids as needed Monitoring blood pressure (2) Sacral decubitus ulcer, stage II: Plan: chronic continue to reposition (3) Urinary retention: Plan: Resolved Monitor (4) Underweight: Plan: on PEG tube feeds and full liquid. Nutrition consulted Increased caloric-Tube feeds (5) Depression: Plan: chronic, appears stable. Restarted home sertraline Continues on trazodone qHS. (6) Ambulatory dysfunction: Plan: Bedbound, awaiting placement. (7) Constipation: Plan: Feeding by G-Tube Lining Layer consulted, started bolus feeding Continue tube feeds bowel regimen as needed Continue wound care at G-tube site (8) DVT prophylaxis: Plan: Lovenox SQ Code Status DNR/DNI Disposition Awaiting placement. Admission and Anticipated Discharge Date Admission Date: April 30, 2022 Subjective Patient is seen in follow-up of [place]'s chorea No new complaints Denies any chest pain, dyspnea, nausea, abd pain Waiting for placement Review of Systems Review of Systems: All systems reviewed & are unremarkable except as noted in Subjective Physical Exam Physical Exam: General Appearance: Thin, frail, ill-appearing, + chorea movements Head: normocephalic, Atraumatic Eyes: normal inspection, EOMI Neck: supple Respiratory/Chest: Normal breath sounds, CTA, No accessory muscle use Cardiovascular: S1, S2, No murmur Abdomen/GI:Soft, Non tender, Bowel sounds present Extremities/Musculoskeletal:normal inspection, no edema Neurologic/Psych:AAOX3, + chorea movements Skin: normal color, warm Results & Data Results & Data ([facility]) Vital Signs (Past 12 Hours) Vital Signs Temp Pulse Resp BP Pulse Ox O2 Del Method 08/12/22 07:43 36.4 C L 61 16 95/59 L 99 Room Air Medications Administered Current Inpatient Medications Deutetrabenazine (Austedo 12 Mg Tablet) 2 each PO BID ESTELA Stop: 09/13/22 10:59 Last Admin: 08/12/22 08:35 Dose: 2 each Enoxaparin Sodium (Enoxaparin Inj 40 Mg/0.4 Ml Syr) 40 mg SQ Q24H ESTELA Stop: 08/17/22 20:59 Last Admin: 08/11/22 19:33 Dose: 40 mg Enteral Nutritional Formula (Peptamen 1.5 Erich 1,000 Ml Bag) 240 ml PEG TID@0600,0900,1200 ESTELA; Protocol Stop: 09/02/22 11:59 Last Admin: 08/12/22 08:35 Dose: 240 ml Enteral Nutritional Formula (Peptamen 1.5 Erich 1,000 Ml Bag) 240 ml PEG TID@1500,1800,2100 ESTELA; Protocol Stop: 09/02/22 14:59 Last Admin: 08/11/22 21:31 Dose: 240 ml Lorazepam (Lorazepam 0.5 Mg Tab) 0.5 mg PO Q6H ESTELA Stop: 09/06/22 19:29 Last Admin: 08/12/22 08:35 Dose: 0.5 mg Multi-Ingredient Cream (Eucerin Cr 120 Gm Jar) 1 appln EXT BID ESTELA Stop: 09/04/22 20:59 Last Admin: 08/12/22 08:35 Dose: 1 appln Ondansetron HCl (Ondansetron 4 Mg Od Tab) 4 mg PO Q6H PRN PRN Reason: Nausea Stop: 08/14/22 10:25 Last Admin: 07/15/22 10:45 Dose: 4 mg Pantoprazole Sodium (Pantoprazole 40 Mg Tab) 40 mg PO HS ESTELA Stop: 08/17/22 20:59 Last Admin: 08/11/22 19:32 Dose: 40 mg Sertraline HCl (Sertraline Hcl 50 Mg Tablet) 25 mg PEG QAM ESTELA Stop: 08/24/22 08:59 Last Admin: 08/12/22 08:35 Dose: 25 mg Sterile Water (Tube Feeding Water Flush) 30 ml GT Q3HWA ESTELA Stop: 09/02/22 11:59 Last Admin: 08/12/22 05:40 Dose: 30 ml Trazodone HCl (Trazodone Hcl 50 Mg Tab) 50 mg PO HS ESTELA Stop: 08/17/22 20:59 Last Admin: 08/11/22 19:32 Dose: 50 mg
[2022-08-12] MEDS: PANTOprazole 40 MG TAB PO SCH (19:31)
[2022-08-12] MEDS: ENOXAPARIN INJ 40 MG/0.4 ML SYR SQ SCH (19:31)
[2022-08-12] MEDS: traZODone HCL 50 MG TAB PO SCH (19:31)
[2022-08-13] MEDS: LORazepam 0.5 MG TAB PO SCH ×4 (01:02→20:36)
[2022-08-13] MEDS: PEPTAMEN 1.5 CAL 1,000 ML BAG PEG SCH ×6 (05:22→20:37)
[2022-08-13] MEDS: TUBE FEEDING WATER FLUSH GT SCH ×6 (05:22→20:36)
[2022-08-13] MEDS: AUSTEDO 12 MG PO SCH ×2 (09:22→20:36)
[2022-08-13] MEDS: EUCERIN CR 120 GM JAR EXT SCH ×2 (09:23→20:36)
[2022-08-13] MEDS: SERTRALINE HCL 50 MG TABLET PEG SCH (09:24)
--- NOTE | 2022-08-13 11:41 | Hospitalist Progress Note ---
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 Ambulatory dysfunction Frequent falls Patient's family no longer able to care patient Continue Deutetrabenazine (Austedo) at max dose 24 mg bid, Ativan given scheduled. Hold Ativan for excessive sedation, currently being given on a scheduled basis Dr. Rodriguez - wale's neurologist at [facility] Fall precautions Waiting for placement Possible Aspiration Pneumonitis CXR - Possible right midlung opacity. Pneumonia cannot be excluded. Radiographic follow-up to ensure resolution is recommended. Completed 7day course of Unasyn Aspiration precautions Chronic hypotension IV fluids as needed Monitoring blood pressure (2) Sacral decubitus ulcer, stage II: Plan: chronic continue to reposition (3) Urinary retention: Plan: Resolved Monitor (4) Underweight: Plan: on PEG tube feeds and full liquid. Nutrition consulted Increased caloric-Tube feeds (5) Depression: Plan: chronic, appears stable. Restarted home sertraline Continues on trazodone qHS. (6) Ambulatory dysfunction: Plan: Bedbound, awaiting placement. (7) Constipation: Plan: Feeding by G-Tube Farmworker Fur consulted, started bolus feeding Continue tube feeds bowel regimen as needed Continue wound care at G-tube site (8) DVT prophylaxis: Plan: Lovenox SQ Code Status DNR/DNI Disposition Awaiting placement. Admission and Anticipated Discharge Date Admission Date: April 30, 2022 Subjective Patient is seen in follow-up of [place]'s chorea No new complaints Denies any chest pain, dyspnea, nausea, abd pain Waiting for placement Review of Systems Review of Systems: All systems reviewed & are unremarkable except as noted in Subjective Physical Exam Physical Exam: General Appearance: Thin, frail, ill-appearing, + chorea movements Head: normocephalic, Atraumatic Eyes: normal inspection, EOMI Neck: supple Respiratory/Chest: Normal breath sounds, CTA, No accessory muscle use Cardiovascular: S1, S2, No murmur Abdomen/GI:Soft, Non tender, Bowel sounds present Extremities/Musculoskeletal:normal inspection, no edema Neurologic/Psych:AAOX3, + chorea movements Skin: normal color, warm Results & Data Results & Data ([facility]) Medications Administered Current Inpatient Medications Deutetrabenazine (Austedo 12 Mg Tablet) 2 each PO BID ESTELA Stop: 09/13/22 10:59 Last Admin: 08/13/22 09:22 Dose: 2 each Enoxaparin Sodium (Enoxaparin Inj 40 Mg/0.4 Ml Syr) 40 mg SQ Q24H ESTELA Stop: 08/17/22 20:59 Last Admin: 08/12/22 19:31 Dose: 40 mg Enteral Nutritional Formula (Peptamen 1.5 Erich 1,000 Ml Bag) 240 ml PEG TID@0600,0900,1200 ESTELA; Protocol Stop: 09/02/22 11:59 Last Admin: 08/13/22 09:27 Dose: 240 ml Enteral Nutritional Formula (Peptamen 1.5 Erich 1,000 Ml Bag) 240 ml PEG TID@1500,1800,2100 ESTELA; Protocol Stop: 09/02/22 14:59 Last Admin: 08/12/22 19:31 Dose: 240 ml Lorazepam (Lorazepam 0.5 Mg Tab) 0.5 mg PO Q6H ESTELA Stop: 09/06/22 19:29 Last Admin: 08/13/22 09:22 Dose: 0.5 mg Multi-Ingredient Cream (Eucerin Cr 120 Gm Jar) 1 appln EXT BID ESTELA Stop: 09/04/22 20:59 Last Admin: 08/13/22 09:23 Dose: 1 appln Ondansetron HCl (Ondansetron 4 Mg Od Tab) 4 mg PO Q6H PRN PRN Reason: Nausea Stop: 08/14/22 10:25 Last Admin: 07/15/22 10:45 Dose: 4 mg Pantoprazole Sodium (Pantoprazole 40 Mg Tab) 40 mg PO HS ESTELA Stop: 08/17/22 20:59 Last Admin: 08/12/22 19:31 Dose: 40 mg Sertraline HCl (Sertraline Hcl 50 Mg Tablet) 25 mg PEG QAM ESTELA Stop: 08/24/22 08:59 Last Admin: 08/13/22 09:24 Dose: 25 mg Sterile Water (Tube Feeding Water Flush) 30 ml GT Q3HWA [facility] Stop: 09/02/22 11:59 Last Admin: 08/13/22 09:27 Dose: 30 ml Trazodone HCl (Trazodone Hcl 50 Mg Tab) 50 mg PO HS ESTELA Stop: 08/17/22 20:59 Last Admin: 08/12/22 19:31 Dose: 50 mg
[2022-08-13] MEDS: traZODone HCL 50 MG TAB PO SCH (20:36)
[2022-08-13] MEDS: ENOXAPARIN INJ 40 MG/0.4 ML SYR SQ SCH (20:36)
[2022-08-13] MEDS: PANTOprazole 40 MG TAB PO SCH (20:36)
[2022-08-14] MEDS: LORazepam 0.5 MG TAB PO SCH ×4 (02:04→18:32)
[2022-08-14] MEDS: PEPTAMEN 1.5 CAL 1,000 ML BAG PEG SCH ×6 (06:15→21:58)
[2022-08-14] MEDS: TUBE FEEDING WATER FLUSH GT SCH ×6 (06:15→22:00)
--- NOTE | 2022-08-14 07:33 | Hospitalist Progress Note ---
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 Ambulatory dysfunction Frequent falls Patient's family no longer able to care patient Continue Deutetrabenazine (Austedo) at max dose 24 mg bid, Ativan given scheduled. Hold Ativan for excessive sedation, currently being given on a scheduled basis Dr. Rodriguez - wale's neurologist at [facility] Fall precautions Waiting for placement Possible Aspiration Pneumonitis CXR - Possible right midlung opacity. Pneumonia cannot be excluded. Radiographic follow-up to ensure resolution is recommended. Completed 7day course of Unasyn Aspiration precautions Chronic hypotension IV fluids as needed Monitoring blood pressure (2) Sacral decubitus ulcer, stage II: Plan: chronic continue to reposition (3) Urinary retention: Plan: Resolved Monitor (4) Underweight: Plan: on PEG tube feeds and full liquid. Nutrition consulted Increased caloric-Tube feeds (5) Depression: Plan: chronic, appears stable. Restarted home sertraline Continues on trazodone qHS. (6) Ambulatory dysfunction: Plan: Bedbound, awaiting placement. (7) Constipation: Plan: Feeding by G-Tube Biofuels Engineering Manager consulted, started bolus feeding Continue tube feeds bowel regimen as needed Continue wound care at G-tube site (8) DVT prophylaxis: Plan: Lovenox SQ Code Status DNR/DNI Disposition Awaiting placement. Admission and Anticipated Discharge Date Admission Date: April 30, 2022 Subjective Patient is seen in follow-up of [place]'s chorea No new complaints Denies any chest pain, dyspnea, nausea, abd pain Waiting for placement Review of Systems Review of Systems: All systems reviewed & are unremarkable except as noted in Subjective Physical Exam Physical Exam: General Appearance: Thin, frail, ill-appearing, + chorea movements Head: normocephalic, Atraumatic Eyes: normal inspection, EOMI Neck: supple Respiratory/Chest: Normal breath sounds, CTA, No accessory muscle use Cardiovascular: S1, S2, No murmur Abdomen/GI:Soft, Non tender, Bowel sounds present Extremities/Musculoskeletal:normal inspection, no edema Neurologic/Psych:AAOX3, + chorea movements Skin: normal color, warm Results & Data Results & Data ([facility]) Vital Signs (Past 12 Hours) Vital Signs Temp Pulse Resp BP Pulse Ox O2 Del Method 08/14/22 07:10 36.6 C 75 16 93/48 L 95 Room Air 08/13/22 22:35 36.4 C L 71 18 94/65 L 94 Room Air Medications Administered Current Inpatient Medications Deutetrabenazine (Austedo 12 Mg Tablet) 2 each PO BID [facility] Stop: 09/13/22 10:59 Last Admin: 08/13/22 20:36 Dose: 2 each Enoxaparin Sodium (Enoxaparin Inj 40 Mg/0.4 Ml Syr) 40 mg SQ Q24H [facility] Stop: 08/17/22 20:59 Last Admin: 08/13/22 20:36 Dose: 40 mg Enteral Nutritional Formula (Peptamen 1.5 Erich 1,000 Ml Bag) 240 ml PEG TID@0600,0900,1200 ESTELA; Protocol Stop: 09/02/22 11:59 Last Admin: 08/14/22 06:15 Dose: 240 ml Enteral Nutritional Formula (Peptamen 1.5 Erich 1,000 Ml Bag) 240 ml PEG TID@1500,1800,2100 ESTELA; Protocol Stop: 09/02/22 14:59 Last Admin: 08/13/22 20:37 Dose: 240 ml Lorazepam (Lorazepam 0.5 Mg Tab) 0.5 mg PO Q6H [facility] Stop: 09/06/22 19:29 Last Admin: 08/14/22 02:04 Dose: 0.5 mg Multi-Ingredient Cream (Eucerin Cr 120 Gm Jar) 1 appln EXT BID [facility] Stop: 09/04/22 20:59 Last Admin: 08/13/22 20:36 Dose: 1 appln Ondansetron HCl (Ondansetron 4 Mg Od Tab) 4 mg PO Q6H PRN PRN Reason: Nausea Stop: 08/14/22 10:25 Last Admin: 07/15/22 10:45 Dose: 4 mg Pantoprazole Sodium (Pantoprazole 40 Mg Tab) 40 mg PO HS [facility] Stop: 08/17/22 20:59 Last Admin: 08/13/22 20:36 Dose: 40 mg Sertraline HCl (Sertraline Hcl 50 Mg Tablet) 25 mg PEG QAM [facility] Stop: 08/24/22 08:59 Last Admin: 08/13/22 09:24 Dose: 25 mg Sterile Water (Tube Feeding Water Flush) 30 ml GT Q3HWA [facility] Stop: 09/02/22 11:59 Last Admin: 08/14/22 06:15 Dose: 30 ml Trazodone HCl (Trazodone Hcl 50 Mg Tab) 50 mg PO HS [facility] Stop: 08/17/22 20:59 Last Admin: 08/13/22 20:36 Dose: 50 mg
[2022-08-14] MEDS: SERTRALINE HCL 50 MG TABLET PEG SCH (08:26)
[2022-08-14] MEDS: AUSTEDO 12 MG PO SCH ×2 (08:26→22:00)
[2022-08-14] MEDS: EUCERIN CR 120 GM JAR EXT SCH ×2 (08:26→21:59)
[2022-08-14] MEDS: ENOXAPARIN INJ 40 MG/0.4 ML SYR SQ SCH (21:59)
[2022-08-14] MEDS: traZODone HCL 50 MG TAB PO SCH (22:00)
[2022-08-14] MEDS: PANTOprazole 40 MG TAB PO SCH (22:01)
[2022-08-15] MEDS: LORazepam 0.5 MG TAB PO SCH ×4 (01:33→18:31)
[2022-08-15] MEDS: TUBE FEEDING WATER FLUSH GT SCH ×6 (06:08→21:30)
[2022-08-15] MEDS: PEPTAMEN 1.5 CAL 1,000 ML BAG PEG SCH ×6 (06:08→21:28)
--- NOTE | 2022-08-15 07:32 | Hospitalist Progress Note ---
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 Ambulatory dysfunction Frequent falls Patient's family no longer able to care patient Continue Deutetrabenazine (Austedo) at max dose 24 mg bid, Ativan given scheduled. Hold Ativan for excessive sedation, currently being given on a scheduled basis Dr. Rodriguez - wale's neurologist at [facility] Fall precautions Waiting for placement Possible Aspiration Pneumonitis CXR - Possible right midlung opacity. Pneumonia cannot be excluded. Radiographic follow-up to ensure resolution is recommended. Completed 7day course of Unasyn Aspiration precautions Chronic hypotension IV fluids as needed Monitoring blood pressure (2) Sacral decubitus ulcer, stage II: Plan: chronic continue to reposition (3) Urinary retention: Plan: Resolved Monitor (4) Underweight: Plan: on PEG tube feeds and full liquid. Nutrition consulted Increased caloric-Tube feeds (5) Depression: Plan: chronic, appears stable. Restarted home sertraline Continues on trazodone qHS. (6) Ambulatory dysfunction: Plan: Bedbound, awaiting placement. (7) Constipation: Plan: Feeding by G-Tube Software Applications Specialist consulted, started bolus feeding Continue tube feeds bowel regimen as needed Continue wound care at G-tube site (8) DVT prophylaxis: Plan: Lovenox SQ Code Status DNR/DNI Disposition Awaiting placement. Admission and Anticipated Discharge Date Admission Date: April 30, 2022 Subjective Patient is seen in follow-up of Poll[place]'s chorea No new complaints Denies any chest pain, dyspnea, nausea, abd pain Waiting for placement Review of Systems Review of Systems: All systems reviewed & are unremarkable except as noted in Subjective Physical Exam Physical Exam: General Appearance: Thin, frail, ill-appearing, + chorea movements Head: normocephalic, Atraumatic Eyes: normal inspection, EOMI Neck: supple Respiratory/Chest: Normal breath sounds, CTA, No accessory muscle use Cardiovascular: S1, S2, No murmur Abdomen/GI:Soft, Non tender, Bowel sounds present Extremities/Musculoskeletal:normal inspection, no edema Neurologic/Psych:AAOX3, + chorea movements Skin: normal color, warm Results & Data Results & Data ([facility]) Vital Signs (Past 12 Hours) Vital Signs Temp Pulse Resp BP Pulse Ox O2 Del Method 08/14/22 21:57 36.6 C 70 18 98/62 L 96 Room Air Medications Administered Current Inpatient Medications Deutetrabenazine (Austedo 12 Mg Tablet) 2 each PO BID [facility] Stop: 09/13/22 10:59 Last Admin: 08/14/22 22:00 Dose: Not Given Enoxaparin Sodium (Enoxaparin Inj 40 Mg/0.4 Ml Syr) 40 mg SQ Q24H [facility] Stop: 08/17/22 20:59 Last Admin: 08/14/22 21:59 Dose: 40 mg Enteral Nutritional Formula (Peptamen 1.5 Erich 1,000 Ml Bag) 240 ml PEG TID@0600,0900,1200 ESTELA; Protocol Stop: 09/02/22 11:59 Last Admin: 08/15/22 06:08 Dose: 240 ml Enteral Nutritional Formula (Peptamen 1.5 Erich 1,000 Ml Bag) 240 ml PEG TID@1500,1800,2100 ESTELA; Protocol Stop: 09/02/22 14:59 Last Admin: 08/14/22 21:58 Dose: 240 ml Lorazepam (Lorazepam 0.5 Mg Tab) 0.5 mg PO Q6H [facility] Stop: 09/06/22 19:29 Last Admin: 08/15/22 01:33 Dose: 0.5 mg Multi-Ingredient Cream (Eucerin Cr 120 Gm Jar) 1 appln EXT BID [facility] Stop: 09/04/22 20:59 Last Admin: 08/14/22 21:59 Dose: 1 appln Pantoprazole Sodium (Pantoprazole 40 Mg Tab) 40 mg PO HS [facility] Stop: 08/17/22 20:59 Last Admin: 08/14/22 22:01 Dose: 40 mg Sertraline HCl (Sertraline Hcl 50 Mg Tablet) 25 mg PEG QAM [facility] Stop: 08/24/22 08:59 Last Admin: 08/14/22 08:26 Dose: 25 mg Sterile Water (Tube Feeding Water Flush) 30 ml GT Q3HWA [facility] Stop: 09/02/22 11:59 Last Admin: 08/15/22 06:08 Dose: 30 ml Trazodone HCl (Trazodone Hcl 50 Mg Tab) 50 mg PO HS [facility] Stop: 08/17/22 20:59 Last Admin: 08/14/22 22:00 Dose: 50 mg
[2022-08-15] MEDS: EUCERIN CR 120 GM JAR EXT SCH ×2 (08:12→21:30)
[2022-08-15] MEDS: AUSTEDO 12 MG PO SCH ×2 (08:12→21:29)
[2022-08-15] MEDS: SERTRALINE HCL 50 MG TABLET PEG SCH (08:13)
[2022-08-15] MEDS: ENOXAPARIN INJ 40 MG/0.4 ML SYR SQ SCH (21:29)
[2022-08-15] MEDS: traZODone HCL 50 MG TAB PO SCH (21:29)
[2022-08-15] MEDS: PANTOprazole 40 MG TAB PO SCH (21:29)
[2022-08-16] MEDS: LORazepam 0.5 MG TAB PO SCH ×4 (03:34→18:24)
[2022-08-16] MEDS: TUBE FEEDING WATER FLUSH GT SCH ×6 (05:56→22:39)
[2022-08-16] MEDS: PEPTAMEN 1.5 CAL 1,000 ML BAG PEG SCH ×6 (05:56→22:39)
[2022-08-16] MEDS: EUCERIN CR 120 GM JAR EXT SCH ×2 (08:20→21:59)
[2022-08-16] MEDS: SERTRALINE HCL 50 MG TABLET PEG SCH (08:20)
[2022-08-16] MEDS: AUSTEDO 12 MG PO SCH ×2 (08:20→21:59)
--- NOTE | 2022-08-16 08:26 | Hospitalist Progress Note ---
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 Ambulatory dysfunction Frequent falls Patient's family no longer able to care patient Continue Deutetrabenazine (Austedo) at max dose 24 mg bid, Ativan given scheduled. Hold Ativan for excessive sedation, currently being given on a scheduled basis Dr. Rodriguez - wale's neurologist at [facility] Fall precautions Waiting for placement Possible Aspiration Pneumonitis CXR - Possible right midlung opacity. Pneumonia cannot be excluded. Radiographic follow-up to ensure resolution is recommended. Completed 7day course of Unasyn Aspiration precautions Chronic hypotension IV fluids as needed Monitoring blood pressure (2) Sacral decubitus ulcer, stage II: Plan: chronic continue to reposition (3) Urinary retention: Plan: Resolved Monitor (4) Underweight: Plan: on PEG tube feeds and full liquid. Nutrition consulted Increased caloric-Tube feeds (5) Depression: Plan: chronic, appears stable. Restarted home sertraline Continues on trazodone qHS. (6) Ambulatory dysfunction: Plan: Bedbound, awaiting placement. (7) Constipation: Plan: Feeding by G-Tube Electronic Warfare Technical consulted, started bolus feeding Continue tube feeds bowel regimen as needed Continue wound care at G-tube site (8) DVT prophylaxis: Plan: Lovenox SQ Code Status DNR/DNI Disposition Awaiting placement. Admission and Anticipated Discharge Date Admission Date: April 30, 2022 Subjective Patient is seen in follow-up of [place]'s chorea No new complaints Denies any chest pain, dyspnea, nausea, abd pain Waiting for placement Review of Systems Review of Systems: All systems reviewed & are unremarkable except as noted in Subjective Physical Exam Physical Exam: General Appearance: Thin, frail, ill-appearing, + chorea movements Head: normocephalic, Atraumatic Eyes: normal inspection, EOMI Neck: supple Respiratory/Chest: Normal breath sounds, CTA, No accessory muscle use Cardiovascular: S1, S2, No murmur Abdomen/GI:Soft, Non tender, Bowel sounds present Extremities/Musculoskeletal:normal inspection, no edema Neurologic/Psych:AAOX3, + chorea movements Skin: normal color, warm Results & Data Results & Data ([facility]) Vital Signs (Past 12 Hours) Vital Signs Temp Pulse Resp BP Pulse Ox O2 Del Method 10/29/22 21:43 36.7 C 80 18 94/60 L 100 Room Air Medications Administered Current Inpatient Medications Deutetrabenazine (Austedo 12 Mg Tablet) 2 each PO BID [facility] Stop: 09/13/22 10:59 Last Admin: 08/16/22 08:20 Dose: 2 each Enoxaparin Sodium (Enoxaparin Inj 40 Mg/0.4 Ml Syr) 40 mg SQ Q24H [facility] Stop: 08/17/22 20:59 Last Admin: 08/15/22 21:29 Dose: 40 mg Enteral Nutritional Formula (Peptamen 1.5 Erich 1,000 Ml Bag) 240 ml PEG TID@0600,0900,1200 ESTELA; Protocol Stop: 09/02/22 11:59 Last Admin: 08/16/22 08:21 Dose: 240 ml Enteral Nutritional Formula (Peptamen 1.5 Erich 1,000 Ml Bag) 240 ml PEG TID@1500,1800,2100 ESTELA; Protocol Stop: 09/02/22 14:59 Last Admin: 08/15/22 21:28 Dose: 240 ml Lorazepam (Lorazepam 0.5 Mg Tab) 0.5 mg PO Q6H [facility] Stop: 09/06/22 19:29 Last Admin: 08/16/22 08:20 Dose: 0.5 mg Multi-Ingredient Cream (Eucerin Cr 120 Gm Jar) 1 appln EXT BID [facility] Stop: 09/04/22 20:59 Last Admin: 08/16/22 08:20 Dose: 1 appln Pantoprazole Sodium (Pantoprazole 40 Mg Tab) 40 mg PO HS [facility] Stop: 08/17/22 20:59 Last Admin: 08/15/22 21:29 Dose: 40 mg Sertraline HCl (Sertraline Hcl 50 Mg Tablet) 25 mg PEG QAM [facility] Stop: 08/24/22 08:59 Last Admin: 08/16/22 08:20 Dose: 25 mg Sterile Water (Tube Feeding Water Flush) 30 ml GT Q3HWA [facility] Stop: 09/02/22 11:59 Last Admin: 08/16/22 05:56 Dose: 30 ml Trazodone HCl (Trazodone Hcl 50 Mg Tab) 50 mg PO HS [facility] Stop: 08/17/22 20:59 Last Admin: 08/15/22 21:29 Dose: 50 mg
[2022-08-16] MEDS: ENOXAPARIN INJ 40 MG/0.4 ML SYR SQ SCH (21:59)
[2022-08-16] MEDS: PANTOprazole 40 MG TAB PO SCH (22:00)
[2022-08-16] MEDS: traZODone HCL 50 MG TAB PO SCH (22:00)
[2022-08-17] MEDS ORDERED: PROMETHAZINE HCL 12.5 MG in SODIUM CHLORIDE 0.9% 50 ML IV STA (00:23)
[2022-08-17] MEDS: LORazepam 0.5 MG TAB PO SCH ×4 (01:49→20:17)
[2022-08-17] MEDS: TUBE FEEDING WATER FLUSH GT SCH ×6 (06:31→20:52)
[2022-08-17] MEDS: PEPTAMEN 1.5 CAL 1,000 ML BAG PEG SCH ×6 (06:31→20:51)
--- NOTE | 2022-08-17 07:44 | Hospitalist Progress Note ---
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 Ambulatory dysfunction Frequent falls Patient's family no longer able to care patient Continue Deutetrabenazine (Austedo) at max dose 24 mg bid, Ativan given scheduled. Hold Ativan for excessive sedation, currently being given on a scheduled basis Dr. Rodriguez - wale's neurologist at [facility] Fall precautions Waiting for placement Possible Aspiration Pneumonitis CXR - Possible right midlung opacity. Pneumonia cannot be excluded. Radiographic follow-up to ensure resolution is recommended. Completed 7day course of Unasyn Aspiration precautions Chronic hypotension IV fluids as needed Monitoring blood pressure (2) Sacral decubitus ulcer, stage II: Plan: chronic continue to reposition (3) Urinary retention: Plan: Resolved Monitor (4) Underweight: Plan: on PEG tube feeds and full liquid. Nutrition consulted Increased caloric-Tube feeds (5) Depression: Plan: chronic, appears stable. Restarted home sertraline Continues on trazodone qHS. (6) Ambulatory dysfunction: Plan: Bedbound, awaiting placement. (7) Constipation: Plan: Feeding by G-Tube Editor Sound consulted, started bolus feeding Continue tube feeds bowel regimen as needed Continue wound care at G-tube site (8) DVT prophylaxis: Plan: Lovenox SQ Code Status DNR/DNI Disposition Awaiting placement. Admission and Anticipated Discharge Date Admission Date: April 30, 2022 Subjective Patient is seen in follow-up of Hanna's chorea No new complaints Denies any chest pain, dyspnea, nausea, abd pain Waiting for placement Review of Systems Review of Systems: All systems reviewed & are unremarkable except as noted in Subjective Physical Exam Physical Exam: General Appearance: Thin, frail, ill-appearing, + chorea movements Head: normocephalic, Atraumatic Eyes: normal inspection, EOMI Neck: supple Respiratory/Chest: Normal breath sounds, CTA, No accessory muscle use Cardiovascular: S1, S2, No murmur Abdomen/GI:Soft, Non tender, Bowel sounds present Extremities/Musculoskeletal:normal inspection, no edema Neurologic/Psych:AAOX3, + chorea movements Skin: normal color, warm Results & Data Results & Data ([facility]) Vital Signs (Past 12 Hours) Vital Signs Temp Pulse Resp BP Pulse Ox O2 Del Method 08/16/22 22:04 36.6 C 61 18 92/47 L 97 Room Air Medications Administered Current Inpatient Medications Deutetrabenazine (Austedo 12 Mg Tablet) 2 each PO BID [facility] Stop: 09/13/22 10:59 Last Admin: 08/17/22 10:11 Dose: 2 each Enoxaparin Sodium (Enoxaparin Inj 40 Mg/0.4 Ml Syr) 40 mg SQ Q24H [facility] Stop: 08/17/22 20:59 Last Admin: 08/16/22 21:59 Dose: 40 mg Enteral Nutritional Formula (Peptamen 1.5 Erich 1,000 Ml Bag) 240 ml PEG TID@0600,0900,1200 ESTELA; Protocol Stop: 09/02/22 11:59 Last Admin: 08/17/22 10:10 Dose: 240 ml Enteral Nutritional Formula (Peptamen 1.5 Erich 1,000 Ml Bag) 240 ml PEG TID@1500,1800,2100 ESTELA; Protocol Stop: 09/02/22 14:59 Last Admin: 08/16/22 22:39 Dose: 240 ml Lorazepam (Lorazepam 0.5 Mg Tab) 0.5 mg PO Q6H [facility] Stop: 09/06/22 19:29 Last Admin: 08/17/22 08:10 Dose: 0.5 mg Multi-Ingredient Cream (Eucerin Cr 120 Gm Jar) 1 appln EXT BID [facility] Stop: 09/04/22 20:59 Last Admin: 08/17/22 10:06 Dose: 1 appln Pantoprazole Sodium (Pantoprazole 40 Mg Tab) 40 mg PO HS [facility] Stop: 08/17/22 20:59 Last Admin: 08/16/22 22:00 Dose: 40 mg Sertraline HCl (Sertraline Hcl 50 Mg Tablet) 25 mg PEG QAM [facility] Stop: 08/24/22 08:59 Last Admin: 08/17/22 10:10 Dose: 25 mg Sterile Water (Tube Feeding Water Flush) 30 ml GT Q3HWA [facility] Stop: 09/02/22 11:59 Last Admin: 08/17/22 10:11 Dose: 30 ml Trazodone HCl (Trazodone Hcl 50 Mg Tab) 50 mg PO HS [facility] Stop: 08/17/22 20:59 Last Admin: 08/16/22 22:00 Dose: 50 mg
[2022-08-17] MEDS: EUCERIN CR 120 GM JAR EXT SCH ×2 (10:06→20:17)
[2022-08-17] MEDS: SERTRALINE HCL 50 MG TABLET PEG SCH (10:10)
[2022-08-17] MEDS: AUSTEDO 12 MG PO SCH ×2 (10:11→20:17)
[2022-08-17] MEDS: PANTOprazole 40 MG TAB PO SCH (21:28)
[2022-08-17] MEDS: ENOXAPARIN INJ 40 MG/0.4 ML SYR SQ SCH (21:28)
[2022-08-17] MEDS: traZODone HCL 50 MG TAB PO SCH (21:29)
[2022-08-18] MEDS: LORazepam 0.5 MG TAB PO SCH ×4 (01:10→19:51)
[2022-08-18] MEDS: PEPTAMEN 1.5 CAL 1,000 ML BAG PEG SCH ×6 (05:32→22:59)
[2022-08-18] MEDS: TUBE FEEDING WATER FLUSH GT SCH ×6 (05:32→22:59)
--- NOTE | 2022-08-18 09:00 | Hospitalist Progress Note ---
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 Ambulatory dysfunction Frequent falls Patient's family no longer able to care patient Continue Deutetrabenazine (Austedo) at max dose 24 mg bid, Ativan given scheduled. Hold Ativan for excessive sedation, currently being given on a scheduled basis Dr. Rodriguez - wale's neurologist at [facility] Fall precautions Waiting for placement Possible Aspiration Pneumonitis CXR - Possible right midlung opacity. Pneumonia cannot be excluded. Radiographic follow-up to ensure resolution is recommended. Completed 7day course of Unasyn Aspiration precautions Chronic hypotension IV fluids as needed Monitoring blood pressure (2) Sacral decubitus ulcer, stage II: Plan: chronic continue to reposition (3) Urinary retention: Plan: Resolved Monitor (4) Underweight: Plan: on PEG tube feeds and full liquid. Nutrition consulted Increased caloric-Tube feeds (5) Depression: Plan: chronic, appears stable. Restarted home sertraline Continues on trazodone qHS. (6) Ambulatory dysfunction: Plan: Bedbound, awaiting placement. (7) Constipation: Plan: Feeding by G-Tube Polymerization Engineer consulted, started bolus feeding Continue tube feeds bowel regimen as needed Continue wound care at G-tube site (8) DVT prophylaxis: Plan: Lovenox SQ Code Status DNR/DNI Disposition Awaiting placement. Admission and Anticipated Discharge Date Admission Date: April 30, 2022 Subjective Patient is seen in follow-up of [place]'s chorea No new complaints Denies any chest pain, dyspnea, nausea, abd pain Waiting for placement Review of Systems Review of Systems: All systems reviewed & are unremarkable except as noted in Subjective Physical Exam Physical Exam: General Appearance: Thin, frail, ill-appearing, + chorea movements Head: normocephalic, Atraumatic Eyes: normal inspection, EOMI Neck: supple Respiratory/Chest: Normal breath sounds, CTA, No accessory muscle use Cardiovascular: S1, S2, No murmur Abdomen/GI:Soft, Non tender, Bowel sounds present Extremities/Musculoskeletal:normal inspection, no edema Neurologic/Psych:AAOX3, + chorea movements Skin: normal color, warm Results & Data Results & Data ([facility]) Vital Signs (Past 12 Hours) Vital Signs Temp Pulse Resp BP Pulse Ox O2 Del Method 08/18/22 07:42 Room Air 08/18/22 07:39 37.0 C 72 18 91/56 L 96 Room Air 08/17/22 21:33 36.5 C 66 18 104/66 96 Room Air
[2022-08-18] MEDS: AUSTEDO 12 MG PO SCH ×2 (09:02→19:53)
[2022-08-18] MEDS: SERTRALINE HCL 50 MG TABLET PEG SCH (09:02)
[2022-08-18] MEDS: EUCERIN CR 120 GM JAR EXT SCH ×2 (09:03→19:54)
[2022-08-18] MEDS: PANTOprazole 40 MG TAB PO SCH (19:51)
[2022-08-18] MEDS: traZODone HCL 50 MG TAB PO SCH (19:52)
[2022-08-18] MEDS: ENOXAPARIN INJ 40 MG/0.4 ML SYR SQ SCH (19:53)
[2022-08-19] MEDS: LORazepam 0.5 MG TAB PO SCH ×4 (01:11→20:49)
[2022-08-19] MEDS: PEPTAMEN 1.5 CAL 1,000 ML BAG PEG SCH ×6 (06:23→20:51)
[2022-08-19] MEDS: TUBE FEEDING WATER FLUSH GT SCH ×6 (06:23→20:50)
[2022-08-19] MEDS: SERTRALINE HCL 50 MG TABLET PEG SCH (09:11)
[2022-08-19] MEDS: AUSTEDO 12 MG PO SCH ×2 (09:12→20:49)
[2022-08-19] MEDS: EUCERIN CR 120 GM JAR EXT SCH ×2 (09:12→20:50)
--- NOTE | 2022-08-19 16:01 | Hospitalist Progress Note ---
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 Ambulatory dysfunction Frequent falls Patient's family no longer able to care patient Continue Deutetrabenazine (Austedo) at max dose 24 mg bid, Ativan given scheduled. Hold Ativan for excessive sedation, currently being given on a scheduled basis Dr. Michael Mckinney pt's neurologist at [facility] Fall precautions Waiting for placement Possible Aspiration Pneumonitis CXR - Possible right midlung opacity. Pneumonia cannot be excluded. Radiographic follow-up to ensure resolution is recommended. Completed 7day course of Unasyn Aspiration precautions Chronic hypotension IV fluids as needed Monitoring blood pressure (2) Sacral decubitus ulcer, stage II: Plan: chronic continue to reposition Wound care continues daily (3) Urinary retention: Plan: Resolved Monitor (4) Underweight: Plan: on PEG tube feeds and full liquid. Nutrition consulted Increased caloric-Tube feeds Appears to have gains weight with the change Plan to switch to higher density formula when able. (5) Depression: Plan: chronic, appears stable. Restarted home sertraline Continues on trazodone qHS. (6) Ambulatory dysfunction: Plan: Bedbound, awaiting placement. (7) Constipation: Plan: Feeding by G-Tube Gift Shop Manager consulted, started bolus feeding Continue tube feeds bowel regimen as needed (8) DVT prophylaxis: Plan: Lovenox SQ Code Status DNR/DNI Disposition Awaiting placement. Rocio Evans [facility] and Anticipated Discharge Date Admission Date: April 30, 2022 Subjective Patient is seen in follow-up of Bohannon's chorea No new complaints Denies any chest pain, dyspnea, nausea, abd pain Denies any pain from wounds on sacrum or hips. Tolerating liquids well today Waiting for placement Review of Systems Review of Systems: All systems were reviewed and negative except as indicated above. Physical Exam Physical Exam: CONSTITUTIONAL: thin, vitals as above, generally well- appearing, NAD, choreiform movements constant EYES: normal conjunctivae, no scleral icterus, blepharitis has resolved. ENT: external ear and nose normal, MMM NECK: trachea midline RESPIRATORY: clear to auscultation bilaterally, no crackles, rales or wheezes, normal respiratory effort CARDIOVASCULAR: regular rate and rhythm, S1 and 2 heard without murmurs, gallops or rubs, no JVD, no peripheral edema CHEST: inspection of chest was normal GASTROINTESTINAL: soft, nontender, ND, no guarding, PEG site intact with no surrounding erythema or drainage. MUSCULOSKELETAL: strength 5/5 throughout, head is normocephalic and atraumatic, neck supple, normal palpation of chest wall without tenderness SKIN: warm and dry, stage II sacral decubitus ulcer without signs of infection or drainage. Extensor surfaces of elbows are also erythematous and irritated at contact points. NEUROLOGIC: CN 2-12 grossly intact, no sensory deficit, normal cognition, normal speech, no tremor PSYCHIATRIC: alert cooperative and oriented to person, place and time. Results & Data Results & Data ([facility]) Vital Signs (Past 12 Hours) Temp Pulse Resp BP Pulse Ox O2 Del Method 36.5 C 60 18 91/59 L 95 08/18/22 23:00 08/18/22 23:00 08/18/22 23:00 08/18/22 23:00 08/18/22 23:00 08/18/22 23:00 Medications Administered Current Inpatient Medications Deutetrabenazine (Austedo 12 Mg Tablet) 2 each PO BID [facility] Stop: 09/13/22 10:59 Last Admin: 08/19/22 09:12 Dose: 2 each Enoxaparin Sodium (Enoxaparin Inj 40 Mg/0.4 Ml Syr) 40 mg SQ Q24H [facility] Stop: 09/16/22 20:59 Last Admin: 08/18/22 19:53 Dose: 40 mg Enteral Nutritional Formula (Peptamen 1.5 Erich 1,000 Ml Bag) 240 ml PEG TID@0600,0900,1200 ESTELA; Protocol Stop: 09/02/22 11:59 Last Admin: 08/19/22 12:17 Dose: 240 ml Enteral Nutritional Formula (Peptamen 1.5 Erich 1,000 Ml Bag) 240 ml PEG TID@1500,1800,2100 ESTELA; Protocol Stop: 09/02/22 14:59 Last Admin: 08/19/22 15:44 Dose: 240 ml Lorazepam (Lorazepam 0.5 Mg Tab) 0.5 mg PO Q6H [facility] Stop: 09/06/22 19:29 Last Admin: 08/19/22 15:43 Dose: 0.5 mg Multi-Ingredient Cream (Eucerin Cr 120 Gm Jar) 1 appln EXT BID [facility] Stop: 09/04/22 20:59 Last Admin: 08/19/22 09:12 Dose: 1 appln Pantoprazole Sodium (Pantoprazole 40 Mg Tab) 40 mg PO HS [facility] Stop: 09/16/22 20:24 Last Admin: 08/18/22 19:51 Dose: 40 mg Sertraline HCl (Sertraline Hcl 50 Mg Tablet) 25 mg PEG QAM [facility] Stop: 08/24/22 08:59 Last Admin: 08/19/22 09:11 Dose: 25 mg Sterile Water (Tube Feeding Water Flush) 30 ml GT Q3HWA [facility] Stop: 09/02/22 11:59 Last Admin: 08/19/22 15:44 Dose: 30 ml Trazodone HCl (Trazodone Hcl 50 Mg Tab) 50 mg PO HS [facility] Stop: 09/16/22 20:24 Last Admin: 08/18/22 19:52 Dose: 50 mg
[2022-08-19] MEDS: PANTOprazole 40 MG TAB PO SCH (20:50)
[2022-08-19] MEDS: traZODone HCL 50 MG TAB PO SCH (20:50)
[2022-08-19] MEDS: ENOXAPARIN INJ 40 MG/0.4 ML SYR SQ SCH (20:50)
[2022-08-20] MEDS: LORazepam 0.5 MG TAB PO SCH ×2 (00:39→08:32)
[2022-08-20] MEDS: TUBE FEEDING WATER FLUSH GT SCH ×2 (05:26→08:33)
[2022-08-20] MEDS: PEPTAMEN 1.5 CAL 1,000 ML BAG PEG SCH (05:26)
[2022-08-20] MEDS: SERTRALINE HCL 50 MG TABLET PEG SCH (08:31)
[2022-08-20] MEDS: AUSTEDO 12 MG PO SCH (08:32)
[2022-08-20] MEDS: EUCERIN CR 120 GM JAR EXT SCH (08:33)
[2022-08-20] MEDS ORDERED: ONDANSETRON 4 MG OD TAB PO STA (08:41)
--- NOTE | 2022-08-20 08:52 | Discharge Summary ---
Date of Service August 20, 2022 Admission HPI Per Admitting Provider This is a 41-year-old male who has significant past medical history of [place]'s chorea and GERD who presents to ER secondary to fall prior to arrival. He is accompanied by his adopted mother who is his aunt. Unf ortunately his biological mother and sister have also succumbed to the disease. His aunt is his sole oracle programmer. Aunt is having difficulty taking care of patient due to her age and leg pain. She states due to patient's [place]'s progressing he has been having increasing frequent falls. He occasionally would ambulate with a cane but due to the chorea is unable to manage with a cane or walker. Therefore he will walk himself and is very unsteady and falls. Today he fell and hit his head but did not lose consciousness. Also of note patient recently had PEG tube placed on 04/16. He has been receiving feedings 8 times a day with [employer] up until 04/25. He was brought to ER on 04/25 secondary to fever and no bowel movement. His last bowel movement was on 04/20. Per oracle programmer she was told to stop giving tube feeding until he has a bowel movement. He has not had any nutrition since 04/25. She does occasionally try to feed him liquids, but he aspirates. He still has not had a bowel movement. She is unsure if he has had a temp as she is unable to take his temperature. She has been giving [id number] stool softeners and MiraLAX without results. Due to the Suzy's she is unable to give him a suppository. History unobtainable from patient. In ED patient remained hemodynamically stable. He did receive IV fluid as well as 1 mg of IM Ativan. Lab work notable for WBC 10.85, platelet 401, BUN 39, creatinine 0.99, calcium 10.2. His KUB was negative and gastrotomy tube was projecting over the stomach. Head and cervical spine CT were negative. Admission Exam Per Admitting Provider Constitutional: cachectic male, vitals as above, NAD, sitting up in bed with choriform movements Head: Normocephalic, Atraumatic Eyes: PERRL, conjunctivae normal, anicteric sclerae ENMT: external ear and nose normal, oropharynx normal dry membranes Neck: trachea midline, no thyromegaly normal visual inspection Respiratory: normal respiratory effort, lungs clear to auscultation, no wheeze, rales, rhonchi. Normal insp/exp effort, no accessory muscle use Cardiovascular: RRR, no murmur, no edema Vessels: no JVD or carotid bruit Chest: normal inspection of chest Abdomen: normal bowel sounds, soft, nontender, no hepatosplenomegaly , + G tube no surrounding erythema or drainage Musculoskeletal: no cyanosis or clubbing, AROM x 4, + muscle wasting in distal upper/lower ext Skin: no rashes, warm and dry normal turgor Neurologic: PERRL, EOMI, accommodation nl, no face palsy, no dysarthria CN's II-XI intact bilaterally and moves all extremities Psychiatric: alert unable to assess orientation : deferred Principal Diagnosis Suzy chorea, ambulatory dysfunction Discharge Exam Gen: Thin, Tall Male, +Chorea, NAD, A&O to self and place HEENT: Normocephalic, atraumatic, conjunctivae moist, sclerae anicteric, mucous membranes moist Lung: Clear to Auscultation bilaterally, no wheezes/rales/rhonchi Heart: Regular rate, regular rhythm, no murmurs, rubs, or gallops Abdomen: Soft, NT, ND +BS x 4, + peg tube clean and dry Extremities: +warm and dry, stage II sacral decubitus ulcer and R hip ulcer without signs of infection. No edema Skin: Warm, no rash Discharge Data Allergies Allergy/AdvReac Type Severity Reaction Status Date / Time No Known Allergies Allergy Unknown Verified 04/30/22 14:08 Consultations 04/30/22 13:51 ED Decision to Admit Stat 05/01/22 06:50 Consult Urology Routine Ordered Studies 04/30/22 11:15 CT cervical spine wo con Stat CT head/brain wo con Stat 05/01/22 20:14 CT head/brain wo con Urgent Hospital Course (1) [place] chorea: (2) Sacral decubitus ulcer, stage II: (3) Urinary retention: (4) Underweight: (5) Depression: (6) Ambulatory dysfunction: (7) Constipation: Plan This is a 41-year-old male who has significant past medical history of [place]'s chorea and GERD who presents to ER secondary to fall prior to arrival. Patient's family can no longer care for him due to more frequent falls in setting of disease progression. Will be discharged to SNF in [place] today. For [place]'s chorea, patient was continued on Austedo max dose 24 mg twice daily. Also receiving 0.5 mg Ativan every 6 hours scheduled with instruction to hold for excessive sedation. Follows with Dr. Rodriguez at [facility]. Did complete a 7-day course of Unasyn during admission for possible aspiration pneumonitis that resolved. Does have ongoing chronic hypotension and is given IV fluids as needed. Continue to monitor blood pressure. Baseline BP 90s/60s. Found to be losing weight during admission and registered dietitian increased caloric base of PEG feeds with appropriate weight gain observed. Currently receiving Peptamen 240 mL bolus 6 times daily through PEG tube although RD recommends transition to higher density formula upon discharge of 2 kcals/kg EN formula. Continue full liquid diet for pleasure fluids daily. Has stage II sacral decubitus ulcer as well as stage II ulcer on right hip. Was seen by wound care during admission with instructions provided to SNF. Recommend follow-up in wound care clinic. Depression appears stable. Continue sertraline and trazodone at bedtime upon discharge. Continue bowel regimen. Scripts provided to SNF. Patient hemodynamically stable and comfortable at time of discharge. Total Time Total Time Spent Total Time Spent (In Minutes): 65 Discharge Plan Discharge Items Patient Disposition: Transfer Assisted Fac Reason For Visit: AMBULATORY DYSFUNCTION, CONSTIPATION Discharge Diagnosis: ambulatory dysfunction, [place] chorea Activity: Resume your previous activity Non-emergency contact: Primary Care Provider Call non-emergency contact if: you have any medication questions, your symptoms worsen, your pain is not controlled and you have a fever Follow-up/Referrals: Galilea Prince MD [Primary Care Provider] - Diet: Full liquid Addtl Attending Provider Instructions: Patient was admitted for worsening [place] chorea movements, frequent falls and and need for placement Continue Deutetrabenazine (Austedo) at max dose 24 mg bid, Ativan given scheduled Hold Ativan for excessive sedation, currently being given on a scheduled basis For sacral decubitus ulcer- continue to reposition. Per wound care nurse discharge instructions: 1. Right buttock-clean with saline. Cover with Aquacel Ag and Optifoam, change q. OD and as needed 2. Placed bariatric chair cushion under patient. Continue to keep as much pressure off as possible. 3. Recommend follow-up with wound clinic for care of his sacral/buttocks ulcer Did have some weight loss during admission and nutrition consulted to increase caloric tube feeds via PEG with appropriate weight gain Currently receiving boluses of 240 mL Peptamen 1.5 6 times a day Recommend a switch to higher density formula upon discharge -RD recommends he would receive a 2 kcals/KG EN formula due to increased kcal needs and history of hyponatremia Continue full liquids - consumes a large amount of pleasure fluids daily (averaging ~2,000ml fluid daily on trays) Scripts sent to [facility]. OTHER INSTRUCTIONS: Seek medical attention if you have: * temperature above 101 * chest pain or trouble breathing * abdominal pain, nausea, vomiting * diarrhea, dark stools or bloody stools * any unanswered questions or concerns Call 911 if symptoms are severe. Please take good care of yourself. Call if you have any questions or problems. You can reach a [facility] hospitalist on duty at [facility] 24 hours a day by calling [phone]. Pending Studies at Discharge: No Stand-Alone Forms: [facility] Skilled Items Patient informed of condition?: Yes DNR: Yes Discharge Level of Care: Skilled Communicable Disease: No Discharge Prognosis: Stable Lines: None Urinary Catheter: Yes Medications and DC Order Prescriptions: New Dermacerin Cream 1 applic EXT BID Qty: 0 0RF Peptamen 1.5 0.068 gram- 1.5 kcal/mL Liquid See Rx Instructions .ROUTE .COMPLEX Qty: 6000 0RF Rx Instructions: 240ml PED boluses TID @ 0600, 0900, 1200 Peptamen 1.5 0.068 gram- 1.5 kcal/mL Liquid See Rx Instructions .ROUTE .COMPLEX Qty: 6000 0RF Rx Instructions: 240 ml PEG TID @ 1500,1800, 2100 lorazepam 0.5 mg tablet 0.5 mg feeding tube Q6H Qty: 30 0RF Continued Austedo 12 mg Tablet 24 mg PO BID docusate sodium [Colace] 100 mg Capsule 100 mg PO BID trazodone 50 mg tablet 50 mg PO HS sertraline 25 mg tablet 25 mg PO QAM omeprazole 20 mg capsule,delayed release(DR/EC) 20 mg PO HS ondansetron 4 mg tablet,disintegrating 4 mg PO Q8H PRN (Reason: nausea and vomiting) Qty: 30 0RF Discontinued benzonatate 100 mg Capsule 100 mg PO BID PRN (Reason: Cough) loratadine 10 mg Tablet 10 mg PO QAM Tube Feeding 8 oz feeding tube .8XD Discharge Orders: Discharge Order (Routine); Ordered 08/20/22 Ordered By: Marlee Aaron/Other Patient Handouts: ED [place] Disease Admission Data Admit Date/Time: 04/30/22 13:56 Attending Provider: Rocio Evans Admit Provider: Marquise Valladares Primary Care Provider: Galilea Prince Other Providers: Marquise Valladares ; [place] ; [facility], ; Paul Barone ; Abdiel Haque ; Marlee Schneider ; Lorena Osborne ; Brendan Dumont ; Helder Xie Other Interventions: Discharge Summary Assessment (RN) Last Done: 08/20/22 10:43 Supervising Physician Co-Signing Physician Notes I have seen and examined the patient and have discussed the case with the provider above. I agree with the assessment and plan as stated. My physical exam reflects a cachectic man with choreiform movements in no acute distress who was oriented and answering questions appropriately. He was in no pain and denied any symptoms. Continues on scheduled Ativan per his [place] specialist. Transferred in stable condition to receiving facility. DO Nathan
== END 2022-08-20 09:24 | DRG 56 ==
LOC: ED 10:54 → SUATTDRO 13:56 → 3E 13:56